=== PATIENT | female | born 1935 | race Caucasian/White ===

== ENCOUNTER 2019-06-06 12:11 | Outpatient (CLI) | payer MEDICARE, SELFPAY ==
--- NOTE | 2019-06-11 00:19 | WPDSIXMINUTE ---
Six Minute Walk Six Minute Walk: DOS: 06/06/2019 REQUESTING: Jovany Gotti DO REASON FOR TESTING: COPD SIX MINUTE WALK This test was conducted per ATS guidelines. The initial saturation was 92% and pulse was 79. The patient stopped for 1 min 15 seconds to rest due to left knee pain. The ending saturation was 93%. Pulse at the end of walking was 95. Distance walked was 400 feet/121.9 meters, less than expected for age. IMPRESSION: No desaturation with exertion. No need for supplemental oxygen with exertion. Belen Rosales MD
== END 2019-06-06 12:12 | disposition home or self-care (01) ==
PROVIDERS: PCP Internal Medicine; Visit Provider Internal Medicine
DX: J44.9 Chronic obstructive pulmonary disease, unspecified (principal)
CPT/HCPCS: 94618

== ENCOUNTER 2019-11-01 11:47 | Outpatient (CLI) | payer MEDICARE, SELFPAY ==
[2019-11-01 12:20] LABS: Basophils Absolute Auto 0.1 K/mm3 (0.0-0.1); Basophils Percent Auto 0.9 % (0.2-1.2); Eosinophils Absolute Auto 1.1 K/mm3 (0-0.3); Eosinophils Percent Auto 14.1 % (0-4.4); Hematocrit 43.8 % (37.0-47.0); Hemoglobin 13.8 g/dL (12.0-15.0); Immature Granulocyte Absolute 0.02 K/mm3 (0.00-0.031); Immature Granulocyte Percent A 0.3 % (0-0.5); Lymphocytes Percent Auto 20.5 % (18.3-44.2); Mean Corpuscular HGB Conc 31.5 g/dl (32-36); Mean Corpuscular Hemoglobin 28.4 pg (26-34); Mean Corpuscular Volume 90.1 fl (80-100); Monocytes Absolute Auto 0.7 K/mm3 (0.1-0.6); Monocytes Percent Auto 8.3 % (2.6-8.5); Neutrophils Absolute Auto 4.4 K/mm3 (1.3-6.7); Neutrophils Percent Auto 55.9 % (45.5-73.1); Platelet Count Result 362 k/mm3 (150-375); Red Blood Count 4.86 M/mm3 (4.2-5.4); Red Cell Distribution Width 14.8 % (11.5-14.5); White Blood Count 7.8 K/mm3 (4.5-10.0)
[2019-11-01 12:31] LABS: Alanine Aminotransferase 14 U/L (4-35); Albumin Level 3.8 g/dL (3.5-5.1); Alkaline Phosphatase 118 U/L (38-126); Aspartate Amino Transferase 24 U/L (14-36); Bilirubin,Total 0.3 mg/dL (0.2-1.3); Blood Urea Nitrogen 13 mg/dL (7-17); Calcium 9.1 mg/dL (8.4-10.2); Carbon Dioxide 33 mmol/L (22-30); Chloride 102 mmol/L (98-107); Estimated Glomerular Filt Rate > 60; Glucose 101 mg/dL (65-105); Potassium 4.2 mmol/L (3.4-5.0); Sodium 140 mmol/L (137-145)
== END 2019-11-01 11:48 | disposition home or self-care (01) ==
LOC: ANHLAB 11:49
PROVIDERS: PCP Internal Medicine; Visit Provider Internal Medicine
DX: R53.1 Weakness (principal); E86.0 Dehydration; R74.8 Abnormal levels of other serum enzymes
CPT/HCPCS: 36415; 80053; 85025

== ENCOUNTER 2020-06-25 01:36 | Inpatient (IN) | payer MEDICARE, SELFPAY ==
[2020-06-25] VITALS (22 sets, daily range): BP systolic 111–144; BP diastolic 55–85; PULSE 76–108; RESP 21–38; TEMP 35.8–36.6; O2SAT 85–100; BMI 25.9
--- NOTE | ~2020-06-25 | CT_ITS ---
EXAMINATION: CTA chest PE protocol DATE: 06/25/2020 05:14 INDICATION: Shortness of breath. TECHNIQUE: Computed tomography angiography (CTA) of the chest was performed with 100 mL Omnipaque-350 intravenous contrast timed to evaluate the pulmonary arteries. Coronal maximum intensity projection 3D-reconstructions were created by the technologist. Automated exposure control and iterative reconst ruction technique were employed. The dose-length product was 451.03 mGy-cm. COMPARISON: CT abdomen and pelvis 01/15/2017 FINDINGS: There is mild emphysema. There is mild atelectasis bilaterally, worst in right lower lobe. No pleural effusion. There is a large sliding hiatal hernia. The heart size is normal. There are garth nary artery calcifications. No pericardial effusion. There is no pulmonary embolus. Partially visuali zed is a 3.1 cm fusiform aneurysm of infrarenal aorta. There is severe thoracic and cervical spondylo sis. IMPRESSION: 1. No pulmonary embolus. Sensitivity is mildly decreased by motion artifact. 2. Mild emphysema. 3. Large sliding hiatal hernia. 4. Partially visualized 3.1 cm fusiform infrarenal aortic aneurysm. Reviewed, dictated and finalized at location A. NK PIT SUPERVISOR
--- NOTE | ~2020-06-25 | CT_ITS ---
EXAMINATION: CT brain wo con DATE: 06/25/2020 02:22 INDICATION: Altered mental status. TECHNIQUE: Computed tomography (CT) of the head was performed without intravenous contrast. The mA wa s adjusted according to patient size. Iterative reconstruction technique was employed. The dose-lengt h product was 681.00 mGy-cm. COMPARISON: Head CT 11/03/2014 FINDINGS: There is no intracranial hemorrhage, acute infarction, or abnormal intracranial mass lesion . There are scattered areas of low attenuation in the cerebral white matter, which is within normal l imits for the patient's age. The ventricles are normal in size. There are likely changes of ocular le ns replacement surgeries. There is mild mucosal thickening in the paranasal sinuses. The mastoid air cells are normal. Partially visualized is a 1.9 x 1.1 cm mass in superficial right right parotid glan d. IMPRESSION: 1. Normal aging brain. 2. 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 The differential diagnosis includes benign mixed tumor and Wa rthin tumor. Reviewed, dictated and finalized at location A. USSION TEACHER IMPRESSION: 1. Normal aging brain. 2. 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 The differential diagnosis includes dot ign mixed tumor and Warthin tumor.
--- NOTE | ~2020-06-25 | XR_ITS ---
EXAMINATION: XR chest 1V DATE: 06/25/2020 02:24 INDICATION: Cough. TECHNIQUE: A single frontal view of the chest was obtained. COMPARISON: Chest 2 views 10/11/2016, chest CT 06/25/2020 FINDINGS: There is mild atelectasis in the lower lung zones. No pleural effusion or pneumothorax. The heart size is normal. There is a large hiatal hernia. IMPRESSION: 1. Mild atelectasis in the lower lung zones. 2. Large hiatal hernia. Reviewed, dictated and finalized at location A. D MARKETING MANAGER
--- NOTE | ~2020-06-25 | XR_ITS ---
EXAMINATION: XR chest 1V portable DATE: 06/27/2020 05:31 INDICATION: Chronic obstructive pulmonary disease. TECHNIQUE: A single frontal view of the chest was obtained. COMPARISON: Chest single view 06/25/2020, chest CT 06/25/2020 FINDINGS: There is mild atelectasis in the lower lung zones. No pleural effusion or pneumothorax. The heart size is normal. There is a large hiatal hernia. IMPRESSION: 1. Mild atelectasis in the lower lung zones. 2. Large hiatal hernia. Reviewed, dictated and finalized at location A. N BARREL FILLER
--- NOTE | 2020-06-25 01:42 | ECG_ITS ---
Measurements Intervals [place] Rate: 104 P: 75 OK: 158 QRS: -18 QRSD: 90 T: 57 QT: 331 QTc: 437 Interpretive Statements SINUS TACHYCARDIA ANTEROSEPTAL INFARCT, AGE INDETERMINATE BASELINE ARTIFACT- I, III, AVR, AVL, V5 ABNORMAL ECG Electronically Signed On 06-25-2020 7:04:19 REGULATOR MECHANIC by Wayne Joiner D.O.
[2020-06-25 01:51] LABS: Glucose Point of Care 192 (65-105)
--- NOTE | 2020-06-25 02:05 | ED.AMS ---
HPI - Altered Mental Status General Chief Complaint: Altered Mental Status Stated Complaint: ams Time Seen by Provider: 06/25/20 01:42 Source: patient Mode of arrival: ambulatory Limitations: no limitations History of Present Illness HPI narrative: Patient is an 85-year-old female brought in by EMS due to altered mental status, confusion and slurred speech, unknown onset. EMS was unable to get any history from the patient, but her neighbor was able to provide some history. Neighbor told EMS that her slurred speech and confusion is something new but the last time she was seen well by her neighbors was a month ago. According to EMS her oxygen saturation when they picked her up was 74% on room air, and states that she does not appear to use home oxygen. Related Data Home Medications Medication Instructions Recorded Confirmed multivitamin 1 tablet PO DAILY 03/08/19 04/26/19 Allergies Allergy/AdvReac Type Severity Reaction Status Date / Time No Known Allergies Allergy Verified 03/13/20 12:33 Review of Systems Review of Systems: All systems reviewed & are unremarkable except as noted in HPI and below ROS unobtainable: Yes unobtainable due to mental status PMFSH Past Medical History Medical History Anxiety Arthritis Bronchitis Cataracts, bilateral Depression GERD (gastroesophageal reflux disease) H/O: HTN (hypertension) History of pneumonia HTN (hypertension) with goal to be determined Hx of hemorrhoids Hx: UTI (urinary tract infection) Stress incontinence Surgical History Surgical History History of appendectomy History of cataract surgery History of hemorrhoidectomy History of hysterectomy Family History Family History Mother Diabetes mellitus Family history of malignant neoplasm Family history of diabetes mellitus in first degree relative Patient's mother is Father Malignant neoplasm of prostate Social History Social History Social History: 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 she has one son who lives in another state. 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 Gender identity (if verbalized by the patient): Female Spiritual care concerns: No Agree to blood products: Yes Exam Const: General: healthy appearing, no acute distress and alert Nutritional Appearance: well nourished Orientation/consciousness: oriented to place Limitations: no limitations Other: Confused HENMT: Head: normal to inspection, normocephalic and atraumatic Ears: hearing grossly normal bilaterally, TM normal on the right and TM normal on the left General nose exam: Normal external nose present, Normal nares present and No nasal discharge present Face and sinus: normal facial exam Mouth: Yes Normal oral and palatal mucosa present, Yes lip normal, Yes tongue normal and Yes oropharynx normal Throat: posterior oropharynx normal, tonsils normal and uvula midline Eyes: General: appearance normal, both eyes and all related structures Pupils: Equal, round and reactive pupils present EOM: EOMs intact bilaterally Neck: Neck: normal visual inspection, full ROM, no lymphadenopathy and no meningeal signs Chest: Chest palpation & inspection: normal inspection of the chest Resp: Effort & Inspection: normal respiratory effort, able to speak in complete sentences, no respiratory distress and not tachypneic Auscultation: clear to auscultation bi
[2020-06-25 02:08] LABS: Alveolar/Arterial O2 Gradient 61.1 mmHg; Base Excess ABG 5.3 mEq/l (+/-2.0); Carboxyhemoglobin 0.4 % THb (0-2.0); Fractional Inspired Oxygen 36 %; HCO3 ABG 33.9 mEq/l (22.0-26.0); Methemoglobin ABG 0.4 %THb (0-1.5); Oxygen Content ABG 19.7 %vol (16.0-22.0); Oxygen Saturation ABG 97.8 % (95.0-100.0); Oxyhemoglobin 96.7 % THb (90.0-100.0); PO2 ABG 116.5 mmHg (80.0-100.0); PO2 FiO2 Ratio Arterial Blood 3.24 %; Reduced Hemoglobin 2.5 %THb (0-5.0); Total Hemoglobin 14.4 g/dL (12.0-18.0); pH ABG 7.314 (7.350-7.450)
[2020-06-25 02:10] LABS: Device NASAL CANNULA; Modified Allen's Test Pass; PCO2 ABG 68.2 mmHg (35.0-45.0); Site Drawn LEFT RADIAL
[2020-06-25 02:17] LABS: Basophils Absolute Auto 0.1 K/mm3 (0.0-0.1); Basophils Percent Auto 0.8 % (0.2-1.2); Eosinophils Absolute Auto 0.4 K/mm3 (0-0.3); Eosinophils Percent Auto 6.7 % (0-4.4); Hematocrit 43.9 % (37.0-47.0); Hemoglobin 13.5 g/dL (12.0-15.0); Immature Granulocyte Absolute 0.02 K/mm3 (0.00-0.031); Immature Granulocyte Percent A 0.3 % (0-0.5); Lymphocytes Absolute Auto 0.67 K/mm3 (0.9-3.2); Lymphocytes Percent Auto 10.4 % (18.3-44.2); Mean Corpuscular HGB Conc 30.8 g/dl (32-36); Mean Corpuscular Hemoglobin 28.8 pg (26-34); Mean Corpuscular Volume 93.6 fl (80-100); Mean Platelet Volume 9.5 fl (7.4-10.4); Monocytes Percent Auto 14.8 % (2.6-8.5); Neutrophils Absolute Auto 4.3 K/mm3 (1.3-6.7); Platelet Count Result 314 k/mm3 (150-375); Red Blood Count 4.69 M/mm3 (4.2-5.4); Red Cell Distribution Width 13.8 % (11.5-14.5); White Blood Count 6.4 K/mm3 (4.5-10.0)
--- NOTE | 2020-06-25 02:22 | PC.NURSE ---
Spoke with [facility]. They state that she has an research program coordinator on mondays and and usually requires minimal assistance. Pt ambulates well with her cane or walker. She was last seen by the aide on tuesday06/23/2020 from 11-1700. Rawhide Bone Roller states there is nothing in her file that indicates she was acting unusually.
[2020-06-25 02:28] LABS: Prothrombin Time 13.7 Seconds (11.1-14.7)
[2020-06-25 02:29] LABS: Partial Thromboplastin Time 25.6 SECONDS (22.3-36.8)
[2020-06-25 02:31] LABS: D Dimer 1.01 ug/mL (<0.48); Lactic Acid Reflex 1.2 mmol/L (0.7-2.1)
[2020-06-25 02:37] LABS: Alanine Aminotransferase 11 U/L (4-35); Albumin Level 3.4 g/dL (3.5-5.1); Alkaline Phosphatase 85 U/L (38-126); Aspartate Amino Transferase 20 U/L (14-36); Bilirubin,Total 0.3 mg/dL (0.2-1.3); Blood Urea Nitrogen 16 mg/dL (7-17); Calcium 8.8 mg/dL (8.4-10.2); Carbon Dioxide > 40 mmol/L (22-30); Chloride 98 mmol/L (98-107); Estimated CRCL calculation 41 ml/min; Estimated Glomerular Filt Rate > 60; Glucose 176 mg/dL (65-105); Potassium 4.4 mmol/L (3.4-5.0); Sodium 140 mmol/L (137-145)
[2020-06-25 02:42] LABS: Troponin I < 0.012 ng/mL (0.000-0.034)
[2020-06-25] MEDS: SODIUM CHLORIDE 0.9% IV 1,000 ML 999 ML IV CONT (03:26)
[2020-06-25 04:06] LABS: Add Urine Microscopic? YES; Appearance Urine Clear (Clear); Bilirubin Urine Negative (Negative); Blood Urine Negative (Negative); Color Urine Yellow (Yellow); Glucose Urine UA Negative (Negative); Ketones Urine Negative (Negative); Leukocyte Esterase Ur Negative LEU/UL (Negative); Mucus Urine Rare /lpf; Nitrate Urine Negative (Negative); Protein Urine 1+ mg/dL (Negative); RBC Urine 0-2 /hpf (0-2); Specific Grav Ur 1.024 (1.001-1.035); Squamous Epithelial Cell Urine Rare /hpf (Few); Urobilinogen Urine Negative mg/dL (<2.0); WBC Urine 0-3 /hpf
[2020-06-25] MEDS: ASPIRIN 325 MG ENTERIC TABLET PO (06:46)
--- NOTE | 2020-06-25 07:48 | PM.IMHP ---
H&P: HPI History of Present Illness Date/Time: 06/25/20 07:48 Chief Complaint: altered mental status and SOB Narrative: Monica Crawley is a 85 year old female with depression and HTN here for altered mental status and hypoxia. Patient states she has been feeling well over the past few days without symptoms. She states that last night, she pushed the Life Alert due to feeling dizzy and 'not right'. She denies CP, headache, SOB. She has no memory after this with the next she remembers is being in the hospital. She has vague memory of being in the ED. She denies anosmia or dysgeusia. No exposure to COVID that she is aware of. She has not had the vaccine. She denies chest pain or palpitations. No shortness of breath. She is unclear if she has had a cough recently. She uses a walker or cane when walking in her house. No recent falls. No history of sleep apnea. No history of seizures or strokes. She does have daytime somnolence but denies headaches in the morning. No odynophagia or dysphagia. No orthopnea or PND. No fever or chills. No recent vision changes or hearing loss. History of myocardial infarction. No recent stress test. She does have chronic diarrhea with 1-3 stools per day for the past 30 years. No melena hematochezia. No abdominal pain or back pain. No dysuria or hematuria. Weight is been stable. She has diet-controlled diabetic. Patient was brought in by EMS for altered mental status and slurred speech. Time of onset was unknown. Oxygen saturation was 74% on room air by EMS. Here patient was tachycardic and tachypneic; she was a 5% on room air. D-dimer was positive. PH was 7.31 with a pCO2 68 and PO2 116 on 4 L. Serum bicarb was greater than 40. CTA was negative for PE but did show mild emphysema. 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 BiPAP started and patient admitted for further care. Review of Systems Review of Systems: All systems reviewed & are unremarkable except as noted in HPI and below PMFSH Past Medical History Medical History (Updated 06/28/20 @ 07:49 by Jarrod Farmer MD) Anxiety Arthritis Cataracts, bilateral Chronic obstructive pulmonary disease, unspecified Depression GERD (gastroesophageal reflux disease) H/O: HTN (hypertension) History of pneumonia Hx of hemorrhoids Hx: UTI (urinary tract infection) Hyperlipidemia Multifocal atrial tachycardia Peripheral arterial disease Stress incontinence Type 2 diabetes mellitus without complication, without long-term current use of insulin not on any medication Vitamin D deficiency Surgical History Surgical History History of appendectomy History of cataract surgery History of hemorrhoidectomy History of hysterectomy Family History Family History Mother Diabetes mellitus Family history of malignant neoplasm Family history of diabetes mellitus in first degree relative Patient's mother is Father Malignant neoplasm of prostate Social History Social History (Updated 06/25/20 @ 13:34 by Jarrod Farmer MD) Social History: x3. 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 No marijuana or cocaine use for 20+ yrs. Lives alone. She has one son and she nominates him to be the individual to make medical decisions for her if she is unable. She is a full code. Smoking packs per day: 1 Smoking cigarettes per day: 20.0 Years smoked: 40 Smoking pack-years: 40.00 Smoking status: Current some day smoker Tobacco type: cigarettes Second hand tobacco smoke exposure: Yes Additional smoking assessment comments: Patient reports she currently only smokes a few cigarettes per month now Alcohol intake: never Substance use: ellie
[2020-06-25 08:30] LABS: Alveolar/Arterial O2 Gradient 100.7 mmHg; Base Excess ABG 2.7 mEq/l (+/-2.0); Carboxyhemoglobin 0.1 % THb (0-2.0); Fractional Inspired Oxygen 35 %; HCO3 ABG 30.8 mEq/l (22.0-26.0); Methemoglobin ABG 0.4 %THb (0-1.5); Oxygen Content ABG 18.4 %vol (16.0-22.0); Oxygen Saturation ABG 93.3 % (95.0-100.0); Oxyhemoglobin 93.5 % THb (90.0-100.0); PO2 ABG 74.9 mmHg (80.0-100.0); PO2 FiO2 Ratio Arterial Blood 2.14 %; pH ABG 7.303 (7.350-7.450)
[2020-06-25 08:31] LABS: Device NON-INVASIVE VENT; Modified Allen's Test Pass; Non-Invasive Expiratory Pressure 6 CMH2O; Non-Invasive Inspiratory Pressure 12 CMH2O; Non-Invasive Vent Rate 20 /MIN; PCO2 ABG 63.6 mmHg (35.0-45.0); Site Drawn RIGHT RADIAL
--- NOTE | 2020-06-25 11:53 | ADMGEN ---
This patient, Monica Crawley, was admitted to IMU Room 211-01 on 06-25-2020 at 0743. Patient/family oriented to hospital policies and general routines including ID bracelet, bed and alarms, visiting hours, pain management, procedures, bathroom and other care routines, personal items, smoking policy, room service/diet, and visiting hours. Information on how to activate the Rapid Response Team has been discussed. Patient/Family are encouraged to report perceived risks to care and to ask questions if they do not understand what they are told or what they should do.
[2020-06-25] MEDS: ALBUTEROL SULFATE (*SP) AEROSOL 1 PUFF 2 PUFF INHALATION ×2 (14:21→23:36)
[2020-06-25] MEDS: DEXAMETHASONE SOD PHOS INJ 4 MG/ML VIAL 6 MG IV PUSH (16:28)
[2020-06-25] MEDS: ENOXAPARIN 40 MG/0.4 ML SYRINGE SUB-Q (16:28)
[2020-06-25 16:30] LABS: Glucose Point of Care 153 (65-105)
[2020-06-25 17:59] LABS: SARS-CoV-2 RNA PCR Negative
[2020-06-25 20:18] LABS: Glucose Point of Care 189 (65-105)
[2020-06-25] MEDS: FAMOTIDINE 20 MG TABLET PO (21:26)
[2020-06-25] MEDS: LOSARTAN POTASSIUM 50 MG TABLET PO (21:26)
[2020-06-25] MEDS: MELATONIN 5 MG TABLET PO (23:36)
[2020-06-26] VITALS (19 sets, daily range): BP systolic 113–131; BP diastolic 48–63; PULSE 63–89; RESP 12–23; TEMP 36.3–36.4; O2SAT 93–100
--- NOTE | 2020-06-26 00:18 | PC.NURSE ---
Patient refuses bipap.
[2020-06-26] MEDS: ALBUTEROL SULFATE (*SP) AEROSOL 1 PUFF 2 PUFF INHALATION (02:30)
--- NOTE | 2020-06-26 04:18 | PCRCNOTE ---
AM ABG WAS NOT DRAWN DUE TO PT REFUSAL TO WEAR BIPAP. RN RAGINI AWARE.
[2020-06-26 05:58] LABS: Hemoglobin A1C 6.2 % (<5.7)
[2020-06-26 06:01] LABS: Blood Urea Nitrogen 14 mg/dL (7-17); Calcium 8.8 mg/dL (8.4-10.2); Carbon Dioxide > 40 mmol/L (22-30); Chloride 102 mmol/L (98-107); Estimated CRCL calculation 49 ml/min; Estimated Glomerular Filt Rate > 60; Glucose 130 mg/dL (65-105); Potassium 4.3 mmol/L (3.4-5.0); Sodium 139 mmol/L (137-145)
[2020-06-26 06:45] LABS: Thyroid Stimulating Hormone Reflex 0.683 uIU/mL (0.465-4.68)
[2020-06-26 07:01] LABS: Folic Acid 16.6 ng/mL (2.76->20)
[2020-06-26 08:25] LABS: Glucose Point of Care 106 (65-105)
[2020-06-26] MEDS: ENOXAPARIN 40 MG/0.4 ML SYRINGE SUB-Q (09:01)
[2020-06-26] MEDS: LOSARTAN POTASSIUM 50 MG TABLET PO ×2 (09:01→20:09)
[2020-06-26] MEDS: FAMOTIDINE 20 MG TABLET PO ×2 (09:01→20:09)
[2020-06-26] MEDS: DEXAMETHASONE SOD PHOS INJ 4 MG/ML VIAL 6 MG IV PUSH (09:01)
[2020-06-26 12:26] LABS: Glucose Point of Care 152 (65-105)
--- NOTE | 2020-06-26 13:01 | PM.IMPN ---
Progress Note: A&P Assessment and Plan (1) Acute respiratory failure: Code(s): J96.00 - Acute respiratory failure, unspecified whether with hypoxia or hypercapnia Status: Acute Assessment and Plan: Patient with hypoxic and hypercarbic respiratory failure. Chest x-ray showing only mild atelectasis. But does show mild emphysema. Etiology unclear but could be related to undiagnosed sleep apnea and/or COPD. Her elevated serum CO2 could be indicative of untreated ANTHONY. No significant cough and normal white count with negative imaging makes pneumonia less likely. COVID negative. Doubt CHF. Patient refused BiPAP last night. Will change to Prednisone burst. Check apnea link tonight. Watch for evidence of dysphagia. Continue inhalers. Wean O2 as tolerated. Repeat CXR in the morning. (2) Person under investigation for COVID-19: Code(s): Z20.822 - Contact with and (suspected) exposure to COVID-19 Status: Acute Assessment and Plan: COVID negative. Stop isolation (3) Altered mental status, unspecified: Qualifiers: Altered mental status type: disorientation Qualified Code(s): R41.0 - Disorientation, unspecified Code(s): R41.82 - Altered mental status, unspecified Status: Acute Assessment and Plan: CT brain showing normal aging brain but no acute findings. 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 Differential listed in report. UA negative. B12, TSH normal. Mental status much better and seems back to normal. She did have some confusion last night so consider ing. Could all be related to the respiratory failure. Start PT/OT. (4) Chronic obstructive pulmonary disease, unspecified: Code(s): J44.9 - Chronic obstructive pulmonary disease, unspecified Status: Acute Assessment and Plan: Patient has long hx of tobacco use. She had a home O2 evaluation last year showing she did not require O2. No PFTs in the chart. Treatment as above. (5) Type 2 diabetes mellitus without complication, without long-term current use of insulin: Code(s): E11.9 - Type 2 diabetes mellitus without complications Status: Acute Assessment and Plan: A1c 6.2. Patient with diet controlled DM. Glucose elevated on admission but felt to be stress response. Continue sliding scale insulin with hypoglycemia protocol. (6) Essential (primary) hypertension: Code(s): I10 - Essential (primary) hypertension Status: Acute Assessment and Plan: Blood pressure reviewed on 06/26. BP well controlled. Continue losartan. Continue to follow. (7) Tobacco abuse: Code(s): Z72.0 - Tobacco use Status: Acute Assessment and Plan: Patient was educated about the benefits of abstaining from tobacco use. (8) DVT prophylaxis: Code(s): Z29.9 - Encounter for prophylactic measures, unspecified Status: Acute Assessment and Plan: Lovenox Subjective Date/time seen: 06/26/20 13:01 Interval history: Date of service 06/26 85yo female with DM and HTN here for respiratory failure. Slept well. Did not wear BiPAP last night. No SOB. No CP. No cough. No fever/chills. Was confused last night per nursing staff Exam Narrative: Exam Narrative: AF 97.3 118/57 73 12 96% Gen - NARD Chest - right base crackles, nml RR CV - RRR. S1-S2. Tele showing no significant dysrhythmias Abd - soft, NT/ND, +BS Ext - no edema Neuro - patient is alert and oriented x4. Psych - normal mood and affect. Patient is pleasant and cooperative. Skin - warm and dry. Objective Data Vital Signs Vital Signs: Vital Signs - 24 hr 06/25/20 14:00 06/25/20 16:00 06/25/20 16:38 Temperature 97.1 F L Pulse Rate 93 82 91 Respiratory Rate 23 H Blood Pressure 127/81 Pulse Oximetry 99 06/25/20 18:00 06/25/20 19:32 06/25/20 20:00 Temperature 97.7 F
[2020-06-26 16:59] LABS: Glucose Point of Care 175 (65-105)
[2020-06-26 20:28] LABS: Glucose Point of Care 202 (65-105)
--- NOTE | 2020-06-26 23:50 | PC.NURSE ---
Patient had apnea link. Walked in patient's room and patient had device off. Patient states you are not allowed to do any studies on me. Explained apnea link to patient and patient still refuses for testing.
[2020-06-27] VITALS (9 sets, daily range): BP systolic 135–139; BP diastolic 58–65; PULSE 57–93; RESP 14–20; TEMP 35.7–37.1; O2SAT 89–99
--- NOTE | 2020-06-27 04:34 | PCRCNOTE ---
patient removed the apnea monitor after 1 hour and stated that no one has permission to do any studies on her per RN
[2020-06-27 04:59] LABS: Hematocrit 38.5 % (37.0-47.0); Hemoglobin 11.9 g/dL (12.0-15.0); Mean Corpuscular HGB Conc 30.9 g/dl (32-36); Mean Corpuscular Hemoglobin 28.7 pg (26-34); Mean Platelet Volume 9.7 fl (7.4-10.4); Platelet Count Result 315 k/mm3 (150-375); Red Blood Count 4.14 M/mm3 (4.2-5.4); Red Cell Distribution Width 13.6 % (11.5-14.5); White Blood Count 6.6 K/mm3 (4.5-10.0)
[2020-06-27 05:22] LABS: Albumin Level 2.9 g/dL (3.5-5.1); Anion Gap -3 mmol/L (8-16); Blood Urea Nitrogen 19 mg/dL (7-17); Calcium 8.5 mg/dL (8.4-10.2); Carbon Dioxide 39 mmol/L (22-30); Chloride 103 mmol/L (98-107); Estimated CRCL calculation 51 ml/min; Estimated Glomerular Filt Rate > 60; Glucose 122 mg/dL (65-105); Magnesium 2.1 mg/dL (1.6-2.3); Phosphorus 2.9 mg/dL (2.5-4.5); Potassium 4.3 mmol/L (3.4-5.0); Sodium 139 mmol/L (137-145)
[2020-06-27 08:10] LABS: Glucose Point of Care 78 (65-105)
[2020-06-27] MEDS: predniSONE 20 MG TABLET 40 MG PO (08:14)
[2020-06-27] MEDS: LOSARTAN POTASSIUM 50 MG TABLET PO ×2 (08:14→21:01)
[2020-06-27] MEDS: FAMOTIDINE 20 MG TABLET PO ×2 (08:14→21:01)
[2020-06-27] MEDS: MULTIVITAMINS THERAPEUTIC TAB (*BKC) 1 TABLET PO (08:14)
--- NOTE | 2020-06-27 11:59 | PM.IMPN ---
Progress Note: A&P Assessment and Plan (1) Acute respiratory failure: Code(s): J96.00 - Acute respiratory failure, unspecified whether with hypoxia or hypercapnia Status: Acute Assessment and Plan: Patient with hypoxic and hypercarbic respiratory failure. CTA showing mild emphysema. Etiology of her respiratory failure unclear but could be related to undiagnosed sleep apnea and/or COPD. Her elevated serum CO2 indicative of a more chronic, compensated condition indicative of untreated ANTHONY. No significant cough and normal white count with negative imaging makes pneumonia less likely. COVID negative. Doubt CHF. Patient refusing BiPAP and Apnea link. CXR today showing mild atelecatsis. Continue Prednisone 40mg daily x 5 days. Continue inhalers. Wean O2 as tolerated. Spoke with son and he states patient has always dot obstinate at times. Explained that difficult to send home without treatment given that she will get worse requiring rehospitalization. He will speak with her. (2) Altered mental status, unspecified: Qualifiers: Altered mental status type: disorientation Qualified Code(s): R41.0 - Disorientation, unspecified Code(s): R41.82 - Altered mental status, unspecified Status: Acute Assessment and Plan: CT brain showing normal aging brain but no acute findings. She does have a chronic mass in right parotid gland noted in 2015 without change. Differential listed in report. UA negative. B12, TSH normal. Mental status much better overall but seems off today. Could be related to CO2 retention. Repeat ABG. Contineu PT/OT (3) Chronic obstructive pulmonary disease, unspecified: Code(s): J44.9 - Chronic obstructive pulmonary disease, unspecified Status: Acute Assessment and Plan: Patient has long hx of tobacco use. She had a home O2 evaluation last year showing she did not require O2. No PFTs in the chart. Treatment as above. Home O2 evaluation. (4) Type 2 diabetes mellitus without complication, without long-term current use of insulin: Code(s): E11.9 - Type 2 diabetes mellitus without complications Status: Acute Assessment and Plan: A1c 6.2. Patient with diet controlled DM. Glucose reviewed on 06/27. Glucose elevated on admission but felt to be stress response. Glucose elevated at times but overall, glucose well controlled. Continue sliding scale insulin with hypoglycemia protocol. (5) Essential (primary) hypertension: Code(s): I10 - Essential (primary) hypertension Status: Acute Assessment and Plan: Blood pressure reviewed on 06/27 BP well controlled. Continue losartan. Continue to follow. (6) Tobacco abuse: Code(s): Z72.0 - Tobacco use Status: Acute Assessment and Plan: Patient was educated about the benefits of abstaining from tobacco use. (7) Person under investigation for COVID-19: Code(s): Z20.822 - Contact with and (suspected) exposure to COVID-19 Status: Acute Assessment and Plan: COVID negative. Stop isolation (8) DVT prophylaxis: Code(s): Z29.9 - Encounter for prophylactic measures, unspecified Status: Acute Assessment and Plan: Lovenox Subjective Date/time seen: 06/27/20 11:59 Interval history: Date of service 06/27 85yo female with DM and HTN here for respiratory failure. Patient slept poorly last night. She refused the Apnea Link. She did have 2 diarrheal stools today that is more severe then her usually loose stools. No abd or back pain. No CP or SOB. No melana or hematochezia. Last colonoscopy was 12-15 yrs ago. Exam Narrative: Exam Narrative: AF 96.2 135/58 74 18 94% Gen - NARD Chest - few expiratory wheezes, nml RR CV - RRR. S1-S2. Tele showing no significant dysrhythmias Abd - soft, NT/ND, +BS Ext - no edema Neuro - patient is alert but oriented x3 (except location) Psych - norm
[2020-06-27 12:43] LABS: Alveolar/Arterial O2 Gradient 50.1 mmHg; Base Excess ABG 8.8 mEq/l (+/-2.0); Fractional Inspired Oxygen 28 %; HCO3 ABG 35.2 mEq/l (22.0-26.0); Oxygen Content ABG 18.6 %vol (16.0-22.0); Oxygen Saturation ABG 96.2 % (95.0-100.0); Oxyhemoglobin 95.8 % THb (90.0-100.0); PCO2 ABG 55.7 mmHg (35.0-45.0); PO2 ABG 83.8 mmHg (80.0-100.0); PO2 FiO2 Ratio Arterial Blood 2.99 %; Total Hemoglobin 13.8 g/dL (12.0-18.0); pH ABG 7.419 (7.350-7.450)
[2020-06-27 12:44] LABS: Device NASAL CANNULA; Modified Allen's Test Pass; Site Drawn RIGHT RADIAL
[2020-06-27 13:11] LABS: Glucose Point of Care 119 (65-105)
--- NOTE | 2020-06-27 14:06 | HOMEO2EVAL ---
Home Oxygen Evaluation RC: Home Oxygen (O2) Evaluation Start: 06/27/20 11:45 Freq: ONCE Status: Active Protocol: RPE Activity Type Activity Date Activity User E-Sign Co-Sign Detail Recorded Client Recorded Date Recorded By Document 06/27/20 13:00 JAH [email or web address] 06/27/20 14:06 [facility] Document 06/27/20 13:05 JAH [email or web address] 06/27/20 14:06 [facility] Document 06/27/20 13:10 [facility] [email or web address] 06/27/20 14:06 [facility] 06/27/20 06/27/20 06/27/20 13:00 13:05 13:10 Home O2 Evaluation Test Phase Resting Exercise Resting Oxygen Delivery Room Air Room Air Room Air Pulse Oximetry (90-100 %) 93 89 L 92 Pulse Rate (60-100 beats/min) 57 L 93 57 L Ambulation Distance (feet) 300 Home Oxygen Evaluation Comments no home o2 needed Treatment Charges O2 Evaluation - Inpatient
--- NOTE | 2020-06-27 14:06 | PCRCNOTE ---
Home O2 eval completed, no home O2 needed at this time.
[2020-06-27 16:59] LABS: Glucose Point of Care 228 (65-105)
--- NOTE | 2020-06-27 17:29 | PC.NURSE ---
transferred patient to [facility] at 1720. Report given to THOMAS retana. transferred via bed with belongings in bed and medications given to THOMAS Retana
--- NOTE | 2020-06-27 17:32 | PC.NURSE ---
This patient, Monica Crawley, was received from IMU on 06/27/20 at 1730. Patient/family oriented to unit policies and routines
--- NOTE | 2020-06-28 07:45 | PM.DS ---
DS: Admitting Diagnosis Admitting Diagnosis Admitting Diagnosis: Altered mental status and SOB DS: Discharge Diagnosis Discharge Diagnosis (1) Acute respiratory failure: Code(s): J96.00 - Acute respiratory failure, unspecified whether with hypoxia or hypercapnia Status: Acute Assessment and Plan: Patient with hypoxic and hypercarbic respiratory failure. ABG on admission 7.68/116 on 4L. CTA showing mild emphysema. Etiology of her respiratory failure unclear but could be related to undiagnosed sleep apnea and/or COPD. Her elevated serum CO2 indicative of a more chronic, compensated condition indicative of untreated ANTHONY. No significant cough and normal white count with negative imaging makes pneumonia less likely. COVID negative. Doubt CHF. Patient had improvement and began to refuse the BiPAP. She ultimately agreed to an Apnea link for 6hr study on room air which showed AHI 2 and RI 2.2. Repeat CXR showing mild atelectasis. Suspect symptoms related to COPD exacerbation. Treated with Prednisone and inhalers. Repeat ABG 7./84 on RA. Plan to continue Prednisone and home with Albuterol. Home with home health as well. (2) Altered mental status, unspecified: Qualifiers: Altered mental status type: disorientation Qualified Code(s): R41.0 - Disorientation, unspecified Code(s): R41.82 - Altered mental status, unspecified Status: Acute Assessment and Plan: CT brain showing normal aging brain but no acute findings. 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 Differential listed in report. UA negative. B12, TSH normal. Could have been related to CO2 retention. Mental status much better overall but seems off at times. Suspect early dementia as well. Ambulating well with her walker. (3) Chronic obstructive pulmonary disease, unspecified: Qualifiers: COPD type: COPD with acute exacerbation Qualified Code(s): J44.1 - Chronic obstructive pulmonary disease with (acute) exacerbation Code(s): J44.9 - Chronic obstructive pulmonary disease, unspecified Status: Acute Assessment and Plan: Patient has long hx of tobacco use. She had a home O2 evaluation last year showing she did not require O2. No PFTs in the chart. Some wheezing on exam and felt that she had a COPD Exacerbation. She was on Dexamethasone initially due to potential COVID infection but then changed to Prednisone. She was on O2 but home O2 evaluation showed she did not need O2 at home. Home with Prednisone and Albuterol inhaler. (4) Type 2 diabetes mellitus without complication, without long-term current use of insulin: Code(s): E11.9 - Type 2 diabetes mellitus without complications Status: Acute Assessment and Plan: A1c 6.2. Patient with diet controlled DM. Glucose elevated on admission but felt to be stress response. Glucose elevated at times but overall, glucose remained well controlled. We monitored with sliding scale insulin. Hypoglycemia protocol available as well. (5) Essential (primary) hypertension: Code(s): I10 - Essential (primary) hypertension Status: Acute Assessment and Plan: Blood pressure was monitored closely and remained well controlled. We continued her losartan. (6) Tobacco abuse: Code(s): Z72.0 - Tobacco use Status: Acute Assessment and Plan: Patient was educated about the benefits of abstaining from tobacco use. (7) Person under investigation for COVID-19: Code(s): Z20.822 - Contact with and (suspected) exposure to COVID-19 Status: Acute Assessment and Plan: Patient tested negative for COVID. DS: Summary Hospital Course Reason for hospitalization: 85yo female with DM, HTN and COPD here for SOB and altered mental status. Hospital Course: Patient brought in by EMS for SOB and altered mental status. She was f
[2020-06-28] MEDS: predniSONE 20 MG TABLET 40 MG PO (08:50)
[2020-06-28] MEDS: LOSARTAN POTASSIUM 50 MG TABLET PO (08:51)
[2020-06-28] MEDS: FAMOTIDINE 20 MG TABLET PO (08:51)
[2020-06-28] MEDS: ENOXAPARIN 40 MG/0.4 ML SYRINGE SUB-Q (08:51)
[2020-06-28] MEDS: ALBUTEROL SULFATE (*SP) AEROSOL 1 PUFF 2 PUFF INHALATION (08:58)
== END 2020-06-28 10:10 | disposition home health service (06) | DRG 190 ==
LOC: ANHED 06:22 → ANHIMU 11:42 → ANH3MED 06-28 08:12 → ANHIMU 07-02 15:05
PROVIDERS: Admitting Provider Family Medicine; Emergency Provider Emergency Medicine; PCP Internal Medicine; Visit Provider Internal Medicine
DX: J44.1 Chronic obstructive pulmonary disease with (acute) exacerbation (principal); J96.01 Acute respiratory failure with hypoxia; J96.02 Acute respiratory failure with hypercapnia; Z20.822 Contact with and (suspected) exposure to COVID-19; R41.0 Disorientation, unspecified; E11.51 Type 2 diabetes mellitus with diabetic peripheral angiopathy without gangrene; I10 Essential (primary) hypertension; F17.210 Nicotine dependence, cigarettes, uncomplicated; F32.9 Major depressive disorder, single episode, unspecified; Z79.899 Other long term (current) drug therapy
CPT/HCPCS: 36415; 36600; 51701; 70450; 71045; 71275; 80048; 80053; 80069; 81001; 82375; 82607; 82746; 82805; 82948; 83036; 83050; 83605; 83735; 84443; 84484; 85025; 85027; 85380; 85610; 85730; 93005; 94002; 94003; 94618; 94640; 94762; 96360; 96361; 97110; 97116; 97161; 97165; 99285; A9270; C9803; J1100; J1650; J7030; J7512; Q9967; U0003; U0005

== ENCOUNTER 2020-07-04 16:02 | Inpatient (IN) | payer MEDICARE, SELFPAY ==
[2020-07-04] VITALS (20 sets, daily range): BP systolic 99–121; BP diastolic 43–68; PULSE 80–94; RESP 18–38; TEMP 36.9–37; O2SAT 89–98; BMI 28.3
--- NOTE | ~2020-07-04 | XR_ITS ---
XR chest 1V portable 07/04/2020 17:05 Indication: Hypoxia Procedure: AP portable chest Comparison: Comparison to multiple prior studies sequentially, with oldest reviewed study dated 12/15. Findings: Borderline heart size. Large hiatal hernia. Bibasilar infiltrates. No significant effusion, edema or pneumothorax. No acute osseous abnormality. Moderate thoracic spondylosis with scoliosis. Impression: 1: Bibasilar infiltrates may represent atelectasis, scarring and/or pneumonia. 2: Large hiatal hernia. Reviewed, dictated and finalized at location A. PASSER Impression: 1: Bibasilar infiltrates may represent atelectasis, scarring and/or pneumonia. 2: Large hiatal hernia.
--- NOTE | ~2020-07-04 | US_ITS ---
EXAMINATION: US carotid duplex BI EXAM DATE: 07/07/2020 09:06 INDICATION: Difficulty with speech 3 weeks ago. TECHNIQUE: Grayscale, color and pulsed Doppler images of the cervical carotid arteries were obtained . The degree of vessel stenosis is placed in one of the following categories: normal, <50% stenosis, 50-69% stenosis, >=70% stenosis but less than near-occlusion, near-occlusion, or occlusion. Note that percent stenosis relative to normal distal artery lumen diameter is indirectly measured from velocit y measurements as described by Zachariah, et al. Radiology 2003; 229:340-346. There is no prior study fo r comparison. FINDINGS: RIGHT SIDE: Right common carotid artery peak systolic velocity (PSV in cm/s): 107 Right bulb/internal carotid artery peak systolic velocity (PSV in cm/s): 59 Right internal carotid artery end diastolic velocity (EDV in cm/s): 12.7 Right ICA/CCA peak systolic ratio: 0.6 Right external carotid artery peak systolic velocity (PSV in cm/s): 183 Right vertebral artery antegrade flow: yes There is no focal plaque identified. LEFT SIDE: Left common carotid artery peak systolic velocity (PSV in cm/s): 74 Left bulb/internal carotid artery peak systolic velocity (PSV in cm/s): 74 Left internal carotid artery end diastolic velocity (EDV in cm/s): 22 Left ICA/CCA peak systolic ratio: 1.0 Left external carotid artery peak systolic velocity (PSV in cm/s): 111 Left vertebral artery antegrade flow: yes There is minimal carotid bulb plaque. Velocity and Doppler waveforms in the common and internal carotid arteries is normal. IMPRESSION: 1. Normal right internal carotid artery. 2. Less than 50 percent stenosis in the left internal carotid artery. Reviewed, dictated and finalized at location A.
--- NOTE | 2020-07-04 16:24 | ECG_ITS ---
Measurements Intervals Velpen Rate: 96 P: 65 ME: 144 QRS: -25 QRSD: 82 T: 61 QT: 347 QTc: 439 Interpretive Statements SINUS RHYTHM ANTEROSEPTAL INFARCT, AGE INDETERMINATE BASELINE ARTIFACT- AVL, AVF ABNORMAL ECG Electronically Signed On 07-04-2020 16:54:45 ORGANIC CHEMISTRY PROFESSOR by Wayne Joiner D.O.
--- NOTE | 2020-07-04 16:27 | ED.GENADULT ---
HPI - General Adult General Chief complaint: Unspecified Stated complaint: Sent by Doctor Office Time Seen by Provider: 07/04/20 16:09 Source: patient Mode of arrival: EMS Limitations: no limitations History of Present Illness HPI narrative: This is an 85 year old female with history of COPD who presents from home for evaluation of a respiratory issue. PAtient states she was told by her primary care physician to come to ER immediately but she is unsure of the reason. One of the ED physician's spoke with Dr. Gotti, her PCP, and he states he was told by home health nurse patient had a respiratory rate of 40. He states that home health has called him multiple times over the past week with concerns so he told them to send her to ER. Patient states she does not understand because she feels well. She denies chest pain, cough, shortness of breath, nausea, vomiting, fever, abdominal pain or weakness. She lives alone, but she states she thinks she is doing fine. She denies any falls since her discharge from hospitalist. EMS found patient to have an oxygen saturation of 89% on on room air and she denies chronic oxygen use. Related Data Home Medications Medication Instructions Recorded Confirmed multivitamin 1 tablet PO MOWEFR 03/08/19 06/25/20 cholecalciferol (vitamin D3) 50 50 mcg PO DAILY 07/02/20 mcg (2,000 unit) capsule loperamide 2 mg capsule See Rx Instructions PO Q6H PRN 07/02/20 propylene glycol 0.6 % eye drops 1 drp EACH EYE DAILY PRN 07/02/20 Allergies Allergy/AdvReac Type Severity Reaction Status Date / Time No Known Allergies Allergy Verified 07/04/20 16:10 Review of Systems Review of Systems: Narrative: CONSTITUTIONAL: Denies fever, chills, or sweats. EYES: Denies visual changes, redness, or discharge. ENT: Denies rhinorrhea, congestion, sore throat, or otalgia. CARDIOVASCULAR: Denies chest pain, palpitations, or edema. RESPIRATORY: Denies cough or dyspnea. GASTROINTESTINAL: Denies abdominal pain, nausea, vomiting, or diarrhea. GENITOURINARY: Denies dysuria or hematuria. SKIN: Denies rash or itching. MUSCULOSKELETAL: Denies back pain, joint pain, or myalgia. NEUROLOGIC: Denies headache, numbness, or weakness. PSYCHIATRIC: Denies anxiety or depression. All systems reviewed & are unremarkable except as noted in HPI and below PMFSH Past Medical History Medical History (Updated 07/04/20 @ 18:54 by Leslie Howard MD) Anxiety Arthritis Cataracts, bilateral Chronic obstructive pulmonary disease, unspecified Depression GERD (gastroesophageal reflux disease) H/O: HTN (hypertension) History of pneumonia Hx of hemorrhoids Hx: UTI (urinary tract infection) Hyperlipidemia Multifocal atrial tachycardia Peripheral arterial disease Stress incontinence Type 2 diabetes mellitus without complication, without long-term current use of insulin not on any medication Vitamin D deficiency Surgical History Surgical History History of appendectomy History of cataract surgery History of hemorrhoidectomy History of hysterectomy Family History Family History Mother Diabetes mellitus Family history of malignant neoplasm Family history of diabetes mellitus in first degree relative Patient's mother is Father Malignant neoplasm of prostate Social History Social History (Updated 06/25/20 @ 13:34 by Jarrod Farmer MD) Social History: x3. 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 No marijuana or cocaine use for 20+ yrs. Lives alone. She has one son and she nominates him to be the individual to make medical decisions for her if she is unable. She is a full code. Smoking packs per day: 1 Smoking cigarettes per day: 20.0 Years smoked: 40 Smoking pack-years: 40.00 Smoking status: Fernando
[2020-07-04 16:36] LABS: Basophils Percent Auto 0.4 % (0.2-1.2); Eosinophils Percent Auto 0.4 % (0-4.4); Hematocrit 45.7 % (37.0-47.0); Hemoglobin 14.8 g/dL (12.0-15.0); Immature Granulocyte Absolute 0.04 K/mm3 (0.00-0.031); Immature Granulocyte Percent A 0.4 % (0-0.5); Lymphocytes Absolute Auto 0.79 K/mm3 (0.9-3.2); Lymphocytes Percent Auto 7.5 % (18.3-44.2); Mean Corpuscular HGB Conc 32.4 g/dl (32-36); Mean Corpuscular Volume 89.6 fl (80-100); Mean Platelet Volume 9.9 fl (7.4-10.4); Monocytes Absolute Auto 1.6 K/mm3 (0.1-0.6); Neutrophils Percent Auto 76.3 % (45.5-73.1); Platelet Count Result 344 k/mm3 (150-375); Red Cell Distribution Width 14.4 % (11.5-14.5); White Blood Count 10.5 K/mm3 (4.5-10.0)
[2020-07-04 16:45] LABS: Prothrombin Time 13.8 Seconds (11.1-14.7)
[2020-07-04 16:46] LABS: Partial Thromboplastin Time 25.4 SECONDS (22.3-36.8)
[2020-07-04 16:58] LABS: Alveolar/Arterial O2 Gradient 61.2 mmHg; Base Excess ABG 5.4 mEq/l (+/-2.0); Carboxyhemoglobin 1.1 % THb (0-2.0); Device NASAL CANNULA; Fractional Inspired Oxygen 28 %; HCO3 ABG 30.9 mEq/l (22.0-26.0); Methemoglobin ABG 0.4 %THb (0-1.5); Modified Allen's Test Pass; Oxygen Content ABG 20.2 %vol (16.0-22.0); Oxygen Saturation ABG 96.1 % (95.0-100.0); Oxyhemoglobin 94.3 % THb (90.0-100.0); PCO2 ABG 48.3 mmHg (35.0-45.0); PO2 ABG 81.4 mmHg (80.0-100.0); PO2 FiO2 Ratio Arterial Blood 2.91 %; Reduced Hemoglobin 4.2 %THb (0-5.0); Site Drawn RIGHT RADIAL; Total Hemoglobin 15.2 g/dL (12.0-18.0); pH ABG 7.424 (7.350-7.450)
[2020-07-04 17:17] LABS: Alanine Aminotransferase 15 U/L (4-35); Albumin Level 3.4 g/dL (3.5-5.1); Alkaline Phosphatase 71 U/L (38-126); Anion Gap 2 mmol/L (8-16); Aspartate Amino Transferase 27 U/L (14-36); Bilirubin,Total 0.5 mg/dL (0.2-1.3); Blood Urea Nitrogen 24 mg/dL (7-17); Calcium 8.7 mg/dL (8.4-10.2); Carbon Dioxide 35 mmol/L (22-30); Chloride 102 mmol/L (98-107); Estimated Glomerular Filt Rate 47; Glucose 119 mg/dL (65-105); Sodium 139 mmol/L (137-145)
[2020-07-04 17:25] LABS: NT Pro B Type Natriuretic Pept 2520 PG/ML (5-100)
[2020-07-04] MEDS: FUROSEMIDE INJ 40 MG/4 ML VIAL IV PUSH (17:52)
[2020-07-04 17:53] LABS: Add Urine Microscopic? YES; Appearance Urine Cloudy (Clear); Bacteria Urine Trace /hpf; Bilirubin Urine Negative (Negative); Blood Urine Negative (Negative); Color Urine Yellow (Yellow); Glucose Urine UA Negative (Negative); Ketones Urine Negative (Negative); Leukocyte Esterase Ur Negative LEU/UL (Negative); Mucus Urine Rare /lpf; Nitrate Urine Negative (Negative); Protein Urine 1+ mg/dL (Negative); RBC Urine 0-2 /hpf (0-2); Specific Grav Ur 1.017 (1.001-1.035); Squamous Epithelial Cell Urine Rare /hpf (Few); Urobilinogen Urine Negative mg/dL (<2.0); WBC Clumps Urine Present /HPF
[2020-07-04] MEDS: ALBUTEROL SULFATE NEB 2.5 MG/0.5 ML INH 5 MG INHALATION ×2 (17:58→20:31)
[2020-07-04] MEDS: IPRATROPIUM BR 0.02% INH SOLN 0.5 MG/2.5 ML VIAL INHALATION ×2 (17:58→20:32)
--- NOTE | 2020-07-04 19:45 | ADMGEN ---
This patient, Monica Crawley, was admitted to Medical Room 347-01. Patient/family oriented to hospital policies and general routines including ID bracelet, bed and alarms, visiting hours, pain management, procedures, bathroom and other care routines, personal items, smoking policy, room service/diet, and visiting hours. Information on how to activate the Rapid Response Team has been discussed. Patient/Family are encouraged to report perceived risks to care and to ask questions if they do not understand what they are told or what they should do.
[2020-07-04] MEDS: predniSONE 20 MG TABLET 60 MG PO (20:08)
[2020-07-05] VITALS (18 sets, daily range): BP systolic 107–138; BP diastolic 56–62; PULSE 73–99; RESP 14–20; TEMP 36.4–36.8; O2SAT 93–100
--- NOTE | 2020-07-05 00:05 | PM.IMHP ---
H&P: HPI History of Present Illness Date/Time: 07/04/20 1379 this is an 85-year-old female patient has a past medical history of COPD. She is not oxygen dependent at home. The patient has home health nurses and they had called her primary care physician several days report that the patient was having some respiratory distress with respiratory rate being in the 40s. Is reported that the home health nurses were told to send the patient to ER. The patient is currently on 1 L per nasal cannula and is not having any respiratory difficulty at this time. She denies any fever or chills, no cough, nausea, vomiting fever or weakness. The patient lives home alone. She denies any falls. The patient was given IV Lasix, neb treatments and prednisone in the emergency room. The patient was just discharged from here on 06/28/2020 and she had a CTA showing some mild emphysema at that time. Patient was having hypercapnia at that time. This most likely has untreated obstructive sleep apnea. She did have a 6 hour study on room air at [facility] which shows an AHI 2 and RI 2.2. The plan was for the patient to continue with prednisone and home albuterol. She was sent home with home health. The patient had a CT of her brain performed at that time she has a chronic mass in her right parotid gland that was noted 20/50 without change. It was suspected that she has early dementia. She did have a home oxygen study that shows that she did not require any oxygen at that time. The patient had tested negative for COVID-19. The patient is being admitted to observation on the date of service of 07/04/2020. Chief Complaint: Respiratory distress Review of Systems Review of Systems: All systems reviewed & are unremarkable except as noted in HPI and below Constitutional: Constitutional: Reports as per HPI and Reports no additional constitutional complaints Eyes: Eyes: Reports as per HPI and Reports no additional eye complaints ENT: Reports system reviewed and no additional complaints, except as documented and Reports Normal hearing present Cardiovascular: Cardiovascular: Reports no additional cardiovascular complaints Respiratory: Respiratory: Reports no additional respiratory complaints and Reports no additional respiratory complaints Gastrointestinal: Gastrointestinal: Reports as per HPI and Reports no additional gastrointestinal complaints Musculoskeletal: Musculoskeletal: Reports no additional musculoskeletal complaints Integumentary/Breasts: Skin/Breast: Reports system reviewed and no additional complaints, except as docu and Reports as per HPI Neurologic: Reports system reviewed and no additional complaints, except as documented, Reports as per HPI and Reports Normal hearing present Psychiatric: Psychiatric: Reports no additional psychiatric complaints and Reports as per HPI Endocrine: Endocrine: Reports no additional endocrine complaints Hematologic/Lymphatic: Hematologic/Lymphatic: Reports no additional hematologic/lymphatic complaints Allergic/Immunologic: Allergic/Immunologic: Reports no additional allergic/immunologic complaints [facility] Past Medical History Medical History Anxiety Arthritis Cataracts, bilateral Chronic obstructive pulmonary disease, unspecified Depression GERD (gastroesophageal reflux disease) H/O: HTN (hypertension) History of pneumonia Hx of hemorrhoids Hx: UTI (urinary tract infection) Hyperlipidemia Multifocal atrial tachycardia Peripheral arterial disease Stress incontinence Type 2 diabetes mellitus without complication, without long-term current use of insulin not on any medication Vitamin D deficiency Surgical History Surgical History History of appendectomy History of cataract surgery History of hemorrhoidectomy History of hysterectomy Family History Family History (Reviewed 07/05/20 @ 00:14 by Katie Garcia
[2020-07-05] MEDS: ALBUTEROL SULFATE NEB 2.5 MG/0.5 ML INH 5 MG INHALATION ×4 (01:55→21:06)
[2020-07-05] MEDS: IPRATROPIUM BR 0.02% INH SOLN 0.5 MG/2.5 ML VIAL INHALATION ×4 (01:55→21:05)
[2020-07-05 06:07] LABS: Basophils Percent Auto 0.1 % (0.2-1.2); Hematocrit 44.1 % (37.0-47.0); Hemoglobin 13.6 g/dL (12.0-15.0); Immature Granulocyte Absolute 0.04 K/mm3 (0.00-0.031); Immature Granulocyte Percent A 0.4 % (0-0.5); Lymphocytes Absolute Auto 0.39 K/mm3 (0.9-3.2); Lymphocytes Percent Auto 4.2 % (18.3-44.2); Mean Corpuscular HGB Conc 30.8 g/dl (32-36); Mean Corpuscular Hemoglobin 27.8 pg (26-34); Mean Corpuscular Volume 90.2 fl (80-100); Mean Platelet Volume 9.3 fl (7.4-10.4); Monocytes Absolute Auto 0.1 K/mm3 (0.1-0.6); Monocytes Percent Auto 1.5 % (2.6-8.5); Neutrophils Absolute Auto 8.6 K/mm3 (1.3-6.7); Neutrophils Percent Auto 93.8 % (45.5-73.1); Platelet Count Result 297 k/mm3 (150-375); Red Blood Count 4.89 M/mm3 (4.2-5.4); Red Cell Distribution Width 14.3 % (11.5-14.5); White Blood Count 9.2 K/mm3 (4.5-10.0)
[2020-07-05 06:23] LABS: Magnesium 2.1 mg/dL (1.6-2.3)
[2020-07-05] MEDS: predniSONE 20 MG TABLET 60 MG PO (09:06)
[2020-07-05] MEDS: LOSARTAN POTASSIUM 50 MG TABLET PO ×2 (09:07→16:29)
--- NOTE | 2020-07-05 15:54 | PM.IMPN ---
Progress Note: A&P Assessment and Plan (1) COPD exacerbation: Code(s): J44.1 - Chronic obstructive pulmonary disease with (acute) exacerbation Status: Acute Assessment and Plan: she reports no symptoms when presented, states sent per home hleath nurse. no symptos of exaceration. however noted to have tachypnea on chart. treated as copd exacerbation. not on home oxygen. was apparently low oxygen 89% at home. will continu eoxygen supplementation. continue prednisone. request home oxyen elauatin. may need home health. currently not wheezing or in distress. (2) Hypoxia: Code(s): R09.02 - Hypoxemia Status: Acute Assessment and Plan: She currently is only on 1 L nasal cannula of oxygen, continue oxgyen as required to keep SpO2 > 90% (3) Acute respiratory failure: Code(s): J96.00 - Acute respiratory failure, unspecified whether with hypoxia or hypercapnia Status: Acute Assessment and Plan: home oxygen evaluation (4) Hyperlipidemia: Code(s): E78.5 - Hyperlipidemia, unspecified Status: Acute Assessment and Plan: Continue home medications. (5) HTN (hypertension) with goal to be determined: Code(s): I10 - Essential (primary) hypertension Status: Chronic Assessment and Plan: Continue with losartan Subjective Date/time seen: 07/05/20 15:54 Interval history: no overnight events, feels well. no sob,wheezing,chest pain. no increased cough. no abdominla pain ,nausea, vmoiting. home health nurse sent her to the hospital she states. Review of Systems Review of Systems: All systems reviewed & are unremarkable except as noted in HPI and below Constitutional: Constitutional: Reports as per HPI and Reports no additional constitutional complaints Eyes: Eyes: Reports as per HPI and Reports no additional eye complaints ENT: Reports system reviewed and no additional complaints, except as documented and Reports Normal hearing present Cardiovascular: Cardiovascular: Reports no additional cardiovascular complaints Respiratory: Respiratory: Reports no additional respiratory complaints and Reports no additional respiratory complaints Gastrointestinal: Gastrointestinal: Reports as per HPI and Reports no additional gastrointestinal complaints Musculoskeletal: Musculoskeletal: Reports no additional musculoskeletal complaints Integumentary/Breasts: Skin/Breast: Reports system reviewed and no additional complaints, except as docu and Reports as per HPI Neurologic: Reports system reviewed and no additional complaints, except as documented, Reports as per HPI and Reports Normal hearing present Psychiatric: Psychiatric: Reports no additional psychiatric complaints and Reports as per HPI Endocrine: Endocrine: Reports no additional endocrine complaints Hematologic/Lymphatic: Hematologic/Lymphatic: Reports no additional hematologic/lymphatic complaints Allergic/Immunologic: Allergic/Immunologic: Reports no additional allergic/immunologic complaints Exam Const: General: cooperative, comfortable, no acute distress, well developed, alert, awake and Physically active Nutritional Appearance: average body habitus Orientation/consciousness: oriented to person and oriented to place Limitations: no limitations HENMT: Head: normal to inspection, No palpable skull fracture present, normocephalic and atraumatic Ears: hearing grossly normal bilaterally and external ears normal General nose exam: Normal external nose present, Normal nares present and No nasal polyps present Eyes: General: appearance normal, both eyes and all related structures Alignment and Position: alignment normal Periorbital: periorbital findings normal Eyelids: eyelids normal Conjunctivae: conjunctivae normal Sclera: sclerae normal Cornea: corneas normal Pupils: Equal, round and reactive pupils present EOM: EOMs intact bilaterally Neck: Neck: normal visual inspection, full ROM, no lymph
[2020-07-05] MEDS: CALCIUM CARBONATE (TUMS) 500 MG (200 MG ELEMENTAL) PO (22:56)
[2020-07-05] MEDS: MELATONIN 3 MG TABLET PO (22:56)
[2020-07-06] VITALS (20 sets, daily range): BP systolic 104–125; BP diastolic 53–57; PULSE 68–101; RESP 14–18; TEMP 36.4–36.8; O2SAT 84–97
[2020-07-06] MEDS: IPRATROPIUM BR 0.02% INH SOLN 0.5 MG/2.5 ML VIAL INHALATION ×4 (03:16→20:11)
[2020-07-06] MEDS: ALBUTEROL SULFATE NEB 2.5 MG/0.5 ML INH 5 MG INHALATION ×4 (03:17→20:11)
--- NOTE | 2020-07-06 03:22 | PC.NURSE ---
Daylight Savings Time For Daylight Savings Time Ending in the Fall - Clocks are moved back. For Daylight Savings Time Beginning in the Spring - Clocks are moved ahead. For [facility], the time of change occurs at 0200 hrs. Time is taken from the server assistant. This entry on the patient's chart recognizes the change in time reflected during documentation. Example: 2 entries for vital signs may be charted for 0200 hrs.
[2020-07-06 06:09] LABS: Potassium 3.2 mmol/L (3.4-5.0)
[2020-07-06 06:40] LABS: Alanine Aminotransferase 12 U/L (4-35); Albumin Level 2.8 g/dL (3.5-5.1); Alkaline Phosphatase 78 U/L (38-126); Aspartate Amino Transferase 16 U/L (14-36); Bilirubin,Total 0.2 mg/dL (0.2-1.3); Blood Urea Nitrogen 28 mg/dL (7-17); Calcium 8.9 mg/dL (8.4-10.2); Carbon Dioxide > 40 mmol/L (22-30); Chloride 96 mmol/L (98-107); Estimated Glomerular Filt Rate > 60; Glucose 130 mg/dL (65-105); Sodium 135 mmol/L (137-145)
[2020-07-06] MEDS: predniSONE 20 MG TABLET 60 MG PO (09:21)
[2020-07-06] MEDS: LOSARTAN POTASSIUM 50 MG TABLET PO ×2 (09:21→16:21)
--- NOTE | 2020-07-06 16:34 | PM.IMPN ---
Progress Note: A&P Assessment and Plan (1) COPD exacerbation: Code(s): J44.1 - Chronic obstructive pulmonary disease with (acute) exacerbation Status: Acute Assessment and Plan: On oral steroids Added Levaquin Breathing treatments Supportive care Continue to monitor (2) Tobacco abuse: Code(s): Z72.0 - Tobacco use Status: Acute Assessment and Plan: Nicotine patch as needed (3) Acute respiratory failure: Code(s): J96.00 - Acute respiratory failure, unspecified whether with hypoxia or hypercapnia Status: Acute Assessment and Plan: On 1 L of Oxygen by MA Home O2 eval (4) Type 2 diabetes mellitus without complication, without long-term current use of insulin: Code(s): E11.9 - Type 2 diabetes mellitus without complications Status: Acute Assessment and Plan: Continue to monitor Accu checks ACHS (5) Acute and chronic respiratory failure with hypercapnia: Code(s): J96.22 - Acute and chronic respiratory failure with hypercapnia Status: Acute Assessment and Plan: Improved Continue to monitor (6) Generalized weakness: Code(s): R53.1 - Weakness Status: Acute Assessment and Plan: Participaing with PT/OT in therapy sessions. Subjective Date/time seen: 07/06/20 16:34 States that she feels well. Review of Systems Review of Systems: Narrative: No new issues overnight. Constitutional: Comments: no fevers, no rigors, no chills. Cardiovascular: Comments: no pnd, no orthopnea, no leg swelling Respiratory: Comments: sob, no cough or sputum production. Gastrointestinal: Comments: o n/v/abdominal pain. Genitourinary: Comments: no pain or burning with urination. Musculoskeletal: Comments: no joint pain. Integumentary/Breasts: Comments: no rashes. Neurologic: Comments: no sensory motor deficit Exam Narrative: Exam Narrative: Lying in bed. Const: General: comfortable, no acute distress, alert, awake and Physically active Nutritional Appearance: well nourished and thin Orientation/consciousness: patient oriented x3 HENMT: Head: normal to inspection and normocephalic Ears: hearing grossly normal bilaterally General nose exam: Normal external nose present Face and sinus: normal facial exam Eyes: General: appearance normal, both eyes and all related structures Pupils: Equal, round and reactive pupils present EOM: EOMs intact bilaterally Neck: Neck: no lymphadenopathy, supple and no JVD Resp: Effort & Inspection: normal respiratory effort and able to speak in complete sentences Auscultation: clear to auscultation bilaterally Cardio: Jugular venous distension: no JVD Rate: regular rate Rhythm: regular rhythm GI: Inspection: normal to inspection GI Palp: Yes Soft to palpation and Yes No hepatosplenomegaly present Skin: Rashes: no rashes Neuro: General: patient oriented x3 and CN's II-XI intact bilaterally Cranial nerves: Yes CN's II-XII intact bilaterally, Yes Equal, round and reactive pupils present and Yes Bilaterally intact EOM present Cognition (Neuro): normal cognition Speech: normal speech Motor exam (neuro): 5/5 motor strength present throughout Extrem: General: no pedal edema Objective Data Vital Signs Vital Signs: Vital Signs - 24 hr 07/05/20 16:00 07/05/20 17:06 07/05/20 18:12 Temperature Pulse Rate 99 Respiratory Rate Blood Pressure Pulse Oximetry 93 94 07/05/20 20:00 07/05/20 20:17 07/05/20 21:29 Temperature 98.2 F Pulse Rate 78 84 81 Respiratory Rate 14 20 Blood Pressure 107/56 L Pulse Oximetry 95 93 07/05/20 21:30 07/06/20 00:00 07/06/20 03:21 Temperature Pulse Rate 88 84 72 Respiratory Rate 20 16 Blood Pressure Pulse Oximetry 84 L 07/06/20 03:33 07/06/20 03:55 07/06/20 04:00 Temperature Pulse Rate 68 79 Respiratory Rate 18 Blood Pressure Pulse Oximetry 94 07/06/20 05:57 07/06/20 07:30 07/06/20 07:37
[2020-07-06] MEDS: POTASSIUM CHLORIDE 20 MEQ TABLET 40 MEQ PO (19:07)
--- NOTE | 2020-07-06 21:00 | PM.CNPUL ---
Assessment and Plan Assessment and plan (1) COPD exacerbation: Code(s): J44.1 - Chronic obstructive pulmonary disease with (acute) exacerbation Status: Acute Assessment and Plan: She is re-admitted Mar 12, was observation, now converted to full admission as she was not stable soon enough to be able to go home. She was here Mar 3-6 with hypercapnic hypoxemic respiratory failure, and may be smoking - she staunchly denies it. She was not using any controller therapy for COPD, and needs COPD baseline treatment to improve her function. She is short of breath with activity, does not provide much additional history to help gauge baseline symptoms. Some of the fuzziness may be memory loss and her trying to cover it. She is fiercely independent, and plans to stay in her home as quickly and for as long as possible. I agree with steroids, and will add Symbicort and Spiriva now, teach her how to use it, and use these at home. She has an albuterol inhaler, has no idea how to use it at home. She is on nebulized ipratropium, stopped with initiation of Spiriva. Will need PFTs in 6 -8 weeks closer to baseline, Home O2 evaluation before discharge, and Apnea[facility] to determine if she needs O2 at night after discharge. She is not interested in any PAP therapy.Her ABG last admission showed that she was a candidate for NPPV with a pCO2 56 after improving on treatment. This admission, pH 7.48/48/82 /38 on 2 L/min, now on room air. (2) Acute and chronic respiratory failure with hypercapnia: Code(s): J96.22 - Acute and chronic respiratory failure with hypercapnia Status: Acute Assessment and Plan: Required O2 at this admission, now weaned off. Re-test prior to discharge. (3) Nicotine dependence, unspecified, uncomplicated: Code(s): F17.200 - Nicotine dependence, unspecified, uncomplicated Status: Acute Assessment and Plan: She says she has not smoked for 2 years, and maybe in her mind she is not smoking. Likely has some dementia. Would help if she stays off tobacco. (4) Transient speech disturbance: Code(s): R47.9 - Unspecified speech disturbances Status: Acute Assessment and Plan: She reports 2-3 days of difficulty picking words which occured 3 weeks ago. Will check carotid dopplers. She had an echo in April. I will defer to Dr Gutierrez. 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 She was admitted Jun 25- with a COPD exacerbation, had hypercapnia and hypoxemia last admission, did not tolerate BiPAP well, was weaned off O2 and discharged. This was the first episode of COPD that she has had. She was in a big medrano to get home, much like she was when I met her this visit. She went home on prednisone 40 mg x 3 days and an albuterol inhaler which she could not figure out how to use. She is on no COPD medications at home, says that she was never really told that she had this. This admission, her chart indicates that she had an increase in her respiratory rate with distress, and that the area director of home health sales called the home health company, and they called for help. She says that she decided on her own to call an ambulance for herself which she did on July 04, and was re-admitted. CXR shows bilateral infiltrates, Today July 06, she feels well enough to leave, wants out of here as soon as possible and wants O2 set up. About 3 weeks a
[2020-07-07] VITALS (19 sets, daily range): BP systolic 124–148; BP diastolic 60–63; PULSE 72–115; RESP 16–20; TEMP 36.6–37.1; O2SAT 89–96
[2020-07-07] MEDS: IPRATROPIUM BR 0.02% INH SOLN 0.5 MG/2.5 ML VIAL INHALATION (02:39)
[2020-07-07] MEDS: ALBUTEROL SULFATE NEB 2.5 MG/0.5 ML INH 5 MG INHALATION ×4 (02:40→20:05)
[2020-07-07] MEDS: LOPERAMIDE HCL 2 MG CAPSULE PO (04:08)
[2020-07-07] MEDS: LOSARTAN POTASSIUM 50 MG TABLET PO ×2 (09:34→18:21)
[2020-07-07] MEDS: MULTIVITAMINS THERAPEUTIC TAB (*BKC) 1 TABLET PO (09:34)
[2020-07-07] MEDS: predniSONE 20 MG TABLET 60 MG PO (09:35)
--- NOTE | 2020-07-07 10:50 | HOMEO2EVAL ---
Home Oxygen Evaluation RC: Home Oxygen (O2) Evaluation Start: 07/05/20 00:12 Freq: ONCE Status: Active Protocol: RPE Activity Type Activity Date Activity User E-Sign Co-Sign Detail Recorded Client Recorded Date Recorded By Document 07/07/20 09:40 KRM [id number] 07/07/20 10:50 KRM Document 07/07/20 09:42 KRM [email or web address] 07/07/20 10:50 KRM Document 07/07/20 09:44 KRM [email or web address] 07/07/20 10:50 KRM 07/07/20 07/07/20 07/07/20 09:40 09:42 09:44 Home O2 Evaluation Test Phase Resting Exercise Exercise Oxygen Delivery Room Air Room Air Room Air Pulse Oximetry (90-100 %) 91 90 89 L Pulse Rate (60-100 beats/min) 114 H 115 H 113 H Activity Tolerance Poor Poor Ambulation Distance (feet) 25 Treatment Charges O2 Evaluation - Inpatient
--- NOTE | 2020-07-07 10:50 | PCRCNOTE ---
HOME O2 EVALUATION COMPLETE. PT. DID NOT QUALIFY OF HOME O2.
--- NOTE | 2020-07-07 11:01 | PM.PNPUL ---
Progress Note: A&P Assessment and Plan (1) COPD exacerbation: Code(s): J44.1 - Chronic obstructive pulmonary disease with (acute) exacerbation Status: Acute Assessment and Plan: She is re-admitted Jul 04, was observation, now converted to full admission as she was not stable soon enough to be able to go home. She was here Mar 3-6 with hypercapnic hypoxemic respiratory failure, and may be smoking - she staunchly denies it. She was not using any controller therapy for COPD, and needs COPD baseline treatment to improve her function. She is short of breath with activity, does not provide much additional history to help gauge baseline symptoms. Some of the fuzziness may be memory loss and her trying to cover it. She is fiercely independent, and plans to stay in her home as quickly and for as long as possible. I agree with steroids, and will add Symbicort and Spiriva now, teach her how to use it, and use these at home. She has an albuterol inhaler, has no idea how to use it at home. She is on nebulized ipratropium, stopped with initiation of Spiriva. Will need PFTs in 6 -8 weeks closer to baseline, Home O2 evaluation before discharge, and [facility]nea[facility] to determine if she needs O2 at night after discharge. She is not interested in any PAP therapy.Her ABG last admission showed that she was a candidate for NPPV with a pCO2 56 after improving on treatment. This admission, pH 7.48/48/82 /38 on 2 L/min, now on room air. 07/07 Continue prednisone 50 Q day, symbicort 160/4.5 2 puffs BID, spireva 1 puff Q day. Levaquin 750 IV for now. Hypoxia has resolved. Must stop smoking. DC home tomorrow if stable. (2) Hypoxia: Code(s): R09.02 - Hypoxemia Status: Acute Assessment and Plan: 07/07 resolved, RA sats now 95%. Will do overnight apnea link on RA rtonight and O2 assessment in morning. 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 She was admitted Jun 25- with a COPD exacerbation, had hypercapnia and hypoxemia last admission, did not tolerate BiPAP well, was weaned off O2 and discharged. This was the first episode of COPD that she has had. She was in a big medrano to get home, much like she was when I met her this visit. She went home on prednisone 40 mg x 3 days and an albuterol inhaler which she could not figure out how to use. She is on no COPD medications at home, says that she was never really told that she had this. This admission, her chart indicates that she had an increase in her respiratory rate with distress, and that the mobile home park manager called the home health company, and they called for help. She says that she decided on her own to call an ambulance for herself which she did on July 04, and was re-admitted. CXR shows bilateral infiltrates, Today July 06, she feels well enough to leave, wants out of here as soon as possible and wants O2 set up. About 3 weeks ago she had difficulty selecting words which lasted 2-3 days without other symptoms, no weakness, no change in walking, no visual changes, no difficulty swallowing. She did not say anything about it to anyone until now. She has never had stroke like symptoms before. She has shortness of breath with activities, denies having a chronic cough or sputum production, denies problems with sleep as far as snoring, dry mouth, waking nonfreshed. She is not interested in treatment with PAP therapy. She is adamant that she has not smoked for 2 years. Chart states that she uses a few cigarettes here and there. Her ABG shows low levels of carboxyhemoglobin, in the normal range. She wants to have O2 at home for use if she feels she needs it. Explained that is not how we prescribe it, and she can have a home O2 evaluation in the am. She had an [facility]nea[facility] last admission June 28, was <88% for 25
--- NOTE | 2020-07-07 16:17 | PM.IMPN ---
Progress Note: A&P Assessment and Plan (1) Acute and chronic respiratory failure with hypercapnia: Code(s): J96.22 - Acute and chronic respiratory failure with hypercapnia Status: Acute Assessment and Plan: Improved On breathing treatment On Levaquin Apparently still smokes Appreciate Pulmonology note Home O2 eval did not qualify (2) COPD exacerbation: Code(s): J44.1 - Chronic obstructive pulmonary disease with (acute) exacerbation Status: Acute Assessment and Plan: Improved greatly Will start maintenance as per Pulmonology (3) Chronic obstructive pulmonary disease, unspecified: Qualifiers: COPD type: COPD with acute exacerbation Qualified Code(s): J44.1 - Chronic obstructive pulmonary disease with (acute) exacerbation Code(s): J44.9 - Chronic obstructive pulmonary disease, unspecified Status: Acute Assessment and Plan: Needs to quit smoking. (4) Transient speech disturbance: Code(s): R47.9 - Unspecified speech disturbances Status: Acute Assessment and Plan: Resolved Non yielding work up for stroke (5) Tobacco abuse: Code(s): Z72.0 - Tobacco use Status: Acute Assessment and Plan: Needs to quit. (6) Generalized weakness: Code(s): R53.1 - Weakness Status: Acute Assessment and Plan: PT/OT Use walker (7) Essential (primary) hypertension: Code(s): I10 - Essential (primary) hypertension Status: Acute Assessment and Plan: Continue home meds. Subjective Date/time seen: 07/07/20 16:17 Patient states that she feels fine. Review of Systems Review of Systems: Narrative: no issues Constitutional: Comments: no fevers, no rigors, no chills. Cardiovascular: Comments: no chest pain, no sob, no leg swelling. Respiratory: Comments: no sob, n o cough, no sputum production. Gastrointestinal: Comments: no n/v/abdominal pain. Musculoskeletal: Comments: no muscle pain, no joint pain. Integumentary/Breasts: Comments: no rashes Neurologic: Comments: no sensory motor deficit Exam Narrative: Exam Narrative: Lying in bed Const: General: comfortable, no acute distress, alert, awake and Physically active Nutritional Appearance: well nourished Orientation/consciousness: patient oriented x3 HENMT: Head: normal to inspection and normocephalic Ears: hearing grossly normal bilaterally General nose exam: Normal external nose present Eyes: General: appearance normal, both eyes and all related structures Pupils: Equal, round and reactive pupils present Neck: Neck: no lymphadenopathy, supple and no JVD Resp: Effort & Inspection: normal respiratory effort and able to speak in complete sentences Auscultation: clear to auscultation bilaterally Cardio: Jugular venous distension: no JVD Rate: regular rate Rhythm: regular rhythm GI: GI Palp: Yes Soft to palpation and Yes No hepatosplenomegaly present Skin: Rashes: no rashes Neuro: General: patient oriented x3 and CN's II-XI intact bilaterally Cranial nerves: Yes CN's II-XII intact bilaterally and Yes Equal, round and reactive pupils present Cognition (Neuro): normal cognition Speech: normal speech Gait exam (Neuro): Normal gait present and Other gait observations present (uses walker.) Motor exam (neuro): 5/5 motor strength present throughout Extrem: General: no pedal edema Objective Data Vital Signs Vital Signs: Vital Signs - 24 hr 07/06/20 20:00 07/06/20 20:11 07/06/20 20:20 Temperature Pulse Rate 96 87 89 Respiratory Rate 18 18 Blood Pressure Pulse Oximetry 91 07/06/20 20:37 07/07/20 00:00 07/07/20 02:40 Temperature 97.8 F Pulse Rate 101 H 81 84 Respiratory Rate 18 18 Blood Pressure 125/57 L Pulse Oximetry 95 07/07/20 02:48 07/07/20 04:00 07/07/20 05:27 Temperature 98 F Pulse Rate 85 74 72 Respiratory Rate 18 18 Blood Pressure 124/61 Pulse Oximetry 96 07/07/20 0
[2020-07-08] VITALS (9 sets, daily range): BP systolic 137–155; BP diastolic 62–67; PULSE 67–105; RESP 20; TEMP 36.4–37; O2SAT 92
[2020-07-08] MEDS: ALBUTEROL SULFATE NEB 2.5 MG/0.5 ML INH 5 MG INHALATION (07:29)
[2020-07-08] MEDS: CHOLECALCIFEROL 1,000 UNITS TABLET 2000 UNITS PO (08:56)
[2020-07-08] MEDS: LOSARTAN POTASSIUM 50 MG TABLET PO (08:57)
[2020-07-08] MEDS: LOPERAMIDE HCL 2 MG CAPSULE PO (08:57)
[2020-07-08] MEDS: predniSONE 20 MG TABLET 60 MG PO (08:57)
--- NOTE | 2020-07-08 09:27 | PM.PNPUL ---
Progress Note: A&P Assessment and Plan (1) COPD exacerbation: Code(s): J44.1 - Chronic obstructive pulmonary disease with (acute) exacerbation Status: Acute Assessment and Plan: She is re-admitted Jun 12, was observation, now converted to full admission as she was not stable soon enough to be able to go home. She was here Mar 3-6 with hypercapnic hypoxemic respiratory failure, and may be smoking - she staunchly denies it. She was not using any controller therapy for COPD, and needs COPD baseline treatment to improve her function. She is short of breath with activity, does not provide much additional history to help gauge baseline symptoms. Some of the fuzziness may be memory loss and her trying to cover it. She is fiercely independent, and plans to stay in her home as quickly and for as long as possible. I agree with steroids, and will add Symbicort and Spiriva now, teach her how to use it, and use these at home. She has an albuterol inhaler, has no idea how to use it at home. She is on nebulized ipratropium, stopped with initiation of Spiriva. Will need PFTs in 6 -8 weeks closer to baseline, Home O2 evaluation before discharge, and [facility] to determine if she needs O2 at night after discharge. She is not interested in any PAP therapy. Her ABG last admission showed that she was a candidate for NPPV with a pCO2 56 after improving on treatment. This admission, pH 7.48/48/82 /38 on 2 L/min, now on room air. 07/07 Continue prednisone 50 Q day, symbicort 160/4.5 2 puffs BID, spireva 1 puff Q day. Levaquin 750 IV for now. Hypoxia has resolved. Must stop smoking. DC home tomorrow if stable. 07/08 Patient at baseline and ready for discharge from pulmonary perspective. Patient had home O2 a test assessment with rest room air saturations of 91. With ambulation is a on room air patient saturation 89%. She does not qualify for home oxygen during the day at rest or with ambulation. Patient had an overnight apnea link with oximetry and her average saturation was 90 her lowest saturation was 86%. Time with saturation less than or equal to 88% was 33 minutes or 8% of the monitored time. Patient had an AHI on this study of 2.5. Patient does qualify for home oxygen at night and should receive 1 L per NC at night. Discharge on: Levaquin 750 mg PO through 07/12 (for total 7 days) Prednisone 50 mg PO through 07/09 (for total 5 days) Symbicort 160/4.5 at 2 puffs BID spireva 18 mcg at 1 puff Q day Rescue albuterol at 2 puffs Q 4 PRN SOB Oxygen at 1 L at night per NC. Follow up in pulmonary clinic in 3-4 weeks, I gave her our business card and informed our breakfast cook. Discussed with Dr. Gutierrez. (2) Hypoxia: Code(s): R09.02 - Hypoxemia Status: Acute Assessment and Plan: 07/07 resolved, RA sats now 95%. Will do overnight apnea link on RA rtonight and O2 assessment in morning. See above. No oxygen needed during rest or with ambulation. 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 She was admitted Jun 25-6 with a COPD exacerbation, had hypercapnia and hypoxemia last admission, did not tolerate BiPAP well, was weaned off O2 and discharged. This was the first episode of COPD that she has had. She was in a big medrano to get home, much like she was when I met her this visit. She went home on prednisone 40 mg x 3 days and an albuterol inhaler which she could not figure out how to use. She is on no COPD medications at home, says that she was never really told that she had this. This admission, her chart indicates that she had an increase in her respiratory rate with distress, and that the clinical manager home care called the home health company, and they called for help. She says that she decided on her own to call an ambulance for her
--- NOTE | 2020-07-08 12:17 | PM.DS ---
DS: Admitting Diagnosis Admitting Diagnosis Admitting Diagnosis: (1) COPD exacerbation: (2) Hypoxia: (3) Acute respiratory failure: . (4) Hyperlipidemia: (5) HTN (hypertension) with goal to be determined: DS: Discharge Diagnosis Discharge Diagnosis (1) COPD exacerbation: Code(s): J44.1 - Chronic obstructive pulmonary disease with (acute) exacerbation Status: Acute Assessment and Plan: RESOLVED patient to complete course of levofloxacin patient to go on oral taper of prednisone (2) Hypoxia: Code(s): R09.02 - Hypoxemia Status: Acute Assessment and Plan: resolved did not qualify for home O2 (3) Tobacco abuse: Code(s): Z72.0 - Tobacco use Status: Acute Assessment and Plan: patient denies using any tobacco (4) Acute respiratory failure: Code(s): J96.00 - Acute respiratory failure, unspecified whether with hypoxia or hypercapnia Status: Acute Assessment and Plan: resolved (5) Type 2 diabetes mellitus without complication, without long-term current use of insulin: Code(s): E11.9 - Type 2 diabetes mellitus without complications Status: Acute Assessment and Plan: diet controlled DS: Summary Hospital Course Reason for hospitalization: shortness of breath Hospital Course: She is re-admitted Jun 12, for shortness of breath with activity. She was in the hospital on Jun 3-6 with hypercapnic hypoxemic respiratory failure, and may be smoking - she . She was not using any maintenance therapy for COPD at home . She is short of breath with activity. She is independent, and wants to stay in her home. Patient had Symbicort and Spiriva started, for use use at home. She is on nebulized ipratropium, stopped with initiation of Spiriva. Will have PFTs in 6 -8 weeks closer to baseline, Home O2 evaluation was done before discharge, and Apnea[facility] to determine if she needs O2 at night after discharge. She was not interested in any PAP therapy.Her ABG last admission showed that she was a candidate for NPPV with a pCO2 56 after improving on treatment. This admission, pH 7.48/48/82 on 2 L/min, now on room air. patient participated on PT OT and did well. patient did not qualify for supplemental home O2 apnea link was done overnight will follow-up in the outpatient setting 1 consult was obtained with pulmonology. there were some changes to her home medications. patient was discharged home on a prednisone tapering course will follow-up in the outpatient setting with pulmonology. no procedures were done. Status at Discharge Cognitive/behavioral status at discharge: AOX3 Functional status at discharge: independent ambulation Time Spent with Patient Time attestation: Total time spent providing and/or coordinating discharge services: Time spent: Greater than 30 minutes Exam Const: General: comfortable, no acute distress, well developed, alert and awake Nutritional Appearance: average body habitus Orientation/consciousness: patient oriented x3 HENMT: Head: normal to inspection, normocephalic and atraumatic Ears: hearing grossly normal bilaterally Face and sinus: normal facial exam Eyes: General: appearance normal, both eyes and all related structures Pupils: Equal, round and reactive pupils present EOM: EOMs intact bilaterally Neck: Neck: full ROM, no lymphadenopathy and no JVD Thyroid: thyroid normal Lymphatic: no lymphadenopathy noted Resp: Effort & Inspection: normal respiratory effort and able to speak in complete sentences Auscultation: clear to auscultation bilaterally Cardio: Jugular venous distension: no JVD Rate: regular rate Rhythm: regular rhythm Heart sounds: S1 normal heart sound present and S2 normal heart sound present GI: GI Palp: Yes Soft to palpation and Yes No hepatosplenomegaly present : General: Yes deferred Skin: Rashes: no rashes Wounds: no w
== END 2020-07-08 13:02 | disposition home health service (06) | DRG 190 ==
LOC: ANHED 18:13 → ANH3MED 18:52
PROVIDERS: Nurse Practitioner; Admitting Provider Internal Medicine; Emergency Provider General Practice; PCP Internal Medicine; Visit Provider Internal Medicine
DX: J44.1 Chronic obstructive pulmonary disease with (acute) exacerbation (principal); J96.22 Acute and chronic respiratory failure with hypercapnia; J96.21 Acute and chronic respiratory failure with hypoxia; I10 Essential (primary) hypertension; R47.9 Unspecified speech disturbances; F17.210 Nicotine dependence, cigarettes, uncomplicated; F41.8 Other specified anxiety disorders; M19.90 Unspecified osteoarthritis, unspecified site; E78.5 Hyperlipidemia, unspecified; E55.9 Vitamin D deficiency, unspecified; E11.51 Type 2 diabetes mellitus with diabetic peripheral angiopathy without gangrene; I73.9 Peripheral vascular disease, unspecified; K21.9 Gastro-esophageal reflux disease without esophagitis; Z90.49 Acquired absence of other specified parts of digestive tract
CPT/HCPCS: 36415; 36600; 51701; 71045; 80053; 81001; 82375; 82805; 83050; 83735; 83880; 84443; 85025; 85610; 85730; 86140; 93005; 93880; 94618; 94640; 96365; 96375; 97110; 97161; 97165; 99285; A9270; G0378; J1940; J1956; J7512

== ENCOUNTER 2020-07-18 11:53 | Inpatient (IN) | payer MEDICARE, SELFPAY ==
[2020-07-18] VITALS (19 sets, daily range): BP systolic 122–154; BP diastolic 65–78; PULSE 93–104; RESP 18–63; TEMP 36.5–36.9; O2SAT 80–100; BMI 28.2
--- NOTE | ~2020-07-18 | XR_ITS ---
XR chest 2V DATE: 07/18/2020 12:53 INDICATION: Shortness of breath TECHNIQUE: AP and lateral views COMPARISON: 07/04/2020 portable AP chest 06/25/2020 CT pulmonary scan FINDINGS: Heart size is normal. Is aortic calcification and unfolding. There is a large hiatal hernia . There is mild infiltrate and/atelectasis in the lower lung zones, right greater than left. No pleural effusion or pulmonary vascular congestion or pneumothorax is evident. Diffuse osteopenia. IMPRESSION: Mild infiltrate or atelectasis at the lung bases, primarily on the right Large hiatal hernia Reviewed, dictated and finalized at location A.
--- NOTE | ~2020-07-18 | CT_ITS ---
EXAMINATION: CT diagnostic chest wo con EXAM DATE: 07/18/2020 15:50 INDICATION: Airspace disease. Abnormal chest x-ray. TECHNIQUE: Spiral CT of the chest without contrast. Axial, coronal and sagittal images were reviewe d. Coronal maximum intensity pixel images of chest reviewed. The dose-length product (DLP) for this examination was 161.96 mGy-cm. The exposure was tailored according to patient size (auto mA exposur e control), and iterative reconstruction (ASIR) was used as additional dose reduction technique. Comp arison is made to prior examination from 06/25/2020. FINDINGS: Scattered linear bibasilar regions of subsegmental atelectasis, with improvement on the ri ght compared to previous examination. No evidence of pneumonia or lung cancer. There is moderate emph ysema and hyperinflation. There is large sliding gastroesophageal hiatal hernia. There are no pleura l or pericardial effusions. Tracheobronchial tree is patent. There is no mediastinal, hilar or ax illary lymphadenopathy. There is no pneumothorax. Heart normal in size. There is mild to modera te coronary arterial calcification, arterial sclerosis. Mild splenic flexure colonic diverticulosis. There is moderate to severe thoracic spondylosis without osteoblastic or osteolytic lesions identif ied. Thoracic vertebral body heights relatively well-maintained. IMPRESSION: 1. Scattered regions of basilar linear atelectasis. 2. Large gastroesophageal hiatal hernia. 3. Moderate emphysema and hyperinflation. Reviewed, dictated and finalized at location A.
--- NOTE | 2020-07-18 12:03 | ECG_ITS ---
Measurements Intervals [place] Rate: 103 P: 69 MN: 161 QRS: -4 QRSD: 82 T: 108 QT: 327 QTc: 429 Interpretive Statements SINUS TACHYCARDIA ATRIAL PREMATURE COMPLEX ANTEROSEPTAL INFARCT, AGE INDETERMINATE BASELINE WANDER- I, III, AVR, AVL, AVF, V1-V3, V6 ABNORMAL ECG Electronically Signed On 07-18-2020 12:20:34 CDT by Wayne Joiner D.O.
--- NOTE | 2020-07-18 12:36 | ED.GENADULT ---
HPI - General Adult General Chief complaint: Shortness of Breath/Dyspnea Stated complaint: sob Time Seen by Provider: 07/18/20 12:11 Source: patient and RN notes reviewed Mode of arrival: EMS Limitations: no limitations History of Present Illness HPI narrative: Patient is 85 years old white female lives alone, referred to the emergency room by home visiting nurse because of shortness of breath. Patient reported that she have no symptoms but the home visiting nurse noticed that the patient looks like having trouble breathing with hypoxia. Currently patient would like to eat. Patient denies any fever, chills, nausea, vomiting, coughing, chest pain, shortness of breath. Also denies any COVID-19 infection or exposure to anybody known having COVID-19. Related Data Home Medications Medication Instructions Recorded Confirmed multivitamin 1 tablet PO MOWEFR 03/08/19 07/04/20 cholecalciferol (vitamin D3) 50 50 mcg PO QTUTH 07/02/20 07/04/20 mcg (2,000 unit) capsule loperamide 2 mg capsule See Rx Instructions PO Q6H PRN 07/02/20 07/04/20 propylene glycol 0.6 % eye drops 1 drp EACH EYE DAILY PRN 07/02/20 07/04/20 Allergies Allergy/AdvReac Type Severity Reaction Status Date / Time No Known Allergies Allergy Verified 07/04/20 19:56 Review of Systems Review of Systems: Narrative: CONSTITUTIONAL: Denies fever, chills, or sweats. EYES: Denies visual changes, redness, or discharge. ENT: Denies rhinorrhea, congestion, sore throat, or otalgia. CARDIOVASCULAR: Denies chest pain, palpitations, or edema. RESPIRATORY: Denies cough or dyspnea. GASTROINTESTINAL: Denies abdominal pain, nausea, vomiting, or diarrhea. GENITOURINARY: Denies dysuria or hematuria. SKIN: Denies rash or itching. MUSCULOSKELETAL: Denies back pain, joint pain, or myalgia. NEUROLOGIC: Denies headache, numbness, or weakness. PSYCHIATRIC: Denies anxiety or depression. [facility] Past Medical History Medical History Anxiety Arthritis Cataracts, bilateral Chronic obstructive pulmonary disease, unspecified Depression GERD (gastroesophageal reflux disease) H/O: HTN (hypertension) History of pneumonia Hx of hemorrhoids Hx: UTI (urinary tract infection) Hyperlipidemia Multifocal atrial tachycardia Peripheral arterial disease Stress incontinence Type 2 diabetes mellitus without complication, without long-term current use of insulin not on any medication Vitamin D deficiency Surgical History Surgical History History of appendectomy History of cataract surgery History of hemorrhoidectomy History of hysterectomy Family History Family History Mother Diabetes mellitus Family history of malignant neoplasm Family history of diabetes mellitus in first degree relative Patient's mother is Father Malignant neoplasm of prostate Social History Social History Social History: x3. 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 No marijuana or cocaine use for 20+ yrs. Lives alone. She has one son and she nominates him to be the individual to make medical decisions for her if she is unable. She is a full code. 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
[2020-07-18 12:49] LABS: Basophils Percent Auto 0.4 % (0.2-1.2); Eosinophils Absolute Auto 0.2 K/mm3 (0-0.3); Eosinophils Percent Auto 2.4 % (0-4.4); Hematocrit 42.7 % (37.0-47.0); Hemoglobin 13.4 g/dL (12.0-15.0); Immature Granulocyte Absolute 0.03 K/mm3 (0.00-0.031); Immature Granulocyte Percent A 0.4 % (0-0.5); Lymphocytes Absolute Auto 0.37 K/mm3 (0.9-3.2); Mean Corpuscular HGB Conc 31.4 g/dl (32-36); Mean Corpuscular Hemoglobin 28.3 pg (26-34); Mean Corpuscular Volume 90.3 fl (80-100); Monocytes Absolute Auto 0.7 K/mm3 (0.1-0.6); Neutrophils Absolute Auto 6.1 K/mm3 (1.3-6.7); Neutrophils Percent Auto 82.8 % (45.5-73.1); Platelet Count Result 238 k/mm3 (150-375); Red Blood Count 4.73 M/mm3 (4.2-5.4); Red Cell Distribution Width 14.6 % (11.5-14.5); White Blood Count 7.4 K/mm3 (4.5-10.0)
[2020-07-18 13:07] LABS: Anion Gap 0 mmol/L (8-16); Blood Urea Nitrogen 10 mg/dL (7-17); Calcium 8.6 mg/dL (8.4-10.2); Carbon Dioxide 38 mmol/L (22-30); Chloride 102 mmol/L (98-107); Estimated Glomerular Filt Rate > 60; Glucose 108 mg/dL (65-105); Sodium 140 mmol/L (137-145)
[2020-07-18 14:09] LABS: Alveolar/Arterial O2 Gradient 52.7 mmHg; Base Excess ABG 3.1 mEq/l (+/-2.0); Fractional Inspired Oxygen 21 %; HCO3 ABG 28.2 mEq/l (22.0-26.0); Oxygen Content ABG 16.1 %vol (16.0-22.0); Oxyhemoglobin 80.7 % THb (90.0-100.0); PCO2 ABG 44.7 mmHg (35.0-45.0); PO2 FiO2 Ratio Arterial Blood 2.07 %; Total Hemoglobin 14.2 g/dL (12.0-18.0); pH ABG 7.418 (7.350-7.450)
[2020-07-18 14:10] LABS: Device ROOM AIR; Modified Allen's Test Pass; Oxygen Saturation ABG 79.9 % (95.0-100.0); PO2 ABG 43.5 mmHg (80.0-100.0); Site Drawn LEFT RADIAL
[2020-07-18] MEDS: ALBUTEROL SULFATE NEB 2.5 MG/0.5 ML INH 5 MG INHALATION (14:20)
[2020-07-18] MEDS: IPRATROPIUM BR 0.02% INH SOLN 0.5 MG/2.5 ML VIAL INHALATION (14:20)
[2020-07-18] MEDS: methylPREDNISolone SOD SUCC 125 MG VIAL 62.5 MG IV PUSH (14:26)
--- NOTE | 2020-07-18 19:45 | ADMGEN ---
This patient, Monica Crawley, was admitted to 3 Med Surg Room [id number]. Patient/family oriented to hospital policies and general routines including ID bracelet, bed and alarms, visiting hours, pain management, procedures, bathroom and other care routines, personal items, smoking policy, room service/diet, and visiting hours. Information on how to activate the Rapid Response Team has been discussed. Patient/Family are encouraged to report perceived risks to care and to ask questions if they do not understand what they are told or what they should do.
--- NOTE | 2020-07-18 21:11 | PM.IMHP ---
H&P: HPI History of Present Illness Date/Time: 07/18/20 21:11 this is the 85-year-old female who was discharged from here on 07/08/2020 with hypoxia and COPD exacerbation. The patient was evaluated for home oxygen and did not qualify. The patient stated that she does not have home health at home but she has in-home help. The patient was sent home on 07/08/2020 with a oral taper prednisone and she completed a course of Levaquin. She participated in PT and OT and did well at that time. She has sleep apnea that was done overnight in the will follow in the outpatient setting. Pulmonology consult was obtained at that time. To the emergency room by the and home health aide because of shortness of breath. The patient denies smoking any cigarettes. It was noted that the patient was having difficulty breathing and was hypoxic. She had no fever chills. She denies any covid 19 exposure or infection. ED provider read the chest x-ray is possible pneumonia. The patient stated that she may have coughed 3 times during the whole month. She has not had any fever chills. And given nebulizer treatments and Solu-Medrol per ED provider. CT of the chest shows scattered regions of basilar linear atelectasis. Large gastroesophageal hiatal hernia. Moderate emphysema and hyperinflation. Patient's oxygen levels were noted to be anywhere from 80 to 85 and she was placed on 2 L of oxygen per nasal cannula. After reviewing the director of reservations suggestions patient does qualify for home oxygen at night and should receive 1 L per nasal cannula at night. Patient is being admitted to inpatient on the date of service of 07/18/2020. Chief Complaint: Dyspnea Review of Systems Review of Systems: All systems reviewed & are unremarkable except as noted in HPI and below Constitutional: Constitutional: Reports as per HPI and Reports no additional constitutional complaints Eyes: Eyes: Reports as per HPI and Reports no additional eye complaints ENT: Reports system reviewed and no additional complaints, except as documented and Reports Normal hearing present Cardiovascular: Cardiovascular: Reports no additional cardiovascular complaints Respiratory: Respiratory: Reports no additional respiratory complaints and Reports no additional respiratory complaints Gastrointestinal: Gastrointestinal: Reports as per HPI and Reports no additional gastrointestinal complaints Musculoskeletal: Musculoskeletal: Reports no additional musculoskeletal complaints Integumentary/Breasts: Skin/Breast: Reports system reviewed and no additional complaints, except as docu and Reports as per HPI Neurologic: Reports system reviewed and no additional complaints, except as documented, Reports as per HPI and Reports Normal hearing present Psychiatric: Psychiatric: Reports no additional psychiatric complaints and Reports as per HPI Endocrine: Endocrine: Reports no additional endocrine complaints Hematologic/Lymphatic: Hematologic/Lymphatic: Reports no additional hematologic/lymphatic complaints Allergic/Immunologic: Allergic/Immunologic: Reports no additional allergic/immunologic complaints [facility] Past Medical History Medical History Anxiety Arthritis Cataracts, bilateral Chronic obstructive pulmonary disease, unspecified Depression GERD (gastroesophageal reflux disease) H/O: HTN (hypertension) History of pneumonia Hx of hemorrhoids Hx: UTI (urinary tract infection) Hyperlipidemia Multifocal atrial tachycardia Peripheral arterial disease Stress incontinence Type 2 diabetes mellitus without complication, without long-term current use of insulin not on any medication Vitamin D deficiency Surgical History Surgical History History of appendectomy History of cataract surgery History of hemorrhoidectomy History of hysterectomy Family History Family History (Reviewed 07/18/20 @ 16:44 by Leobardo
[2020-07-18] MEDS: methylPREDNISolone SOD SUCC 125 MG VIAL 60 MG IV PUSH (22:06)
[2020-07-18] MEDS: LOSARTAN POTASSIUM 50 MG TABLET PO (22:07)
[2020-07-18] MEDS: MELATONIN 3 MG TABLET PO (22:07)
[2020-07-18] MEDS: BUDESONIDE/FORMOTEROL (*SP) 160-4.5 MCG 6 GM INH 2 PUFF INHALATION (23:21)
[2020-07-19] VITALS (13 sets, daily range): BP systolic 122–127; BP diastolic 57–67; PULSE 78–112; RESP 18–20; TEMP 36.7–36.9; O2SAT 85–95
[2020-07-19 00:21] LABS: Glucose Point of Care 217 (65-105)
[2020-07-19 01:42] LABS: SARS-CoV-2 RNA PCR Negative
[2020-07-19] MEDS: methylPREDNISolone SOD SUCC 125 MG VIAL 60 MG IV PUSH (06:49)
[2020-07-19 07:42] LABS: Hematocrit 39.2 % (37.0-47.0); Hemoglobin 12.6 g/dL (12.0-15.0); Immature Granulocyte Absolute 0.04 K/mm3 (0.00-0.031); Immature Granulocyte Percent A 0.7 % (0-0.5); Lymphocytes Absolute Auto 0.38 K/mm3 (0.9-3.2); Lymphocytes Percent Auto 6.8 % (18.3-44.2); Mean Corpuscular HGB Conc 32.1 g/dl (32-36); Mean Corpuscular Hemoglobin 28.7 pg (26-34); Mean Corpuscular Volume 89.3 fl (80-100); Mean Platelet Volume 9.3 fl (7.4-10.4); Monocytes Absolute Auto 0.1 K/mm3 (0.1-0.6); Monocytes Percent Auto 2.2 % (2.6-8.5); Neutrophils Percent Auto 90.3 % (45.5-73.1); Platelet Count Result 219 k/mm3 (150-375); Red Blood Count 4.39 M/mm3 (4.2-5.4); Red Cell Distribution Width 14.2 % (11.5-14.5); White Blood Count 5.6 K/mm3 (4.5-10.0)
[2020-07-19 07:56] LABS: Anion Gap 0 mmol/L (8-16); Blood Urea Nitrogen 17 mg/dL (7-17); Calcium 8.3 mg/dL (8.4-10.2); Carbon Dioxide 35 mmol/L (22-30); Chloride 102 mmol/L (98-107); Estimated Glomerular Filt Rate > 60; Glucose 191 mg/dL (65-105); Potassium 4.3 mmol/L (3.4-5.0); Sodium 137 mmol/L (137-145)
[2020-07-19] MEDS: BUDESONIDE/FORMOTEROL (*SP) 160-4.5 MCG 6 GM INH 2 PUFF INHALATION ×3 (08:03→21:42)
[2020-07-19] MEDS: LOSARTAN POTASSIUM 50 MG TABLET PO ×2 (08:04→21:12)
[2020-07-19 08:39] LABS: Glucose Point of Care 183 (65-105)
--- NOTE | 2020-07-19 09:53 | PM.IMPN ---
Progress Note: A&P Assessment and Plan (1) Acute and chronic respiratory failure with hypoxia: Code(s): J96.21 - Acute and chronic respiratory failure with hypoxia Status: Acute Assessment and Plan: Appears to be main reason for hospitalization. ABG on arrival shows significant hypoxemia on RA, but normal pH and pCO2. She was recently discharged 07/08 and did not qualify for O2 at that time. She was requiring 2 L O2 earlier in stay, but now weaned to 1L currently, breathing comfortably on this. Unclear etiology behind hypoxia but possibly due to COPD exacerbation, although exam today was fairly unremarkable. CT Chest revealed atelectasis which could also be etiology behind hypoxia. Patient adamantly denies smoking and says she quit 3 years ago, although discussed with son (with permission) over the phone while patient in room who seems to think otherwise. He also is concerned that she is not using her medications as prescribed at home. He also requests entertaining the idea of using Advair instead of Symbicort; informed him I would discuss with the Computer Security Manager. Will continue to treat COPD with scheduled alb neb treatments in addition to home meds for now; likely due prn albuterol neb tomorrow Will do PEP CPT Mucinex q12 hr to mobilize any secretions Do not find any evidence of COPD exacerbation on lung exam today, thus will hold on Solumedrol Wean O2 as tolerated Home O2 evaluation Monitor O2 sats overnight Pulmonology consulted and appreciate recommendations (2) COPD exacerbation: Code(s): J44.1 - Chronic obstructive pulmonary disease with (acute) exacerbation Status: Acute Assessment and Plan: Lung exam today unremarkable; no wheezing appreciated, breathing comfortably on 1L at bedside today. Recently treated with prednisone taper which apparently was d/c some time prior to arrival. Finished course of Levaquin as well. Pulmonology consulted from ED and appreciate recommendations. As above, will hold IV steroids Will do scheduled albuterol nebs today and will likely wean to PRN tomorrow Continue home symbicort and spiriva Wean O2 as tolerated Appreciate Pulmonology recommendations Monitor (3) ANTHONY on CPAP: Code(s): G47.33 - Obstructive sleep apnea (adult) (pediatric); Z99.89 - Dependence on other enabling machines and devices Status: Acute Assessment and Plan: Patient qualified for 1 L per nasal cannula oxygen at night due to her apneic results. She needs follow up outpatient sleep study if this has not yet been completed F/u with Pulmonology (4) Person under investigation for COVID-19: Code(s): Z20.822 - Contact with and (suspected) exposure to COVID-19 Status: Ruled-out Assessment and Plan: Testing negative. Low likelihood of COVID infection d/c isolation (5) Type 2 diabetes mellitus without complication, without long-term current use of insulin: Code(s): E11.9 - Type 2 diabetes mellitus without complications Status: Acute Assessment and Plan: A1c earlier this month 6.2 Accuchecks ACHS, hypoglycemia protocol, correctional insulin, diabetic diet (6) Hyperlipidemia: Code(s): E78.5 - Hyperlipidemia, unspecified Status: Acute Assessment and Plan: Does not appear to be on any medications at home F/u with PCP (7) HTN (hypertension) with goal to be determined: Code(s): I10 - Essential (primary) hypertension Status: Chronic Assessment and Plan: BP 120s sys today Continue with losartan. Monitor; adjust as necessary Subjective Date/time seen: 07/19/20 09:53 Interval history: Patient is a 85 yo F with history of COPD, questi
[2020-07-19] MEDS: guaiFENesin 12 HR 600 MG TABCR PO ×2 (10:18→21:12)
[2020-07-19] MEDS: ENOXAPARIN 40 MG/0.4 ML SYRINGE SUB-Q (11:31)
[2020-07-19] MEDS: INSULIN ASPART (*BKC) 100 UNITS/ML SUB-Q ×2 (11:53→16:46)
[2020-07-19 12:03] LABS: Glucose Point of Care 228 (65-105)
[2020-07-19] MEDS: ALBUTEROL SULFATE NEB 2.5 MG/0.5 ML INH INHALATION ×2 (14:24→21:42)
--- NOTE | 2020-07-19 14:48 | PM.CNPUL ---
Assessment and Plan Assessment and plan (1) COPD exacerbation: Code(s): J44.1 - Chronic obstructive pulmonary disease with (acute) exacerbation Status: Acute Assessment and Plan: Mild COPD exacerbation We will start her on prednisone 30 mg p.o. daily for 4 days We will start her on azithromycin 500 mg p.o. daily for 4 days Levofloxacin can be discontinued Continue home inhaler therapy including Symbicort 160/4.5 mcg 2 puffs q.12 hours as well as Spiriva 18 mcg 1 puff daily Home O2 evaluation. The patient can be discharged home either later today or tomorrow from pulmonary standpoint. History of Present Illness History of Present Illness Consult date: 07/19/20 Reason for consult: COPD Chief complaint: Pneumonia, CPOD exacerbation, acute hypoxic Narrative: This is a very pleasant 85-year-old female who lives at home and has a history of COPD. She is not on home O2. Yesterday she began to have a cough that is nonproductive associated with increased shortness of breath chest tightness and wheezing. She came to the emergency department and was found to be slightly hypoxic. Chest x-ray was normal and a CT of the chest also was normal and showed no new infiltrates. She was given dose of Levaquin as well as systemic corticosteroids and nebulized bronchodilators. She was tested for COVID-19 and was negative. She has had no sick contacts recently and has no acute infectious symptoms. She is feeling much better today and would like to go home. Review of Systems Review of Systems: All systems reviewed & are unremarkable except as noted in HPI and below PMFSH Past Medical History Medical History Anxiety Arthritis Cataracts, bilateral Chronic obstructive pulmonary disease, unspecified Depression GERD (gastroesophageal reflux disease) H/O: HTN (hypertension) History of pneumonia Hx of hemorrhoids Hx: UTI (urinary tract infection) Hyperlipidemia Multifocal atrial tachycardia Peripheral arterial disease Stress incontinence Type 2 diabetes mellitus without complication, without long-term current use of insulin not on any medication Vitamin D deficiency Surgical History Surgical History History of appendectomy History of cataract surgery History of hemorrhoidectomy History of hysterectomy Family History Family History Mother Diabetes mellitus Family history of malignant neoplasm Family history of diabetes mellitus in first degree relative Patient's mother is Father Malignant neoplasm of prostate Social History Social History Social History: x3. 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 No marijuana or cocaine use for 20+ yrs. Lives alone. She has one son and she nominates him to be the individual to make medical decisions for her if she is unable. 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
[2020-07-19] MEDS: predniSONE 20 MG, predniSONE 10 MG 30 MG PO (15:21)
[2020-07-19] MEDS: AZITHROMYCIN 250 MG TABLET 500 MG PO (15:21)
--- NOTE | 2020-07-19 15:26 | HOMEO2EVAL ---
Home Oxygen Evaluation RC: Home Oxygen (O2) Evaluation Start: 07/19/20 14:51 Freq: ONCE Status: Active Protocol: RPE Activity Type Activity Date Activity User E-Sign Co-Sign Detail Recorded Client Recorded Date Recorded By Document 07/19/20 15:00 CLC [email or web address] 07/19/20 15:26 CLC Document 07/19/20 15:24 CLC [email or web address] 07/19/20 15:26 CLC Document 07/19/20 15:25 CLC [email or web address] 07/19/20 15:26 CLC 07/19/20 07/19/20 07/19/20 15:00 15:24 15:25 Home O2 Evaluation Test Phase Resting Exercise Exercise Oxygen Delivery Room Air Room Air Nasal Cannula Oxygen Flow Rate (L/min) 2 Pulse Oximetry (90-100 %) 93 85 L 92 Pulse Rate (60-100 beats/min) 93 110 H 112 H Activity Tolerance Good Rating of Perceived Dyspnea (PD) +3 Moderate Difficulty, But Can Continue Rate of Perceived Exertion (PE) 12 Ambulation Distance (feet) 75 Treatment Charges O2 Evaluation - Inpatient
--- NOTE | 2020-07-19 15:26 | PCRCNOTE ---
Patient requires 2 lpm oxygen with activity. RN notified.
[2020-07-19 16:50] LABS: Glucose Point of Care 202 (65-105)
[2020-07-19] MEDS: MELATONIN 3 MG TABLET PO ×2 (21:12→23:49)
[2020-07-20 01:21] LABS: Glucose Point of Care 214 (65-105)
[2020-07-20] MEDS: ALBUTEROL SULFATE NEB 2.5 MG/0.5 ML INH INHALATION ×2 (03:22→08:37)
[2020-07-20 03:26] VITALS: PULSE 83; RESP 20
[2020-07-20 03:31] VITALS: PULSE 86; RESP 20
[2020-07-20 05:48] VITALS: BP 131/56; PULSE 62; RESP 18; TEMP 36.6; O2SAT 96
[2020-07-20 07:00] LABS: Anion Gap 2 mmol/L (8-16); Blood Urea Nitrogen 22 mg/dL (7-17); Calcium 8.9 mg/dL (8.4-10.2); Carbon Dioxide 33 mmol/L (22-30); Chloride 105 mmol/L (98-107); Estimated Glomerular Filt Rate > 60; Glucose 152 mg/dL (65-105); Magnesium 2.1 mg/dL (1.6-2.3); Potassium 3.4 mmol/L (3.4-5.0); Sodium 140 mmol/L (137-145)
[2020-07-20 07:32] LABS: Glucose Point of Care 125 (65-105)
--- NOTE | 2020-07-20 08:20 | PM.DS ---
DS: Admitting Diagnosis Admitting Diagnosis Admitting Diagnosis: COPD, COVID PUI DS: Discharge Diagnosis Discharge Diagnosis (1) Acute and chronic respiratory failure with hypoxia: Code(s): J96.21 - Acute and chronic respiratory failure with hypoxia Status: Acute Assessment and Plan: Appears to be main reason for hospitalization. ABG on arrival shows significant hypoxemia on RA, but normal pH and pCO2. She was recently discharged 07/08 and did not qualify for O2 at that time. She was requiring 2 L O2 earlier in stay, but now weaned to RA currently, breathing comfortably. Home O2 eval reports RA at rest and 2 L with activity. Unclear etiology behind hypoxia but possibly due to mild COPD exacerbation, although exam today was fairly unremarkable, again. CT Chest revealed atelectasis which could also be etiology behind hypoxia. Patient adamantly denies smoking and says she quit 3 years ago, although discussed with son (with permission) over the phone while patient in room who seems to think otherwise. He also is concerned that she is not using her medications as prescribed at home. He also requests entertaining the idea of using Advair instead of Symbicort. Dr. Mcqueen (Pulmonology) consulted and appreciate recommendations Will do Prednisone 30 mg daily through 07/22 (4 days total per rec) Will do Azithromycin 500 mg daily through 07/22 (4 days total per rec) PEP CPT Mucinex q12 hr rec We discussed prompt f/u with Pulmology and PCP (2) COPD exacerbation: Code(s): J44.1 - Chronic obstructive pulmonary disease with (acute) exacerbation Status: Acute Assessment and Plan: Lung exam today unremarkable again; no wheezing appreciated, breathing comfortably on RA at bedside today. Recently treated with prednisone taper which apparently was d/c some time prior to arrival. Finished course of Levaquin as well. Pulmonology consulted from ED and appreciate recommendations; rec 4 days of 30 mg Prednisone daily and 4 days of 500 mg azithromycin daily. Okay for discharge from Pulmonology standpoint As above, will do Prednisone and Azithromycin daily through 07/22 to complete 4 days treatment per Pulm rec Scheduled alb nebs during stay; resume home rescue inhaler at d/c Continue home symbicort and spiriva F/u with Pulm and PCP (3) ANTHONY on CPAP: Code(s): G47.33 - Obstructive sleep apnea (adult) (pediatric); Z99.89 - Dependence on other enabling machines and devices Status: Acute Assessment and Plan: Patient qualified for 1 L per nasal cannula oxygen at night due to her apneic results. She needs follow up outpatient sleep study if this has not yet been completed. She understands she needs to call to schedule F/u with Pulmonology (4) Person under investigation for COVID-19: Code(s): Z20.822 - Contact with and (suspected) exposure to COVID-19 Status: Ruled-out Assessment and Plan: Testing negative. Low likelihood of COVID infection d/c isolation (5) Type 2 diabetes mellitus without complication, without long-term current use of insulin: Code(s): E11.9 - Type 2 diabetes mellitus without complications Status: Acute Assessment and Plan: A1c earlier this month 6.2 Accuchecks ACHS, hypoglycemia protocol, correctional insulin, diabetic diet during stay (6) Hyperlipidemia: Code(s): E78.5 - Hyperlipidemia, unspecified Status: Acute Assessment and Plan: Does not appear to be on any medications at home F/u with PCP (7) HTN (hypertension) with goal to be determined: Code(s): I10 - Essential (primary) hypertension Status: Chronic Assessment and Plan: BP 130s sys today Continue with losartan. f/u with PC
[2020-07-20] MEDS: ENOXAPARIN 40 MG/0.4 ML SYRINGE SUB-Q (08:36)
[2020-07-20] MEDS: AZITHROMYCIN 250 MG TABLET 500 MG PO (08:36)
[2020-07-20] MEDS: predniSONE 20 MG, predniSONE 10 MG 30 MG PO (08:36)
[2020-07-20] MEDS: LOSARTAN POTASSIUM 50 MG TABLET PO (08:37)
[2020-07-20] MEDS: guaiFENesin 12 HR 600 MG TABCR PO (08:37)
[2020-07-20 08:39] VITALS: PULSE 74; RESP 20
[2020-07-20 08:50] VITALS: PULSE 75; RESP 20
--- NOTE | 2020-07-20 09:20 | PM.PNPUL ---
Progress Note: A&P Assessment and Plan (1) COPD exacerbation: Code(s): J44.1 - Chronic obstructive pulmonary disease with (acute) exacerbation Status: Acute Assessment and Plan: Continue prednisone 30 mg daily for a total of 4 days continue azithromycin 500 mg daily for a total of 4 days continue Symbicort 160/4.5 mcg q.12 hours with a spacer device continues Spiriva 18 mcg 1 puff daily does not appear to require home O2 can discharge home from pulmonary point of view Subjective Date/time seen: 07/20/20 09:20 Interval history: has been weaned to room air and is doing well. Review of Systems Review of Systems: All systems reviewed & are unremarkable except as noted in HPI and below Exam Const: General: cooperative, healthy appearing, comfortable, no acute distress, well developed, alert, awake and Physically active Nutritional Appearance: average body habitus and well nourished Orientation/consciousness: oriented to person, oriented to place, oriented to time and patient oriented x3 Limitations: no limitations HENMT: Head: normal to inspection, No palpable skull fracture present and normocephalic Ears: hearing grossly normal bilaterally and external ears normal General nose exam: Normal external nose present, Normal nares present and No nasal polyps present Eyes: General: appearance normal, both eyes and all related structures Alignment and Position: alignment normal Periorbital: periorbital findings normal Eyelids: eyelids normal Conjunctivae: conjunctivae normal Sclera: sclerae normal Cornea: corneas normal Pupils: Equal, round and reactive pupils present EOM: EOMs intact bilaterally Neck: Neck: normal visual inspection, full ROM, no lymphadenopathy, trachea midline and supple Thyroid: thyroid normal Carotids: normal carotid upstroke Lymphatic: no lymphadenopathy noted Chest: Chest palpation & inspection: normal inspection of the chest Resp: Effort & Inspection: normal respiratory effort Auscultation: wheezes and diminished lung sounds Percussion: percussion normal Cardio: Palpation: normal PMI Rate: regular rate Rhythm: regular rhythm Heart sounds: S1 normal heart sound present and S2 normal heart sound present Peripheral pulses: Peripheral pulses 2+ throughout GI: Inspection: normal to inspection Percussion: Yes normal to percussion Auscultation: normal bowel sounds Rectal Exam: deferred Skin: General skin exam: normal color Lesions: no lesions Rashes: no rashes Trauma: no lacerations or abrasions Wounds: no wounds Hair: normal Nails: normal Neuro: General: oriented to person, oriented to place, oriented to time and patient oriented x3 Cranial nerves: Yes Equal, round and reactive pupils present and Yes Normal hearing present Cognition (Neuro): normal cognition Speech: normal speech Extrem: General: normal to inspection Right upper extremity: normal to inspection Left upper extremity: normal to inspection Right lower extremity: normal to inspection Left lower extremity: normal to inspection Psych: Appearance: grossly normal Mental Status: mental status grossly normal Speech and movement: Normal speech and movement present Affect: normal affect Attitude: cooperative Thought process: Normal thought process present Thought content: Yes Normal thought content present Insight: Fair insight present (Psych) Judgement: Fair judgement present (Psych) Objective Data Vital Signs Vital Signs: Vital Signs - 24 hr 07/19/20 09:51 07/19/20 14:00 07/19/20 14:33 Temperature 36.7 C Pulse Rate 90 Respiratory Rate 18 Blood Pressure 127/67 Pulse Oximetry 91 93 94 07/19/20 15:00 07/19/20 15:24 07/19/20 15:25 Temperature Pulse Rate 93 110 H 112 H Respiratory Rate Blood Pressure Pulse Oximetry 93 85 L 92 07/19/20 20:00 07/19/20 21:42 07/19/20 21:57 Temperature Pulse Rate 84 92 93 Respiratory Rate 18 20 20 Blood Pressure Pulse Oximetry 93 9
--- NOTE | 2020-07-24 13:26 | PC.NURSE ---
Blood cx are negative.
== END 2020-07-20 10:54 | disposition home health service (06) | DRG 190 ==
LOC: ANHED 12:11 → ANH3MEDSUR 17:05
PROVIDERS: Admitting Provider Internal Medicine; Emergency Provider Emergency Medicine; PCP Internal Medicine; Visit Provider Physician Assistant
DX: J43.9 Emphysema, unspecified (principal); J96.21 Acute and chronic respiratory failure with hypoxia; J98.11 Atelectasis; G47.33 Obstructive sleep apnea (adult) (pediatric); Z20.822 Contact with and (suspected) exposure to COVID-19; M19.90 Unspecified osteoarthritis, unspecified site; K21.9 Gastro-esophageal reflux disease without esophagitis; E78.5 Hyperlipidemia, unspecified; E55.9 Vitamin D deficiency, unspecified; E11.51 Type 2 diabetes mellitus with diabetic peripheral angiopathy without gangrene; F17.210 Nicotine dependence, cigarettes, uncomplicated; Z90.49 Acquired absence of other specified parts of digestive tract; Z90.710 Acquired absence of both cervix and uterus
CPT/HCPCS: 36415; 36600; 71046; 71250; 80048; 82805; 82948; 83735; 85025; 87040; 93005; 94618; 94640; 94667; 97161; 97165; 99285; A9270; C9803; J1650; J1815; J1956; J2930; J7512; U0003; U0005

== ENCOUNTER 2020-09-04 12:11 | Outpatient (CLI) | payer MEDICARE, SELFPAY ==
[2020-09-04 13:03] LABS: Alanine Aminotransferase 11 U/L (4-35); Albumin Level 3.7 g/dL (3.5-5.1); Alkaline Phosphatase 79 U/L (38-126); Anion Gap 3 mmol/L (8-16); Aspartate Amino Transferase 26 U/L (14-36); Bilirubin,Total 0.4 mg/dL (0.2-1.3); Blood Urea Nitrogen 13 mg/dL (7-17); Calcium 9.7 mg/dL (8.4-10.2); Carbon Dioxide 32 mmol/L (22-30); Chloride 106 mmol/L (98-107); Estimated Glomerular Filt Rate > 60; Glucose 96 mg/dL (65-105); Sodium 141 mmol/L (137-145)
[2020-09-04 14:11] LABS: Vitamin D 25 Hydroxy 32.9 ng/mL
== END 2020-09-04 12:12 | disposition home or self-care (01) ==
LOC: ANHLAB 12:13
PROVIDERS: PCP Internal Medicine; Visit Provider Nurse Practitioner
DX: E55.9 Vitamin D deficiency, unspecified (principal); I10 Essential (primary) hypertension; Z79.899 Other long term (current) drug therapy; Z87.898 Personal history of other specified conditions
CPT/HCPCS: 36415; 80053; 82306; 83036; 84443

== ENCOUNTER 2020-09-08 12:35 | Outpatient (CLI) | payer MEDICARE, SELFPAY ==
--- NOTE | 2020-09-13 12:49 | WPDPFTINT ---
PFT Procedure Performed PFT Procedure Performed Spirometry with Pre/Post Bronchodilator Plethysmography (Lung Vol) Diffusing Cap (DLCO) Flow Vol Loop PFT Interpretation This PFT met all criteria for ATS standards and reproducibility FEV/FVC post bronchodilator 60% FEV1 69% FVC 88% there was some improvement in post bronchodilator FEV1 by approximately 140 mL and 15% TLC 92% RV 107% RV/TLC 61% DLCO 51% when adjusted for alveolar volume but not adjusted for hemoglobin Flow volume loops showed significant expiratory coving Impression: moderate airflow obstruction with somewhat improvement with bronchodilator therapy as well as a moderately reduced diffusion capacity. This pattern may be suggestive of COPD with possible asthma component. Please note that older age can lead to patterns that may mimic obstructive airway disease but the constellation of findings in this PFT suggest true pathology may be present. Clinical correlation is advised.
== END 2020-09-08 12:36 | disposition home or self-care (01) ==
LOC: ANHPFT 12:39
PROVIDERS: PCP Internal Medicine; Visit Provider Internal Medicine Pulmonary Disease
DX: R06.00 Dyspnea, unspecified (principal); R94.2 Abnormal results of pulmonary function studies
CPT/HCPCS: 94060; 94726; 94729

== ENCOUNTER 2021-06-09 09:03 | Emergency (ER) | payer MEDICARE, SELFPAY ==
--- NOTE | ~2021-06-09 | XR_ITS ---
EXAMINATION: XR knee RT min 4V DATE: 06/09/2021 09:46 INDICATION: Right knee pain and erythema. Inability to bear weight. TECHNIQUE: 4 views of right knee were obtained. COMPARISON: Right knee radiographs 09/22/2004 FINDINGS: There is varus angulation at the knee. No fracture. There is severe osteoarthritis of media l compartment and moderate osteoarthritis of lateral and patellofemoral compartments. No knee joint e ffusion. IMPRESSION: 1. Severe right knee osteoarthritis. Reviewed, dictated and finalized at location A. MS SUPPORT SPECIALIST
--- NOTE | ~2021-06-09 | XR_ITS ---
EXAMINATION: XR knee LT min 4V DATE: 06/09/2021 09:45 INDICATION: Redness and left knee pain TECHNIQUE: Four views of the left knee were obtained. COMPARISON: 09/22/2004 FINDINGS: Alignment is normal. No fracture or osteochondral lesion. There is advanced tricompartmenta l osteoarthritis. No joint effusion/synovitis. Calcified atherosclerosis is noted. IMPRESSION: 1. Advanced tricompartmental osteoarthritis without acute osseous abnormality. Reviewed, dictated and finalized at location A. MAKER STAMPING
[2021-06-09 09:06] VITALS: BP 147/59; PULSE 95; RESP 16; TEMP 36.8; O2SAT 99
--- NOTE | 2021-06-09 10:04 | ED.EXTPRO ---
HPI - Extremity Problem General Chief complaint: Extremity Problem,Nontraumatic Stated complaint: knee pain Time Seen by Provider: 06/09/21 09:21 Source: patient Mode of arrival: EMS Limitations: no limitations History of Present Illness HPI Narrative: This is a 86 year old female that presents to the ER for bilateral knee pain. Ongoing over the last couple of weeks. No known injury or trauma. She has not taken anything for pain. Denies fever, erythema, edema or numbness. Related Data Home Medications Medication Instructions Recorded Confirmed cholecalciferol (vitamin D3) 50 50 mcg PO QTUTH 07/02/20 03/30/21 mcg (2,000 unit) capsule loperamide 2 mg capsule See Rx Instructions PO Q6H PRN 07/02/20 03/30/21 propylene glycol 0.6 % eye drops 1 drp EACH EYE DAILY PRN 07/02/20 03/30/21 acetaminophen 325 mg capsule 325 mg PO ONCE PRN cap 07/23/20 03/30/21 nakodpfj-xyf-fymqm acid 0.4 1 tablet PO DAILY 09/11/20 03/30/21 mg-lycopene 300 mcg-lutein 250 mcg tablet tiotropium 2.5 mcg-olodaterol 2.5 2 puff INHALATION DAILY 09/11/20 03/30/21 mcg/actuation mist for inhalation Allergies Allergy/AdvReac Type Severity Reaction Status Date / Time No Known Allergies Allergy Verified 03/30/21 13:03 Review of Systems Review of Systems: CONSTITUTIONAL: Denies fever SKIN: Denies rash MUSCULOSKELETAL: Reports joint pain, and myalgia. NEUROLOGIC: Denies numbness, or weakness. All systems reviewed & are unremarkable except as noted in HPI and below PMFSH Past Medical History Medical History (Updated 06/09/21 @ 11:06 by Mariam Chen PA-C) Anxiety Arthritis Cataracts, bilateral Chronic obstructive pulmonary disease, unspecified Depression GERD (gastroesophageal reflux disease) H/O: HTN (hypertension) History of pneumonia HTN (hypertension) with goal to be determined Hx of hemorrhoids Hx: UTI (urinary tract infection) Hyperlipidemia Multifocal atrial tachycardia Peripheral arterial disease Stress incontinence Type 2 diabetes mellitus without complication, without long-term current use of insulin not on any medication Vitamin D deficiency Surgical History Surgical History History of appendectomy History of cataract surgery History of hemorrhoidectomy History of hysterectomy Family History Family History Mother Diabetes mellitus Family history of malignant neoplasm Family history of diabetes mellitus in first degree relative Patient's mother is Father Malignant neoplasm of prostate Social History Social History Social History: x3. 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 No marijuana or cocaine use for 20+ yrs. Lives alone. She has one son and she nominates him to be the individual to make medical decisions for her if she is unable. 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 HEAD: Normocephalic, atraumatic. EYES: EOMI. CHEST: Clear to auscultation. No respiratory distress. No wheezes rale
[2021-06-09 10:15] VITALS: BP 124/66; PULSE 85; RESP 14; O2SAT 98
[2021-06-09] MEDS: ACETAMINOPHEN 500 MG TABLET 1000 MG PO (10:19)
[2021-06-09 10:49] VITALS: TEMP 36.8
[2021-06-09 11:08] VITALS: BP 130/72; PULSE 92; RESP 16; O2SAT 95
--- NOTE | 2021-06-09 13:49 | PC.NURSE ---
PT. in room
--- NOTE | 2021-06-09 14:07 | PCCCNOTE ---
CC met iwth patient and gave her a private duty list, home health list and a list of assisted living facilities. patient states that she lives alone and is weak. provider ordered PT/OT. once those recs are documented, CC will fax to insurance ([facility]) and see if patient qualifies for a SNF. Patient has been to [facility] however patient is not vaccinated against covid at this time and [facility] is not accepting patients that are unvaccinated. CC reached out to [facility], [facility] and [facility]. [facility] also unable to accomadate. CC will fax the referrals once PT/OT recs are documented. please call [phone] with any questions.
--- NOTE | 2021-06-09 15:37 | PC.NURSE ---
Patient son called and stated he wants a real doctor to come talk to his mother. He stated, Is there not a real doctor around to come take care of my mom? does not understand why a man has not come to see his mother and talk to her Patient son also doesn't understand why we are trying to find extra help for her because he thinks she does not need any more help and will be fine at home. Patient son stated, My mother told me she is able to walk by herself and do everything even stairs by herself Son was informed that she is at least a 1 person assist while transferring. Patient and son informed that she is not being held here against their will.
--- NOTE | 2021-06-09 16:00 | PCCCNOTE ---
[facility] has accepted patient, CC called [facility] insurance auth line to request expedited auth, reference # [id number], CC also faxed clinical again with reference # attached. CC will continue to follow. [facility] is requesting a covid swab prior to tranfser. once auth is obtained CC will update lee at facility as well at [phone]
--- NOTE | 2021-06-09 17:06 | PCCCNOTE ---
[facility] Francisca has approved this patient to dc to [facility]. Reference # is [id number]..
--- NOTE | 2021-06-09 17:11 | PCCCNOTE ---
patient signed out AMA and called a friend for a ride. CC notified [employer].
== END 2021-06-09 16:35 | disposition left against medical advice (07) ==
PROVIDERS: Emergency Provider Emergency Medicine; PCP Internal Medicine
DX: M17.0 Bilateral primary osteoarthritis of knee (principal); J44.9 Chronic obstructive pulmonary disease, unspecified; I10 Essential (primary) hypertension; E11.51 Type 2 diabetes mellitus with diabetic peripheral angiopathy without gangrene; E78.5 Hyperlipidemia, unspecified; E55.9 Vitamin D deficiency, unspecified; N39.3 Stress incontinence (female) (male); Z87.01 Personal history of pneumonia (recurrent); Z87.440 Personal history of urinary (tract) infections; Z98.42 Cataract extraction status, left eye; Z98.41 Cataract extraction status, right eye; F17.210 Nicotine dependence, cigarettes, uncomplicated
CPT/HCPCS: 73564; 97161; 97165; 99284; A9270

== ENCOUNTER 2021-06-22 08:12 | Observation (INO) | payer MEDICARE, SELFPAY ==
[2021-06-22] VITALS (18 sets, daily range): BP systolic 110–142; BP diastolic 50–69; PULSE 68–88; RESP 14–32; TEMP 36.1–36.8; O2SAT 95–100; BMI 27.6
--- NOTE | ~2021-06-22 | XR_ITS ---
XR chest 1V 06/22/2021 09:27 Indication: Weakness. Procedure: AP chest Comparison: Comparison to multiple prior studies sequentially, with oldest reviewed study dated 06/2020. Findings: Bibasilar atelectasis. Large hiatal hernia. Heart size normal. No focal pneumonia, edema, p leural effusion or pneumothorax. Impression: 1: No basilar atelectasis. 2: Large hiatal hernia. Reviewed, dictated and finalized at location A. MATIC HEMMER Impression: 1: No basilar atelectasis. 2: Large hiatal hernia.
--- NOTE | ~2021-06-22 | CT_ITS ---
EXAMINATION: CT brain wo con EXAM DATE: 06/22/2021 09:21 INDICATION: Weakness. TECHNIQUE: Spiral CT of the head was performed without contrast. Axial, coronal and sagittal images were reviewed. The dose-length product (DLP) for this examination was 605.33 mGy-cm. The exposure w as tailored according to patient size, and iterative reconstruction (ASIR) was used as additional dos e reduction technique. There is no prior study for comparison. FINDINGS: There is no acute intraparenchymal hemorrhage. No evidence of intraparenchymal brain mass lesion. No evidence of acute infarction. Please note that initial head CT has limited sensitivity f or small or acute infarctions. There is mild periventricular and subcortical hypodensity, nonspecific but probably related to small vessel ischemic disease. There is mild to moderate prominence of the sulci and ventricles related to cerebral atrophy. There is intracranial carotid arteriosclerosis. There are no extra-axial collections. There is no mass effect or midline shift. Patient has had bi lateral ocular lens surgery. Soft tissue is unremarkable. The visualized sinuses and mastoid air ce lls are well aerated. IMPRESSION: 1. No acute intracranial findings. 2. Chronic age related findings. Reviewed, dictated and finalized at location B. ETING CONTENT COORDINATOR
--- NOTE | 2021-06-22 08:21 | ECG_ITS ---
Measurements Intervals [place] Rate: 78 P: 70 TX: 223 QRS: 29 QRSD: 105 T: 63 QT: 371 QTc: 425 Interpretive Statements SINUS RHYTHM WITH FIRST DEGREE AV BLOCK ANTEROSEPTAL INFARCT, AGE INDETERMINATE BASELINE ARTIFACT- I, II, III, AVR, AVL, AVF, V1, V3-V6 ABNORMAL ECG Electronically Signed On 06-22-2021 8:30:28 OLEOMARGARINE MAKER by Wayne Joiner D.O.
[2021-06-22 08:48] LABS: Alanine Aminotransferase 15 U/L (4-35); Albumin Level 3.5 g/dL (3.5-5.1); Alkaline Phosphatase 114 U/L (38-126); Anion Gap 3 mmol/L (8-16); Aspartate Amino Transferase 22 U/L (14-36); Bilirubin,Total 0.6 mg/dL (0.2-1.3); Blood Urea Nitrogen 14 mg/dL (7-17); Calcium 8.9 mg/dL (8.4-10.2); Carbon Dioxide 31 mmol/L (22-30); Chloride 106 mmol/L (98-107); Estimated Glomerular Filt Rate > 60; Glucose 98 mg/dL (65-110); Potassium 3.9 mmol/L (3.4-5.0); Sodium 140 mmol/L (137-145)
[2021-06-22 08:59] LABS: Add Urine Microscopic? YES; Appearance Urine Clear (Clear); Bilirubin Urine Negative (Negative); Blood Urine Negative (Negative); Color Urine Yellow (Yellow); Glucose Urine UA Negative (Negative); Ketones Urine Negative (Negative); Leukocyte Esterase Ur 2+ LEU/UL (Negative); Mucus Urine Rare /lpf; Nitrate Urine Negative (Negative); Protein Urine Negative (Negative); Specific Grav Ur 1.019 (1.001-1.035); Squamous Epithelial Cell Urine Few /hpf (Few); Urobilinogen Urine Negative mg/dL (<2.0)
--- NOTE | 2021-06-22 09:00 | ED.WEAKNESS ---
HPI - Weakness General Chief complaint: Weakness Stated complaint: weakness Time Seen by Provider: 06/22/21 08:40 History of Present Illness HPI Narrative: 86-year-old female history of COPD presents to the emergency room with complaints of lower leg weakness, right leg weaker than left. States symptoms began this morning when she woke up. Denies lower back pain. Denies abdominal pain. Denies history of CVA. Patient states that she woke up and was unable to ambulate to the restroom, and had to crawl. Associated with increased somnolence patient states. Related Data Home Medications Medication Instructions Recorded Confirmed hgruchac-kfc-yuhke acid 0.4 1 tablet PO DAILY 09/11/20 03/30/21 mg-lycopene 300 mcg-lutein 250 mcg tablet Allergies Allergy/AdvReac Type Severity Reaction Status Date / Time No Known Allergies Allergy Verified 06/22/21 08:22 Review of Systems Review of Systems: CONSTITUTIONAL: Denies fever, chills, or sweats. EYES: Denies visual changes, redness, or discharge. ENT: Denies rhinorrhea, congestion, sore throat, or otalgia. CARDIOVASCULAR: Denies chest pain, palpitations, or edema. RESPIRATORY: Denies cough or dyspnea. GASTROINTESTINAL: Denies abdominal pain, nausea, vomiting, or diarrhea. GENITOURINARY: Denies dysuria or hematuria. SKIN: Denies rash or itching. MUSCULOSKELETAL: Denies back pain, joint pain, or myalgia. NEUROLOGIC: Denies headache, numbness, dizziness. Generalized weakness to lower extremities. PSYCHIATRIC: Denies anxiety or depression. [facility] Past Medical History Medical History Anxiety Arthritis Cataracts, bilateral Chronic obstructive pulmonary disease, unspecified Depression GERD (gastroesophageal reflux disease) H/O: HTN (hypertension) History of pneumonia HTN (hypertension) with goal to be determined Hx of hemorrhoids Hx: UTI (urinary tract infection) Hyperlipidemia Multifocal atrial tachycardia Peripheral arterial disease Stress incontinence Type 2 diabetes mellitus without complication, without long-term current use of insulin not on any medication Vitamin D deficiency Surgical History Surgical History History of appendectomy History of cataract surgery History of hemorrhoidectomy History of hysterectomy Family History Family History Mother Diabetes mellitus Family history of malignant neoplasm Family history of diabetes mellitus in first degree relative Patient's mother is Father Malignant neoplasm of prostate Social History Social History Social History: x3. 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 No marijuana or cocaine use for 20+ yrs. Lives alone. She has one son and she nominates him to be the individual to make medical decisions for her if she is unable. 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 HEAD: Normocephalic, atraumatic. EYES: PERRLA and EOMI. ENT: Viv joseph
[2021-06-22 09:15] LABS: Basophils Absolute Auto 0.1 K/mm3 (0.0-0.1); Basophils Percent Auto 1.1 % (0.2-1.2); Eosinophils Absolute Auto 0.6 K/mm3 (0-0.3); Eosinophils Percent Auto 9.4 % (0-4.4); Hematocrit 41.3 % (37.0-47.0); Immature Granulocyte Absolute 0.02 K/mm3 (0.00-0.031); Immature Granulocyte Percent A 0.3 % (0-0.5); Lymphocytes Percent Auto 14.6 % (18.3-44.2); Mean Corpuscular HGB Conc 31.5 g/dl (32-36); Mean Corpuscular Volume 92.2 fl (80-100); Monocytes Absolute Auto 0.7 K/mm3 (0.1-0.6); Monocytes Percent Auto 11.9 % (2.6-8.5); Neutrophils Absolute Auto 3.9 K/mm3 (1.3-6.7); Neutrophils Percent Auto 62.7 % (45.5-73.1); Platelet Count Result 329 k/mm3 (150-375); Red Blood Count 4.48 M/mm3 (4.2-5.4); Red Cell Distribution Width 14.9 % (11.5-14.5); White Blood Count 6.2 K/mm3 (4.5-10.0)
[2021-06-22 09:47] LABS: Troponin I < 0.012 ng/mL (0.000-0.034)
--- NOTE | 2021-06-22 11:42 | PC.NURSE ---
attempted to ambulate patient with walker and staff assist x2. patient only able to take steps. reports pain in right knee and muscle . patient back in bed and resting. Provider aware
--- NOTE | 2021-06-22 13:45 | ADMGEN ---
This patient, Monica Crawley, was admitted to Medical Room 344-01. Patient/family oriented to hospital policies and general routines including ID bracelet, bed and alarms, visiting hours, pain management, procedures, bathroom and other care routines, personal items, smoking policy, room service/diet, and visiting hours. Information on how to activate the Rapid Response Team has been discussed. Patient/Family are encouraged to report perceived risks to care and to ask questions if they do not understand what they are told or what they should do.
--- NOTE | 2021-06-22 17:33 | PM.IMHP ---
H&P: HPI History of Present Illness Date/Time: Observation 06/22/21 17:33 Chief Complaint: Right lower extremity weakness Narrative: Ms. Crawley is an 86-year-old female who presented emergency room with complaints of right lower extremity weakness. Patient states this morning she was getting up with her walker and she felt like her right leg either gave out her quit working for her and she slid to the floor. Patient states that she has had right leg weakness in the past and her right leg has given her multiple times ago, with last time being a few weeks ago. Patient denies any chest pain, shortness breast, lightheadedness, dizziness, palpitations, syncopal, or near syncopal episodes. Patient denies any pain to her lower extremities. Patient denies any low back pain. Patient denies any incontinence of bowel or bladder. Patient states she this by herself and she did not feel safe going home in case her leg did give back on her. Patient states she had to call EMS to come pick her up to bring her to the hospital. Patient states she has a known history of hypertension depression. Patient states she takes all medications without any difficulty. Patient states she has been smoking 1 pack of cigarettes a day for last 60 years. Review of Systems Review of Systems: A 12 point review of systems was completed patient all pertinent positive and negative per HPI the remainder are unremarkable. [facility] Past Medical History Medical History (Updated 06/22/21 @ 17:40 by Chloé Reza APRN) Acute and chronic respiratory failure with hypercapnia Acute respiratory failure Altered mental status, unspecified Anxiety Arthritis Cataracts, bilateral Chronic obstructive pulmonary disease, unspecified COPD exacerbation Depression Diarrhea Elevated liver enzymes GERD (gastroesophageal reflux disease) History of pneumonia HTN (hypertension) with goal to be determined Hx of hemorrhoids Hx: UTI (urinary tract infection) Hyperlipidemia Multifocal atrial tachycardia Peripheral arterial disease Rhabdomyolysis Stress incontinence Type 2 diabetes mellitus without complication, without long-term current use of insulin not on any medication Vitamin D deficiency Surgical History Surgical History History of appendectomy History of cataract surgery History of hemorrhoidectomy History of hysterectomy Family History Family History Mother Diabetes mellitus Family history of malignant neoplasm Family history of diabetes mellitus in first degree relative Patient's mother is Father Malignant neoplasm of prostate Social History Social History (Updated 06/22/21 @ 14:02 by Enrique Douglas RN) Social History: x3. 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 No marijuana or cocaine use for 20+ yrs. Lives alone. She has one son and she nominates him to be the individual to make medical decisions for her if she is unable. 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
[2021-06-22] MEDS: LOSARTAN POTASSIUM 50 MG TABLET PO (18:22)
[2021-06-22] MEDS: MELATONIN 5 MG TABLET PO (21:25)
[2021-06-23 05:19] VITALS: BP 151/59; PULSE 69; RESP 16; TEMP 36.2; O2SAT 97
[2021-06-23 05:50] LABS: Basophils Absolute Auto 0.1 K/mm3 (0.0-0.1); Basophils Percent Auto 0.8 % (0.2-1.2); Eosinophils Absolute Auto 0.7 K/mm3 (0-0.3); Eosinophils Percent Auto 9.2 % (0-4.4); Hematocrit 40.5 % (37.0-47.0); Hemoglobin 13.2 g/dL (12.0-15.0); Immature Granulocyte Absolute 0.02 K/mm3 (0.00-0.031); Immature Granulocyte Percent A 0.3 % (0-0.5); Lymphocytes Absolute Auto 1.26 K/mm3 (0.9-3.2); Lymphocytes Percent Auto 17.6 % (18.3-44.2); Mean Corpuscular HGB Conc 32.6 g/dl (32-36); Mean Corpuscular Hemoglobin 28.9 pg (26-34); Mean Corpuscular Volume 88.6 fl (80-100); Mean Platelet Volume 9.4 fl (7.4-10.4); Monocytes Absolute Auto 0.8 K/mm3 (0.1-0.6); Monocytes Percent Auto 11.1 % (2.6-8.5); Neutrophils Absolute Auto 4.4 K/mm3 (1.3-6.7); Platelet Count Result 397 k/mm3 (150-375); Red Blood Count 4.57 M/mm3 (4.2-5.4); Red Cell Distribution Width 14.6 % (11.5-14.5); White Blood Count 7.1 K/mm3 (4.5-10.0)
[2021-06-23 06:02] LABS: Anion Gap 6 mmol/L (8-16); Blood Urea Nitrogen 13 mg/dL (7-17); Carbon Dioxide 30 mmol/L (22-30); Chloride 104 mmol/L (98-107); Estimated Glomerular Filt Rate > 60; Glucose 100 mg/dL (65-110); Potassium 4.2 mmol/L (3.4-5.0); Sodium 140 mmol/L (137-145)
[2021-06-23 08:00] VITALS: BP 140/59; PULSE 83; RESP 20; TEMP 37.2; O2SAT 97
[2021-06-23] MEDS: ENOXAPARIN 40 MG/0.4 ML SYRINGE SUB-Q (08:11)
[2021-06-23] MEDS: LOSARTAN POTASSIUM 50 MG TABLET PO ×2 (08:11→16:44)
[2021-06-23 11:34] VITALS: BP 128/58; PULSE 80; RESP 22; TEMP 36.5; O2SAT 95
--- NOTE | 2021-06-23 12:24 | PC.NURSE ---
On 06/23/21, the student, Briana Phipps, provided care and completed [facility] documentation on this patient. I have reviewed the student's documentation and agree with the findings.
--- NOTE | 2021-06-23 17:09 | PM.IMPN ---
Progress Note: A&P Assessment and Plan (1) Right leg weakness: Code(s): R29.898 - Other symptoms and signs involving the musculoskeletal system Status: Acute Assessment and Plan: Lying down patient has 5/5 strength to bilateral lower extremities. Will have PT/OT to evaluate and treat patient. Will have neuro checks q.4 hours to ensure there are no changes. 06/23/2021 Interval hisotry: patient with c/o weakness in b/l legs and c/o b/l knee pain, she had x-ray of knees and it showed severe OA, will continue PT/OT and have orthopedic consult patient for their recommendations. spoke with patient son and gave updates, (2) Essential (primary) hypertension: Code(s): I10 - Essential (primary) hypertension Status: Acute Assessment and Plan: Will resume patient's home medications and adjust medications accordingly for optimal blood pressure control. (3) Nicotine dependence, unspecified, uncomplicated: Code(s): F17.200 - Nicotine dependence, unspecified, uncomplicated Status: Acute Assessment and Plan: Will have nicotine patch placed. To discuss smoking cessation with patient she does not feel that she is ready to quit at this point time. Subjective Date/time seen: 06/23/21 17:09 Chief Complaint: Right lower extremity weakness Narrative: Ms. Crawley is an 86-year-old female who presented emergency room with complaints of right lower extremity weakness. Patient states this morning she was getting up with her walker and she felt like her right leg either gave out her quit working for her and she slid to the floor. Patient states that she has had right leg weakness in the past and her right leg has given her multiple times ago, with last time being a few weeks ago. Patient denies any chest pain, shortness breast, lightheadedness, dizziness, palpitations, syncopal, or near syncopal episodes. Patient denies any pain to her lower extremities. Patient denies any low back pain. Patient denies any incontinence of bowel or bladder. Patient states she this by herself and she did not feel safe going home in case her leg did give back on her. Patient states she had to call EMS to come pick her up to bring her to the hospital. Patient states she has a known history of hypertension depression. Patient states she takes all medications without any difficulty. Patient states she has been smoking 1 pack of cigarettes a day for last 60 years. 06/23/2021 Interval hisotry: patient with c/o weakness in b/l legs and c/o b/l knee pain, she had x-ray of knees and it showed severe OA, will continue PT/OT and have orthopedic consult patient for their recommendations. spoke with patient son and gave updates, Review of Systems Review of Systems: All systems reviewed & are unremarkable except as noted in HPI and below Exam Narrative: elderly frail Patient is comfortable, NAD HEENT: eyes are clear and none icteric LUNGS:CTA HEART: RR S1S2 ABD: BS+, Soft and nontender Lower extremities: no edema SKIN: nonjaundiced Neuro: grossly intact. Objective Data Vital Signs Vital Signs: Vital Signs - 24 hr 06/22/21 20:00 06/23/21 05:19 06/23/21 08:00 Temperature 97 F L 97.1 F L 98.9 F Pulse Rate 82 69 83 Respiratory Rate 16 16 20 Blood Pressure 142/62 H 151/59 H 140/59 L Pulse Oximetry 97 97 97 06/23/21 11:34 Temperature 97.7 F Pulse Rate 80 Respiratory Rate 22 H Blood Pressure 128/58 L Pulse Oximetry 95 Intake/Output Intake/Output: Intake & Output 06/20/21 06/21/21 06/22/21 06/23/21 23:59 23:59 23:59 23:59 Intake Total 290 1078 Output Total 250 400 Balance 40 678 Meds/Results Medications: Active Medications Generic Name Dose Route Start Last Admin Trade Name Freq PRN Reason Stop Dose Admin Enoxaparin Sodium 40 mg 06/23/21 09:00 06/23/21 08:11 Enoxaparin 40 Mg/0.4 Ml Syringe SUB-Q 40 mg DAILY DANIEL Administration Ceftriaxone Sodium/Dextrose 1 gm in 50
--- NOTE | 2021-06-23 18:31 | PM.CNOR ---
Assessment and Plan Additional Plan Bilat OA of knees R>>L chronic with possible slight acute exacerbation this admission PT to see WBAT with ambulatory aid if needed NSAIDs per medicine if appropriate would be happy to see as an outpt to Rx bilat. knee OA. History of Present Illness HPI Consult date: 06/23/21 Chief complaint: Generalized weakness Narrative: 86 yo noted during the admission to have knee pain bilat. This is many years per pt but somewhat worse recently. She has been ambulating to and from bathroom with min assist of one. COUNTS INCLUDE 234 BEDS AT THE [facility] Past Medical History Medical History (Updated 06/22/21 @ 17:40 by Chloé Reza, DIE SET UP WORKER) Acute and chronic respiratory failure with hypercapnia Acute respiratory failure Altered mental status, unspecified Anxiety Arthritis Cataracts, bilateral Chronic obstructive pulmonary disease, unspecified COPD exacerbation Depression Diarrhea Elevated liver enzymes GERD (gastroesophageal reflux disease) History of pneumonia HTN (hypertension) with goal to be determined Hx of hemorrhoids Hx: UTI (urinary tract infection) Hyperlipidemia Multifocal atrial tachycardia Peripheral arterial disease Rhabdomyolysis Stress incontinence Type 2 diabetes mellitus without complication, without long-term current use of insulin not on any medication Vitamin D deficiency Surgical History Surgical History History of appendectomy History of cataract surgery History of hemorrhoidectomy History of hysterectomy Family History Family History Mother Diabetes mellitus Family history of malignant neoplasm Family history of diabetes mellitus in first degree relative Patient's mother is Father Malignant neoplasm of prostate Social History Social History (Updated 06/22/21 @ 14:02 by Enrique Douglas RN) Social History: x3. 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 No marijuana or cocaine use for 20+ yrs. Lives alone. She has one son and she nominates him to be the individual to make medical decisions for her if she is unable. 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 Gender identity (if verbalized by the patient): Female Sexual Orientation (if Verbalized by the Patient): Straight or Heterosexual Spiritual care concerns: Yes (Not emergent, but wouldn't mind seeing document reviewer) Agree to blood products: Yes Meds Home Medications and Allergies Home Medications Medication Instructions Recorded Confirmed Type aoatchfp-mbf-xlzdf acid 0.4 1 tablet PO 3XW 09/11/20 06/22/21 History mg-lycopene 300 mcg-lutein 250 mcg tablet losartan [Cozaar] 50 mg PO BID 06/22/21 06/22/21 History Allergies Allergy/AdvReac Type Severity Reaction Status Date / Time No Known Allergies Allergy Verified 06/22/21 08:22 Vital Signs Vital Signs - 24 hr 06/22/21 20:00 06/23/21 05:19 06/23/21 08:00 Temperature 36.1 C L 36.2 C L 37.2 C Pulse Rate 82 69 83 Respiratory Rate 16 16 20 Blood Pressure 142/62 H 151/59 H 140/59 L Pulse Oximetry 97 97 97 06/23/21 11:34 Temperature 36.5 C Pulse Rate 80 Respiratory Rate 22 H Blood Pressure 128/58 L Pulse Oximetry 95 Exam Extrem: Other: Right knee min effusion tender to
[2021-06-23 20:00] VITALS: PULSE 80; RESP 22; O2SAT 95
[2021-06-23] MEDS: MELATONIN 5 MG TABLET PO (22:42)
[2021-06-23] MEDS: ACETAMINOPHEN 325 MG TABLET 650 MG PO (22:42)
[2021-06-23 23:37] VITALS: O2SAT 95
[2021-06-24 00:09] VITALS: BP 145/65; PULSE 78; RESP 18; TEMP 36.6; O2SAT 95
[2021-06-24 06:22] VITALS: BP 165/69; PULSE 79; RESP 18; TEMP 36.3; O2SAT 95
[2021-06-24] MEDS: MULTIVITAMINS /C LUTEIN (CENTRUM SILVER) TABLET *BKC 1 TAB PO (09:32)
[2021-06-24] MEDS: LOSARTAN POTASSIUM 50 MG TABLET PO (09:32)
--- NOTE | 2021-06-24 11:07 | PM.DS ---
DS: Admitting Diagnosis Discharge Date 06/24/2021 Admitting Diagnosis weakness in right leg DS: Discharge Diagnosis Discharge Diagnosis (1) Right leg weakness: Code(s): R29.898 - Other symptoms and signs involving the musculoskeletal system Status: Acute Assessment and Plan: Lying down patient has 5/5 strength to bilateral lower extremities. Will have PT/OT to evaluate and treat patient. Will have neuro checks q.4 hours to ensure there are no changes. 06/23/2021 Interval hisotry: patient with c/o weakness in b/l legs and c/o b/l knee pain, she had x-ray of knees and it showed severe OA, will continue PT/OT and have orthopedic consult patient for their recommendations. spoke with patient son and gave updates, (2) Essential (primary) hypertension: Code(s): I10 - Essential (primary) hypertension Status: Acute Assessment and Plan: Will resume patient's home medications and adjust medications accordingly for optimal blood pressure control. (3) Nicotine dependence, unspecified, uncomplicated: Code(s): F17.200 - Nicotine dependence, unspecified, uncomplicated Status: Acute Assessment and Plan: Will have nicotine patch placed. To discuss smoking cessation with patient she does not feel that she is ready to quit at this point time. DS: Summary Hospital Course Reason for hospitalization: Chief Complaint: Right lower extremity weakness Narrative: Ms. Crawley is an 86-year-old female who presented emergency room with complaints of right lower extremity weakness. Patient states this morning she was getting up with her walker and she felt like her right leg either gave out her quit working for her and she slid to the floor. Patient states that she has had right leg weakness in the past and her right leg has given her multiple times ago, with last time being a few weeks ago. Patient denies any chest pain, shortness breast, lightheadedness, dizziness, palpitations, syncopal, or near syncopal episodes. Patient denies any pain to her lower extremities. Patient denies any low back pain. Patient denies any incontinence of bowel or bladder. Patient states she this by herself and she did not feel safe going home in case her leg did give back on her. Patient states she had to call EMS to come pick her up to bring her to the hospital. Patient states she has a known history of hypertension depression. Patient states she takes all medications without any difficulty. Patient states she has been smoking 1 pack of cigarettes a day for last 60 years. Hospital Course: 06/23/2021 Interval hisotry: patient with c/o weakness in b/l legs and c/o b/l knee pain, she had x-ray of knees and it showed severe OA, will continue PT/OT and have orthopedic consult patient for their recommendations. spoke with patient son and gave updates, patient was seen by orthopedic surgeon, patient with severe osteoarthritis of knees, recommended conservative management with NSAIDs, weight-bearing as tolerated the session of physical therapy, will follow-up as outpatient, patient remains clinically stable will discharge the patient today Status at Discharge Functional status at discharge: uses cane/walker Overall status at discharge: patient is back to baseline Time Spent with Patient Time attestation: Total time spent providing and/or coordinating discharge services: Patient was seen and examined at the time of the discharge Condition at discharge is stable Code status: Full code. Time spent preparing discharge summary, discharge medications, discussing discharge planning with protective services case worker and patient is 35 minutes. Time spent: Greater than 30 minutes Exam Narrative: elderly frail Patient is comfortable, NAD HEENT: eyes are clear and none icteric LUNGS:CTA HEART: RR S1S2 ABD: BS+, Soft and nontender Lower extremities: no edema SKIN: nonjaundiced Neuro: grossly intact. Discharge Plan Discharge Atte
[2021-06-24 11:22] VITALS: O2SAT 92
--- NOTE | 2021-06-24 14:05 | PCPTNOTE ---
Spoke with nursing who states patient will be discharging shortly and will not need therapy at this time.
== END 2021-06-24 14:45 | disposition home health service (06) ==
LOC: ANHED 08:40 → ANH3MED 06-23 13:27
PROVIDERS: Emergency Medicine; Nurse Practitioner Adult Health; Admitting Provider Internal Medicine; Emergency Provider Nurse Practitioner Family; PCP Internal Medicine; Visit Provider Family Medicine
DX: R29.898 Other symptoms and signs involving the musculoskeletal system (principal); M17.0 Bilateral primary osteoarthritis of knee; J44.9 Chronic obstructive pulmonary disease, unspecified; I10 Essential (primary) hypertension; I47.1 Supraventricular tachycardia; I73.9 Peripheral vascular disease, unspecified; E11.9 Type 2 diabetes mellitus without complications; E78.5 Hyperlipidemia, unspecified; E55.9 Vitamin D deficiency, unspecified; K21.9 Gastro-esophageal reflux disease without esophagitis; M19.90 Unspecified osteoarthritis, unspecified site; F41.9 Anxiety disorder, unspecified; F32.A Depression, unspecified; Z87.891 Personal history of nicotine dependence
CPT/HCPCS: 36415; 70450; 71045; 80048; 80053; 81001; 84484; 85025; 87086; 93005; 96365; 96366; 96372; 97161; 97165; 99285; A9270; G0378; J0696; J1650

== ENCOUNTER 2022-05-10 12:05 | Outpatient (CLI) | payer MEDICARE, SELFPAY ==
[2022-05-10 12:39] LABS: Alanine Aminotransferase 21 U/L (6-35); Albumin Level 3.8 g/dL (3.5-5.1); Alkaline Phosphatase 126 U/L (38-126); Anion Gap 2 mmol/L (8-16); Aspartate Amino Transferase 27 U/L (14-36); Bilirubin,Total 0.4 mg/dL (0.2-1.3); Blood Urea Nitrogen 13 mg/dL (7-17); Calcium 9.2 mg/dL (8.4-10.2); Carbon Dioxide 33 mmol/L (22-30); Chloride 102 mmol/L (98-107); Cholesterol 170 mg/dL (0-200); Estimated Glomerular Filt Rate > 60; Glucose 100 mg/dL (65-110); HDL Direct 47 mg/dL; Potassium 4.1 mmol/L (3.4-5.0); Sodium 137 mmol/L (137-145); Triglycerides 102 mg/dL (<150)
[2022-05-10 12:50] LABS: LDL Cholesterol Direct 83 mg/dL
[2022-05-10 13:36] LABS: Vitamin D 25 Hydroxy 21.5 ng/mL
== END 2022-05-10 12:06 | disposition home or self-care (01) ==
PROVIDERS: PCP Internal Medicine; Visit Provider Nurse Practitioner
DX: R73.03 Prediabetes (principal); E55.9 Vitamin D deficiency, unspecified; E78.5 Hyperlipidemia, unspecified
CPT/HCPCS: 36415; 80053; 80061; 82306; 83036

== ENCOUNTER 2022-09-16 12:02 | Outpatient (CLI) | payer MEDICARE, SELFPAY ==
--- NOTE | ~2022-09-16 | XR_ITS ---
EXAMINATION: XR toe 5th LT min 2V DATE: 09/16/2022 12:34 INDICATION: Left fifth toe injury. TECHNIQUE: 5 views of left fifth toe were obtained. COMPARISON: None. FINDINGS: There is mild hallux valgus. There is a fracture deformity of neck of fifth proximal phalan x. There is diffuse osteopenia. There is severe osteoarthritis of first metatarsophalangeal joint and mild osteoarthritis of some of the interphalangeal joints. IMPRESSION: 1. Age-indeterminate fracture deformity of neck of fifth proximal phalanx. Reviewed, dictated and finalized at location E.
[2022-09-16 12:35] LABS: Basophils Absolute Auto 0.1 K/mm3 (0.0-0.1); Eosinophils Absolute Auto 0.6 K/mm3 (0-0.3); Eosinophils Percent Auto 7.2 % (0-4.4); Hematocrit 41.5 % (37.0-47.0); Hemoglobin 13.2 g/dL (12.0-15.0); Immature Granulocyte Absolute 0.03 K/mm3 (0.00-0.031); Immature Granulocyte Percent A 0.4 % (0-0.5); Lymphocytes Absolute Auto 0.93 K/mm3 (0.9-3.2); Lymphocytes Percent Auto 11.8 % (18.3-44.2); Mean Corpuscular HGB Conc 31.8 g/dl (32-36); Mean Corpuscular Hemoglobin 28.4 pg (26-34); Mean Corpuscular Volume 89.4 fl (80-100); Mean Platelet Volume 9.2 fl (7.4-10.4); Monocytes Absolute Auto 0.8 K/mm3 (0.1-0.6); Monocytes Percent Auto 10.3 % (2.6-8.5); Neutrophils Absolute Auto 5.5 K/mm3 (1.3-6.7); Neutrophils Percent Auto 69.3 % (45.5-73.1); Platelet Count Result 443 k/mm3 (150-375); Red Blood Count 4.64 M/mm3 (4.2-5.4); Red Cell Distribution Width 14.7 % (11.5-14.5); White Blood Count 7.9 K/mm3 (4.5-10.0)
[2022-09-16 12:37] LABS: Alanine Aminotransferase 19 U/L (6-35); Albumin Level 3.7 g/dL (3.5-5.1); Alkaline Phosphatase 115 U/L (38-126); Anion Gap 4 mmol/L (8-16); Aspartate Amino Transferase 27 U/L (14-36); Bilirubin,Total 0.4 mg/dL (0.2-1.3); Blood Urea Nitrogen 16 mg/dL (7-17); Calcium 9.1 mg/dL (8.4-10.2); Carbon Dioxide 31 mmol/L (22-30); Chloride 103 mmol/L (98-107); Cholesterol 157 mg/dL (0-200); Estimated Glomerular Filt Rate > 60; Glucose 106 mg/dL (65-110); HDL Direct 39 mg/dL; Potassium 4.1 mmol/L (3.4-5.0); Sodium 138 mmol/L (137-145); Triglycerides 127 mg/dL (<150)
[2022-09-16 12:53] LABS: LDL Cholesterol Direct 88 mg/dL
== END 2022-09-16 12:03 | disposition home or self-care (01) ==
PROVIDERS: PCP Family Medicine; Visit Provider Family Medicine
DX: S92.512A Displaced fracture of proximal phalanx of left lesser toe(s), initial encounter for closed fracture (principal); G47.33 Obstructive sleep apnea (adult) (pediatric); E55.9 Vitamin D deficiency, unspecified; R73.03 Prediabetes; E78.5 Hyperlipidemia, unspecified; J44.9 Chronic obstructive pulmonary disease, unspecified; I10 Essential (primary) hypertension; F32.9 Major depressive disorder, single episode, unspecified; I73.9 Peripheral vascular disease, unspecified; M15.9 Polyosteoarthritis, unspecified; N39.3 Stress incontinence (female) (male); Z99.89 Dependence on other enabling machines and devices; W22.8XXA Striking against or struck by other objects, initial encounter
CPT/HCPCS: 36415; 73660; 80053; 80061; 82306; 83036; 84443; 85025

== ENCOUNTER 2022-09-29 10:36 | Emergency (ER) | payer MEDICARE, SELFPAY ==
[2022-09-29] VITALS (70 sets, daily range): BP systolic 113–157; BP diastolic 59–94; PULSE 60–92; RESP 15–35; TEMP 36.6–37.2; O2SAT 92–100
--- NOTE | ~2022-09-29 | XR_ITS ---
XR foot LT min 3V DATE: 09/29/2022 11:11 INDICATION: Left foot injury, pain, swelling. Fifth digit wound. TECHNIQUE: 4 views COMPARISON: 09/16/2022 left fifth toe FINDINGS: There is diffuse osteopenia. Mild plantar calcaneal enthesopathy. There is severe osteoarthritis and hallux valgus and bunion deformity at the first metatarsophalangea l joint. Is also osteoarthritis at the tarsometatarsal area. Again noted is suggestion of an age indeterminate fracture at the neck of the proximal phalanx of the fifth toe. No other fracture or dislocation is detected. IMPRESSION: Stable appearance of age indeterminate fracture at the proximal phalangeal neck, fifth to e Severe osteoarthritis and valgus and bunion deformity first metatarsophalangeal joint; osteoarthritis is noted at the tarsometatarsal area. Osteopenia Mild plantar calcaneal enthesopathy Reviewed, dictated and finalized at location [] IMPRESSION: Stable appearance of age indeterminate fracture at the proximal pha langeal neck, fifth toe Severe osteoarthritis and valgus and bunion deformity first metatarsophalangeal joint; osteoarthritis is noted at the tarsometatarsal area. Osteopenia Mild plantar calcaneal enthesopathy
--- NOTE | ~2022-09-29 | CT_ITS ---
EXAMINATION: CTA [facility] DATE: 09/29/2022 13:34 INDICATION: Left fifth toe gangrene. TECHNIQUE: Computed tomographic angiography (CTA) of the left lower extremities was performed with 15 0 mL Omnipaque-350 intravenous contrast. Automated exposure control and iterative reconstruction tech Clever Cloudque were employed. The dose-length product was 522.97 mGy-cm. Maximum intensity projection 3D-recon structions of the arteries were created by the technologist on a separate workstation. COMPARISON: Left foot radiographs 09/29/22 FINDINGS: Bone alignment is normal. No fracture. There is severe osteoarthritis of first metatarsophalangeal william int and mild osteoarthritis of many of the interphalangeal joints and midfoot joints. There is severe left knee osteoarthritis. There is a large Dickson's cyst. There is a small knee joint effusion. There is mild stenosis of left common femoral artery and superficial femoral artery. There is no significa nt stenosis of the profunda femoris. There is total occlusion of above-knee popliteal artery. There i s reconstitution of flow in proximal anterior tibial artery, proximal posterior tibial artery, and pr oximal peroneal artery. IMPRESSION: 1. 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 Reviewed, dictated and finalized at location A. IMPRESSION: 1. 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
--- NOTE | 2022-09-29 10:42 | ECG_ITS ---
Measurements Intervals [place] Rate: 72 P: 81 AK: 207 QRS: -1 QRSD: 91 T: 61 QT: 374 QTc: 412 Interpretive Statements SINUS RHYTHM WITH FIRST-DEGREE AV BLOCK ANTEROSEPTAL MYOCARDIAL INFARCTION , OF INDETERMINATE AGE [40+ ms Q WAVE IN V1-V4] COMPARED TO ECG 06/22/2021 08:26:56 NO SIGNIFICANT CHANGES Electronically Signed On 09-30-2022 16:25:58 CDT by Jack De Santiago M.D.
--- NOTE | 2022-09-29 11:19 | PC.NURSE ---
patient's caregiver reports that patient had an appointment with television writer today but was not able to make appointment
[2022-09-29] MEDS: SODIUM CHLORIDE 0.9% IV 1,000 ML 125 ML IV CONT (11:51)
--- NOTE | 2022-09-29 12:09 | PC.NURSE ---
attempted to straight cath patient, due to patient's anatomy, unable to obtain at this time
[2022-09-29 12:19] LABS: Basophils Absolute Auto 0.1 K/mm3 (0.0-0.1); Basophils Percent Auto 0.6 % (0.2-1.2); Eosinophils Absolute Auto 0.4 K/mm3 (0-0.3); Eosinophils Percent Auto 5.7 % (0-4.4); Hemoglobin 12.3 g/dL (12.0-15.0); Immature Granulocyte Absolute 0.02 K/mm3 (0.00-0.031); Immature Granulocyte Percent A 0.3 % (0-0.5); Lymphocytes Absolute Auto 1.01 K/mm3 (0.9-3.2); Lymphocytes Percent Auto 13.1 % (18.3-44.2); Mean Corpuscular HGB Conc 31.5 g/dl (32-36); Mean Corpuscular Hemoglobin 28.3 pg (26-34); Mean Corpuscular Volume 89.9 fl (80-100); Mean Platelet Volume 9.6 fl (7.4-10.4); Monocytes Absolute Auto 0.7 K/mm3 (0.1-0.6); Monocytes Percent Auto 9.1 % (2.6-8.5); Neutrophils Absolute Auto 5.5 K/mm3 (1.3-6.7); Neutrophils Percent Auto 71.2 % (45.5-73.1); Platelet Count Result 355 k/mm3 (150-375); Red Blood Count 4.34 M/mm3 (4.2-5.4); Red Cell Distribution Width 14.6 % (11.5-14.5); White Blood Count 7.7 K/mm3 (4.5-10.0)
[2022-09-29 12:29] LABS: Prothrombin Time 13.3 Seconds (11.1-14.7)
[2022-09-29 12:41] LABS: Lactic Acid Reflex 0.9 mmol/L (0.7-2.0)
[2022-09-29 13:19] LABS: Estimated Glomerular Filt Rate > 60
[2022-09-29 13:44] LABS: Potassium 4.1 mmol/L (3.4-5.0); Sodium 137 mmol/L (137-145)
[2022-09-29 13:45] LABS: Alanine Aminotransferase 16 U/L (6-35); Albumin Level 3.5 g/dL (3.5-5.1); Alkaline Phosphatase 95 U/L (38-126); Anion Gap 4 mmol/L (8-16); Aspartate Amino Transferase 24 U/L (14-36); Bilirubin,Total 0.6 mg/dL (0.2-1.3); Blood Urea Nitrogen 13 mg/dL (7-17); CRP 1.1 mg/dL (<1.0); Calcium 8.8 mg/dL (8.4-10.2); Carbon Dioxide 32 mmol/L (22-30); Chloride 101 mmol/L (98-107); Estimated Glomerular Filt Rate > 60; Glucose 93 mg/dL (65-110); Total Protein 6.8 g/dL (6.3-8.2)
[2022-09-29 14:33] LABS: Appearance Urine Clear (Clear); Bacteria Urine 1+ /hpf; Bilirubin Urine Negative (Negative); Blood Urine Trace (Negative); Color Urine Yellow (Yellow); Glucose Urine UA Negative (Negative); Ketones Urine Negative (Negative); Leukocyte Esterase Ur 1+ LEU/UL (Negative); Need Manual Microscopic Reviewed; Nitrate Urine Negative (Negative); Protein Urine Trace mg/dL (Negative); RBC Urine 0-2 /hpf (0-2); Squamous Epithelial Cell Urine Moderate /hpf (Few); Urobilinogen Urine 0.2 mg/dL (<2.0); WBC Urine 51-100 /hpf
[2022-09-29 14:41] LABS: Specific Grav Ur 1.087 (1.001-1.035)
[2022-09-29 14:42] LABS: Add Urine Microscopic? YES
[2022-09-29 14:43] LABS: Prothrombin Time 13.7 Seconds (11.1-14.7)
--- NOTE | 2022-09-29 15:37 | PC.NURSE ---
patient accepted at [facility] by vascular surgery, waiting for bed. patient/caregiver aware. food tray ordered at this time
--- NOTE | 2022-09-29 15:49 | PC.NURSE ---
update given to patient's son, aleah quick, . he would like an update when patient gets transferred to [facility].
--- NOTE | 2022-09-29 16:00 | PC.NURSE ---
provider states that when he explained patient's condition and need for transfer he states that patient understood and was accepting to transfer.
--- NOTE | 2022-09-29 16:21 | ED.GENADULT ---
HPI - General Adult General Chief complaint: Weakness Stated complaint: weakness Time Seen by Provider: 09/29/22 11:03 Source: patient Mode of arrival: EMS Limitations: no limitations History of Present Illness HPI narrative: 87-year-old with a history of COPD, hypertension here with complaints of not feeling well for past 1 week. Patient states 'I am not up to the Par '. She denies any fever or chills. No history of nausea, vomiting or abdominal pain. She denies any chest pain or shortness of breath. Complains of left fifth toe becoming black. She states that she dropped a can of boost almost a week or 10 days ago. No history of fever or chills. Onset (ago): week(s) (1) Location: lower extremity (Left foot) Severity: mild Pain Consistency: constant Relieving factors: none Exacerbating factors: none Associated symptoms: denies other symptoms Related Data Home Medications Medication Instructions Recorded Confirmed sakqgplc-dgh-oiqrm acid 0.4 1 tablet PO 3XW 09/11/20 05/10/22 mg-lycopene 300 mcg-lutein 250 mcg tablet (Centrum Silver) Allergies Allergy/AdvReac Type Severity Reaction Status Date / Time No Known Allergies Allergy Verified 09/23/22 11:25 Review of Systems Review of Systems: All systems reviewed & are unremarkable except as noted in HPI and below Constitutional: Constitutional: Reports fatigue Eyes: Eyes: Reports no additional eye complaints ENT: Reports system reviewed and no additional complaints, except as documented Cardiovascular: Cardiovascular: Reports no additional cardiovascular complaints Respiratory: Respiratory: Reports no additional respiratory complaints Gastrointestinal: Gastrointestinal: Reports no additional gastrointestinal complaints Genitourinary: Genitourinary: Reports no additional female genitourinary complaints Musculoskeletal: Musculoskeletal: Reports as per HPI Integumentary/Breasts: Skin/Breast: Reports system reviewed and no additional complaints, except as docu Psychiatric: Psychiatric: Reports no additional psychiatric complaints [facility] Past Medical History Medical History Acute and chronic respiratory failure with hypercapnia Acute and chronic respiratory failure with hypoxia Acute respiratory failure Altered mental status, unspecified Anxiety Arthritis Cataracts, bilateral Chronic obstructive pulmonary disease, unspecified COPD (chronic obstructive pulmonary disease) COPD exacerbation Depression Diarrhea DVT prophylaxis Elevated liver enzymes Fall Generalized weakness GERD (gastroesophageal reflux disease) History of pneumonia HTN (hypertension) with goal to be determined Hx of hemorrhoids Hx: UTI (urinary tract infection) Hyperlipidemia Hypoxia Multifocal atrial tachycardia Nicotine dependence, unspecified, uncomplicated in resmission Peripheral arterial disease Rhabdomyolysis Right leg weakness Seasonal affective disorder Stress incontinence Tobacco abuse Type 2 diabetes mellitus without complication, without long-term current use of insulin not on any medication Vitamin D deficiency Weakness Surgical History Surgical History History of appendectomy History of cataract surgery History of hemorrhoidectomy History of hysterectomy Family History Family History Mother Diabetes mellitus Family history of malignant neoplasm Family history of diabetes mellitus in first degree relative Patient's mother is Father Malignant neoplasm of prostate Social History Social History Social History: x3. 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 No marijuana or cocaine use for 20+ yrs. Lives alone. She has one son and she nom
[2022-09-29] MEDS: ACETAMINOPHEN 325 MG TABLET 650 MG PO (20:39)
--- NOTE | 2022-09-29 20:49 | PC.NURSE ---
patient requested wallet be placed in safe at nurses station. $71.00 rojas counted with patient in room prior to removing wallet. wallet placed in brown envelope with patient's sticker and placed in safe with charge nurseromero, RN
--- NOTE | 2022-09-29 22:41 | PC.NURSE ---
ochoa from [facility] called for updated vital signs and triage questions. no beds available tonight.
[2022-09-30] VITALS (28 sets, daily range): BP systolic 104–148; BP diastolic 44–80; PULSE 57–88; RESP 14–34; TEMP 36.8; O2SAT 92–100
[2022-09-30] MEDS: HYDROmorphone HCL INJ (*CRX) 1 MG/ML SYR 0.5 MG IV PUSH ×2 (01:19→09:48)
--- NOTE | 2022-09-30 08:04 | PC.NURSE ---
Update given to [facility] intake. They will call when bed available.
== END 2022-09-30 16:40 | disposition short-term general hospital (02) ==
PROVIDERS: Emergency Provider Family Medicine; PCP Family Medicine
DX: E11.52 Type 2 diabetes mellitus with diabetic peripheral angiopathy with gangrene (principal); I70.262 Atherosclerosis of native arteries of extremities with gangrene, left leg; J96.12 Chronic respiratory failure with hypercapnia; J96.11 Chronic respiratory failure with hypoxia; J44.9 Chronic obstructive pulmonary disease, unspecified; I10 Essential (primary) hypertension; E78.5 Hyperlipidemia, unspecified; E55.9 Vitamin D deficiency, unspecified; M19.90 Unspecified osteoarthritis, unspecified site; K21.9 Gastro-esophageal reflux disease without esophagitis; F17.210 Nicotine dependence, cigarettes, uncomplicated; R82.998 Other abnormal findings in urine; Z98.49 Cataract extraction status, unspecified eye; Z87.440 Personal history of urinary (tract) infections; Z90.710 Acquired absence of both cervix and uterus; Z66 Do not resuscitate; Z79.82 Long term (current) use of aspirin; Z79.01 Long term (current) use of anticoagulants; Z79.02 Long term (current) use of antithrombotics/antiplatelets; M85.872 Other specified disorders of bone density and structure, left ankle and foot; M77.9 Enthesopathy, unspecified; M19.072 Primary osteoarthritis, left ankle and foot; M21.072 Valgus deformity, not elsewhere classified, left ankle; I44.0 Atrioventricular block, first degree; R94.31 Abnormal electrocardiogram [ECG] [EKG]
CPT/HCPCS: 36415; 73630; 73706; 80053; 81001; 83605; 85025; 85610; 85730; 86140; 87086; 87088; 93005; 96361; 96365; 96375; 96376; 99285; A9270; J0131; J1170; J7030; Q9967

== ENCOUNTER 2022-10-14 12:14 | Emergency (ER) | payer MEDICARE, SELFPAY ==
[2022-10-14 12:49] VITALS: BP 129/56; PULSE 62; RESP 16; TEMP 36.3; O2SAT 98
[2022-10-14 13:31] LABS: Basophils Absolute Auto 0.1 K/mm3 (0.0-0.1); Eosinophils Absolute Auto 0.8 K/mm3 (0-0.3); Eosinophils Percent Auto 8.4 % (0-4.4); Hematocrit 40.5 % (37.0-47.0); Hemoglobin 12.4 g/dL (12.0-15.0); Immature Granulocyte Absolute 0.05 K/mm3 (0.00-0.031); Immature Granulocyte Percent A 0.5 % (0-0.5); Lymphocytes Absolute Auto 1.13 K/mm3 (0.9-3.2); Lymphocytes Percent Auto 11.7 % (18.3-44.2); Mean Corpuscular HGB Conc 30.6 g/dl (32-36); Mean Corpuscular Hemoglobin 28.7 pg (26-34); Mean Corpuscular Volume 93.8 fl (80-100); Mean Platelet Volume 9.5 fl (7.4-10.4); Monocytes Absolute Auto 0.7 K/mm3 (0.1-0.6); Monocytes Percent Auto 7.5 % (2.6-8.5); Neutrophils Absolute Auto 6.9 K/mm3 (1.3-6.7); Neutrophils Percent Auto 70.9 % (45.5-73.1); Platelet Count Result 487 k/mm3 (150-375); Red Blood Count 4.32 M/mm3 (4.2-5.4); Red Cell Distribution Width 15.1 % (11.5-14.5); White Blood Count 9.7 K/mm3 (4.5-10.0)
[2022-10-14 13:41] LABS: Alanine Aminotransferase 15 U/L (6-35); Albumin Level 3.6 g/dL (3.5-5.1); Alkaline Phosphatase 126 U/L (38-126); Anion Gap 5 mmol/L (8-16); Aspartate Amino Transferase 23 U/L (14-36); Bilirubin,Total 0.5 mg/dL (0.2-1.3); Blood Urea Nitrogen 17 mg/dL (7-17); Calcium 9.2 mg/dL (8.4-10.2); Carbon Dioxide 34 mmol/L (22-30); Chloride 102 mmol/L (98-107); Estimated Glomerular Filt Rate > 60; Glucose 103 mg/dL (65-110); Lipase 170 U/L (23-300); Potassium 3.9 mmol/L (3.4-5.0); Sodium 141 mmol/L (137-145)
--- NOTE | 2022-10-14 15:30 | ED.WEAKNESS ---
HPI - Weakness General Chief complaint: Weakness Stated complaint: weakness x 3 days Time Seen by Provider: 10/14/22 15:10 History of Present Illness HPI Narrative: Patient is an 87-year-old female who presents ER for further evaluation. Patient was recently discharged from [facility] 4 days ago. She had had a vascular access procedure to open a artery in her left leg so that she can get blood flow to the gangrenous toe on her left foot. She is scheduled to follow-up with a child day care teacher to evaluate the toe next month. She reports there is been no change on that front. She does report she has been having intermittent diarrhea since discharge. She had 1 episode today and due to some increased fatigue over the last couple days her and her home health aide opted to come in to be evaluated. At this time she feels her normal self and has no concerns. She feels she may have just been anxious and pulled the trigger too quickly to come in. She has had no fevers or chills or sweats. She has been able to ambulate. She has no pain at her access site. She has not yet changed the bandage. Related Data Home Medications Medication Instructions Recorded Confirmed ybdyxuut-amv-vemjz acid 0.4 1 tablet PO 3XW 09/11/20 05/10/22 mg-lycopene 300 mcg-lutein 250 mcg tablet (Centrum Silver) Allergies Allergy/AdvReac Type Severity Reaction Status Date / Time No Known Allergies Allergy Verified 10/14/22 15:12 Review of Systems Review of Systems: All systems reviewed & are unremarkable except as noted in HPI and below Constitutional: Constitutional: Denies chills, Reports fatigue and Denies fever(s) ENT: Denies nasal congestion and Denies sore throat Gastrointestinal: Gastrointestinal: Denies abdominal pain, Reports diarrhea, Denies nausea and Denies vomiting Musculoskeletal: Musculoskeletal: Denies arthralgias and Denies joint swelling Comments: Gangrene left fifth digit Psychiatric: Psychiatric: Reports anxiety PMFSH Past Medical History Medical History Acute and chronic respiratory failure with hypercapnia Acute and chronic respiratory failure with hypoxia Acute respiratory failure Altered mental status, unspecified Anxiety Arthritis Cataracts, bilateral Chronic obstructive pulmonary disease, unspecified COPD (chronic obstructive pulmonary disease) COPD exacerbation Depression Diarrhea DVT prophylaxis Elevated liver enzymes Fall Generalized weakness GERD (gastroesophageal reflux disease) History of pneumonia HTN (hypertension) with goal to be determined Hx of hemorrhoids Hx: UTI (urinary tract infection) Hyperlipidemia Hypoxia Multifocal atrial tachycardia Nicotine dependence, unspecified, uncomplicated in resmission Peripheral arterial disease Rhabdomyolysis Right leg weakness Seasonal affective disorder Stress incontinence Tobacco abuse Type 2 diabetes mellitus without complication, without long-term current use of insulin not on any medication Vitamin D deficiency Weakness Surgical History Surgical History History of appendectomy History of cataract surgery History of hemorrhoidectomy History of hysterectomy Family History Family History Mother Diabetes mellitus Family history of malignant neoplasm Family history of diabetes mellitus in first degree relative Patient's mother is Father Malignant neoplasm of prostate Social History Social History Social History: x3. 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 No marijuana or cocaine use for 20+ yrs. Lives alone. She has one son and she nominates him to be the individual to make medical decisions for her if she is unable. She is now Ambien
[2022-10-14 16:29] VITALS: BP 146/78; PULSE 78; RESP 16
== END 2022-10-14 16:31 | disposition home or self-care (01) ==
LOC: ANHED 15:41
PROVIDERS: Emergency Provider Emergency Medicine; PCP Family Medicine
DX: R19.7 Diarrhea, unspecified (principal); F41.9 Anxiety disorder, unspecified; E11.52 Type 2 diabetes mellitus with diabetic peripheral angiopathy with gangrene; A48.0 Gas gangrene; Z98.890 Other specified postprocedural states; J96.12 Chronic respiratory failure with hypercapnia; J96.11 Chronic respiratory failure with hypoxia; J44.9 Chronic obstructive pulmonary disease, unspecified; I73.9 Peripheral vascular disease, unspecified; E78.5 Hyperlipidemia, unspecified; E55.9 Vitamin D deficiency, unspecified; K21.9 Gastro-esophageal reflux disease without esophagitis; M19.90 Unspecified osteoarthritis, unspecified site; F17.210 Nicotine dependence, cigarettes, uncomplicated; Z87.01 Personal history of pneumonia (recurrent); Z87.440 Personal history of urinary (tract) infections; Z98.49 Cataract extraction status, unspecified eye; Z90.710 Acquired absence of both cervix and uterus; Z66 Do not resuscitate; Z79.82 Long term (current) use of aspirin; Z79.01 Long term (current) use of anticoagulants; Z79.02 Long term (current) use of antithrombotics/antiplatelets
CPT/HCPCS: 36415; 80053; 83690; 85025; 99283

== ENCOUNTER 2022-10-16 12:29 | Inpatient (IN) | payer MEDICARE, SELFPAY ==
[2022-10-16] VITALS (24 sets, daily range): BP systolic 107–144; BP diastolic 42–95; PULSE 54–77; RESP 16–37; TEMP 36.5–36.7; O2SAT 96–100; BMI 25.3
--- NOTE | ~2022-10-16 | XR_ITS ---
XR chest 2V DATE: 10/16/2022 13:41 INDICATION: Shortness of breath TECHNIQUE: 2 views COMPARISON: June 22, 2021 AP chest FINDINGS: Heart size is within normal limits. Large hiatal hernia. There is aortic arch and descendin g thoracic aortic and abdominal aortic calcification, thoracic aortic unfolding. No pulmonary infiltrate or consolidation, pleural effusion or pulmonary vascular congestion or pneumo thorax. Osteopenia. Mild scoliosis and degenerative change of the thoracic spine. IMPRESSION: No active cardiac pulmonary disease Aortic atherosclerosis Large hiatal hernia Reviewed, dictated and finalized at location A.
--- NOTE | ~2022-10-16 | CT_ITS ---
CT of the Abdomen and Pelvis: Indication: Abdominal aortic aneurysm Technique: 2.5 mm axial scans were obtained through the abdomen and pelvis following intravenous adm inistration of 100 cc of Omnipaque 350. Dose reduction technique was used on this scan by utilizing a utomated exposure control and iterative reconstruction technique. The dose-length product (DLP) was 4 68.16 mGy-cm. COMPARISON: 01/15/2017 Findings: Scans through the lung bases demonstrates large hiatal hernia, probably containing essenti ally entire stomach, with probable organoaxial volvulus. The liver, spleen, pancreas, adrenals and kidneys are within normal limits. Small amount of gallbladd er sludge or small stones present. There is extensive atherosclerotic change of the abdominal aorta. Infrarenal abdominal aortic aneurysm is present measuring up to 3.2 cm in diameter. There is also ext ensive atherosclerotic change of the bilateral iliac vasculature, with probable focal occlusion versu s very high-grade stenosis at the proximal left common iliac artery. No lymphadenopathy. No bowel obstruction or bowel wall thickening. There is no evidence to suggest acute appendicitis. Th ere is extensive sigmoid diverticulosis. Images through the pelvis were performed. Urinary bladder unremarkable. No pelvic mass seen. Patient is post hysterectomy. No ascites. Impression: 3.2 cm infrarenal abdominal aortic aneurysm with extensive atherosclerotic changes of the aorta and i liac vessels. Focal occlusion versus high-grade stenosis of the proximal left common iliac artery. Correlate with a ny relevant patient's symptomatology. Large hiatal hernia containing essentially the entire stomach, with organoaxial volvulus, similar to prior exam from 2016. Reviewed, dictated and finalized at [facility]. Impression: 3.2 cm infrarenal abdominal aortic aneurysm with extensive atherosclerotic shin ges of the aorta and iliac vessels. Focal occlusion versus high-grade stenosis of the proximal left common iliac ar doug. Correlate with any relevant patient's symptomatology. Large hiatal hernia containing essentially the entire stomach, with organoaxial volvulus, similar to prior exam from 2017.
--- NOTE | ~2022-10-16 | XR_ITS ---
XR toe 5th LT min 2V DATE: 10/16/2022 13:42 INDICATION: Left fifth toe necrosis TECHNIQUE: 4 views COMPARISON: 09/29/2022 left foot FINDINGS: Again noted is fracture deformity of indeterminate age at the neck of the proximal phalanx of the fifth toe. There is diffuse osteopenia. There is diminished soft tissue of the fifth toe compared to the other t oes, as well as some irregularity of the skin surface, likely related to clinically reported necrosis or gangrene. No periosteal reaction or bone destruction is evident. Joint spaces at the fifth metatarsophalangeal and fifth interphalangeal joints appear intact. IMPRESSION: Age indeterminate fracture of the neck of the proximal phalanx Osteopenia Diminished soft tissue thickness of the right fifth toe, with mild irregularity of the skin surface, which may be due to clinically reported soft tissue necrosis, gangrene Reviewed, dictated and finalized at location A. IMPRESSION: Age indeterminate fracture of the neck of the proximal phalanx Osteopenia Diminished soft tissue thickness of the right fifth toe, with mild irregularity of the skin surface, which may be due to clinically reported soft tissue necro sis, gangrene
--- NOTE | ~2022-10-16 | CT_ITS ---
Clinical Indication: Shortness of breath CT Scan of the Chest with Contrast: Technique: Contiguous sections were acquired throughout the chest after intravenous administration of 100 cc of Omnipaque 350. Dose reduction technique was used on this scan by utilizing automated expos ure control and iterative reconstruction technique. The dose-length product (DLP) was 424.16 mGy-cm. COMPARISON: 07/18/2020 Findings: There is no evidence of any significant mediastinal, hilar or axillary lymphadenopathy. There is no f illing defect in the pulmonary arterial tree to suggest pulmonary embolus. There is no evidence of ao rtic dissection or aneurysm. Extensive atherosclerotic calcifications of the thoracic aorta noted. La rge hiatal hernia is present, containing nearly entire stomach. There is no evidence of pleural or pericardial effusion. There is linear bibasilar scarring or atelectasis.. Moderate emphysema present. Images through the upper abdomen reveal probable partially imaged abdominal aortic aneurysm, measurin g up to at least 3.5 cm in diameter. There are extensive atherosclerotic calcifications of the abdomi nal aorta. Impression: No evidence of pulmonary embolus or aortic dissection. Moderate emphysema. Partially imaged abdominal aortic aneurysm, which measures up to at least 3.5 cm in diameter. Advise dedicated imaging to more completely evaluate the abdominal aortic aneurysm. Large hiatal hernia, containing essentially the entire stomach. Reviewed, dictated and finalized at [facility]. Impression: No evidence of pulmonary embolus or aortic dissection. Moderate emphysema. Partially imaged abdominal aortic aneurysm, which measures up to at least 3.5 c m in diameter. Advise dedicated imaging to more completely evaluate the abdomin al aortic aneurysm. Large hiatal hernia, containing essentially the entire stomach.
--- NOTE | 2022-10-16 12:37 | ECG_ITS ---
Measurements Intervals [place] Rate: 62 P: 73 MI: 198 QRS: -11 QRSD: 92 T: 69 QT: 418 QTc: 425 Interpretive Statements SINUS RHYTHM SEPTAL MYOCARDIAL INFARCTION , PROBABLY OLD [40+ ms Q WAVE IN V1/V2] COMPARED TO ECG 09/29/2022 10:42:10 NO SIGNIFICANT CHANGES Electronically Signed On 10-17-2022 8:21:56 CDT by Jack De Santiago M.D.
--- NOTE | 2022-10-16 12:49 | ED.GENADULT ---
HPI - General Adult General Chief complaint: Shortness of Breath/Dyspnea <Bethanie Mari APRN - Last Filed: 10/16/22 17:37> Stated complaint: SOB <Bethanie Mari APRN - Last Filed: 10/16/22 17:37> Time Seen by Provider: 10/16/22 12:43 <Bethanie Mari [employer] - Last Filed: 10/16/22 17:37> History of Present Illness HPI narrative: 87-year-old female presents to the emergency room today for complaints of shortness of breath that started this morning. She lives at home and is able to take care of herself. She denies having any chest pain this morning. She has a history of smoking for many years but is not a current smoker. History of COPD and respiratory failure. Denies any cough. No fever. She was just discharged from [facility] about a week ago after having a arterial blood clot removed from her lower extremity. She has a necrotic left fifth toe that has not been evaluated by podiatry at this point. She does have an upcoming appointment but not until next month. The toe had started looking black about 1 month ago. It is malodorous. She is currently anticoagulated with xarelto. <Bethanie Mari APRN - Last Filed: 10/16/22 17:37> Related Data Home medications: Home Medications Medication Instructions Recorded Confirmed thswmdzm-qml-wpbeq acid 0.4 1 tablet PO 3XW 09/11/20 10/16/22 mg-lycopene 300 mcg-lutein 250 mcg tablet (Centrum Silver) Senna with Docusate Sodium See Rx Instructions .Route .COMPLEX 10/16/22 10/16/22 aspirin 81 mg PO DAILY 10/16/22 10/16/22 atorvastatin 40 mg tablet 40 mg PO DAILY 10/16/22 10/16/22 clopidogrel 75 mg tablet (Plavix) 75 mg PO DAILY 10/16/22 10/16/22 oxycodone 5 mg PO Q4-6H 10/16/22 10/16/22 rivaroxaban 2.5 mg tablet (Xarelto) 2.5 mg PO BID 10/16/22 10/16/22 <Bethanie Mari APRN - Last Filed: 10/16/22 17:37> Allergies/adverse reactions: Allergies Allergy/AdvReac Type Severity Reaction Status Date / Time No Known Allergies Allergy Verified 10/14/22 15:12 <Bethanie Mari [employer] - Last Filed: 10/16/22 17:37> Review of Systems Review of Systems: CONSTITUTIONAL: Denies fever, chills, or sweats. EYES: Denies visual changes, redness, or discharge. ENT: Denies rhinorrhea, congestion, sore throat, or otalgia. CARDIOVASCULAR: Denies chest pain, palpitations, or edema. RESPIRATORY: Reports shortness of breath GASTROINTESTINAL: Denies abdominal pain, nausea, vomiting, or diarrhea. GENITOURINARY: Denies dysuria or hematuria. SKIN: Denies rash or itching. MUSCULOSKELETAL: necrotic left fifth toe NEUROLOGIC: Denies headache, numbness, dizziness, or weakness. PSYCHIATRIC: Denies anxiety or depression. <Bethanie Mari, [employer]ATE - Last Filed: 10/16/22 17:37> [facility] Past Medical History Medical History: Medical History Acute and chronic respiratory failure with hypercapnia Acute and chronic respiratory failure with hypoxia Acute respiratory failure Altered mental status, unspecified Anxiety Arthritis Cataracts, bilateral Chronic obstructive pulmonary disease, unspecified COPD (chronic obstructive pulmonary disease) COPD exacerbation Depression Diarrhea DVT prophylaxis Elevated liver enzymes Fall Generalized weakness GERD (gastroesophageal reflux disease) History of pneumonia HTN (hypertension) with goal to be determined Hx of hemorrhoids Hx: UTI (urinary tract infection) Hyperlipidemia Hypoxia Multifocal atrial tachycardia Nicotine dependence, unspecified, uncomplicated in resmission Peripheral arterial disease Preventative health care Rhabdomyolysis Right leg weakness Seasonal affective disorder Skin lesion Stress incontinence Tobacco abuse Toe pain, left Type 2 diabetes mellitus without complication, without long-term current use of insulin not on any medication Vitamin D deficiency Weakness <Bethanie Mari, [employer] - Last Filed: 10/16/22 17:37> S
[2022-10-16] MEDS: ALBUTEROL SULFATE NEB 2.5 MG/3 ML INH INHALATION (13:09)
[2022-10-16 13:11] LABS: Basophils Absolute Auto 0.1 K/mm3 (0.0-0.1); Basophils Percent Auto 1.3 % (0.2-1.2); Eosinophils Absolute Auto 1.2 K/mm3 (0-0.3); Eosinophils Percent Auto 12.8 % (0-4.4); Hematocrit 37.7 % (37.0-47.0); Hemoglobin 11.6 g/dL (12.0-15.0); Immature Granulocyte Absolute 0.04 K/mm3 (0.00-0.031); Immature Granulocyte Percent A 0.4 % (0-0.5); Mean Corpuscular HGB Conc 30.8 g/dl (32-36); Mean Corpuscular Hemoglobin 28.5 pg (26-34); Mean Corpuscular Volume 92.6 fl (80-100); Mean Platelet Volume 9.7 fl (7.4-10.4); Monocytes Absolute Auto 0.8 K/mm3 (0.1-0.6); Monocytes Percent Auto 9.1 % (2.6-8.5); Neutrophils Percent Auto 66.4 % (45.5-73.1); Platelet Count Result 471 k/mm3 (150-375); Red Blood Count 4.07 M/mm3 (4.2-5.4)
--- NOTE | 2022-10-16 14:00 | PC.NURSE ---
Multiple failed attempts to collect blood on pt. Makenzie from lab notified and agreed to drawl labs.
--- NOTE | 2022-10-16 14:21 | PC.NURSE ---
STACY CASTILLOHOP [phone]
[2022-10-16 16:33] LABS: INR 1.1; Prothrombin Time 14.5 Seconds (11.1-14.7)
[2022-10-16 16:34] LABS: Partial Thromboplastin Time 31.1 SECONDS (22.3-36.8)
[2022-10-16 16:35] LABS: Lactic Acid Reflex 0.9 mmol/L (0.7-2.0); Magnesium 2.3 mg/dL (1.6-2.3)
[2022-10-16 16:45] LABS: NT Pro B Type Natriuretic Pept 164 pg/mL (19.9-100)
[2022-10-16 17:45] LABS: Alanine Aminotransferase 15 U/L (6-35); Albumin Level 3.3 g/dL (3.5-5.1); Alkaline Phosphatase 129 U/L (38-126); Anion Gap 4 mmol/L (8-16); Aspartate Amino Transferase 23 U/L (14-36); Bilirubin,Total 0.3 mg/dL (0.2-1.3); Blood Urea Nitrogen 16 mg/dL (7-17); Calcium 8.6 mg/dL (8.4-10.2); Carbon Dioxide 33 mmol/L (22-30); Chloride 104 mmol/L (98-107); Estimated Glomerular Filt Rate > 60; Glucose 96 mg/dL (65-110); Sodium 141 mmol/L (137-145); Troponin I < 0.012 ng/mL (0.000-0.034)
[2022-10-16] MEDS: methylPREDNISolone SOD SUCC 125 MG VIAL IV PUSH (17:48)
--- NOTE | 2022-10-16 19:27 | ADMGEN ---
This patient, Monica Crawley, was admitted to Medical Room 246-01. Patient/family oriented to hospital policies and general routines including ID bracelet, bed and alarms, visiting hours, pain management, procedures, bathroom and other care routines, personal items, smoking policy, room service/diet, and visiting hours. Information on how to activate the Rapid Response Team has been discussed. Patient/Family are encouraged to report perceived risks to care and to ask questions if they do not understand what they are told or what they should do.
--- NOTE | 2022-10-16 19:43 | PC.NURSE ---
oxycodone locked up 5mg tablets 4 in bottle informed charge nurse Esmer Fuller, counted with Yvonne GUZMAN.
--- NOTE | 2022-10-16 19:50 | PC.NURSE ---
called pharmacy for azithromycin 500mg IV reported not given in ED by day shift THOMAS Russell.
--- NOTE | 2022-10-16 20:14 | PM.IMHP ---
H&P: HPI History of Present Illness Date/Time: 10/16/22 20:14 Chief Complaint: Shortness of breath Narrative: This is an 87-year-old female patient who came with complaints of shortness of breath that started this morning. The patient lives home alone and is able to take care of herself typically. The patient denied any chest pain this morning. She does have a history of COPD and has smoked for many years. She is not currently smoking. The patient has a chronic necrotic toe to her left foot. The patient and developed an infection after she dropped a can of Ensure on that toe. The patient had a arterial stent placed at left leg. The patient stated that she is supposed to be evaluated by Podiatry at some point and has an upcoming appointment next month. However that left 5th toe is necrotic and malodorous. The patient was found to have UTI. The patient was started on Rocephin. She was given Solu-Medrol and azithromycin in the emergency room. Surgery has been consulted for that necrotic toe. Dr. Julien has agreed to see the patient for her gangrenous left 5th toe. Chest x-ray was read as the followingNo active cardiac pulmonary disease Aortic atherosclerosis Large hiatal hernia Toe x-ray was read as the followinge indeterminate fracture of the neck of the proximal phalanx Osteopenia Diminished soft tissue thickness of the right fifth toe, with mild irregularity of the skin surface, which may be due to clinically reported soft tissue necrosis, gangrene? Chest CTA was read as the followingo evidence of pulmonary embolus or aortic dissection. Moderate emphysema. Partially imaged abdominal aortic aneurysm, which measures up to at least 3.5 cm in diameter. Advise dedicated imaging to more completely evaluate the abdominal aortic aneurysm. Large hiatal hernia, containing essentially the entire stomach. The patient is being admitted to observation status on the date of service 10/17/2019 3p Review of Systems Review of Systems: All systems reviewed & are unremarkable except as noted in HPI and below Constitutional: Constitutional: Reports as per HPI and Reports no additional constitutional complaints Eyes: Eyes: Reports as per HPI and Reports no additional eye complaints ENT: Reports system reviewed and no additional complaints, except as documented and Reports Normal hearing present Cardiovascular: Cardiovascular: Reports no additional cardiovascular complaints Respiratory: Respiratory: Reports no additional respiratory complaints and Reports no additional respiratory complaints Gastrointestinal: Gastrointestinal: Reports as per HPI and Reports no additional gastrointestinal complaints Musculoskeletal: Musculoskeletal: Reports no additional musculoskeletal complaints Integumentary/Breasts: Skin/Breast: Reports system reviewed and no additional complaints, except as docu and Reports as per HPI Neurologic: Reports system reviewed and no additional complaints, except as documented, Reports as per HPI and Reports Normal hearing present Psychiatric: Psychiatric: Reports no additional psychiatric complaints and Reports as per HPI Endocrine: Endocrine: Reports no additional endocrine complaints Hematologic/Lymphatic: Hematologic/Lymphatic: Reports no additional hematologic/lymphatic complaints Allergic/Immunologic: Allergic/Immunologic: Reports no additional allergic/immunologic complaints COUNT INCLUDES THE [facility] Past Medical History Medical History (Updated 10/16/22 @ 23:27 by Katie Dozier NP) Acute and chronic respiratory failure with hypercapnia Acute and chronic respiratory failure with hypoxia Acute respiratory failure Altered mental status, unspecified Anxiety Arthritis Cataracts, bilateral Chronic obstructive pulmonary disease, unspecified COPD (chronic obstructive pulmonary disease) COPD exacerbation Depression Diarrhea DVT prophylaxis Elevated liver enzymes Fall Generalized weakness GERD (gastroesophageal reflux disease) History
[2022-10-16 20:25] LABS: Appearance Urine Clear (Clear); Bacteria Urine None Seen /hpf; Bilirubin Urine Negative (Negative); Blood Urine 3+ (Negative); Color Urine Yellow (Yellow); Glucose Urine UA Trace mg/dL (Negative); Hyaline Casts Urine Present /lpf; Ketones Urine Negative (Negative); Leukocyte Esterase Ur 1+ LEU/UL (Negative); Nitrate Urine Negative (Negative); Non Pathogenic Casts 0-2; Protein Urine 1+ mg/dL (Negative); Specific Grav Ur 1.091 (1.001-1.035); Squamous Epithelial Cell Urine Moderate /hpf (Few); Urobilinogen Urine 0.2 mg/dL (<2.0); WBC Urine 21-50 /hpf
[2022-10-16 20:26] LABS: Add Urine Microscopic? YES
[2022-10-16] MEDS: AZITHROMYCIN 500 MG/NS 250 ML 500 MG/250 ML BAG 250 MG IVPB (21:15)
--- NOTE | 2022-10-16 21:38 | PC.NURSE ---
ua sent to lab
[2022-10-16 22:34] LABS: Estimated Glomerular Filt Rate > 60
[2022-10-17] VITALS (11 sets, daily range): BP systolic 120–140; BP diastolic 48–58; PULSE 52–70; RESP 16–18; TEMP 36.6–36.8; O2SAT 94–97
--- NOTE | 2022-10-17 00:35 | PC.NURSE ---
wound culture send to lab L 5th toe
[2022-10-17] MEDS: ALBUTEROL SULFATE NEB 2.5 MG/3 ML INH INHALATION ×4 (02:21→20:43)
[2022-10-17] MEDS: IPRATROPIUM BR 0.02% INH SOLN 0.5 MG/2.5 ML VIAL INHALATION ×4 (02:22→20:43)
[2022-10-17] MEDS: methylPREDNISolone SOD SUCC 125 MG VIAL 60 MG IV PUSH ×3 (05:03→21:02)
[2022-10-17 06:35] LABS: Basophils Percent Auto 0.4 % (0.2-1.2); Eosinophils Percent Auto 0.3 % (0-4.4); Hematocrit 36.8 % (37.0-47.0); Hemoglobin 11.2 g/dL (12.0-15.0); Immature Granulocyte Absolute 0.05 K/mm3 (0.00-0.031); Immature Granulocyte Percent A 0.5 % (0-0.5); Lymphocytes Absolute Auto 0.57 K/mm3 (0.9-3.2); Lymphocytes Percent Auto 6.3 % (18.3-44.2); Mean Corpuscular HGB Conc 30.4 g/dl (32-36); Mean Corpuscular Hemoglobin 27.9 pg (26-34); Mean Corpuscular Volume 91.8 fl (80-100); Mean Platelet Volume 9.9 fl (7.4-10.4); Monocytes Absolute Auto 0.2 K/mm3 (0.1-0.6); Monocytes Percent Auto 2.3 % (2.6-8.5); Neutrophils Absolute Auto 8.2 K/mm3 (1.3-6.7); Neutrophils Percent Auto 90.2 % (45.5-73.1); Platelet Count Result 468 k/mm3 (150-375); Red Blood Count 4.01 M/mm3 (4.2-5.4); Red Cell Distribution Width 14.8 % (11.5-14.5); White Blood Count 9.1 K/mm3 (4.5-10.0)
[2022-10-17 06:45] LABS: Lactic Acid Reflex 0.9 mmol/L (0.7-2.0)
[2022-10-17 06:48] LABS: Alanine Aminotransferase 13 U/L (6-35); Albumin Level 3.2 g/dL (3.5-5.1); Alkaline Phosphatase 116 U/L (38-126); Anion Gap 1 mmol/L (8-16); Aspartate Amino Transferase 20 U/L (14-36); Bilirubin,Total 0.2 mg/dL (0.2-1.3); Blood Urea Nitrogen 11 mg/dL (7-17); Calcium 8.5 mg/dL (8.4-10.2); Carbon Dioxide 32 mmol/L (22-30); Chloride 107 mmol/L (98-107); Estimated Glomerular Filt Rate > 60; Glucose 136 mg/dL (65-110); Magnesium 2.2 mg/dL (1.6-2.3); Potassium 4.3 mmol/L (3.4-5.0); Sodium 140 mmol/L (137-145)
[2022-10-17] MEDS: ASPIRIN 81 MG ENTERIC TABLET PO (08:55)
[2022-10-17] MEDS: CLOPIDOGREL BISULFATE 75 MG TABLET PO (08:55)
[2022-10-17] MEDS: DICLOFENAC SODIUM 1% 100 GM GEL (*BKC) 1 APPLIC TOPICAL (08:55)
[2022-10-17] MEDS: LOSARTAN POTASSIUM 50 MG TABLET PO ×2 (08:55→17:36)
[2022-10-17] MEDS: RIVAROXABAN 2.5 MG TABLET PO ×2 (08:55→17:36)
[2022-10-17] MEDS: ATORVASTATIN 40 MG TABLET PO (08:55)
[2022-10-17] MEDS: oxyCODONE HCL (*CRX) 5 MG TAB IR PO (09:09)
[2022-10-17] MEDS: polyethylene glycoL 3350 17 GM POWD.PACK PO (10:15)
--- NOTE | 2022-10-17 10:35 | WPDCN ---
Assessment and Plan Assessment and plan (1) Gangrene of toe of left foot: Code(s): I96 - Gangrene, not elsewhere classified Status: Acute Assessment and Plan: The patient has dry gangrene of the left 5th toe. There is no associated cellulitis. She has warm extremity down to the left foot. As I have no records to review as to what was done at [facility] recently for revascularization of her lower extremity I would not want to proceed with amputation of the toe at this point without knowing whether she would be able to heal the wound. There is no need for emergent amputation there is no ascending cellulitis or controlled soft tissue infection. She will need to follow-up with her vascular surgeons at [facility] [address] where they can evaluate the toe and decide if it needs amputation. More than likely she has trash toe from her procedure. There is no concern for acute limb ischemia and threatened limb. Disposition as per hospitalist service. Local wound care now for the toe would include just in the area and keeping it dry and painting with Betadine each day. HPI Data of Consult Date/Time: 10/17/22 10:35 Requesting Physician: Enrique Farmer MD Primary Care Provider: aLmbert Rodriguez MD Consult Narrative Reason for consult: Gangrenous left 5th toe Narrative: Monica Crawley is a 87 year old female who was admitted to [facility] through the emergency room with a COPD exacerbation after complaining of some shortness of breath. ER provider happen look at her left foot and there appeared to be a black gangrenous left 5th toe. I was consult to evaluate the toe. Although I have no written records to review at this time but I can get from the patient is that she was taken to [facility] [address] and underwent some vascular intervention possibly with a stent to revascularize her left lower extremity. She was then discharged from the hospital to her home where she had in-home care. She was only home for a day or so when she was brought to [facility]. She has no idea as to who or when she is supposed to follow-up with the vascular surgeons. She is complaining of having small amount of pain in the left 5th toe. She denies any other pain in her left lower extremity. She has no complaints about her right lower extremity. White blood cell count is normal. She is sitting comfortably in her room on room air. Review of Systems Review of Systems: The remainder of the review of systems to include constitutional, HEENT, cardiovascular, respiratory, GI, , integumentary, musculoskeletal, endocrine, immunologic, hematologic, psychiatric, and neurologic are all negative except for which is mentioned above in the HPI. [facility] Past Medical History Medical History Acute and chronic respiratory failure with hypercapnia Acute and chronic respiratory failure with hypoxia Acute respiratory failure Altered mental status, unspecified Anxiety Arthritis Cataracts, bilateral Chronic obstructive pulmonary disease, unspecified COPD (chronic obstructive pulmonary disease) COPD exacerbation Depression Diarrhea DVT prophylaxis Elevated liver enzymes Fall Generalized weakness GERD (gastroesophageal reflux disease) History of pneumonia HTN (hypertension) with goal to be determined Hx of hemorrhoids Hx: UTI (urinary tract infection) Hyperlipidemia Hypoxia Multifocal atrial tachycardia Nicotine dependence, unspecified, uncomplicated in resmission Peripheral arterial disease Preventative health care Rhabdomyolysis Right leg weakness Seasonal affective disorder Skin lesion Stress incontinence Tobacco abuse Toe pain, left Type 2 diabetes mellitus without complication, without long-term current use of insulin not on any medication Vitamin D deficiency Weakness Surgical History Surgical History History of
--- NOTE | 2022-10-17 12:00 | WPDPN ---
Progress Note: A&P Assessment and Plan (1) Acute exacerbation of chronic obstructive pulmonary disease: Code(s): J44.1 - Chronic obstructive pulmonary disease with (acute) exacerbation Status: Acute Assessment and Plan: The patient is currently on room air. Continue with Solu-Medrol and nebulizer treatments. The patient had been given azithromycin and Rocephin in the emergency room. I will hold off on the a azithromycin at this time. 10/17/2022 interval history: patient presented with shortness of breath with history of COPD being with steroids and bronchodilator, stats feeling better, patient had CTA of chest negative for PE, however radialoigst is concerned for AAA, will do abdominla CT to further evaluate, patient is also found to have necrotic Lt 5th toe seen by general surgeon suspect patient has dry gangrene Lt 5th toe and patient was seen by a vascular surgeon at [facility] and a stent was placed and patient needs be seen by vascular surgeon for follow up, patient is a poor historia morfin not know who was her surgeon, will request records and further recommendation to follow. (2) UTI (urinary tract infection): Code(s): N39.0 - Urinary tract infection, site not specified Status: Acute Assessment and Plan: Blood and urine cultures are pending. Tailor antibiotics according to cultures. The patient was started on Rocephin. (3) Gangrene of toe of left foot: Code(s): I96 - Gangrene, not elsewhere classified Status: Acute Assessment and Plan: Surgery has been consulted. The patient does have some peripheral artery disease and stated that she recently received a stent to the left leg. The patient feels that the left great toe is healing. However the patient has a necrotic left 5th toe. The patient is anticoagulated with Xarelto. Further recommendation per surgery. X-ray of the left foot shows the following age indeterminate fracture of the neck of the proximal phalanx Osteopenia Diminished soft tissue thickness of the right fifth toe, with mild irregularity of the skin surface, which may be due to clinically reported soft tissue necrosis, gangrene (4) Peripheral arterial disease: Code(s): I73.9 - Peripheral vascular disease, unspecified Status: Acute Assessment and Plan: The patient stated she recently received a stent to the left leg. (5) ANTHONY on CPAP: Code(s): G47.33 - Obstructive sleep apnea (adult) (pediatric); Z99.89 - Dependence on other enabling machines and devices Status: Acute Assessment and Plan: Continue with home settings on CPAP or oxygen and HS. (6) Hyperlipidemia: Code(s): E78.5 - Hyperlipidemia, unspecified Status: Acute Assessment and Plan: Continue with atorvastatin (7) Essential (primary) hypertension: Code(s): I10 - Essential (primary) hypertension Status: Acute Assessment and Plan: Her blood pressure is currently 144/82. Continue with losartan Plan The patient is currently on Xarelto for unknown reasons. Subjective Date/time seen: 10/17/22 12:00 Interval history: Shortness of breath HPI-Narrative: This is an 87-year-old female patient who came with complaints of shortness of breath that started this morning.? The patient lives home alone and is able to take care of herself typically.? The patient denied any chest pain this morning.? She does have a history of COPD and has smoked for many years.? She is not currently smoking.? 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 The patient and developed an infection after she dropped a can of Ensure on that toe.? The patient had a arterial stent placed at left leg.? The patient stated that she is supposed to be evaluated by Podiatry at some point and has an upcoming appointment next month.? However that left 5th toe is necrotic and malodorous.? The patient was found to have UTI.? The patient was started on Rocephin.?
--- NOTE | 2022-10-17 20:26 | PC.NURSE ---
pt requiring melatonin to help with sleep called ARIS Dozier, awaiting call back
[2022-10-17] MEDS: MELATONIN 3 MG TABLET PO (21:56)
[2022-10-18] VITALS (14 sets, daily range): BP systolic 131–146; BP diastolic 52–71; PULSE 54–74; RESP 14–18; TEMP 36.4–37; O2SAT 94–100
[2022-10-18] MEDS: ALBUTEROL SULFATE NEB 2.5 MG/3 ML INH INHALATION ×4 (02:56→20:40)
[2022-10-18] MEDS: IPRATROPIUM BR 0.02% INH SOLN 0.5 MG/2.5 ML VIAL INHALATION ×4 (02:56→20:40)
[2022-10-18] MEDS: methylPREDNISolone SOD SUCC 125 MG VIAL 60 MG IV PUSH ×3 (05:00→21:59)
[2022-10-18 05:28] LABS: Hematocrit 34.6 % (37.0-47.0); Hemoglobin 10.6 g/dL (12.0-15.0); Mean Corpuscular HGB Conc 30.6 g/dl (32-36); Mean Corpuscular Hemoglobin 27.5 pg (26-34); Mean Corpuscular Volume 89.9 fl (80-100); Mean Platelet Volume 9.8 fl (7.4-10.4); Platelet Count Result 495 k/mm3 (150-375); Red Blood Count 3.85 M/mm3 (4.2-5.4); White Blood Count 16.4 K/mm3 (4.5-10.0)
[2022-10-18 05:39] LABS: Anion Gap -1 mmol/L (8-16); Blood Urea Nitrogen 14 mg/dL (7-17); Carbon Dioxide 34 mmol/L (22-30); Chloride 105 mmol/L (98-107); Estimated Glomerular Filt Rate > 60; Glucose 140 mg/dL (65-110); Magnesium 2.2 mg/dL (1.6-2.3); Potassium 4.3 mmol/L (3.4-5.0); Sodium 138 mmol/L (137-145)
[2022-10-18] MEDS: ATORVASTATIN 40 MG TABLET PO (08:27)
[2022-10-18] MEDS: MULTIVITAMINS /C LUTEIN (CENTRUM SILVER) TABLET *BKC 1 TAB PO (08:27)
[2022-10-18] MEDS: ASPIRIN 81 MG ENTERIC TABLET PO (08:27)
[2022-10-18] MEDS: CLOPIDOGREL BISULFATE 75 MG TABLET PO (08:30)
[2022-10-18] MEDS: LOSARTAN POTASSIUM 50 MG TABLET PO ×2 (08:30→16:34)
[2022-10-18] MEDS: RIVAROXABAN 2.5 MG TABLET PO ×2 (08:30→16:34)
--- NOTE | 2022-10-18 11:57 | WPDPN ---
Progress Note: A&P Assessment and Plan (1) Acute exacerbation of chronic obstructive pulmonary disease: Code(s): J44.1 - Chronic obstructive pulmonary disease with (acute) exacerbation Status: Acute Assessment and Plan: The patient is currently on room air. Continue with Solu-Medrol and nebulizer treatments. The patient had been given azithromycin and Rocephin in the emergency room. I will hold off on the a azithromycin at this time. 10/18/2022 interval history: patient presented with shortness of breath with history of COPD being with steroids and bronchodilator, stats feeling better, patient had CTA of chest negative for PE, however radialoigst is concerned for AAA, will do abdominla CT to further evaluate, repeat abdomen scan did not show any significant incrase in AAA, patient is also found to have necrotic Lt 5th toe seen by general surgeon suspect patient has dry gangrene Lt 5th toe and patient was seen by a vascular surgeon at [facility] and a stent was placed, patient was referred to a internet sales director by the surgeon, we have scheduled patient with a internet sales director for TuesdayOctober 20, and patient needs be seen by vascular surgeon for follow up, today patient still complains of shortness of breath, will continue present med and reassess tomorrow and further recommendation to follow. (2) UTI (urinary tract infection): Code(s): N39.0 - Urinary tract infection, site not specified Status: Acute Assessment and Plan: Blood and urine cultures are pending. Tailor antibiotics according to cultures. The patient was started on Rocephin. (3) Gangrene of toe of left foot: Code(s): I96 - Gangrene, not elsewhere classified Status: Acute Assessment and Plan: Surgery has been consulted. The patient does have some peripheral artery disease and stated that she recently received a stent to the left leg. The patient feels that the left great toe is healing. However the patient has a necrotic left 5th toe. The patient is anticoagulated with Xarelto. Further recommendation per surgery. X-ray of the left foot shows the following age indeterminate fracture of the neck of the proximal phalanx Osteopenia Diminished soft tissue thickness of the right fifth toe, with mild irregularity of the skin surface, which may be due to clinically reported soft tissue necrosis, gangrene (4) Peripheral arterial disease: Code(s): I73.9 - Peripheral vascular disease, unspecified Status: Acute Assessment and Plan: The patient stated she recently received a stent to the left leg. (5) ANTHONY on CPAP: Code(s): G47.33 - Obstructive sleep apnea (adult) (pediatric); Z99.89 - Dependence on other enabling machines and devices Status: Acute Assessment and Plan: Continue with home settings on CPAP or oxygen and HS. (6) Hyperlipidemia: Code(s): E78.5 - Hyperlipidemia, unspecified Status: Acute Assessment and Plan: Continue with atorvastatin (7) Essential (primary) hypertension: Code(s): I10 - Essential (primary) hypertension Status: Acute Assessment and Plan: Her blood pressure is currently 144/82. Continue with losartan Plan The patient is currently on Xarelto for unknown reasons. Subjective Date/time seen: 10/18/22 11:57 Interval history: The patient is currently on room air. Continue with Solu-Medrol and nebulizer treatments. The patient had been given azithromycin and Rocephin in the emergency room. I will hold off on the a azithromycin at this time. 10/18/2022 interval history: patient presented with shortness of breath with history of COPD being with steroids and bronchodilator, stats feeling better, patient had CTA of chest negative for PE, however radialoigst is concerned for AAA, will do abdominla CT to further evaluate, repeat abdomen scan did not show any significant incrase in AAA, patient is also found to have necrotic Lt 5th to
[2022-10-18] MEDS: MELATONIN 3 MG TABLET PO (21:59)
[2022-10-19] VITALS (12 sets, daily range): BP systolic 136–149; BP diastolic 58–63; PULSE 56–69; RESP 14–20; TEMP 36.4–36.9; O2SAT 93–98
[2022-10-19] MEDS: IPRATROPIUM BR 0.02% INH SOLN 0.5 MG/2.5 ML VIAL INHALATION ×4 (01:43→20:09)
[2022-10-19] MEDS: ALBUTEROL SULFATE NEB 2.5 MG/3 ML INH INHALATION ×4 (01:44→20:09)
[2022-10-19 05:47] LABS: Hematocrit 34.5 % (37.0-47.0); Hemoglobin 10.7 g/dL (12.0-15.0); Mean Corpuscular Hemoglobin 28.4 pg (26-34); Mean Corpuscular Volume 91.5 fl (80-100); Mean Platelet Volume 10.2 fl (7.4-10.4); Platelet Count Result 519 k/mm3 (150-375); Red Blood Count 3.77 M/mm3 (4.2-5.4); Red Cell Distribution Width 15.3 % (11.5-14.5); White Blood Count 13.6 K/mm3 (4.5-10.0)
[2022-10-19] MEDS: methylPREDNISolone SOD SUCC 125 MG VIAL 60 MG IV PUSH ×3 (05:52→22:20)
[2022-10-19 05:54] LABS: Anion Gap 0 mmol/L (8-16); Blood Urea Nitrogen 18 mg/dL (7-17); Calcium 8.9 mg/dL (8.4-10.2); Carbon Dioxide 35 mmol/L (22-30); Chloride 105 mmol/L (98-107); Estimated Glomerular Filt Rate > 60; Glucose 166 mg/dL (65-110); Magnesium 2.3 mg/dL (1.6-2.3); Potassium 4.4 mmol/L (3.4-5.0); Sodium 140 mmol/L (137-145)
[2022-10-19] MEDS: ATORVASTATIN 40 MG TABLET PO (09:27)
[2022-10-19] MEDS: CLOPIDOGREL BISULFATE 75 MG TABLET PO (09:27)
[2022-10-19] MEDS: ASPIRIN 81 MG ENTERIC TABLET PO (09:27)
[2022-10-19] MEDS: LOSARTAN POTASSIUM 50 MG TABLET PO ×2 (09:27→17:46)
[2022-10-19] MEDS: RIVAROXABAN 2.5 MG TABLET PO ×2 (09:27→17:46)
--- NOTE | 2022-10-19 09:31 | PM.DS ---
DS: Summary Time Spent with Patient Time attestation: Total time spent providing and/or coordinating discharge services: DS: Data Data Completed and Pending Labs on day of discharge: Labs from last 24 hours 10/19/22 05:16 WBC 13.6 H RBC 3.77 L Hgb 10.7 L Hct 34.5 L MCV 91.5 MCH 28.4 MCHC 31.0 L RDW 15.3 H Plt Count 519 H MPV 10.2 Sodium 140 Potassium 4.4 Chloride 105 Carbon Dioxide 35 H Anion Gap 0 L BUN 18 H Creatinine 0.50 L Estim Creat Clear Calc Not Reportable Estimated GFR > 60 Glucose 166 H Calcium 8.9 Magnesium 2.3 Preliminary micro results at discharge 10/16/22 16:11 Blood Culture - Preliminary Blood 10/16/22 16:32 Blood Culture - Preliminary Blood Discharge Plan Discharge Attending physician on discharge: Lin Diaz Consulting providers: Julio C Julien Discharging Clinician: Lin Diaz Patient Disposition: Home, Self-Care Activity: as tolerated Diet: heart healthy Discharge Instructions: Patient is to follow-up with her vascular surgeon at [facility] as an outpatient for evaluation of the dry gangrene of her left 5th toe. Follow up with Dr Perry on 10/20/22 at 3 pm [facility] [address] Care Coordination: Patient to have [facility] for PT/OT eval and treat, and care home. They can be reached at [phone], if you have any questions. They will contact you to schedule their first visit. Patient to follow up with her vascular surgeon and primary care provider as soon as possible, instructed if any symptoms worsen to go to nearest emergency department Patient Instructions: Antibiotic Form, Rivaroxaban (By mouth) Stand Alone Forms: General Discharge Information Follow-up/Referrals: Papi Perry JR, MD [Physician] - 10/20/22 3:00 pm Lambert Rodriguez MD [Primary Care Provider] - Discharge Medications: New melatonin 3 mg Tablet 3 mg PO HS Qty: 30 0RF doxycycline hyclate 100 mg capsule 100 mg PO BID Qty: 10 0RF prednisone 10 mg tablet 10 mg PO DAILY Qty: 63 0RF Rx Instructions: 6Tx3d, 5Tx3d, 4Tx3d, 3Tx3d, 2Tx3d, 1Tx3d polyethylene glycol 3350 [Miralax] 17 gram Powder In Packet 17 g PO QAM PRN (Reason: Constipation) Qty: 14 0RF Continued diclofenac sodium [Voltaren Arthritis Pain] 1 % gel 4 g topical QID Qty: 100 0RF Rx Instructions: apply to left 5th toe Centrum Silver 0.4-300-250 mg-mcg-mcg tablet 1 tablet PO 3XW atorvastatin 40 mg Tablet 40 mg PO DAILY clopidogrel [Plavix] 75 mg Tablet 75 mg PO DAILY Xarelto 2.5 mg tablet 2.5 mg PO BID Senna with Docusate Sodium See Rx Instructions .ROUTE .COMPLEX Rx Instructions: Takes 1 tablet PO BID aspirin 81 mg PO DAILY oxycodone 5 mg PO Q4-6H losartan [Cozaar] 50 mg tablet 50 mg PO BID Qty: 180 1RF cholecalciferol (vitamin D3) 1,250 mcg (50,000 unit) capsule 1,250 mcg PO WEEKLY Qty: 14 1RF Rx Instructions: Takes on Sundays Date of admission: 10/18/22 13:17 Primary Care Provider: Lambert Rodriguez Admitting Provider: Jarrod Farmer Attending physician on admission: Jarrod Farmer Condition: Stable
--- NOTE | 2022-10-19 09:52 | PCPTNOTE ---
Attempted to see patient for PT, however patient declined due to anticipated discharge.
--- NOTE | 2022-10-19 12:42 | WPDPN ---
Progress Note: A&P Assessment and Plan (1) Acute exacerbation of chronic obstructive pulmonary disease: Code(s): J44.1 - Chronic obstructive pulmonary disease with (acute) exacerbation Status: Acute Assessment and Plan: The patient is currently on room air. Continue with Solu-Medrol and nebulizer treatments. The patient had been given azithromycin and Rocephin in the emergency room. I will hold off on the a azithromycin at this time. 10/19/2022 interval history: patient presented with shortness of breath with history of COPD being with steroids and bronchodilator, stats feeling better, patient had CTA of chest negative for PE, however radialoigst is concerned for AAA, will do abdominla CT to further evaluate, repeat abdomen scan did not show any significant incrase in AAA, patient is also found to have necrotic Lt 5th toe seen by general surgeon suspect patient has dry gangrene Lt 5th toe and patient was seen by a vascular surgeon at [facility] and a stent was placed, patient was referred to a camera assembler by the surgeon, we have scheduled patient with a camera assembler for TuesdayOctober 20, however patient wound is growing Pseudomonas will start the patient on Cefepime and and further recommendation to follow (2) UTI (urinary tract infection): Code(s): N39.0 - Urinary tract infection, site not specified Status: Acute Assessment and Plan: Blood and urine cultures are pending. Tailor antibiotics according to cultures. The patient was started on Rocephin. (3) Gangrene of toe of left foot: Code(s): I96 - Gangrene, not elsewhere classified Status: Acute Assessment and Plan: Surgery has been consulted. The patient does have some peripheral artery disease and stated that she recently received a stent to the left leg. The patient feels that the left great toe is healing. However the patient has a necrotic left 5th toe. The patient is anticoagulated with Xarelto. Further recommendation per surgery. X-ray of the left foot shows the following age indeterminate fracture of the neck of the proximal phalanx Osteopenia Diminished soft tissue thickness of the right fifth toe, with mild irregularity of the skin surface, which may be due to clinically reported soft tissue necrosis, gangrene (4) Peripheral arterial disease: Code(s): I73.9 - Peripheral vascular disease, unspecified Status: Acute Assessment and Plan: The patient stated she recently received a stent to the left leg. (5) ANTHONY on CPAP: Code(s): G47.33 - Obstructive sleep apnea (adult) (pediatric); Z99.89 - Dependence on other enabling machines and devices Status: Acute Assessment and Plan: Continue with home settings on CPAP or oxygen and HS. (6) Hyperlipidemia: Code(s): E78.5 - Hyperlipidemia, unspecified Status: Acute Assessment and Plan: Continue with atorvastatin (7) Essential (primary) hypertension: Code(s): I10 - Essential (primary) hypertension Status: Acute Assessment and Plan: Her blood pressure is currently 144/82. Continue with losartan Plan The patient is currently on Xarelto for unknown reasons. Subjective Date/time seen: 10/19/22 12:42 Interval history: The patient is currently on room air. Continue with Solu-Medrol and nebulizer treatments. The patient had been given azithromycin and Rocephin in the emergency room. I will hold off on the a azithromycin at this time. 10/19/2022 interval history: patient presented with shortness of breath with history of COPD being with steroids and bronchodilator, stats feeling better, patient had CTA of chest negative for PE, however radialoigst is concerned for AAA, will do abdominla CT to further evaluate, repeat abdomen scan did not show any significant incrase in AAA, patient is also found to have necrotic Lt 5th toe seen by general surgeon suspect patient has dry gangrene Lt 5th toe and patient wa
[2022-10-19] MEDS: CEFEPIME 1 GM/NS 50 ML 1 GM/50 ML BAG IVPB ×2 (14:06→20:32)
[2022-10-19] MEDS: oxyCODONE HCL (*CRX) 5 MG TAB IR PO (14:30)
[2022-10-19] MEDS: MELATONIN 3 MG TABLET PO (22:21)
[2022-10-20] VITALS (11 sets, daily range): BP systolic 132–137; BP diastolic 52–55; PULSE 57–68; RESP 16–20; TEMP 36.5–36.7; O2SAT 95–100
[2022-10-20] MEDS: ALBUTEROL SULFATE NEB 2.5 MG/3 ML INH INHALATION ×3 (02:24→21:18)
[2022-10-20] MEDS: IPRATROPIUM BR 0.02% INH SOLN 0.5 MG/2.5 ML VIAL INHALATION ×3 (02:25→21:18)
[2022-10-20 05:42] LABS: Hemoglobin 10.1 g/dL (12.0-15.0); Mean Corpuscular HGB Conc 30.6 g/dl (32-36); Mean Corpuscular Hemoglobin 28.4 pg (26-34); Mean Corpuscular Volume 92.7 fl (80-100); Mean Platelet Volume 10.1 fl (7.4-10.4); Platelet Count Result 492 k/mm3 (150-375); Red Blood Count 3.56 M/mm3 (4.2-5.4); Red Cell Distribution Width 15.6 % (11.5-14.5); White Blood Count 15.2 K/mm3 (4.5-10.0)
[2022-10-20] MEDS: methylPREDNISolone SOD SUCC 125 MG VIAL 60 MG IV PUSH (05:43)
[2022-10-20 05:57] LABS: Anion Gap 3 mmol/L (8-16); Blood Urea Nitrogen 17 mg/dL (7-17); Carbon Dioxide 31 mmol/L (22-30); Chloride 104 mmol/L (98-107); Estimated Glomerular Filt Rate > 60; Glucose 172 mg/dL (65-110); Magnesium 2.2 mg/dL (1.6-2.3); Potassium 4.5 mmol/L (3.4-5.0); Sodium 138 mmol/L (137-145)
[2022-10-20] MEDS: CLOPIDOGREL BISULFATE 75 MG TABLET PO (08:21)
[2022-10-20] MEDS: CEFEPIME 1 GM/NS 50 ML 1 GM/50 ML BAG IVPB ×2 (08:21→20:03)
[2022-10-20] MEDS: ATORVASTATIN 40 MG TABLET PO (08:21)
[2022-10-20] MEDS: RIVAROXABAN 2.5 MG TABLET PO ×2 (08:21→16:43)
[2022-10-20] MEDS: MULTIVITAMINS /C LUTEIN (CENTRUM SILVER) TABLET *BKC 1 TAB PO (08:21)
[2022-10-20] MEDS: LOSARTAN POTASSIUM 50 MG TABLET PO ×2 (08:21→16:43)
[2022-10-20] MEDS: ASPIRIN 81 MG ENTERIC TABLET PO (08:21)
[2022-10-20] MEDS: LIDOCAINE HCL 1% LOCAL INJ 2 ML AMPUL 5 ML INFILTRATE (09:05)
[2022-10-20] MEDS: ALPRAZolam (*CRX) 0.25 MG TABLET PO ×2 (10:11→21:53)
--- NOTE | 2022-10-20 12:10 | WPDPN ---
Progress Note: A&P Assessment and Plan (1) Acute exacerbation of chronic obstructive pulmonary disease: Code(s): J44.1 - Chronic obstructive pulmonary disease with (acute) exacerbation Status: Acute Assessment and Plan: The patient is currently on room air. Continue with Solu-Medrol and nebulizer treatments. The patient had been given azithromycin and Rocephin in the emergency room. I will hold off on the a azithromycin at this time. 10/20/2022 interval history: patient presented with shortness of breath with history of COPD being with steroids and bronchodilator, stats feeling better, patient had CTA of chest negative for PE, however radialoigst is concerned for AAA, will do abdominla CT to further evaluate, repeat abdomen scan did not show any significant incrase in AAA, patient is also found to have necrotic Lt 5th toe seen by general surgeon suspect patient has dry gangrene Lt 5th toe and patient was seen by a vascular surgeon at [facility] and a stent was placed, patient was referred to a compressor mechanic by the surgeon, we have scheduled patient with a compressor mechanic for TuesdayOctober 20 , however on 10/19 patient wound was growing Pseudomonas started the patient on Cefepime and will need the abx for 7-10 days, will discusss with ID pharmacist, and further recommendation to follow. (2) UTI (urinary tract infection): Code(s): N39.0 - Urinary tract infection, site not specified Status: Acute Assessment and Plan: Blood and urine cultures are pending. Tailor antibiotics according to cultures. The patient was started on Rocephin. (3) Gangrene of toe of left foot: Code(s): I96 - Gangrene, not elsewhere classified Status: Acute Assessment and Plan: Surgery has been consulted. The patient does have some peripheral artery disease and stated that she recently received a stent to the left leg. The patient feels that the left great toe is healing. However the patient has a necrotic left 5th toe. The patient is anticoagulated with Xarelto. Further recommendation per surgery. X-ray of the left foot shows the following age indeterminate fracture of the neck of the proximal phalanx Osteopenia Diminished soft tissue thickness of the right fifth toe, with mild irregularity of the skin surface, which may be due to clinically reported soft tissue necrosis, gangrene (4) Peripheral arterial disease: Code(s): I73.9 - Peripheral vascular disease, unspecified Status: Acute Assessment and Plan: The patient stated she recently received a stent to the left leg. (5) ANTHONY on CPAP: Code(s): G47.33 - Obstructive sleep apnea (adult) (pediatric); Z99.89 - Dependence on other enabling machines and devices Status: Acute Assessment and Plan: Continue with home settings on CPAP or oxygen and HS. (6) Hyperlipidemia: Code(s): E78.5 - Hyperlipidemia, unspecified Status: Acute Assessment and Plan: Continue with atorvastatin (7) Essential (primary) hypertension: Code(s): I10 - Essential (primary) hypertension Status: Acute Assessment and Plan: Her blood pressure is currently 144/82. Continue with losartan Plan The patient is currently on Xarelto for unknown reasons. Subjective Date/time seen: 10/20/22 12:10 Interval history: The patient is currently on room air. Continue with Solu-Medrol and nebulizer treatments. The patient had been given azithromycin and Rocephin in the emergency room. I will hold off on the a azithromycin at this time. 10/20/2022 interval history: patient presented with shortness of breath with history of COPD being with steroids and bronchodilator, stats feeling better, patient had CTA of chest negative for PE, however radialoigst is concerned for AAA, will do abdominla CT to further evaluate, repeat abdomen scan did not show any significant incrase in AAA, patient is also found to have necrotic Lt 5th toe seen
[2022-10-20] MEDS: SALINE LOCK FLUSH 10 ML IV PUSH ×2 (14:22→21:54)
[2022-10-20] MEDS: oxyCODONE HCL (*CRX) 5 MG TAB IR PO (20:54)
[2022-10-20] MEDS: MELATONIN 3 MG TABLET PO (21:53)
[2022-10-21] VITALS (7 sets, daily range): BP systolic 132; BP diastolic 60; PULSE 61–85; RESP 14–18; TEMP 36.5; O2SAT 92–94
[2022-10-21] MEDS: ALBUTEROL SULFATE NEB 2.5 MG/3 ML INH INHALATION ×3 (01:50→13:01)
[2022-10-21] MEDS: IPRATROPIUM BR 0.02% INH SOLN 0.5 MG/2.5 ML VIAL INHALATION ×3 (01:50→13:01)
[2022-10-21] MEDS: SALINE LOCK FLUSH 10 ML IV PUSH (05:23)
[2022-10-21 05:42] LABS: Hematocrit 35.9 % (37.0-47.0); Mean Corpuscular HGB Conc 30.6 g/dl (32-36); Mean Corpuscular Hemoglobin 28.6 pg (26-34); Mean Corpuscular Volume 93.5 fl (80-100); Platelet Count Result 486 k/mm3 (150-375); Red Blood Count 3.84 M/mm3 (4.2-5.4); Red Cell Distribution Width 15.9 % (11.5-14.5); White Blood Count 13.7 K/mm3 (4.5-10.0)
[2022-10-21 05:56] LABS: Anion Gap 3 mmol/L (8-16); Blood Urea Nitrogen 20 mg/dL (7-17); Calcium 8.8 mg/dL (8.4-10.2); Carbon Dioxide 31 mmol/L (22-30); Chloride 107 mmol/L (98-107); Estimated Glomerular Filt Rate > 60; Glucose 83 mg/dL (65-110); Magnesium 2.2 mg/dL (1.6-2.3); Potassium 3.8 mmol/L (3.4-5.0); Sodium 141 mmol/L (137-145)
[2022-10-21] MEDS: CEFEPIME 1 GM/NS 50 ML 1 GM/50 ML BAG IVPB (08:53)
[2022-10-21] MEDS: CLOPIDOGREL BISULFATE 75 MG TABLET PO (08:53)
[2022-10-21] MEDS: RIVAROXABAN 2.5 MG TABLET PO (08:53)
[2022-10-21] MEDS: ASPIRIN 81 MG ENTERIC TABLET PO (08:53)
[2022-10-21] MEDS: predniSONE 20 MG TABLET 40 MG PO (08:53)
[2022-10-21] MEDS: ATORVASTATIN 40 MG TABLET PO (08:53)
[2022-10-21] MEDS: LOSARTAN POTASSIUM 50 MG TABLET PO (08:53)
--- NOTE | 2022-10-21 12:11 | PM.DS ---
DS: Admitting Diagnosis Discharge Date 10/21/2022 Admitting Diagnosis Shortness of breath DS: Discharge Diagnosis Discharge Diagnosis (1) Acute exacerbation of chronic obstructive pulmonary disease: Code(s): J44.1 - Chronic obstructive pulmonary disease with (acute) exacerbation Status: Acute Assessment and Plan: The patient is currently on room air. Continue with Solu-Medrol and nebulizer treatments. The patient had been given azithromycin and Rocephin in the emergency room. I will hold off on the a azithromycin at this time. 10/20/2022 interval history: patient presented with shortness of breath with history of COPD being with steroids and bronchodilator, stats feeling better, patient had CTA of chest negative for PE, however radialoigst is concerned for AAA, will do abdominla CT to further evaluate, repeat abdomen scan did not show any significant incrase in AAA, patient is also found to have necrotic Lt 5th toe seen by general surgeon suspect patient has dry gangrene Lt 5th toe and patient was seen by a vascular surgeon at [facility] and a stent was placed, patient was referred to a field horticultural specialty grower by the surgeon, we have scheduled patient with a field horticultural specialty grower for TuesdayOctober 20 , however on 10/19 patient wound was growing Pseudomonas started the patient on Cefepime and will need the abx for 7-10 days, will discusss with ID pharmacist, and further recommendation to follow. (2) UTI (urinary tract infection): Code(s): N39.0 - Urinary tract infection, site not specified Status: Acute Assessment and Plan: Blood and urine cultures are pending. Tailor antibiotics according to cultures. The patient was started on Rocephin. (3) Gangrene of toe of left foot: Code(s): I96 - Gangrene, not elsewhere classified Status: Acute Assessment and Plan: Surgery has been consulted. The patient does have some peripheral artery disease and stated that she recently received a stent to the left leg. The patient feels that the left great toe is healing. However the patient has a necrotic left 5th toe. The patient is anticoagulated with Xarelto. Further recommendation per surgery. X-ray of the left foot shows the following age indeterminate fracture of the neck of the proximal phalanx Osteopenia Diminished soft tissue thickness of the right fifth toe, with mild irregularity of the skin surface, which may be due to clinically reported soft tissue necrosis, gangrene (4) Peripheral arterial disease: Code(s): I73.9 - Peripheral vascular disease, unspecified Status: Acute Assessment and Plan: The patient stated she recently received a stent to the left leg. (5) ANTHONY on CPAP: Code(s): G47.33 - Obstructive sleep apnea (adult) (pediatric); Z99.89 - Dependence on other enabling machines and devices Status: Acute Assessment and Plan: Continue with home settings on CPAP or oxygen and HS. (6) Hyperlipidemia: Code(s): E78.5 - Hyperlipidemia, unspecified Status: Acute Assessment and Plan: Continue with atorvastatin (7) Essential (primary) hypertension: Code(s): I10 - Essential (primary) hypertension Status: Acute Assessment and Plan: Her blood pressure is currently 144/82. Continue with losartan Plan The patient is currently on Xarelto for unknown reasons. DS: Summary Hospital Course Reason for hospitalization: Shortness of breath Narrative: This is an 87-year-old female patient who came with complaints of shortness of breath that started this morning.? The patient lives home alone and is able to take care of herself typically.? The patient denied any chest pain this morning.? She does have a history of COPD and has smoked for many years.? She is not currently smoking.? 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 The patient and developed an infection after she dropped a can of Ensure on that toe.? The patient had a
== END 2022-10-21 15:11 | DRG 300 ==
LOC: ANHED 17:37 → ANH2MED 18:28
PROVIDERS: Emergency Medicine; Nurse Practitioner; Admitting Provider Internal Medicine; Emergency Provider Nurse Practitioner Family; PCP Family Medicine; Visit Provider Family Medicine
DX: E11.52 Type 2 diabetes mellitus with diabetic peripheral angiopathy with gangrene (principal); I96 Gangrene, not elsewhere classified; J44.1 Chronic obstructive pulmonary disease with (acute) exacerbation; N39.0 Urinary tract infection, site not specified; I10 Essential (primary) hypertension; I70.0 Atherosclerosis of aorta; I71.40 Abdominal aortic aneurysm, without rupture, unspecified; B96.5 Pseudomonas (aeruginosa) (mallei) (pseudomallei) as the cause of diseases classified elsewhere; E78.5 Hyperlipidemia, unspecified; E55.9 Vitamin D deficiency, unspecified; K21.9 Gastro-esophageal reflux disease without esophagitis; K44.9 Diaphragmatic hernia without obstruction or gangrene; S92.512A Displaced fracture of proximal phalanx of left lesser toe(s), initial encounter for closed fracture; G47.33 Obstructive sleep apnea (adult) (pediatric); M19.90 Unspecified osteoarthritis, unspecified site; F32.A Depression, unspecified; F41.9 Anxiety disorder, unspecified; Z79.01 Long term (current) use of anticoagulants; Z87.891 Personal history of nicotine dependence; Z95.820 Peripheral vascular angioplasty status with implants and grafts
CPT/HCPCS: 36415; 36569; 71046; 71275; 73660; 74174; 80048; 80053; 81001; 83605; 83735; 83880; 84443; 84484; 85025; 85027; 85610; 85730; 87040; 87070; 87077; 87086; 87088; 87186; 87205; 93005; 94640; 96365; 96366; 96367; 96375; 96376; 97110; 97161; 97165; 97530; 97535; 99285; A9270; C1751; G0378; J0456; J0692; J0696; J2930; J7512; Q9967

== ENCOUNTER 2022-11-21 10:36 | Observation (INO) | payer MEDICARE, SELFPAY ==
--- NOTE | ~2022-11-21 | CT_ITS ---
EXAMINATION: CT brain wo con DATE: 11/21/2022 12:21 INDICATION: Fall. TECHNIQUE: Computed tomography (CT) of the head was performed without intravenous contrast. The mA wa s adjusted according to patient size. Iterative reconstruction technique was employed. Exam dose: 60 5.33 mGy-cm total exam DLP. COMPARISON: June 22, 2021 CT brain FINDINGS: Bilateral vertebral artery and bilateral carotid siphon internal carotid artery calcificati ons. There is nonspecific diminished attenuation of the cerebral white matter, likely due to chronic small vessel ischemic changes. No intracranial mass lesion or hemorrhage or cerebrovascular accident is detected. No midline shift o r mass effect. There are central and cortical cerebral and cerebellar atrophy. No subdural or epidural hematoma. There is a stable focal lucent area of the right parietal skull, unchanged since June 22, 2021 or November 03, 2014, likely benign. No fracture or bone destruction of the cranial vault is noted dwain eOmar IMPRESSION: Cerebral atherosclerosis and chronic small vessel ischemic changes of the cerebral white matter No acute intracranial finding or skull fracture Reviewed, dictated and finalized at [facility]. Reviewed, dictated and finalized at [facility].
--- NOTE | ~2022-11-21 | CT_ITS ---
EXAMINATION: CT cervical spine wo con DATE: 11/21/2022 12:21 INDICATION: Fall. Injury. TECHNIQUE: Computed tomography (CT) of the cervical spine was performed without intravenous contrast. Automated exposure control and iterative reconstruction technique were employed. Exam dose: 135.92 mGy-cm total exam DLP. COMPARISON: None FINDINGS: Prominent degenerative changes at the temporomandibular joints. There is straightening of the cervical spine which may be due to muscle spasm. C1 and C2 are normally aligned and the odontoid process is intact. There is prominent degenerative change of the apophyseal joints throughout the cervical spine with as sociated mild anterolisthesis at C2-3, C3-4, C4-5. Moderately severe degenerative disc disease at C3-4. Mild degenerative disc disease at C4-5. Severe degenerative disc disease at C5-6 and C6-7. Moderately severe degenerative disc disease and slight anterolisthesis at C7-T1. There is degenerativ e disc disease is disease in the upper thoracic spine. There is prominent uncovertebral joint spurring at C5-6 and C6-7. No fracture or dislocation or locked facet or prevertebral soft tissue swelling is detected. . IMPRESSION: Straightening of the cervical spine which may be due to muscle spasm Severe cervical spondylosis; no fracture or dislocation or locked facet is detected Reviewed, dictated and finalized at [facility]. Reviewed, dictated and finalized at [facility]. IMPRESSION: Straightening of the cervical spine which may be due to muscle spa sm Severe cervical spondylosis; no fracture or dislocation or locked facet is dete cted
--- NOTE | ~2022-11-21 | XR_ITS ---
XR elbow RT min 3V DATE: 11/21/2022 11:56 INDICATION: Fall. Right elbow injury, pain TECHNIQUE: 4 views COMPARISON: None FINDINGS: There is mild osteoarthritis including spurring of the femoral head and coronoid process. No fracture or dislocation or joint effusion. No periosteal reaction or bone destruction. IMPRESSION: Osteoarthritis No fracture or dislocation or joint effusion Reviewed, dictated and finalized at location [facility].
--- NOTE | ~2022-11-21 | US_ITS ---
Limited Abdominal Sonogram: Real-time sonographic imaging of the right upper quadrant was performed. Clinical History: Abnormal LFTs Findings: The liver appears normal with no evidence of mass lesion or bile duct dilatation. Main por scooby vein demonstrates normal direction of flow. The gallbladder is only partially imaged. No definite gallstone seen. The common bile duct measures 5 mm. The visualized pancreas, aorta, and IVC are unr emarkable. Impression: Partial visualization of gallbladder. No definite gallstone seen. Reviewed, dictated and finalized at location [facility]. Impression: Partial visualization of gallbladder. No definite gallstone seen.
--- NOTE | ~2022-11-21 | XR_ITS ---
XR wrist RT min 3V DATE: 11/21/2022 11:57 INDICATION: Fall. Right wrist swelling TECHNIQUE: 4 views COMPARISON: None FINDINGS: Transverse distal radial metaphyseal fracture with up to approximately 2.5 mm dorsal displa cement, with mild apex anterior angulation and moderate moderate dorsal inclination of distal radial articular surface. There is a linear oblique fracture through the distal ulnar metaphysis with up to 1.8 mm dorsal and 1 .9 mm medial displacement. Radiocarpal alignment is preserved. There is severe degenerative change at the triscaphe and first carpometacarpal joints. There is promi nent osteoarthritic change at some of the interphalangeal joints. Diffuse osteopenia. IMPRESSION: Distal radial and ulnar metaphyseal fractures Osteopenia Polyarticular osteoarthritis Reviewed, dictated and finalized at location [facility].
[2022-11-21 10:40] VITALS: BP 124/52; PULSE 80; RESP 16; TEMP 36.8; O2SAT 95
--- NOTE | 2022-11-21 11:41 | PC.NURSE ---
pt noted to have bruising and swelling to right forearm. also noted to have bruising in various stages of healing to bilat upper arms. pt states this is the first time she has fallen. denies hi. pt cleansed of dried bm.
--- NOTE | 2022-11-21 12:41 | ED.GENADULT ---
HPI - General Adult General Chief complaint: Extremity Injury, Upper Stated complaint: r elbow Time Seen by Provider: 11/21/22 11:35 History of Present Illness HPI narrative: This is an 87-year-old female, past history of COPD, hypertension, type 2 diabetes, who presents to the emergency department after a fall at home. The patient states she believes she tripped on her left foot yesterday, landing and striking the right arm and elbow. She complains of right sided pain, rated 2/10 and described as dull. She is not sure if she hit her head or lost consciousness. She states she has memory problems and lives alone. Related Data Home Medications Medication Instructions Recorded Confirmed rosxlhxm-[id number] acid 0.4 1 tablet PO 3XW 09/11/20 10/16/22 mg-lycopene 300 mcg-lutein 250 mcg tablet (Centrum Silver) Senna with Docusate Sodium See Rx Instructions .Route .COMPLEX 10/16/22 10/16/22 aspirin 81 mg PO DAILY 10/16/22 10/16/22 atorvastatin 40 mg tablet 40 mg PO DAILY 10/16/22 10/16/22 clopidogrel 75 mg tablet (Plavix) 75 mg PO DAILY 10/16/22 10/16/22 oxycodone 5 mg PO Q4-6H 10/16/22 10/16/22 rivaroxaban 2.5 mg tablet (Xarelto) 2.5 mg PO BID 10/16/22 10/16/22 Allergies Allergy/AdvReac Type Severity Reaction Status Date / Time No Known Allergies Allergy Verified 11/21/22 11:34 Review of Systems Review of Systems: CONSTITUTIONAL: Denies fever, chills, or sweats. CARDIOVASCULAR: Denies chest pain, palpitations, or edema. RESPIRATORY: Denies cough or dyspnea. GASTROINTESTINAL: Denies abdominal pain, nausea, vomiting, or diarrhea. GENITOURINARY: Denies dysuria or hematuria. SKIN: Denies rash or itching. MUSCULOSKELETAL: Right wrist and elbow pain denies back pain, joint pain, or myalgia. NEUROLOGIC: Denies headache, numbness, dizziness, or weakness. PSYCHIATRIC: Denies anxiety or depression. [facility] Past Medical History Medical History (Updated 11/21/22 @ 16:32 by Sandra Toth PA-C) Anxiety Arthritis Chronic anticoagulation Chronic obstructive pulmonary disease, unspecified Depression Diet-controlled type 2 diabetes mellitus Fall Gastroesophageal reflux disease Hyperlipidemia Hypertension Multifocal atrial tachycardia Peripheral arterial disease Rhabdomyolysis Seasonal affective disorder Stress incontinence Tobacco abuse Vitamin D deficiency Weakness Surgical History Surgical History (Updated 11/21/22 @ 16:30 by Sandra Toth PA-C) History of appendectomy History of cataract surgery History of colonoscopy with polypectomy History of hemorrhoidectomy History of hysterectomy Family History Family History Mother Diabetes mellitus Family history of malignant neoplasm Family history of diabetes mellitus in first degree relative Patient's mother is Father Malignant neoplasm of prostate Social History Social History (Updated 11/21/22 @ 16:32 by Sandra Toth PA-C) Social History: Surrogate medical decision maker: Code status: Do not resuscitate. Smoking packs per day: 2 Smoking cigarettes per day: 40.0 Years smoked: 60 Smoking pack-years: 120.00 Smoking status: Former smoker Second hand tobacco smoke exposure: Yes Additional smoking assessment comments: pt currently smokes 2-3 cigarettes per day Alcohol intake: former Substance use: former Substance use type: marijuana Other substance usage details: 50 years ago Last use: >40 years Lack of Transportation: No Lack of Food: Never True Current Housing: I Have Housing Concerned About Future Housing: No Difficulty Paying Gas/Electric Bills: No Difficulty Paying for Meds: No Currently Unemployed: No Education: Master's Degree or Higher Difficulty w/ Childcare or Family Care: No Living arrangements: alone Additional living arrangements comments: Lives in own home in [place]. x[address]. Has 1 son. Occ
[2022-11-21 12:55] LABS: Basophils Absolute Auto 0.1 K/mm3 (0.0-0.1); Basophils Percent Auto 0.5 % (0.2-1.2); Eosinophils Absolute Auto 0.1 K/mm3 (0-0.3); Eosinophils Percent Auto 0.6 % (0-4.4); Hematocrit 39.7 % (37.0-47.0); Immature Granulocyte Absolute 0.06 K/mm3 (0.00-0.031); Immature Granulocyte Percent A 0.6 % (0-0.5); Lymphocytes Absolute Auto 0.75 K/mm3 (0.9-3.2); Lymphocytes Percent Auto 7.2 % (18.3-44.2); Mean Corpuscular HGB Conc 30.2 g/dl (32-36); Mean Corpuscular Hemoglobin 28.3 pg (26-34); Mean Corpuscular Volume 93.6 fl (80-100); Mean Platelet Volume 9.3 fl (7.4-10.4); Monocytes Absolute Auto 0.9 K/mm3 (0.1-0.6); Monocytes Percent Auto 8.3 % (2.6-8.5); Neutrophils Absolute Auto 8.6 K/mm3 (1.3-6.7); Neutrophils Percent Auto 82.8 % (45.5-73.1); Platelet Count Result 449 k/mm3 (150-375); Red Blood Count 4.24 M/mm3 (4.2-5.4); Red Cell Distribution Width 16.8 % (11.5-14.5); White Blood Count 10.4 K/mm3 (4.5-10.0)
[2022-11-21 14:09] LABS: Alanine Aminotransferase 37 U/L (6-35); Albumin Level 3.7 g/dL (3.5-5.1); Alkaline Phosphatase 308 U/L (38-126); Anion Gap 4 mmol/L (8-16); Aspartate Amino Transferase 43 U/L (14-36); Bilirubin,Total 0.7 mg/dL (0.2-1.3); Blood Urea Nitrogen 21 mg/dL (7-17); Calcium 9.1 mg/dL (8.4-10.2); Carbon Dioxide 36 mmol/L (22-30); Chloride 101 mmol/L (98-107); Creatine Kinase 42 U/L (30-135); Estimated Glomerular Filt Rate 59; Glucose 103 mg/dL (65-110); Magnesium 2.2 mg/dL (1.6-2.3); Potassium 3.6 mmol/L (3.4-5.0); Sodium 141 mmol/L (137-145)
--- NOTE | 2022-11-21 15:50 | PC.NURSE ---
spoke with pts son Ciaran Friedman pts son [phone]. states he is not poa that her secondary special education teacher is and he will contact him about where pt should be discharged to. home instead staff arranged for 24 hour home care starting tomorrow morning at 0800. states will be here then to pick her up. ace from care coordination aware.
[2022-11-21 16:05] VITALS: BP 130/63; PULSE 85; RESP 16; O2SAT 93
--- NOTE | 2022-11-21 16:25 | PM.IMHP ---
H&P: HPI History of Present Illness Date/Time: 11/21/22 19:30 Chief Complaint: Right wrist and elbow pain after fall yesterday. Narrative: This is an 87-year-old female with multiple medical problems including chronic obstructive pulmonary disease, hypertension, hyperlipidemia, peripheral arterial disease, anxiety, atrial tachycardia on chronic anticoagulation, and diet-controlled type 2 diabetes mellitus who presented to the emergency department via private vehicle from home for evaluation of right wrist and elbow pain after sustaining a fall yesterday. The patient provides the following history. She reports tripping over her left foot yesterday causing her to land onto an outstretched right arm and elbow. She was eventually able to get herself up with difficulty. She denies head trauma and loss of consciousness in the fall. She denies syncope, near syncope, lightheadedness, and dizziness. She also denies chest pain, pleuritic pain, shortness a breath. Aside from pain in the right arm, she sustained no other significant injuries. In the ED: CT of the brain and cervical spine did not show any acute findings. Right wrist x-ray showed distal radial and ulnar metaphyseal fractures for which she was placed in a sugar-tong splint. Right elbow x-ray was without acute findings. the patient lives in her own home and it was felt that she would not be safe to be discharged home today. She is arranging to have someone come into the house each day and is hoping to go home tomorrow. Review of Systems Review of Systems: Twelve systems were reviewed and are negative except for as per HPI. [facility], [facility] Past Medical History Medical History (Updated 11/21/22 @ 23:02 by Sandra Toth PA-C) Anxiety Arthritis Chronic anticoagulation Chronic obstructive pulmonary disease, unspecified Depression Diet-controlled type 2 diabetes mellitus Fall Gastroesophageal reflux disease Hyperlipidemia Hypertension Multifocal atrial tachycardia Peripheral arterial disease Rhabdomyolysis Seasonal affective disorder Stress incontinence Tobacco abuse Vitamin D deficiency Weakness Surgical History Surgical History History of appendectomy History of cataract surgery History of colonoscopy with polypectomy History of hemorrhoidectomy History of hysterectomy Family History Family History Mother Diabetes mellitus Family history of malignant neoplasm Family history of diabetes mellitus in first degree relative Patient's mother is Father Malignant neoplasm of prostate Social History Social History (Updated 11/21/22 @ 16:32 by Sandra Toth PA-C) Social History: Surrogate medical decision maker: Code status: Do not resuscitate. Smoking packs per day: 2 Smoking cigarettes per day: 40.0 Years smoked: 60 Smoking pack-years: 120.00 Smoking status: Former smoker Second hand tobacco smoke exposure: Yes Smoking end date: 04/25/17 Additional smoking assessment comments: pt currently smokes 2-3 cigarettes per day Alcohol intake: never Substance use: never Substance use type: marijuana Other substance usage details: 50 years ago Last use: >40 years Lack of Transportation: No Lack of Food: Never True Current Housing: I Have Housing Concerned About Future Housing: No Difficulty Paying Gas/Electric Bills: No Difficulty Paying for Meds: No Currently Unemployed: No Education: Master's Degree or Higher Difficulty w/ Childcare or Family Care: No Living arrangements: alone Additional living arrangements comments: Lives in own home in [place]. x3. Has 1 son. 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 Spiritual care concerns: No Agree to blood products: Yes Meds Home Medications and Al
--- NOTE | 2022-11-21 17:00 | PC.NURSE ---
multiple iv attempts by multiple rns unsuccessful
--- NOTE | 2022-11-21 17:03 | PC.NURSE ---
Attempted IV x 2 per admitting floor request. Pt does not have an IV ordered nor any IV medications or fluids ordered. Pt has one arm to use due to a fracture in her other arm. Pt is able to drink without any issues. Pt has denied nausea. Pt has poor access and has multiple bruises to her arm due to attempted IV starts prior to admission. Plan for pt to be discharged tomorrow AM around 0800.
--- NOTE | 2022-11-21 17:06 | PC.NURSE ---
Autumn, Charge Nurse in ER states Doctor down here says she can come up without an IV. She doesn't have any IV meds ordered. I asked, Did the accepting provider say it was okay for her to come to the floor without an IV. Autumn says, Yes.
[2022-11-21 18:52] VITALS: BP 148/62; PULSE 50; RESP 18; TEMP 36.4; O2SAT 96
[2022-11-21 18:53] VITALS: BMI 29.3
[2022-11-21 19:49] VITALS: BP 125/64; PULSE 75; RESP 18; TEMP 36.4; O2SAT 90
[2022-11-21 20:00] VITALS: PULSE 75; RESP 18; O2SAT 90
[2022-11-22] VITALS: BP 130/49; PULSE 70; RESP 18; TEMP 36.4; O2SAT 90
[2022-11-22] MEDS: LOSARTAN POTASSIUM 50 MG TABLET PO ×3 (00:15→18:21)
[2022-11-22] MEDS: oxyCODONE HCL (*CRX) 5 MG TAB IR PO ×2 (00:16→20:48)
[2022-11-22] MEDS: MELATONIN 3 MG TABLET PO ×2 (00:16→20:49)
[2022-11-22] MEDS: ERGOCALCIFEROL 50,000 UNITS CAPSULE 50000 UNITS PO (00:27)
[2022-11-22 06:00] VITALS: BP 139/55; PULSE 63; RESP 18; TEMP 36.4; O2SAT 92
[2022-11-22 06:00] LABS: Basophils Percent Auto 0.5 % (0.2-1.2); Eosinophils Absolute Auto 0.4 K/mm3 (0-0.3); Eosinophils Percent Auto 4.7 % (0-4.4); Hematocrit 38.5 % (37.0-47.0); Hemoglobin 11.5 g/dL (12.0-15.0); Immature Granulocyte Absolute 0.03 K/mm3 (0.00-0.031); Immature Granulocyte Percent A 0.4 % (0-0.5); Lymphocytes Absolute Auto 0.84 K/mm3 (0.9-3.2); Lymphocytes Percent Auto 10.3 % (18.3-44.2); Mean Corpuscular HGB Conc 29.9 g/dl (32-36); Mean Corpuscular Hemoglobin 28.1 pg (26-34); Mean Corpuscular Volume 94.1 fl (80-100); Mean Platelet Volume 9.2 fl (7.4-10.4); Monocytes Absolute Auto 0.8 K/mm3 (0.1-0.6); Neutrophils Percent Auto 74.1 % (45.5-73.1); Platelet Count Result 446 k/mm3 (150-375); Red Blood Count 4.09 M/mm3 (4.2-5.4); Red Cell Distribution Width 16.8 % (11.5-14.5); White Blood Count 8.1 K/mm3 (4.5-10.0)
[2022-11-22 06:22] LABS: Alanine Aminotransferase 30 U/L (6-35); Albumin Level 3.2 g/dL (3.5-5.1); Alkaline Phosphatase 272 U/L (38-126); Aspartate Amino Transferase 40 U/L (14-36); Bilirubin,Total 0.5 mg/dL (0.2-1.3); Blood Urea Nitrogen 19 mg/dL (7-17); Calcium 8.7 mg/dL (8.4-10.2); Carbon Dioxide > 40 mmol/L (22-30); Chloride 100 mmol/L (98-107); Creatine Kinase < 20 U/L (30-135); Estimated Glomerular Filt Rate > 60; Glucose 94 mg/dL (65-110); Magnesium 2.1 mg/dL (1.6-2.3); Potassium 3.1 mmol/L (3.4-5.0); Sodium 140 mmol/L (137-145)
[2022-11-22 07:13] LABS: Hepatitis B Surface Antigen Negative (Negative)
[2022-11-22 07:19] LABS: HAV RESULT Negative (Negative); Hepatitis B Core IgM Result Negative (Negative)
--- NOTE | 2022-11-22 07:27 | PM.DS ---
DS: Admitting Diagnosis Discharge Date 11/22/22 Admitting Diagnosis Ground level fall DS: Discharge Diagnosis Discharge Diagnosis (1) Fall from ground level: Code(s): W18.30XA - Fall on same level, unspecified, initial encounter Status: Acute (2) Right wrist fracture: Code(s): S62.101A - Fracture of unspecified carpal bone, right wrist, initial encounter for closed fracture Status: Acute (3) Elevated liver enzymes: Code(s): R74.8 - Abnormal levels of other serum enzymes Status: Acute (4) Essential (primary) hypertension: Code(s): I10 - Essential (primary) hypertension Status: Acute (5) Hyperlipidemia: Code(s): E78.5 - Hyperlipidemia, unspecified Status: Acute (6) Chronic anticoagulation: Code(s): Z79.01 - supervisor intermediates (current) use of anticoagulants Status: Acute (7) Peripheral arterial disease: Code(s): I73.9 - Peripheral vascular disease, unspecified Status: Acute (8) ANTHONY on CPAP: Code(s): G47.33 - Obstructive sleep apnea (adult) (pediatric); Z99.89 - Dependence on other enabling machines and devices Status: Acute Plan The patient presented to the emergency department for evaluation after a fall yesterday as per HPI. Labs, imaging, EKG, and all reports were personally reviewed. She was found to have a distal radius fracture and she has been placed in a sugar-tong splint. As she lives home alone was felt that she would not be safe being discharged this evening however she is currently making plans to have someone to come to the house all day starting tomorrow. Initiate fall precautions. Analgesics available as needed. Vital signs were reviewed and they have been stable. LFTs are a bit elevated though her abdominal exam is benign. Hold statin for now. Check right upper quadrant ultrasound and hepatitis panel for completeness sake. Hold Xarelto given recent fall and fracture. The rest of her home medications will be reviewed and resumed as appropriate. DS: Summary Hospital Course Hospital Course: patient is you have male with past medical history COPD, hypertension, hyperlipidemia, PUD, anxiety, diabetes who presented the ED with complaints wrist and elbow pain after fall. Patient tripped and lost her footing and fell. CT of the brain in cervical spine did not show any acute findings. Right wrist showed distal radial and ulnar fractures. Right elbow x-ray showed no acute findings. Patient was placed in sugar splint. AST and ALT were slightly elevated hepatitis panel was negative. Patient was to be discharged however it was determined that this could possibly not a safe discharge. Patient has been able to find help at home and is stable for discharge at this time. currently patient denies any chest pain, shortness a breath, nausea, vomiting, diarrhea constipation. Pain medications have been added. Pain medication educated has been reviewed. Currently patient is stable for discharge for labs and vital signs. Status at Discharge Functional status at discharge: uses cane/walker Overall status at discharge: patient is progressing back to baseline Time Spent with Patient Time attestation: Total time spent providing and/or coordinating discharge services:39 minutes Time spent: Greater than 30 minutes Specific discharge activities: Diagnostic testing, chart review, developing a treatment plan, education, care coordination documentation, physical exam, result review Exam Narrative: General: well-nourished, well-appearing 87-year-old female, laying in bed, comfortable, NARD Neuro: awake, alert and oriented x4, speech clear, no focal neuro deficits noted HEENMT: normocephalic, atraumatic, EOMI, sclerae anicteric, moist oral mucosa Respiratory: Clear to auscultation bilaterally without crackles, rhonchi or wheezes, nonlabored breathing Cardio: regular rate, regular rhythm with S1-S2 Abdomen: nondistended, normoactive bowel sounds, so
[2022-11-22 07:31] LABS: Hepatitis C Virus Antibody Negative (Negative)
[2022-11-22] MEDS: ASPIRIN 81 MG CHEWABLE TABLET PO (08:39)
[2022-11-22] MEDS: MULTIVITAMINS /C LUTEIN (CENTRUM SILVER) TABLET *BKC 1 TAB PO (08:39)
[2022-11-22] MEDS: ATORVASTATIN 40 MG TABLET PO (08:39)
[2022-11-22] MEDS: CLOPIDOGREL BISULFATE 75 MG TABLET PO (08:39)
[2022-11-22] MEDS: SENNA/DOCUSATE SODIUM TABLET 1 TAB PO ×2 (08:39→18:21)
--- NOTE | 2022-11-22 11:03 | PCPTNOTE ---
Attempted to contact Hospitalist regarding fracture/if ortho would be following pt, but hospitalist has not answered phone call. Will continue to follow.
[2022-11-22] MEDS: SILVERGEL (ELTA) 45 ML 1 APPLIC TOPICAL (12:28)
[2022-11-22 12:50] LABS: Appearance Urine Turbid (Clear); Bacteria Urine None Seen /hpf; Bilirubin Urine 1+ (Negative); Blood Urine Negative (Negative); Color Urine Dark Yellow (Yellow); Glucose Urine UA Negative (Negative); Hyaline Casts Urine Present /lpf; Ketones Urine Trace mg/dL (Negative); Leukocyte Esterase Ur Trace LEU/UL (Negative); Need Manual Microscopic Reviewed; Nitrate Urine Negative (Negative); Non Pathogenic Casts >20; Protein Urine 1+ mg/dL (Negative); Specific Grav Ur 1.022 (1.001-1.035); Squamous Epithelial Cell Urine Moderate /hpf (Few)
--- NOTE | 2022-11-22 12:50 | PM.IMPN ---
Progress Note: A&P Assessment and Plan (1) Fall from ground level: Code(s): W18.30XA - Fall on same level, unspecified, initial encounter Status: Acute (2) Right wrist fracture: Code(s): S62.101A - Fracture of unspecified carpal bone, right wrist, initial encounter for closed fracture Status: Acute (3) Elevated liver enzymes: Code(s): R74.8 - Abnormal levels of other serum enzymes Status: Acute (4) Essential (primary) hypertension: Code(s): I10 - Essential (primary) hypertension Status: Acute (5) Hyperlipidemia: Code(s): E78.5 - Hyperlipidemia, unspecified Status: Acute (6) Chronic anticoagulation: Code(s): Z79.01 - senior care (current) use of anticoagulants Status: Acute (7) Peripheral arterial disease: Code(s): I73.9 - Peripheral vascular disease, unspecified Status: Acute (8) ANTHONY on CPAP: Code(s): G47.33 - Obstructive sleep apnea (adult) (pediatric); Z99.89 - Dependence on other enabling machines and devices Status: Acute Plan The patient presented to the emergency department for evaluation after a fall yesterday as per HPI. Labs, imaging, EKG, and all reports were personally reviewed. She was found to have a distal radius fracture and she has been placed in a sugar-tong splint. As she lives home alone was felt that she would not be safe being discharged this evening however she is currently making plans to have someone to come to the house all day starting tomorrow. Initiate fall precautions. Analgesics available as needed. Vital signs were reviewed and they have been stable. LFTs are a bit elevated though her abdominal exam is benign. Hold statin for now. Check right upper quadrant ultrasound and hepatitis panel for completeness sake. Hold Xarelto given recent fall and fracture. The rest of her home medications will be reviewed and resumed as appropriate. 11/22/22 Was able to find help at home with a company who was willing to assist her in her current needs. Developed some urinary retention and was unable to void. Urology consulted at this time. Urinary catheter was difficult to place Continue PT/OT and trend urinary output. Time Spent With Patient Time with patient: Greater than 35 minutes Subjective Date/time seen: 11/22/22 Interval history: Patient was doing well. She denies any chest pain, shortness of breath, nausea, vomiting, diarrhea, or constipation. She was having a hard time standing and walk, she stated she was just too weak. It was also noted that she was having some issues wiht rinary retention, and urology was consulted. Urinary catheter was attempted by multiple people, and was unsuccessful. Review of Systems Review of Systems: All systems reviewed & are unremarkable except as noted in HPI and below Objective Data Meds/Results Radiology Results: ITS Impressions Elbow X-Ray 11/21/22 11:57 IMPRESSION: Osteoarthritis No fracture or dislocation or joint effusion Wrist X-Ray 11/21/22 12:00 IMPRESSION: Distal radial and ulnar metaphyseal fractures Osteopenia Polyarticular osteoarthritis Head CT 11/21/22 12:33 IMPRESSION: Cerebral atherosclerosis and chronic small vessel ischemic changes of the cerebral white matter No acute intracranial finding or skull fracture Cervical Spine CT 11/21/22 12:38 IMPRESSION: Straightening of the cervical spine which may be due to muscle spasm Severe cervical spondylosis; no fracture or dislocation or locked facet is detected Abdomen Ultrasound 11/22/22 08:50 Impression: Partial visualization of gallbladder. No definite gallstone seen. Quality VTE Prophylaxis VTE prophylaxis: mechanical ordered
[2022-11-22 12:52] LABS: Add Urine Microscopic? YES
[2022-11-22 14:00] VITALS: BP 118/49; PULSE 76; RESP 18; TEMP 35.9; O2SAT 98
--- NOTE | 2022-11-22 16:13 | WPDURCON ---
Assessment and Plan Assessment and plan (1) Acute urinary retention: Code(s): R33.8 - Other retention of urine Status: Acute Assessment and Plan: I was able to place a Soto catheter without difficulty. I placed a finger in the vagina to obstruct the vaginal canal. The Soto catheter was then slid anterior to my finger in easily into the bladder. I suspect her urinary retention is self-limiting. It could be secondary to hospitalize status and decreased mobility. Her caregiver states there is no issues voiding at home. She said to go home tomorrow. I think it is likely best we sent her home with the Soto catheter to give her time to recover from her orthopedic injury and then do a voiding trial in the office in 1 week. I will have the office call to arrange (2) Lichen sclerosus: Code(s): L90.0 - Lichen sclerosus et atrophicus Status: Acute Assessment and Plan: Observation Urology Consult Note HPI Date Seen: 11/22/22 Requesting Physician: Uriel Segundo MD Primary Care Provider: Lambert Rodriguez MD Consult Narrative Narrative: Monica Crawley is a 87 year old female who I am asked to see for urinary retention. She is currently in the hospital with a fall. She had orthopaedic fracture. She has decreased mobility due to her age. She is resting comfortably in her hospital room. Her caregivers here as well. The nurses have taken her to the bathroom several times. She has been unable void. Residual urine shows 345 in her bladder. According to her caregiver she has had no issues with voiding previous to this. The nurses been unable to place a catheter for with a stays abnormal anatomy. I am specifically asked to comment on the retention as well as to place a Soto catheter. Again she has no voiding issues at home. I saw her in 2017 for recurrent urinary tract infections. Review of Systems Review of Systems: All systems reviewed & are unremarkable except as noted in HPI and below PMFSH Past Medical History Medical History Anxiety Arthritis Chronic anticoagulation Chronic obstructive pulmonary disease, unspecified Depression Diet-controlled type 2 diabetes mellitus Fall Gastroesophageal reflux disease Hyperlipidemia Hypertension Multifocal atrial tachycardia Peripheral arterial disease Rhabdomyolysis Seasonal affective disorder Stress incontinence Tobacco abuse Vitamin D deficiency Weakness Surgical History Surgical History History of appendectomy History of cataract surgery History of colonoscopy with polypectomy History of hemorrhoidectomy History of hysterectomy Family History Family History Mother Diabetes mellitus Family history of malignant neoplasm Family history of diabetes mellitus in first degree relative Patient's mother is Father Malignant neoplasm of prostate Social History Social History Social History: Surrogate medical decision maker: Code status: Do not resuscitate. Smoking packs per day: 2 Smoking cigarettes per day: 40.0 Years smoked: 60 Smoking pack-years: 120.00 Smoking status: Former smoker Second hand tobacco smoke exposure: Yes Smoking end date: 04/25/17 Additional smoking assessment comments: pt currently smokes 2-3 cigarettes per day Alcohol intake: never Substance use: never Substance use type: marijuana Other substance usage details: 50 years ago Last use: >40 years Lack of Transportation: No Lack of Food: Never True Current Housing: I Have Housing Concerned About Future Housing: No Difficulty Paying Gas/Electric Bills: No Difficulty Paying for Meds: No Currently Unemployed: No Education: Master's Degree or Higher Difficulty w/ Childc
--- NOTE | 2022-11-22 16:32 | PCPTNOTE ---
On 11/22/22, the student, MARIA INES Mabry, provided care and completed [facility] documentation on this patient. I have reviewed the student's documentation and agree with the findings.
[2022-11-22 20:35] VITALS: BP 125/53; PULSE 66; RESP 17; TEMP 36.8; O2SAT 97
[2022-11-23 05:37] VITALS: BP 136/50; PULSE 71; RESP 17; TEMP 36.8; O2SAT 92
[2022-11-23 08:00] VITALS: BP 130/58; PULSE 68; RESP 16; TEMP 36.7; O2SAT 92
[2022-11-23 08:47] VITALS: PULSE 68; RESP 16; O2SAT 92
[2022-11-23] MEDS: ASPIRIN 81 MG CHEWABLE TABLET PO (08:47)
[2022-11-23] MEDS: SENNA/DOCUSATE SODIUM TABLET 1 TAB PO ×2 (08:47→18:47)
[2022-11-23] MEDS: CLOPIDOGREL BISULFATE 75 MG TABLET PO (08:47)
[2022-11-23] MEDS: LOSARTAN POTASSIUM 50 MG TABLET PO ×2 (08:47→18:47)
[2022-11-23] MEDS: SILVERGEL (ELTA) 45 ML 1 APPLIC TOPICAL (08:48)
[2022-11-23] MEDS: ATORVASTATIN 40 MG TABLET PO (08:50)
[2022-11-23] MEDS: oxyCODONE HCL (*CRX) 5 MG TAB IR PO ×2 (08:54→20:37)
--- NOTE | 2022-11-23 10:31 | PM.IMPN ---
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 Status: Acute (3) Elevated liver enzymes: Code(s): R74.8 - Abnormal levels of other serum enzymes Status: Acute (4) Right wrist fracture: Code(s): S62.101A - Fracture of unspecified carpal bone, right wrist, initial encounter for closed fracture Status: Acute (5) Fall from ground level: Code(s): W18.30XA - Fall on same level, unspecified, initial encounter Status: Acute Plan 87-year-old female with multiple medical problems including chronic obstructive pulmonary disease, hypertension, hyperlipidemia, peripheral arterial disease, anxiety, atrial tachycardia on chronic anticoagulation, and diet-controlled type 2 diabetes mellitus who presented to the emergency department from home for evaluation of right wrist and elbow pain after sustaining a fall.? 1)Right Wrist Fracture: Currently has a splint Pain control Will need outpatient follow up with ortho 2)Acute Urinary Retention: Soto was placed by Urology as outpatient Will need outpatient urology follow up for voiding trial in 1 week Await Urine culture 3)HTN:c/w losartan 4)Elevated LFT's: No labs done today Liver USG unremarkable Recheck labs in AM 4)DVT ppx: SCD 5)Code:DNR 6)Dispo:anticipate discharge in AM(awaiting urine culture) ? Time Spent With Patient Time with patient: 25 - 35 minutes Subjective Date/time seen: 11/23/22 10:31 Interval history: no acute events overnight await urine culture Review of Systems Review of Systems: All systems reviewed & are unremarkable except as noted in HPI and below Exam Narrative: General: Well-developed elderly in no acute distress. HEENT: Wearing corrective lenses. PERRL, EOMI.? Sclerae anicteric. Tacky mucous membranes. Neck:? Supple.? Respiratory:? Respirations are even and nonlabored.? Lungs are clear to auscultation bilaterally. Cardiovascular:? Regular rate and rhythm with S1-S2.? Gastrointestinal:? Abdomen is soft, nontender, and nondistended with positive bowel sounds. Skin:? Warm and dry. Scattered bruises on the lower extremities. Musculoskeletal: Right lower arm is splinted.? She is neurovascularly intact distal to the fracture. Extremities:? No cyanosis, clubbing, or edema.? Radial and pedal pulses intact. Neurologic:? Alert and oriented.? Cranial nerves 2-12 grossly intact.? No gross focal deficits. Psychiatric: Pleasant and cooperative with appropriate mood and affect. Objective Data Vital Signs Vital Signs: Vital Signs - 24 hr 11/22/22 13:34 11/22/22 14:00 11/22/22 20:35 Temperature 96.6 F L 98.3 F Pulse Rate 76 66 Respiratory Rate 18 17 Blood Pressure 118/49 L 125/53 L Pulse Oximetry 98 97 Oxygen Delivery Room Air 11/23/22 05:37 11/23/22 08:00 Temperature 98.3 F 98.0 F Pulse Rate 71 68 Respiratory Rate 17 16 Blood Pressure 136/50 L 130/58 L Pulse Oximetry 92 92 Oxygen Delivery Intake/Output Intake/Output: Intake & Output 11/20/22 11/21/22 11/22/22 11/23/22 23:59 23:59 23:59 23:59 Intake Total 120 780 120 Output Total 30 400 Balance 120 750 -280 Meds/Results Medications: Active Medications Generic Name Dose Route Start Last Admin Trade Name Freq PRN Reason Stop Dose Admin Alprazolam 0.25 mg 11/21/22 23:04 Alprazolam (*Crx) 0.25 Mg Tablet PO TID PRN Anxiety Aspirin 81 mg 11/22/22 09:00 11/23/22 08:47 Aspirin 81 Mg Chewable Tablet PO 81 mg DAILY DANIEL Administration Atorvastatin Calcium 40 mg 11/22/22 09:00 11/23/22 08:50 Atorvastatin 40 Mg Tablet PO 40 mg DAILY DANIEL Administration Clopidogrel Bisulfate 75 mg 11/22/22 09:00 11/23/22 08:47 Clopidogrel Bisulfate 75 Mg Tablet PO 75 mg DAILY DANIEL Administration Er
[2022-11-23 14:00] VITALS: BP 120/52; PULSE 90; RESP 16; TEMP 36.9; O2SAT 92
[2022-11-23 20:42] VITALS: BP 123/59; PULSE 89; RESP 17; TEMP 36.9; O2SAT 90
[2022-11-23 21:20] VITALS: O2SAT 91
--- NOTE | 2022-11-23 21:28 | PC.NURSE ---
DISCUSSED WITH PATIENT ABOUT PREDNISONE, PT STATES SHE IS NOT TAKING PREDNISONE.
[2022-11-24 05:37] LABS: Basophils Absolute Auto 0.1 K/mm3 (0.0-0.1); Basophils Percent Auto 0.7 % (0.2-1.2); Eosinophils Absolute Auto 0.5 K/mm3 (0-0.3); Eosinophils Percent Auto 6.4 % (0-4.4); Hematocrit 37.1 % (37.0-47.0); Immature Granulocyte Absolute 0.05 K/mm3 (0.00-0.031); Immature Granulocyte Percent A 0.7 % (0-0.5); Lymphocytes Absolute Auto 0.76 K/mm3 (0.9-3.2); Lymphocytes Percent Auto 10.6 % (18.3-44.2); Mean Corpuscular HGB Conc 29.6 g/dl (32-36); Mean Corpuscular Hemoglobin 28.4 pg (26-34); Mean Corpuscular Volume 95.6 fl (80-100); Mean Platelet Volume 9.5 fl (7.4-10.4); Monocytes Absolute Auto 0.9 K/mm3 (0.1-0.6); Neutrophils Percent Auto 69.6 % (45.5-73.1); Platelet Count Result 433 k/mm3 (150-375); Red Blood Count 3.88 M/mm3 (4.2-5.4); Red Cell Distribution Width 16.5 % (11.5-14.5); White Blood Count 7.1 K/mm3 (4.5-10.0)
[2022-11-24 05:38] VITALS: BP 124/60; PULSE 87; RESP 17; TEMP 36.8; O2SAT 90
[2022-11-24 05:56] LABS: Alanine Aminotransferase 24 U/L (6-35); Albumin Level 2.9 g/dL (3.5-5.1); Alkaline Phosphatase 232 U/L (38-126); Aspartate Amino Transferase 29 U/L (14-36); Bilirubin,Total 0.4 mg/dL (0.2-1.3); Blood Urea Nitrogen 20 mg/dL (7-17); Calcium 8.6 mg/dL (8.4-10.2); Carbon Dioxide > 40 mmol/L (22-30); Chloride 99 mmol/L (98-107); Estimated Glomerular Filt Rate > 60; Glucose 120 mg/dL (65-110); Sodium 137 mmol/L (137-145)
[2022-11-24 06:27] LABS: Anisocytosis 1+ (NORMAL); Hypochromasia 1+ (NORMAL); Platelet Estimate Increased (Adequate); Schistocytes None Seen (NORMAL)
[2022-11-24] MEDS: oxyCODONE HCL (*CRX) 5 MG TAB IR PO (06:38)
[2022-11-24 08:00] VITALS: BP 128/62; PULSE 84; RESP 16; TEMP 36.6; O2SAT 91
[2022-11-24] MEDS: SENNA/DOCUSATE SODIUM TABLET 1 TAB PO (08:48)
[2022-11-24] MEDS: POTASSIUM CHLORIDE 20 MEQ PACKET (FOR LIQUID) 40 MEQ PO ×2 (08:48→10:58)
[2022-11-24] MEDS: LOSARTAN POTASSIUM 50 MG TABLET PO (08:48)
[2022-11-24] MEDS: CLOPIDOGREL BISULFATE 75 MG TABLET PO (08:49)
[2022-11-24] MEDS: ATORVASTATIN 40 MG TABLET PO (08:49)
[2022-11-24] MEDS: ASPIRIN 81 MG CHEWABLE TABLET PO (08:49)
[2022-11-24] MEDS: MULTIVITAMINS /C LUTEIN (CENTRUM SILVER) TABLET *BKC 1 TAB PO (08:51)
[2022-11-24] MEDS: SILVERGEL (ELTA) 45 ML 1 APPLIC TOPICAL (08:52)
--- NOTE | 2022-11-24 11:37 | PM.DS ---
DS: Admitting Diagnosis Discharge Date 11/24/22 Admitting Diagnosis Fall Wrist Fracture Acute Urinary Retention DS: Discharge Diagnosis Discharge Diagnosis (1) Fall from ground level: Code(s): W18.30XA - Fall on same level, unspecified, initial encounter Status: Acute (2) Right wrist fracture: Code(s): S62.101A - Fracture of unspecified carpal bone, right wrist, initial encounter for closed fracture Status: Acute (3) Elevated liver enzymes: Code(s): R74.8 - Abnormal levels of other serum enzymes Status: Acute (4) Essential (primary) hypertension: Code(s): I10 - Essential (primary) hypertension Status: Acute (5) Hyperlipidemia: Code(s): E78.5 - Hyperlipidemia, unspecified Status: Acute (6) Chronic anticoagulation: Code(s): 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 Patient tripped and lost her footing and fell. CT of the brain in cervical spine did not show any acute findings. Right wrist showed distal radial and ulnar fractures. Right elbow x-ray showed no acute findings. Patient was placed in sugar splint. AST and ALT were slightly elevated hepatitis panel was negative. Patient has been able to find help at home and is stable for discharge at this time. Developed urinary retention, loja placed by Urology, outpatient follow up with Urology in 1 week for voiding trial. Currently patient is stable for discharge. Status at Discharge Functional status at discharge: uses cane/walker Overall status at discharge: patient is progressing back to baseline Time Spent with Patient Time attestation: Total time spent providing and/or coordinating discharge services: Time spent: Greater than 30 minutes Exam Narrative: General: Well-developed elderly in no acute distress. HEENT: Wearing corrective lenses. PERRL, EOMI.? Sclerae anicteric. Tacky mucous membranes. Neck:? Supple.? Respiratory:? Respirations are even and nonlabored.? Lungs are clear to auscultation bilaterally. Cardiovascular:? Regular rate and rhythm with S1-S2.? Gastrointestinal:? Abdomen is soft, nontender, and nondistended with positive bowel sounds. Skin:? Warm and dry. Scattered bruises on the lower extremities. Musculoskeletal: Right lower arm is splinted.? She is neurovascularly intact distal to the fracture. Extremities:? No cyanosis, clubbing, or edema.? Radial and pedal pulses intact. Neurologic:? Alert and oriented.? Cranial nerves 2-12 grossly intact.? No gross focal deficits. Psychiatric: Pleasant and cooperative with appropriate mood and affect. DS: Data Data Completed and Pending Labs on day of discharge: Labs from last 24 hours 11/24/22 05:13 WBC 7.1 RBC 3.88 L Hgb 11.0 L Hct 37.1 MCV 95.6 MCH 28.4 MCHC 29.6 L RDW 16.5 H Plt Count 433 H MPV 9.5 Immature Gran % (Auto) 0.7 H Neut % (Auto) 69.6 Lymph % (Auto) 10.6 L [place] % (Auto) 12.0 H Eos % (Auto) 6.4 H Baso % (Auto) 0.7 Lymph # (Auto) 0.76 L [place] # (Auto) 0.9 H Eos # (Auto) 0.5 H Baso # (Auto) 0.1 Abs Immat Gran (auto) 0.05 H Absolute Neuts (auto) 5.0 Absolute Nucleated RBC 0.0 Nucleated RBC % 0.0 Platelet Estimate Increased Hypochromasia 1+ Anisocytosis 1+ Schistocytes None seen Sodium 137 Potassium 3.0 L Chloride 99 Carbon Dioxide > 40 H Anion Gap BUN 20 H Creatinine 0.80 Estim Creat Clear Calc Not Reportable Estimated GFR > 60 Glucose 12
== END 2022-11-24 12:00 | disposition home health service (06) ==
LOC: ANHED 12:01 → ANH2MED 17:13
PROVIDERS: Nurse Practitioner; Physician Assistant; Admitting Provider Internal Medicine; Emergency Provider Preventive Medicine Aerospace Medicine; PCP Family Medicine; Visit Provider Internal Medicine
DX: S52.501A Unspecified fracture of the lower end of right radius, initial encounter for closed fracture (principal); S52.601A Unspecified fracture of lower end of right ulna, initial encounter for closed fracture; S62.101A Fracture of unspecified carpal bone, right wrist, initial encounter for closed fracture; W01.0XXA Fall on same level from slipping, tripping and stumbling without subsequent striking against object, initial encounter; Y92.009 Unspecified place in unspecified non-institutional (private) residence as the place of occurrence of the external cause; M47.812 Spondylosis without myelopathy or radiculopathy, cervical region; M19.021 Primary osteoarthritis, right elbow; J44.9 Chronic obstructive pulmonary disease, unspecified; I10 Essential (primary) hypertension; R33.8 Other retention of urine; I47.1 Supraventricular tachycardia; E11.9 Type 2 diabetes mellitus without complications; F41.9 Anxiety disorder, unspecified; F33.9 Major depressive disorder, recurrent, unspecified; E78.5 Hyperlipidemia, unspecified; M50.33 Other cervical disc degeneration, cervicothoracic region; M50.31 Other cervical disc degeneration, high cervical region; M50.323 Other cervical disc degeneration at C6-C7 level; I73.9 Peripheral vascular disease, unspecified; K27.9 Peptic ulcer, site unspecified, unspecified as acute or chronic, without hemorrhage or perforation; L90.0 Lichen sclerosus et atrophicus; R74.8 Abnormal levels of other serum enzymes; R79.89 Other specified abnormal findings of blood chemistry; M85.80 Other specified disorders of bone density and structure, unspecified site; Z96.0 Presence of urogenital implants; G47.33 Obstructive sleep apnea (adult) (pediatric); R94.5 Abnormal results of liver function studies; D72.829 Elevated white blood cell count, unspecified; E55.9 Vitamin D deficiency, unspecified; R90.82 White matter disease, unspecified; I67.2 Cerebral atherosclerosis; R53.1 Weakness; M62.82 Rhabdomyolysis; F17.210 Nicotine dependence, cigarettes, uncomplicated; Z66 Do not resuscitate; Z79.82 Long term (current) use of aspirin; Z79.891 Long term (current) use of opiate analgesic; Z79.02 Long term (current) use of antithrombotics/antiplatelets; Z79.01 Long term (current) use of anticoagulants; Z79.52 Long term (current) use of systemic steroids; Z79.899 Other long term (current) drug therapy; Z90.49 Acquired absence of other specified parts of digestive tract; Z83.3 Family history of diabetes mellitus
CPT/HCPCS: 36415; 70450; 72125; 73080; 73110; 76705; 80048; 80053; 80074; 80076; 81001; 82550; 83735; 85025; 87086; 87088; 97110; 97161; 97165; 97530; 97535; 99285; A9270; G0378

== ENCOUNTER 2022-11-26 13:02 | Inpatient (IN) | payer MEDICARE, SELFPAY ==
[2022-11-26] VITALS (42 sets, daily range): BP systolic 96–129; BP diastolic 47–85; PULSE 68–104; RESP 16–43; TEMP 36.4–36.6; O2SAT 96–100; BMI 23.2
--- NOTE | ~2022-11-26 | XR_ITS ---
EXAMINATION: XR chest 1V portable DATE: 11/26/2022 13:40 INDICATION: Shortness of breath. TECHNIQUE: A single frontal view of the chest was obtained. COMPARISON: Chest 2 views 10/16/2022, CT abdomen and pelvis 10/17/2022 FINDINGS: There is no pneumonia, pleural effusion, or pneumothorax. The heart size is normal. There i s a large hiatal hernia. IMPRESSION: 1. Large hiatal hernia. Reviewed, dictated and finalized at location B. IMPRESSION: 1. Large hiatal hernia.
--- NOTE | ~2022-11-26 | US_ITS ---
Duplex Sonography of the bilateral lower extremities: Indication: Pulmonary embolus Sagittal and transverse B-mode images as well as color-flow imaging were performed on the right and l eft femoral and popliteal veins. B-mode examination was done without and with compression in the tra nsverse plane. There is good visualization of the bilateral common femoral, proximal profunda femora l, superficial femoral, greater saphenous, and popliteal veins. Normal flow was seen on color-flow im aging. Normal compressibility was demonstrated. Visualized calf veins are patent bilaterally. Impression: No evidence of deep vein thrombosis involving the bilateral lower extremities. Reviewed, dictated and finalized at location . Impression: No evidence of deep vein thrombosis involving the bilateral lower e xtremities.
--- NOTE | ~2022-11-26 | XR_ITS ---
EXAMINATION: XR chest 1V portable INDICATION: Shortness of breath TECHNIQUE: Portable AP chest at 1251 hours COMPARISON: 11/26/2022 FINDINGS: The lungs are free of acute opacities. No pleural effusion or pneumothorax. A large hiatal hernia is noted. The heart size is normal. IMPRESSION: 1. No acute cardiopulmonary abnormality. 2. Large hiatal hernia. Reviewed, dictated and finalized at location A.
--- NOTE | ~2022-11-26 | US_ITS ---
EXAMINATION: US venous doppler UE DATE: 12/08/2022 14:18 INDICATION: Possible left basilic clot. Anemia. Abdominal aortic aneurysm. Shortness of breath. Histo ry of recent PE. TECHNIQUE: Grayscale ultrasound images without and with compression and Doppler ultrasound images of the left upper extremity veins were obtained. COMPARISON: None. FINDINGS: The visualized portions of the left internal jugular vein, subclavian vein, axillary vein, brachial v eins, basilic vein, cephalic vein, radial vein, and ulnar vein are patent. IMPRESSION: No deep venous thrombosis. Reviewed, dictated and finalized at location K. IMPRESSION: No deep venous thrombosis.
--- NOTE | ~2022-11-26 | CT_ITS ---
EXAMINATION: CT abdomen pelvis wo con DATE: 12/06/2022 14:57 INDICATION: Anemia TECHNIQUE: Computed tomography (CT) of the abdomen and pelvis was performed without intravenous contr ast. The dose-length product (DLP) was 420.81 mGy-cm. Automated exposure control and iterative recons truction technique were employed. COMPARISON: 10/17/2022 FINDINGS: There is a large hiatal hernia containing nearly the entire stomach. There are small pleura l effusions, right greater than left. Punctate calcifications in an otherwise normal spleen likely re present healed granulomatous disease. The liver, pancreas, gallbladder, and adrenal glands are normal . No pathologically enlarged abdominal or pelvic lymph nodes are identified. No free intraperitoneal gas or evidence of bowel obstruction. Colonic diverticulosis is present without evidence of diverticu litis. There is a Soto catheter in the urinary bladder. There is a stable 3.2 cm fusiform aneurysm o f the infrarenal abdominal aorta. There is severe lumbar spondylosis. IMPRESSION: 1. No CT correlate for the patient's symptoms. Reviewed, dictated and finalized at location B.
--- NOTE | ~2022-11-26 | CT_ITS ---
EXAMINATION: CTA chest PE protocol DATE: 11/26/2022 15:10 INDICATION: Shortness of breath. TECHNIQUE: Computed tomography angiography (CTA) of the chest was performed with 100 mL Omnipaque-350 intravenous contrast timed to evaluate the pulmonary arteries. Coronal maximum intensity projection 3D-reconstructions were created by the technologist. Automated exposure control and iterative reconst ruction technique were employed. The dose-length product was 229.00 mGy-cm. COMPARISON: Chest CT 10/16/2022 FINDINGS: There is mild emphysema. There is mild atelectasis bilaterally. No pleural effusion. There is a large sliding hiatal hernia. There is calcified atherosclerosis of the aorta and many of the oth er arteries. The heart size is normal. There are coronary artery calcifications. No pericardial effus ion. There are acute pulmonary emboli in left upper lobe and right middle lobe. There is severe cervi lisa and thoracic spondylosis. IMPRESSION: 1. Acute pulmonary emboli in left upper lobe and right middle lobe. I called this result to Dr. Juanpablo barton. 2. Mild emphysema. 3. Large sliding hiatal hernia. Reviewed, dictated and finalized at location B. IMPRESSION: 1. Acute pulmonary emboli in left upper lobe and right middle lobe. I called th is result to Dr. Schwartz. 2. Mild emphysema. 3. Large sliding hiatal hernia.
--- NOTE | 2022-11-26 13:07 | ECG_ITS ---
Measurements Intervals [place] Rate: 91 P: 78 CT: 156 QRS: -23 QRSD: 86 T: 69 QT: 350 QTc: 432 Interpretive Statements SINUS RHYTHM PREVIOUS ANTERIOR WALL SC NONSPECIFIC T-WAVE ABNORMALITY ABNORMAL ECG COMPARED TO ECG 10/16/2022 12:39:37 NO SIGNIFICANT CHANGES Electronically Signed On 11-26-2022 13:12:34 CDT by Jack De Santiago M.D.
[2022-11-26 13:29] LABS: Basophils Absolute Auto 0.1 K/mm3 (0.0-0.1); Basophils Percent Auto 0.6 % (0.2-1.2); Eosinophils Absolute Auto 0.3 K/mm3 (0-0.3); Eosinophils Percent Auto 3.6 % (0-4.4); Hematocrit 35.6 % (37.0-47.0); Hemoglobin 10.7 g/dL (12.0-15.0); Immature Granulocyte Absolute 0.06 K/mm3 (0.00-0.031); Immature Granulocyte Percent A 0.7 % (0-0.5); Lymphocytes Absolute Auto 0.91 K/mm3 (0.9-3.2); Lymphocytes Percent Auto 10.8 % (18.3-44.2); Mean Corpuscular HGB Conc 30.1 g/dl (32-36); Mean Corpuscular Hemoglobin 28.1 pg (26-34); Mean Corpuscular Volume 93.4 fl (80-100); Mean Platelet Volume 9.7 fl (7.4-10.4); Monocytes Absolute Auto 0.9 K/mm3 (0.1-0.6); Monocytes Percent Auto 10.8 % (2.6-8.5); Neutrophils Absolute Auto 6.2 K/mm3 (1.3-6.7); Neutrophils Percent Auto 73.5 % (45.5-73.1); Platelet Count Result 435 k/mm3 (150-375); Red Blood Count 3.81 M/mm3 (4.2-5.4); Red Cell Distribution Width 16.4 % (11.5-14.5); White Blood Count 8.4 K/mm3 (4.5-10.0)
[2022-11-26 13:38] LABS: Alanine Aminotransferase 25 U/L (6-35); Albumin Level 3.2 g/dL (3.5-5.1); Alkaline Phosphatase 240 U/L (38-126); Anion Gap 1 mmol/L (8-16); Aspartate Amino Transferase 32 U/L (14-36); Bilirubin,Total 0.5 mg/dL (0.2-1.3); Blood Urea Nitrogen 19 mg/dL (7-17); Calcium 9.2 mg/dL (8.4-10.2); Carbon Dioxide 37 mmol/L (22-30); Chloride 100 mmol/L (98-107); Estimated Glomerular Filt Rate > 60; Glucose 124 mg/dL (65-110); Potassium 4.6 mmol/L (3.4-5.0); Sodium 138 mmol/L (137-145)
--- NOTE | 2022-11-26 14:47 | ED.GENADULT ---
HPI - General Adult General Chief complaint: Shortness of Breath/Dyspnea Stated complaint: SOB Time Seen by Provider: 11/26/22 13:28 History of Present Illness HPI narrative: 87-year-old female present emergency department for evaluation of shortness of breath. Patient reports that she began developing shortness of breath last night. Patient states he does feel improved on oxygen. Patient does have a right arm fracture. Patient does have Xarelto as a discharge medication but patient and caregiver are unsure if the patient is actually taking the medication. Patient denies any active bleeding Related Data Home Medications Medication Instructions Recorded Confirmed ndmvoulo-ike-roazm acid 0.4 1 tablet PO 3XW 09/11/20 11/21/22 mg-lycopene 300 mcg-lutein 250 mcg tablet (Centrum Silver) Senna with Docusate Sodium See Rx Instructions .Route .COMPLEX 10/16/22 11/21/22 aspirin 81 mg PO DAILY 10/16/22 11/21/22 atorvastatin 40 mg tablet 40 mg PO DAILY 10/16/22 11/21/22 clopidogrel 75 mg tablet (Plavix) 75 mg PO DAILY 10/16/22 11/21/22 rivaroxaban 2.5 mg tablet (Xarelto) 2.5 mg PO BID 10/16/22 11/21/22 Allergies Allergy/AdvReac Type Severity Reaction Status Date / Time No Known Allergies Allergy Verified 11/21/22 11:34 Review of Systems Review of Systems: All systems reviewed & are unremarkable except as noted in HPI and below PMFSH Past Medical History Medical History (Updated 11/26/22 @ 18:35 by Shoaib Schwartz MD) Anxiety Arthritis Chronic anticoagulation Chronic obstructive pulmonary disease, unspecified Closed fracture of right distal radius and ulna Depression Diet-controlled type 2 diabetes mellitus Fall Gastroesophageal reflux disease Hyperlipidemia Hypertension Multifocal atrial tachycardia Peripheral arterial disease Rhabdomyolysis Seasonal affective disorder Stress incontinence Tobacco abuse Vitamin D deficiency Weakness Surgical History Surgical History History of appendectomy History of cataract surgery History of colonoscopy with polypectomy History of hemorrhoidectomy History of hysterectomy Family History Family History Mother Diabetes mellitus Family history of malignant neoplasm Family history of diabetes mellitus in first degree relative Patient's mother is Father Malignant neoplasm of prostate Social History Social History Social History: Surrogate medical decision maker: Code status: Do not resuscitate. Smoking packs per day: 2 Smoking cigarettes per day: 40.0 Years smoked: 60 Smoking pack-years: 120.00 Smoking status: Former smoker Second hand tobacco smoke exposure: Yes Smoking end date: 04/25/17 Additional smoking assessment comments: pt currently smokes 2-3 cigarettes per day Alcohol intake: never Substance use: never Substance use type: marijuana Other substance usage details: 50 years ago Last use: >40 years Lack of Transportation: No Lack of Food: Never True Current Housing: I Have Housing Concerned About Future Housing: No Difficulty Paying Gas/Electric Bills: No Difficulty Paying for Meds: No Currently Unemployed: No Education: Master's Degree or Higher Difficulty w/ Childcare or Family Care: No Living arrangements: alone Additional living arrangements comments: Lives in own home in [place]. x3. Has 1 son. 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 Spiritual care concerns: No Agree to blood products: Yes Exam Narrative: APPEARANCE: Well appearing, no pain, no distress, well-nourished. HEAD: normocephalic, atraumatic. EYES: PERRLA/EOMI, conjunctivae clear. NOSE: Normal no drainage EARS:TMS clear with good light reflex. TH
[2022-11-26 15:50] LABS: NT Pro B Type Natriuretic Pept 133 pg/mL (19.9-100)
[2022-11-26 16:36] LABS: INR 1.1; Prothrombin Time 15.1 Seconds (11.1-14.7)
[2022-11-26 16:37] LABS: Partial Thromboplastin Time 29.8 SECONDS (22.3-36.8)
[2022-11-26] MEDS: HEPARIN SOD/D5W 100 UNITS/ML 25,000 UNITS/250 ML BAG 9 UNITS IV CONT (16:45)
[2022-11-26] MEDS: HEPARIN SODIUM 5,000 UNITS/ML VIAL 4000 UNITS IV PUSH (16:47)
--- NOTE | 2022-11-26 17:31 | PM.IMHP ---
H&P: HPI History of Present Illness Date/Time: 11/26/22 17:31 Chief Complaint: Shortness of breath Narrative: This is an 87-year-old female patient who has 24/7 care with at home care. The patient came to the emergency room with complaints of shortness of breath. The patient began to feel short of breath last night. The patient stated she feels better with oxygen. The patient recently was diagnosed with an inoperable fracture to her right forearm. The patient currently has a splint to her right forearm. It is unsure if the patient had been on Xarelto. Her H&H is 10.7 and 34.6. Platelets are 435. Chest x-ray was read as a large hiatal hernia. CTA was read as the following1. Acute pulmonary emboli in left upper lobe and right middle lobe. I called this result to Dr. Schwartz. 2. Mild emphysema. 3. Large sliding hiatal hernia. The patient was started on heparin drip. (The patient had just been discharged from here on 11/24/2022. Please see discharge summary. The patient has a right wrist fracture unspecified carpal bone, right wrist. Closed fracture. Right wrist showed distal radial and ulnar fractures. The patient was placed in his sugars splint. The patient found help at home and was able to be discharged safely. The patient went home with a Soto catheter. Upon discharge it looks like her Xarelto had been discontinued most likely due to her risk of falling.) The patient is currently on a heparin drip and being admitted to observation status on the date of service 11/26/2022. Review of Systems Review of Systems: All systems reviewed & are unremarkable except as noted in HPI and below Constitutional: Constitutional: Reports as per HPI and Reports no additional constitutional complaints Eyes: Eyes: Reports as per HPI and Reports no additional eye complaints ENT: Reports system reviewed and no additional complaints, except as documented and Reports Normal hearing present Cardiovascular: Cardiovascular: Reports no additional cardiovascular complaints Respiratory: Respiratory: Reports no additional respiratory complaints and Reports no additional respiratory complaints Gastrointestinal: Gastrointestinal: Reports as per HPI and Reports no additional gastrointestinal complaints Musculoskeletal: Musculoskeletal: Reports no additional musculoskeletal complaints Integumentary/Breasts: Skin/Breast: Reports system reviewed and no additional complaints, except as docu and Reports as per HPI Neurologic: Reports system reviewed and no additional complaints, except as documented, Reports as per HPI and Reports Normal hearing present Psychiatric: Psychiatric: Reports no additional psychiatric complaints and Reports as per HPI Endocrine: Endocrine: Reports no additional endocrine complaints Hematologic/Lymphatic: Hematologic/Lymphatic: Reports no additional hematologic/lymphatic complaints Allergic/Immunologic: Allergic/Immunologic: Reports no additional allergic/immunologic complaints [facility] Past Medical History Medical History Anxiety Arthritis Chronic anticoagulation Chronic obstructive pulmonary disease, unspecified Closed fracture of right distal radius and ulna Depression Diet-controlled type 2 diabetes mellitus Fall Gastroesophageal reflux disease Hyperlipidemia Hypertension Multifocal atrial tachycardia Peripheral arterial disease Rhabdomyolysis Seasonal affective disorder Stress incontinence Tobacco abuse Vitamin D deficiency Weakness Surgical History Surgical History History of appendectomy History of cataract surgery History of colonoscopy with polypectomy History of hemorrhoidectomy History of hysterectomy Family History Family History Mother Diabetes mellitus Family history of malignant neoplasm Family history of diabetes mellitus in fir
--- NOTE | 2022-11-26 22:59 | ADMGEN ---
This patient, Monica Crawley, was admitted to IMU Room 204-01. Patient/family oriented to hospital policies and general routines including ID bracelet, bed and alarms, visiting hours, pain management, procedures, bathroom and other care routines, personal items, smoking policy, room service/diet, and visiting hours. Information on how to activate the Rapid Response Team has been discussed. Patient/Family are encouraged to report perceived risks to care and to ask questions if they do not understand what they are told or what they should do.
[2022-11-27] VITALS (18 sets, daily range): BP systolic 90–140; BP diastolic 41–67; PULSE 70–98; RESP 16–18; TEMP 35.8–36.9; O2SAT 97–100
[2022-11-27 00:11] LABS: Partial Thromboplastin Time 176.7 SECONDS (22.3-36.8)
--- NOTE | 2022-11-27 01:12 | PC.NURSE ---
New order put in for heparin drip to start at 1000 units/ hr. Pt's previous heparin drip currently on hold for 1hr for supratherapeutic PTT. Will restart per nomogram of new order at 700 units/hr.
[2022-11-27] MEDS: HEPARIN SOD/D5W 100 UNITS/ML 25,000 UNITS/250 ML BAG 7 UNITS IV CONT (01:18)
[2022-11-27 07:26] LABS: Basophils Absolute Auto 0.1 K/mm3 (0.0-0.1); Eosinophils Absolute Auto 0.5 K/mm3 (0-0.3); Eosinophils Percent Auto 6.9 % (0-4.4); Hematocrit 33.8 % (37.0-47.0); Immature Granulocyte Absolute 0.05 K/mm3 (0.00-0.031); Immature Granulocyte Percent A 0.7 % (0-0.5); Lymphocytes Percent Auto 9.2 % (18.3-44.2); Mean Corpuscular HGB Conc 29.6 g/dl (32-36); Mean Corpuscular Hemoglobin 27.9 pg (26-34); Mean Corpuscular Volume 94.4 fl (80-100); Mean Platelet Volume 9.6 fl (7.4-10.4); Monocytes Absolute Auto 0.9 K/mm3 (0.1-0.6); Monocytes Percent Auto 11.4 % (2.6-8.5); Neutrophils Absolute Auto 5.4 K/mm3 (1.3-6.7); Neutrophils Percent Auto 70.8 % (45.5-73.1); Platelet Count Result 410 k/mm3 (150-375); Red Blood Count 3.58 M/mm3 (4.2-5.4); Red Cell Distribution Width 16.3 % (11.5-14.5); White Blood Count 7.7 K/mm3 (4.5-10.0)
[2022-11-27 07:37] LABS: Alanine Aminotransferase 23 U/L (6-35); Albumin Level 2.9 g/dL (3.5-5.1); Alkaline Phosphatase 196 U/L (38-126); Anion Gap -1 mmol/L (8-16); Aspartate Amino Transferase 30 U/L (14-36); Bilirubin,Total 0.4 mg/dL (0.2-1.3); Blood Urea Nitrogen 16 mg/dL (7-17); Calcium 8.9 mg/dL (8.4-10.2); Carbon Dioxide 39 mmol/L (22-30); Chloride 101 mmol/L (98-107); Estimated CRCL calculation 34 ml/min; Estimated Glomerular Filt Rate > 60; Glucose 94 mg/dL (65-110); Potassium 4.2 mmol/L (3.4-5.0); Sodium 139 mmol/L (137-145)
[2022-11-27 07:47] LABS: Partial Thromboplastin Time 78.2 SECONDS (22.3-36.8)
[2022-11-27 08:08] LABS: Glucose Point of Care 87 mg/dl (65-105)
[2022-11-27 08:33] LABS: Hypochromasia 1+ (NORMAL); Platelet Clumps Present; Platelet Estimate Increased (Adequate); Poikilocytosis 1+ (NORMAL); Schistocytes None Seen (NORMAL)
[2022-11-27] MEDS: SENNA/DOCUSATE SODIUM TABLET 1 TAB PO ×2 (09:25→20:55)
[2022-11-27] MEDS: ATORVASTATIN 40 MG TABLET PO (09:25)
[2022-11-27] MEDS: DICLOFENAC SODIUM 1% 100 GM GEL (*BKC) 1 APPLIC TOPICAL ×2 (09:26→20:56)
[2022-11-27] MEDS: LOSARTAN POTASSIUM 50 MG TABLET PO ×2 (09:26→20:55)
[2022-11-27] MEDS: predniSONE 10 MG TABLET 50 MG PO (09:30)
[2022-11-27 12:08] LABS: Glucose Point of Care 126 mg/dl (65-105)
--- NOTE | 2022-11-27 12:33 | WPDPN ---
Progress Note: A&P Assessment and Plan (1) Pulmonary embolism: Code(s): I26.99 - Other pulmonary embolism without acute cor pulmonale Status: Acute Assessment and Plan: . Acute pulmonary emboli in left upper lobe and right middle lobe. I called this result to Dr. Schwartz. 2. Mild emphysema. 3. Large sliding hiatal hernia. The patient was taken off of Xarelto due to her frequent falls. The patient now has pulmonary emboli. She is also DNR. The patient is requiring oxygen at 2 L per nasal cannula at this point. The patient is on heparin drip. The patient now has care at home 15/[address] the patient back on her Xarelto? 11/27/2022 interval history: patient presented with shortness of breath and found to have PE, patient supposed to be taking Xarelto for A.Fib however not sure if she was taking medication as patient is poor historian, patient is being treated with heparin drip, will do cardiac ECHO and b/l venous dopplor, and switch to Xarelto on Tuesday, will monitor. (2) Closed fracture of right distal radius and ulna: Qualifiers: Encounter type: initial encounter Qualified Code(s): S52.501A - Unspecified fracture of the lower end of right radius, initial encounter for closed fracture; S52.601A - Unspecified fracture of lower end of right ulna, initial encounter for closed fracture Code(s): S52.501A - Unspecified fracture of the lower end of right radius, initial encounter for closed fracture; S52.601A - Unspecified fracture of lower end of right ulna, initial encounter for closed fracture Status: Acute Assessment and Plan: The patient still has a sugar cast to her right forearm. Is is inoperable. Continue with pain management. (3) Hypertension: Code(s): I10 - Essential (primary) hypertension Status: Acute Assessment and Plan: Continue with losartan (4) Diet-controlled type 2 diabetes mellitus: Code(s): E11.9 - Type 2 diabetes mellitus without complications Status: Acute Assessment and Plan: Accu-Cheks AC and HS with sliding scale insulin. The patient's appetite is poor. (5) Depression: Code(s): F32.9 - Major depressive disorder, single episode, unspecified Status: Acute Assessment and Plan: Patient is on Xanax for anxiety. (6) COPD (chronic obstructive pulmonary disease): Code(s): J44.9 - Chronic obstructive pulmonary disease, unspecified Status: Acute Assessment and Plan: The patient is currently on prednisone. (7) ANTHONY on CPAP: Code(s): G47.33 - Obstructive sleep apnea (adult) (pediatric); Z99.89 - Dependence on other enabling machines and devices Status: Acute Assessment and Plan: The patient has a PE and is currently on oxygen at 2 L per nasal cannula at this time. (8) Hyperlipidemia: Code(s): E78.5 - Hyperlipidemia, unspecified Status: Acute Assessment and Plan: Continue with atorvastatin Subjective Date/time seen: 11/27/22 12:33 Interval history: Shortness of breath HPI-Narrative: This is an 87-year-old female patient who has 15/11 care with at home care.? The patient came to the emergency room with complaints of shortness of breath.? The patient began to feel short of breath last night.? The patient stated she feels better with oxygen.? The patient recently was diagnosed with? an inoperable fracture to her right forearm.? The patient currently has a splint to her right forearm.? It is unsure if the patient had been on Xarelto.? Her H&H is 10.7 and 34.6.? Platelets are 435.? Chest x-ray was read as a large hiatal hernia.? CTA was read as the following1. Acute pulmonary emboli in left upper lobe and right middle lobe. I called this result to Dr. Schwartz. 2. Mild emphysema. 3. Large sliding hiatal hernia. The patient was started on heparin drip. (The patient had just been discharged from here on 11/24/2022.? Please see discharge summary.? T
[2022-11-27] MEDS: oxyCODONE HCL (*CRX) 5 MG TAB IR PO (13:05)
[2022-11-27 15:07] LABS: Partial Thromboplastin Time 61.1 SECONDS (22.3-36.8)
[2022-11-27 16:40] LABS: Glucose Point of Care 195 mg/dl (65-105)
[2022-11-27 20:30] LABS: Glucose Point of Care 256 mg/dl (65-105)
[2022-11-27] MEDS: MELATONIN 3 MG TABLET PO (20:55)
[2022-11-27] MEDS: RIVAROXABAN 15 MG TABLET PO (20:55)
--- NOTE | 2022-11-27 21:55 | PC.NURSE ---
This patient, Monica Crawley, was received from [facility] on 11/27/22 at 2150. Report received from THOMAS Segovia. Patient/family oriented to unit policies and routines.
--- NOTE | 2022-11-27 21:58 | PC.NURSE ---
This patient, Monica Crawley, was transferred to [[id number] ] on 11/27/22 at 2145. Personal belongings sent with patient. Report given to [ Julia GUZMAN]. Appropriate documentation sent with patient.
[2022-11-28] VITALS (11 sets, daily range): BP systolic 99–114; BP diastolic 47–59; PULSE 59–79; RESP 14–19; TEMP 36.4–36.8; O2SAT 97–100
[2022-11-28 05:49] LABS: Basophils Percent Auto 0.2 % (0.2-1.2); Eosinophils Percent Auto 0.5 % (0-4.4); Hematocrit 31.4 % (37.0-47.0); Hemoglobin 9.3 g/dL (12.0-15.0); Immature Granulocyte Absolute 0.06 K/mm3 (0.00-0.031); Immature Granulocyte Percent A 0.7 % (0-0.5); Lymphocytes Absolute Auto 0.87 K/mm3 (0.9-3.2); Lymphocytes Percent Auto 10.7 % (18.3-44.2); Mean Corpuscular HGB Conc 29.6 g/dl (32-36); Mean Corpuscular Hemoglobin 28.2 pg (26-34); Mean Corpuscular Volume 95.2 fl (80-100); Mean Platelet Volume 9.8 fl (7.4-10.4); Monocytes Percent Auto 12.6 % (2.6-8.5); Neutrophils Absolute Auto 6.1 K/mm3 (1.3-6.7); Neutrophils Percent Auto 75.3 % (45.5-73.1); Platelet Count Result 394 k/mm3 (150-375); Red Cell Distribution Width 15.6 % (11.5-14.5); White Blood Count 8.1 K/mm3 (4.5-10.0)
[2022-11-28 06:04] LABS: Anion Gap -1 mmol/L (8-16); Blood Urea Nitrogen 20 mg/dL (7-17); Calcium 8.7 mg/dL (8.4-10.2); Carbon Dioxide 36 mmol/L (22-30); Chloride 98 mmol/L (98-107); Estimated CRCL calculation 34 ml/min; Estimated Glomerular Filt Rate > 60; Glucose 89 mg/dL (65-110); Magnesium 2.1 mg/dL (1.6-2.3); Sodium 133 mmol/L (137-145)
[2022-11-28 06:36] LABS: Hypochromasia 1+ (NORMAL); Platelet Estimate Increased (Adequate); Schistocytes None Seen (NORMAL)
[2022-11-28 06:37] LABS: Ovalocytes 1+ (NORMAL)
[2022-11-28 08:49] LABS: Glucose Point of Care 92 mg/dl (65-105)
[2022-11-28] MEDS: SENNA/DOCUSATE SODIUM TABLET 1 TAB PO ×2 (08:50→20:29)
[2022-11-28] MEDS: LOSARTAN POTASSIUM 50 MG TABLET PO ×2 (08:50→20:29)
[2022-11-28] MEDS: ATORVASTATIN 40 MG TABLET PO (08:50)
[2022-11-28] MEDS: RIVAROXABAN 15 MG TABLET PO ×2 (08:51→16:10)
[2022-11-28] MEDS: predniSONE 10 MG TABLET 50 MG PO (08:51)
[2022-11-28] MEDS: DICLOFENAC SODIUM 1% 100 GM GEL (*BKC) 1 APPLIC TOPICAL ×3 (08:51→20:29)
--- NOTE | 2022-11-28 10:33 | WPDPN ---
Progress Note: A&P Assessment and Plan (1) Pulmonary embolism: Code(s): I26.99 - Other pulmonary embolism without acute cor pulmonale Status: Acute Assessment and Plan: . Acute pulmonary emboli in left upper lobe and right middle lobe. I called this result to Dr. Schwartz. 2. Mild emphysema. 3. Large sliding hiatal hernia. The patient was taken off of Xarelto due to her frequent falls. The patient now has pulmonary emboli. She is also DNR. The patient is requiring oxygen at 2 L per nasal cannula at this point. The patient is on heparin drip. The patient now has care at home 15/[address] the patient back on her Xarelto? 11/28/2022 interval history: patient presented with shortness of breath and found to have PE, patient supposed to be taking Xarelto for A.Fib however not sure if she was taking medication as patient is poor historian, patient was treated with heparin drip, switch over to oral Xarelto 20mg qdaily, lower extremities dopplor is negative for any DVT, will do cardiac ECHO is pending, and will monitor. (2) Closed fracture of right distal radius and ulna: Qualifiers: Encounter type: initial encounter Qualified Code(s): S52.501A - Unspecified fracture of the lower end of right radius, initial encounter for closed fracture; S52.601A - Unspecified fracture of lower end of right ulna, initial encounter for closed fracture Code(s): S52.501A - Unspecified fracture of the lower end of right radius, initial encounter for closed fracture; S52.601A - Unspecified fracture of lower end of right ulna, initial encounter for closed fracture Status: Acute Assessment and Plan: The patient still has a sugar cast to her right forearm. Is is inoperable. Continue with pain management. (3) Hypertension: Code(s): I10 - Essential (primary) hypertension Status: Acute Assessment and Plan: Continue with losartan (4) Diet-controlled type 2 diabetes mellitus: Code(s): E11.9 - Type 2 diabetes mellitus without complications Status: Acute Assessment and Plan: Accu-Cheks AC and HS with sliding scale insulin. The patient's appetite is poor. (5) Depression: Code(s): F32.9 - Major depressive disorder, single episode, unspecified Status: Acute Assessment and Plan: Patient is on Xanax for anxiety. (6) COPD (chronic obstructive pulmonary disease): Code(s): J44.9 - Chronic obstructive pulmonary disease, unspecified Status: Acute Assessment and Plan: The patient is currently on prednisone. (7) ANTHONY on CPAP: Code(s): G47.33 - Obstructive sleep apnea (adult) (pediatric); Z99.89 - Dependence on other enabling machines and devices Status: Acute Assessment and Plan: The patient has a PE and is currently on oxygen at 2 L per nasal cannula at this time. (8) Hyperlipidemia: Code(s): E78.5 - Hyperlipidemia, unspecified Status: Acute Assessment and Plan: Continue with atorvastatin Subjective Date/time seen: 11/28/22 10:34 Interval history: Shortness of breath HPI-Narrative: This is an 87-year-old female patient who has 15/11 care with at home care.? The patient came to the emergency room with complaints of shortness of breath.? The patient began to feel short of breath last night.? The patient stated she feels better with oxygen.? The patient recently was diagnosed with? an inoperable fracture to her right forearm.? The patient currently has a splint to her right forearm.? It is unsure if the patient had been on Xarelto.? Her H&H is 10.7 and 34.6.? Platelets are 435.? Chest x-ray was read as a large hiatal hernia.? CTA was read as the following1. Acute pulmonary emboli in left upper lobe and right middle lobe. I called this result to Dr. Schwartz. 2. Mild emphysema. 3. Large sliding hiatal hernia. The patient was started on heparin drip. (The patient had just been discharged from here on 0
[2022-11-28] MEDS: ERGOCALCIFEROL 50,000 UNITS CAPSULE 50000 UNITS PO (11:05)
[2022-11-28 12:06] LABS: Glucose Point of Care 146 mg/dl (65-105)
[2022-11-28] MEDS: oxyCODONE HCL (*CRX) 5 MG TAB IR PO (16:12)
[2022-11-28 17:05] LABS: Glucose Point of Care 177 mg/dl (65-105)
[2022-11-28] MEDS: MELATONIN 3 MG TABLET PO (20:29)
[2022-11-28 20:31] LABS: Glucose Point of Care 226 mg/dl (65-105)
[2022-11-29] VITALS (14 sets, daily range): BP systolic 92–113; BP diastolic 40–52; PULSE 61–77; RESP 14–20; TEMP 36.2–37.1; O2SAT 92–100; BMI 23.4
--- NOTE | 2022-11-29 | ECHO_ITS ---
Patient Info Name: Monica Crawley Age: 87 years : 1935 Gender: Female Ht: 60 in Wt: 119 lbs BSA: 1.52 m2 HR: 63 bpm BP: 101 / 46 mmHg Heart Rhythm: Sinus Rhythm Technical Quality: Fair Exam Date: 11/29/2022 12:36 PM Exam Location: [facility] Pul[facility] Patient Status: Inpatient Admit Date: 11/27/2022 Staff Ordering Physician: Lin Diaz MD Ammonia Technician: Chantal Fitzpatrick RDCS Attending Provider: Jarrod Farmer MD Exam Type: CA echo doppler color flow Study Info Indications - PE Complete two-dimensional, color flow and Doppler transthoracic echocardiogram is performed. Summary 1. Complete two-dimensional, color flow and Doppler transthoracic echocardiogram is performed. 2. Normal left ventricular size and systolic function. 3. Normal right ventricular size. 4. Mildly sclerotic but not stenotic aortic valve. 5. Very small amount of TR estimated RV systolic pressure of 38 mmHg. 6. No stigmata of significant RV pressure overload. Left Ventricle Left ventricular chamber dimension is normal. Left ventricular systolic function is normal, estimated at 65-70%. The left ventricular diastolic function is grade I diastolic dysfunction. Right Ventricle Right ventricular chamber dimension is normal. Left Atria Left atrial chamber dimension is normal. Right Atria Right atrial chamber dimension is normal. Aortic Valve The aortic valve is trileaflet. There is mild aortic valve sclerosis. Pulmonic Valve The pulmonic valve is normal. Mitral Valve The mitral valve has normal leaflets. There is no mitral valve regurgitation. Tricuspid Valve The tricuspid valve leaflets are normal. There is trace tricuspid valve regurgitation. Pericardium/Pleural The pericardium appears normal. Aorta The aortic root size at the sinus of Valsalva is normal. Left Ventricular Outflow Tract Name Value Normal LVOT 2D LVOT Diameter 2.0 cm LVOT Doppler LVOT Peak Gradient 8 mmHg LVOT Mean Gradient 4 mmHg LVOT VTI 25 cm LVOT VTI/AV VTI Ratio 0.9 LVOT Stroke Volume 78 ml LVOT CO 5.5 l/min LVOT CI 3.6 l/min/m2 Pulmonic Valve Name Value Normal RVOT Doppler RVOT Peak Gradient 5 mmHg PV Doppler PV Peak Gradient 7 mmHg Mitral Valve Name Value Normal MV Doppler MV Decel [place] 310 cm/s2 MV PHT 70 ms MV Area (
[2022-11-29 05:51] LABS: Hematocrit 29.6 % (37.0-47.0); Hemoglobin 8.8 g/dL (12.0-15.0); Mean Corpuscular HGB Conc 29.7 g/dl (32-36); Mean Corpuscular Hemoglobin 28.4 pg (26-34); Mean Corpuscular Volume 95.5 fl (80-100); Mean Platelet Volume 9.7 fl (7.4-10.4); Platelet Count Result 362 k/mm3 (150-375); Red Cell Distribution Width 15.5 % (11.5-14.5); White Blood Count 8.6 K/mm3 (4.5-10.0)
[2022-11-29 05:59] LABS: Potassium 3.6 mmol/L (3.4-5.0)
[2022-11-29 06:02] LABS: Anion Gap -3 mmol/L (8-16); Blood Urea Nitrogen 27 mg/dL (7-17); Calcium 8.6 mg/dL (8.4-10.2); Carbon Dioxide 37 mmol/L (22-30); Chloride 98 mmol/L (98-107); Estimated CRCL calculation 34 ml/min; Estimated Glomerular Filt Rate > 60; Glucose 86 mg/dL (65-110); Sodium 132 mmol/L (137-145)
[2022-11-29 07:55] LABS: Glucose Point of Care 93 mg/dl (65-105)
[2022-11-29] MEDS: ATORVASTATIN 40 MG TABLET PO (08:32)
[2022-11-29] MEDS: RIVAROXABAN 15 MG TABLET PO ×2 (08:32→16:21)
[2022-11-29] MEDS: SENNA/DOCUSATE SODIUM TABLET 1 TAB PO (08:32)
[2022-11-29] MEDS: predniSONE 10 MG TABLET 50 MG PO (08:32)
[2022-11-29] MEDS: LOSARTAN POTASSIUM 50 MG TABLET PO ×2 (08:32→21:25)
[2022-11-29] MEDS: POTASSIUM CHLORIDE 20 MEQ PACKET (FOR LIQUID) 40 MEQ PO (09:28)
[2022-11-29 12:14] LABS: Glucose Point of Care 110 mg/dl (65-105)
[2022-11-29] MEDS: SILVERGEL (ELTA) 45 ML 1 APPLIC TOPICAL (14:03)
[2022-11-29 16:04] LABS: IFOB Positive Control Positive; Immunochemical Fecal Occult Bl Positive (N)
--- NOTE | 2022-11-29 16:53 | WPDPN ---
Progress Note: A&P Assessment and Plan (1) Pulmonary embolism: Code(s): I26.99 - Other pulmonary embolism without acute cor pulmonale Status: Acute Assessment and Plan: . Acute pulmonary emboli in left upper lobe and right middle lobe. I called this result to Dr. Schwartz. 2. Mild emphysema. 3. Large sliding hiatal hernia. The patient was taken off of Xarelto due to her frequent falls. The patient now has pulmonary emboli. She is also DNR. The patient is requiring oxygen at 2 L per nasal cannula at this point. The patient is on heparin drip. The patient now has care at home 15/[address] the patient back on her Xarelto? 11/29/2022 interval history: patient presented with shortness of breath and found to have PE, patient supposed to be taking Xarelto for A.Fib however not sure if she was taking medication as patient is poor historian,i spoke with [facility] and they are not sure as patient administers her won medications, patient was treated with heparin drip, switch over to oral Xarelto 20mg qdaily, lower extremities dopplor is negative for any DVT, will do cardiac ECHO is pending, today patient has black tarry stools, will consult GI for further recommendaton, patient hgb is trending down, will hold Xarelto, and will monitor. (2) Closed fracture of right distal radius and ulna: Qualifiers: Encounter type: initial encounter Qualified Code(s): S52.501A - Unspecified fracture of the lower end of right radius, initial encounter for closed fracture; S52.601A - Unspecified fracture of lower end of right ulna, initial encounter for closed fracture Code(s): S52.501A - Unspecified fracture of the lower end of right radius, initial encounter for closed fracture; S52.601A - Unspecified fracture of lower end of right ulna, initial encounter for closed fracture Status: Acute Assessment and Plan: The patient still has a sugar cast to her right forearm. Is is inoperable. Continue with pain management. (3) Hypertension: Code(s): I10 - Essential (primary) hypertension Status: Acute Assessment and Plan: Continue with losartan (4) Diet-controlled type 2 diabetes mellitus: Code(s): E11.9 - Type 2 diabetes mellitus without complications Status: Acute Assessment and Plan: Accu-Cheks AC and HS with sliding scale insulin. The patient's appetite is poor. (5) Depression: Code(s): F32.9 - Major depressive disorder, single episode, unspecified Status: Acute Assessment and Plan: Patient is on Xanax for anxiety. (6) COPD (chronic obstructive pulmonary disease): Code(s): J44.9 - Chronic obstructive pulmonary disease, unspecified Status: Acute Assessment and Plan: The patient is currently on prednisone. (7) ANTHONY on CPAP: Code(s): G47.33 - Obstructive sleep apnea (adult) (pediatric); Z99.89 - Dependence on other enabling machines and devices Status: Acute Assessment and Plan: The patient has a PE and is currently on oxygen at 2 L per nasal cannula at this time. (8) Hyperlipidemia: Code(s): E78.5 - Hyperlipidemia, unspecified Status: Acute Assessment and Plan: Continue with atorvastatin Subjective Date/time seen: 11/29/22 16:53 Interval history: Shortness of breath HPI-Narrative: This is an 87-year-old female patient who has 15/11 care with at home care.? The patient came to the emergency room with complaints of shortness of breath.? The patient began to feel short of breath last night.? The patient stated she feels better with oxygen.? The patient recently was diagnosed with? an inoperable fracture to her right forearm.? The patient currently has a splint to her right forearm.? It is unsure if the patient had been on Xarelto.? Her H&H is 10.7 and 34.6.? Platelets are 435.? Chest x-ray was read as a large hiatal hernia.? CTA was read as the following1. Acute pulmonary emboli in left u
[2022-11-29 17:00] LABS: Glucose Point of Care 190 mg/dl (65-105)
[2022-11-29] MEDS: MELATONIN 3 MG TABLET PO (21:25)
[2022-11-29 22:53] LABS: Glucose Point of Care 171 mg/dl (65-105)
[2022-11-30] VITALS (18 sets, daily range): BP systolic 100–124; BP diastolic 41–67; PULSE 63–100; RESP 14–24; TEMP 35.9–36.6; O2SAT 98–100
[2022-11-30 05:45] LABS: Hematocrit 30.3 % (37.0-47.0); Mean Corpuscular HGB Conc 29.7 g/dl (32-36); Mean Corpuscular Volume 94.4 fl (80-100); Platelet Count Result 373 k/mm3 (150-375); Red Blood Count 3.21 M/mm3 (4.2-5.4); Red Cell Distribution Width 15.5 % (11.5-14.5); White Blood Count 8.6 K/mm3 (4.5-10.0)
[2022-11-30 05:58] LABS: Anion Gap -1 mmol/L (8-16); Blood Urea Nitrogen 34 mg/dL (7-17); Calcium 8.9 mg/dL (8.4-10.2); Carbon Dioxide 38 mmol/L (22-30); Chloride 98 mmol/L (98-107); Estimated CRCL calculation 40 ml/min; Estimated Glomerular Filt Rate > 60; Glucose 98 mg/dL (65-110); Magnesium 2.1 mg/dL (1.6-2.3); Potassium 4.4 mmol/L (3.4-5.0); Sodium 135 mmol/L (137-145)
[2022-11-30 08:08] LABS: Glucose Point of Care 89 mg/dl (65-105)
[2022-11-30] MEDS: RIVAROXABAN 15 MG TABLET PO ×2 (08:54→16:26)
[2022-11-30] MEDS: SILVERGEL (ELTA) 45 ML 1 APPLIC TOPICAL (08:54)
[2022-11-30] MEDS: ATORVASTATIN 40 MG TABLET PO (08:54)
[2022-11-30] MEDS: SENNA/DOCUSATE SODIUM TABLET 1 TAB PO ×2 (08:54→21:31)
[2022-11-30] MEDS: LOSARTAN POTASSIUM 50 MG TABLET PO ×2 (08:54→21:31)
[2022-11-30] MEDS: predniSONE 10 MG TABLET 50 MG PO (09:06)
--- NOTE | 2022-11-30 10:10 | PCPTNOTE ---
Attempted to see patient for PT, however patient declined due to wanting to nap. Patient asked PT to come back.
[2022-11-30 11:50] LABS: Glucose Point of Care 115 mg/dl (65-105)
--- NOTE | 2022-11-30 12:42 | WPDPN ---
Progress Note: A&P Assessment and Plan (1) Pulmonary embolism: Code(s): I26.99 - Other pulmonary embolism without acute cor pulmonale Status: Acute Assessment and Plan: . Acute pulmonary emboli in left upper lobe and right middle lobe. I called this result to Dr. Schwartz. 2. Mild emphysema. 3. Large sliding hiatal hernia. The patient was taken off of Xarelto due to her frequent falls. The patient now has pulmonary emboli. She is also DNR. The patient is requiring oxygen at 2 L per nasal cannula at this point. The patient is on heparin drip. The patient now has care at home 15/[address] the patient back on her Xarelto? 11/30/2022 interval history: patient presented with shortness of breath and found to have PE, patient supposed to be taking Xarelto for A.Fib however not sure if she was taking medication as patient is poor historian,i spoke with [facility] and they are not sure as patient administers her won medications, patient was treated with heparin drip, switch over to oral Xarelto 20mg qdaily, lower extremities dopplor is negative for any DVT, will do cardiac ECHO is pending, on patient had black tarry stools, will consult GI for further recommendaton, patient hgb is trending down, continued Xarelto, today discuss with GI and recommneded to continue xarelto and will monitor hbg and further recommend (2) Closed fracture of right distal radius and ulna: Qualifiers: Encounter type: initial encounter Qualified Code(s): S52.501A - Unspecified fracture of the lower end of right radius, initial encounter for closed fracture; S52.601A - Unspecified fracture of lower end of right ulna, initial encounter for closed fracture Code(s): S52.501A - Unspecified fracture of the lower end of right radius, initial encounter for closed fracture; S52.601A - Unspecified fracture of lower end of right ulna, initial encounter for closed fracture Status: Acute Assessment and Plan: The patient still has a sugar cast to her right forearm. Is is inoperable. Continue with pain management. (3) Hypertension: Code(s): I10 - Essential (primary) hypertension Status: Acute Assessment and Plan: Continue with losartan (4) Diet-controlled type 2 diabetes mellitus: Code(s): E11.9 - Type 2 diabetes mellitus without complications Status: Acute Assessment and Plan: Accu-Cheks AC and HS with sliding scale insulin. The patient's appetite is poor. (5) Depression: Code(s): F32.9 - Major depressive disorder, single episode, unspecified Status: Acute Assessment and Plan: Patient is on Xanax for anxiety. (6) COPD (chronic obstructive pulmonary disease): Code(s): J44.9 - Chronic obstructive pulmonary disease, unspecified Status: Acute Assessment and Plan: The patient is currently on prednisone. (7) ANTHONY on CPAP: Code(s): G47.33 - Obstructive sleep apnea (adult) (pediatric); Z99.89 - Dependence on other enabling machines and devices Status: Acute Assessment and Plan: The patient has a PE and is currently on oxygen at 2 L per nasal cannula at this time. (8) Hyperlipidemia: Code(s): E78.5 - Hyperlipidemia, unspecified Status: Acute Assessment and Plan: Continue with atorvastatin Subjective Date/time seen: 11/30/22 12:42 Interval history: Shortness of breath HPI-Narrative: This is an 87-year-old female patient who has 15/11 care with at home care.? The patient came to the emergency room with complaints of shortness of breath.? The patient began to feel short of breath last night.? The patient stated she feels better with oxygen.? The patient recently was diagnosed with? an inoperable fracture to her right forearm.? The patient currently has a splint to her right forearm.? It is unsure if the patient had been on Xarelto.? Her H&H is 10.7 and 34.6.? Platelets are 435.? Chest x-ray was read as a larg
[2022-11-30] MEDS: LEVALBUTEROL NEB 1.25 MG/3 ML 0.63 MG INHALATION ×2 (13:00→20:31)
--- NOTE | 2022-11-30 14:06 | WPDGICN ---
Assessment and Plan Assessment and plan (1) Pulmonary embolism: Code(s): I26.99 - Other pulmonary embolism without acute cor pulmonale Status: Acute Assessment and Plan: she is back on anticoagulation again no overt gib we can monitor for signs of bleeding and trend h/h, of course if significant bleeding then we may need to reassess but I prefer not to put patient through anesthesia and colonoscopy in setting of newly diagnosed PE (2) Occult blood in stools: Code(s): R19.5 - Other fecal abnormalities Status: Acute Assessment and Plan: no overt gib colonoscopy only if significant bleeding otherwise recommend just conservative approach (3) Closed fracture of right distal radius and ulna: Qualifiers: Encounter type: initial encounter Qualified Code(s): S52.501A - Unspecified fracture of the lower end of right radius, initial encounter for closed fracture; S52.601A - Unspecified fracture of lower end of right ulna, initial encounter for closed fracture Code(s): S52.501A - Unspecified fracture of the lower end of right radius, initial encounter for closed fracture; S52.601A - Unspecified fracture of lower end of right ulna, initial encounter for closed fracture Status: Acute (4) Chronic anticoagulation: Code(s): Z79.01 - terminologist (current) use of anticoagulants Status: Acute Assessment and Plan: she is back on it she will have 15/11 care at home (5) Acute on chronic anemia: Code(s): D64.9 - Anemia, unspecified Status: Acute Assessment and Plan: monitor GI Consult Note Consult date/time: 11/30/22 14:06 Reason for consult: fobt + HPI: Monica Crawley is a 87 year old female with history of COPD, hypertension, hyperlipidemia, peripheral arterial disease, atrial tachycardia on chronic anticoagulation with recent hospitalization last week after had close fracture right wrist treated medically after sustaining a fall and currently has a splint in place.?She came back to the emergency room with complaints of worsening shortness of breath.?She was on xarelto but discontinued last time after concern of having more falls. ?On arrival H&H is 10.7 and 34.6.? Platelets are 435.? Chest x-ray was read as a large hiatal hernia.? CTA reviewd and showed acute pulmonary emboli in left upper lobe and right middle lobe. Initially was started on heparin drip and now back on xarelto. Primary ordered occult blood in stool that was positive but no over gib, patient denies blood with stool. She can not tell me if she had colonoscopy. Repeat hgb 9 Review of Systems Constitutional: Constitutional: Denies chills Eyes: Eyes: Denies blurry vision ENT: Reports Normal hearing present Cardiovascular: Cardiovascular: Denies chest pain Respiratory: Respiratory: Reports dyspnea on exertion Gastrointestinal: Gastrointestinal: Denies abdominal pain Genitourinary: Genitourinary: Denies dysuria Musculoskeletal: Comments: recent rt wrist fracture Integumentary/Breasts: Skin/Breast: Denies rash Neurologic: Reports Normal hearing present Psychiatric: Psychiatric: Denies behavioral changes Endocrine: Endocrine: Reports no additional endocrine complaints [facility] Past Medical History Medical History (Updated 11/30/22 @ 14:13 by David Vicente MD) Acute on chronic anemia Anxiety Arthritis Chronic anticoagulation Chronic obstructive pulmonary disease, unspecified Closed fracture of right distal radius and ulna Depression Diet-controlled type 2 diabetes mellitus Fall Gastroesophageal reflux disease Hyperlipidemia Hypertension Multifocal atrial tachycardia Occult blood in stools Peripheral arterial disease Rhabdomyolysis Seasonal affective disorder Stress incontinence Tobacco abuse Vitamin D deficiency Weakness Surgical History Surgical History History of appendectomy
[2022-11-30 17:52] LABS: Glucose Point of Care 189 mg/dl (65-105)
[2022-11-30] MEDS: oxyCODONE HCL (*CRX) 5 MG TAB IR PO (18:53)
[2022-11-30 21:17] LABS: Glucose Point of Care 240 mg/dl (65-105)
[2022-11-30] MEDS: MELATONIN 3 MG TABLET PO (21:31)
[2022-11-30] MEDS: OXYMETAZOLINE HCL 0.05% NAS 15 ML BTL (*BKC) 1 SPRAY NASAL (22:00)
[2022-12-01] VITALS (20 sets, daily range): BP systolic 100–109; BP diastolic 45–52; PULSE 56–96; RESP 14–20; TEMP 35.8–36.5; O2SAT 94–100
[2022-12-01] MEDS: LEVALBUTEROL NEB 1.25 MG/3 ML 0.63 MG INHALATION ×4 (01:46→20:20)
[2022-12-01 05:33] LABS: Hematocrit 28.9 % (37.0-47.0); Hemoglobin 8.6 g/dL (12.0-15.0); Mean Corpuscular HGB Conc 29.8 g/dl (32-36); Mean Corpuscular Hemoglobin 28.3 pg (26-34); Mean Corpuscular Volume 95.1 fl (80-100); Platelet Count Result 331 k/mm3 (150-375); Red Blood Count 3.04 M/mm3 (4.2-5.4); Red Cell Distribution Width 15.5 % (11.5-14.5)
[2022-12-01 05:49] LABS: Blood Urea Nitrogen 26 mg/dL (7-17); Calcium 8.8 mg/dL (8.4-10.2); Carbon Dioxide > 40 mmol/L (22-30); Chloride 96 mmol/L (98-107); Estimated CRCL calculation 40 ml/min; Estimated Glomerular Filt Rate > 60; Glucose 122 mg/dL (65-110); Magnesium 1.9 mg/dL (1.6-2.3); Potassium 4.3 mmol/L (3.4-5.0); Sodium 134 mmol/L (137-145)
[2022-12-01 08:32] LABS: Glucose Point of Care 78 mg/dl (65-105)
[2022-12-01] MEDS: ATORVASTATIN 40 MG TABLET PO (09:02)
[2022-12-01] MEDS: predniSONE 10 MG TABLET 50 MG PO (09:02)
[2022-12-01] MEDS: LOSARTAN POTASSIUM 50 MG TABLET PO ×2 (09:02→21:55)
[2022-12-01] MEDS: RIVAROXABAN 15 MG TABLET PO ×2 (09:02→16:37)
[2022-12-01] MEDS: SILVERGEL (ELTA) 45 ML 1 APPLIC TOPICAL (09:03)
[2022-12-01 11:55] LABS: Glucose Point of Care 179 mg/dl (65-105)
--- NOTE | 2022-12-01 12:19 | PM.IMPN ---
Progress Note: A&P Assessment and Plan (1) Pulmonary embolism: Code(s): I26.99 - Other pulmonary embolism without acute cor pulmonale Status: Acute Assessment and Plan: Acute pulmonary emboli in left upper lobe and right middle lobe, recommended to continue Xarelto and will monitor hbg and further recommend, watch HB zara and dc in AM (2) Closed fracture of right distal radius and ulna: Qualifiers: Encounter type: initial encounter Qualified Code(s): S52.501A - Unspecified fracture of the lower end of right radius, initial encounter for closed fracture; S52.601A - Unspecified fracture of lower end of right ulna, initial encounter for closed fracture Code(s): S52.501A - Unspecified fracture of the lower end of right radius, initial encounter for closed fracture; S52.601A - Unspecified fracture of lower end of right ulna, initial encounter for closed fracture Status: Acute Assessment and Plan: The patient still has a sugar cast to her right forearm. Is is inoperable. Continue with pain management. (3) Hypertension: Code(s): I10 - Essential (primary) hypertension Status: Acute Assessment and Plan: Continue with losartan (4) Diet-controlled type 2 diabetes mellitus: Code(s): E11.9 - Type 2 diabetes mellitus without complications Status: Acute Assessment and Plan: Accu-Cheks AC and HS with sliding scale insulin. The patient's appetite is poor. (5) Depression: Code(s): F32.9 - Major depressive disorder, single episode, unspecified Status: Acute Assessment and Plan: Patient is on Xanax for anxiety. (6) COPD (chronic obstructive pulmonary disease): Code(s): J44.9 - Chronic obstructive pulmonary disease, unspecified Status: Acute Assessment and Plan: The patient is currently on prednisone. (7) ANTHONY on CPAP: Code(s): G47.33 - Obstructive sleep apnea (adult) (pediatric); Z99.89 - Dependence on other enabling machines and devices Status: Acute Assessment and Plan: The patient has a PE and is currently on oxygen at 2 L per nasal cannula at this time. (8) Hyperlipidemia: Code(s): E78.5 - Hyperlipidemia, unspecified Status: Acute Assessment and Plan: Continue with atorvastatin Subjective Date/time seen: 12/01/22 12:19 Interval history: Interval history: This is an 87-year-old female patient who has 24/7 care with at home care.? The patient came to the emergency room with complaints of shortness of breath.? The patient began to feel short of breath last night.? The patient stated she feels better with oxygen.? The patient recently was diagnosed with? an inoperable fracture to her right forearm.? The patient currently has a splint to her right forearm.? It is unsure if the patient had been on Xarelto.? Her H&H is 10.7 and 34.6.? Platelets are 435.? Chest x-ray was read as a large hiatal hernia.? CTA was read as the following1. Acute pulmonary emboli in left upper lobe and right middle lobe. Patient presented with shortness of breath and found to have PE, patient supposed to be taking Xarelto for A.Fib however not sure if she was taking medication as patient is poor historian,i spoke with caregive and they are not sure as patient administers her won medications, patient was treated with heparin drip, switch over to oral Xarelto 20mg qdaily, lower extremities dopplor is negative for any DVT, will do cardiac ECHO is pending, on patient had black tarry stools, will consult GI for further recommendaton, continue anticoagulation watch Hb levels pt seen by GI hopeful DC tomorrow Review of Systems Review of Systems: No specific complaints All systems reviewed & are unremarkable except as noted in HPI and below Exam Narrative: Elderly frail Patient is comfortable HEENT: eyes are clear and none icteric LUNGS: Normal respiratory effort ABDO: Not distended Lower extrem
--- NOTE | 2022-12-01 13:27 | WPDGIPROGNO ---
Progress Note: A&P Assessment and Plan (1) Occult blood in stools: Code(s): R19.5 - Other fecal abnormalities Status: Acute Assessment and Plan: no overt gib hgb 8.5-9.5 since she needs to be back again on anticoagulation because new dx PE, I think will be prudent to use protonix daily no need of endoscopy unless obvious bleeding (2) Acute on chronic anemia: Code(s): D64.9 - Anemia, unspecified Status: Acute Assessment and Plan: this can be monitored as outpatient on AC (3) Pulmonary embolism: Code(s): I26.99 - Other pulmonary embolism without acute cor pulmonale Status: Acute Assessment and Plan: new diagnosis (4) Closed fracture of right distal radius and ulna: Qualifiers: Encounter type: initial encounter Qualified Code(s): S52.501A - Unspecified fracture of the lower end of right radius, initial encounter for closed fracture; S52.601A - Unspecified fracture of lower end of right ulna, initial encounter for closed fracture Code(s): S52.501A - Unspecified fracture of the lower end of right radius, initial encounter for closed fracture; S52.601A - Unspecified fracture of lower end of right ulna, initial encounter for closed fracture Status: Acute (5) Chronic anticoagulation: Code(s): 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 Status: Acute Subjective Date/time seen: 12/01/22 13:27 Interval history: no changes, tolerating diet no BM caregiver at bedside Review of Systems Review of Systems: All systems reviewed & are unremarkable except as noted in HPI and below Exam Const: General: comfortable Other: frail elderly HENMT: Face/Nose/Sinus: Normal nares present Other: wearing oxygen by NC Eyes: General: appearance normal, both eyes and all related structures Neck: Neck: supple Resp: Effort & Inspection: normal respiratory effort Cardio: Rate: regular rate GI: GI Palp: Yes Soft to palpation, No Tenderness to palpation present (GI) and No Guarding due to palpation present (GI) Auscultation: normal bowel sounds Skin: General skin exam: normal color Neuro: Speech: normal speech Motor exam (neuro): 5/5 motor strength present throughout Extrem: Other: splin in rt arm Psych: Mental Status: mental status grossly normal Objective Data Vital Signs Vital Signs: Vital Signs - 24 hr 11/30/22 13:56 11/30/22 16:03 11/30/22 17:34 Temperature 97.8 F 97.6 F Pulse Rate 87 73 77 Respiratory Rate 20 14 Blood Pressure 109/67 100/47 L Pulse Oximetry 100 100 Oxygen Delivery Oxygen Flow Rate Fraction of Inspired Oxygen 11/30/22 19:29 11/30/22 20:30 11/30/22 20:34 Temperature 97.7 F Pulse Rate 77 79 Respiratory Rate 18 20 Blood Pressure 112/41 L Pulse Oximetry 100 99 Oxygen Delivery Nasal Cannula Oxygen Flow Rate 3 Fraction of Inspired Oxygen 32 11/30/22 20:37 12/01/22 01:45 12/01/22 01:54 Temperature Pulse Rate 76 76 77 Respiratory Rate 20 20 20 Blood Pressure Pulse Oximetry Oxygen Delivery Oxygen Flow Rate Fraction of Inspired Oxygen 12/01/22 01:47 11/30/22 20:00 12/01/22 04:39 Temperature 96.8 F L 96.4 F L Pulse Rate 61 57 L Respiratory Rate 20 18 Blood Pressure 103/48 L 100/48 L Pulse Oximetry 100 98 Oxygen Delivery Nasal Cannula Oxygen Flow Rate 3 Fraction of Inspired Oxygen 11/30/22 20:00 12/01/22 00:00 12/01/22 04:00 Temperature Pulse Rate 100 60 56 L Respiratory Rate Blood Pressure Pulse Oximetry Oxygen Delivery Oxygen Flow Rate Fraction of Inspired Oxygen 12/01/22 07:34 12/01/22 07:34 12/01/22 07:58 Temperature Pulse Rate 58 L 61 Respiratory Rate 20 20 Blood Pressure Pulse Oximetry 94 Oxygen Delivery Nasal Cannula Oxygen Flow Rate 3 Fraction of Inspired Oxygen 12/01/22 10:15 12/01/22 09:03 12/01/22 08:03 Temperature 97.6 F Pul
[2022-12-01 17:03] LABS: Glucose Point of Care 210 mg/dl (65-105)
[2022-12-01 20:53] LABS: Glucose Point of Care 221 mg/dl (65-105)
[2022-12-01] MEDS: MELATONIN 3 MG TABLET PO (21:55)
[2022-12-02] VITALS (20 sets, daily range): BP systolic 90–106; BP diastolic 44–52; PULSE 58–96; RESP 16–20; TEMP 36.1–36.9; O2SAT 97–100
[2022-12-02] MEDS: LEVALBUTEROL NEB 1.25 MG/3 ML 0.63 MG INHALATION ×4 (02:00→20:20)
[2022-12-02 05:30] LABS: Hematocrit 25.4 % (37.0-47.0); Hemoglobin 7.6 g/dL (12.0-15.0); Mean Corpuscular HGB Conc 29.9 g/dl (32-36); Mean Corpuscular Hemoglobin 27.9 pg (26-34); Mean Corpuscular Volume 93.4 fl (80-100); Mean Platelet Volume 10.2 fl (7.4-10.4); Platelet Count Result 338 k/mm3 (150-375); Red Blood Count 2.72 M/mm3 (4.2-5.4); Red Cell Distribution Width 15.6 % (11.5-14.5); White Blood Count 8.2 K/mm3 (4.5-10.0)
[2022-12-02 05:41] LABS: Anion Gap -3 mmol/L (8-16); Blood Urea Nitrogen 30 mg/dL (7-17); Calcium 8.6 mg/dL (8.4-10.2); Carbon Dioxide 38 mmol/L (22-30); Chloride 95 mmol/L (98-107); Estimated CRCL calculation 40 ml/min; Estimated Glomerular Filt Rate > 60; Glucose 108 mg/dL (65-110); Magnesium 1.8 mg/dL (1.6-2.3); Potassium 4.2 mmol/L (3.4-5.0); Sodium 130 mmol/L (137-145)
[2022-12-02] MEDS: predniSONE 10 MG TABLET 50 MG PO (08:02)
[2022-12-02] MEDS: ATORVASTATIN 40 MG TABLET PO (08:02)
[2022-12-02] MEDS: PANTOPRAZOLE 40 MG TABLET PO ×2 (08:02→21:53)
[2022-12-02] MEDS: SENNA/DOCUSATE SODIUM TABLET 1 TAB PO (08:02)
[2022-12-02] MEDS: SILVERGEL (ELTA) 45 ML 1 APPLIC TOPICAL (08:03)
[2022-12-02] MEDS: LOSARTAN POTASSIUM 50 MG TABLET PO ×2 (08:03→21:53)
[2022-12-02] MEDS: RIVAROXABAN 15 MG TABLET PO ×2 (08:03→17:05)
--- NOTE | 2022-12-02 08:35 | PM.IMPN ---
Progress Note: A&P Assessment and Plan (1) Pulmonary embolism: Code(s): I26.99 - Other pulmonary embolism without acute cor pulmonale Status: Acute Assessment and Plan: Acute pulmonary emboli in left upper lobe and right middle lobe, recommended to continue Xarelto and will monitor hbg and further recommend, watch HB zara and dc in AM (2) Closed fracture of right distal radius and ulna: Qualifiers: Encounter type: initial encounter Qualified Code(s): S52.501A - Unspecified fracture of the lower end of right radius, initial encounter for closed fracture; S52.601A - Unspecified fracture of lower end of right ulna, initial encounter for closed fracture Code(s): S52.501A - Unspecified fracture of the lower end of right radius, initial encounter for closed fracture; S52.601A - Unspecified fracture of lower end of right ulna, initial encounter for closed fracture Status: Acute Assessment and Plan: The patient still has a sugar cast to her right forearm. Is is inoperable. Continue with pain management. (3) Hypertension: Code(s): I10 - Essential (primary) hypertension Status: Acute Assessment and Plan: Continue with losartan (4) Diet-controlled type 2 diabetes mellitus: Code(s): E11.9 - Type 2 diabetes mellitus without complications Status: Acute Assessment and Plan: Accu-Cheks AC and HS with sliding scale insulin. The patient's appetite is poor. (5) Depression: Code(s): F32.9 - Major depressive disorder, single episode, unspecified Status: Acute Assessment and Plan: Patient is on Xanax for anxiety. (6) COPD (chronic obstructive pulmonary disease): Code(s): J44.9 - Chronic obstructive pulmonary disease, unspecified Status: Acute Assessment and Plan: Anne a steroid taper. Not wheezy. Will stop steroid (7) ANTHONY on CPAP: Code(s): G47.33 - Obstructive sleep apnea (adult) (pediatric); Z99.89 - Dependence on other enabling machines and devices Status: Acute Assessment and Plan: The patient has a PE and is currently on oxygen at 2 L per nasal cannula at this time. (8) Hyperlipidemia: Code(s): E78.5 - Hyperlipidemia, unspecified Status: Acute Assessment and Plan: Continue with atorvastatin Plan 12/02/2022: Patient presented with shortness of breath. Requiring supplemental oxygen. Found to have PE acute in left upper lobe and right middle lobe. Patient is post be taking Xarelto for atrial fibrillation however unsure if she was say in the medication. Patient has 247 home care. Patient was started on heparin drip. Switched over to oral Xarelto. Lower extremity Doppler is negative for DVT. Echo with normal EF normal RV size no stigmata of significant RV pressure overload. Vitals are stable. Patient started having black tarry stool. GI consulted. FOBT positive. Hemoglobin on admission 12. Trended down to 7.6. No plans for endoscopy. Will continue to trend H&H. Increase Protonix to b.i.d.. Mildly hyponatremic 130. UA with mild RBC. Mild WBC. Urine culture mixed genital [place] isolated. Fall injury recently on 11/21/2022 sustaining distal radial ulnar metaphyseal fracture. Wrist x-ray with distal radial ulnar metaphyseal fracture. Managed conservatively with wrist splint. Mild emphysema and large sliding hiatal hernia noted on CTA. 3.2 cm infrarenal abdominal aortic aneurysm. History of hypertension/COPD/hyperlipidemia/peripheral artery disease/sNF placement planned/urinary retention placed on a Soto catheter with outpatient follow-up with urology. 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 continue dressing changes. Will stop her steroid taper. She is not actively wheezing Subjective Date/time seen: 12/02/22 08:35 Interval history: Interval history: This is an 87-year-old female patient who has /7 care with at home care.? The patient came to the emergency
[2022-12-02 08:38] LABS: Glucose Point of Care 82 mg/dl (65-105)
[2022-12-02] MEDS: diphenhydrAMINE HCl CAP 25 MG CAPSULE PO (08:55)
--- NOTE | 2022-12-02 10:03 | PCPTNOTE ---
Patient refused treatment this session. Patient reported she did not feel like doing therapy right now.
[2022-12-02] MEDS: ALPRAZolam (*CRX) 0.25 MG TABLET PO (11:09)
--- NOTE | 2022-12-02 11:17 | PCNFU ---
Nutrition Follow-Up Complete: Increased Protein needs as related to wounds as evidenced by deep tissue pressue ulcer Goal: Meet estimated nutritional needs Pt current nutrition is Heart healthy with Ensure Compact BID and Gildardo BID. Last recorded weight is 56.5 kg. Bowel Motility: +BM reported 11/30 Labs Reviewed: Cr 0.6,BUN 30, Na 130, Hct 25.4,Hgb 7.6 Meds Noted:Senokot,Lipitor Skin: Deep Tissue-Coccyx Additional Notes: Patient tolerating heart healthy diet. Oral intake fair, 25%-75% of meals. Patient receiving Gildardo BID (80 kcals and 2.5 gms protein) and Ensure Compact BID (220 kcals and 9 gms protein). Po intake encouraged today. Agree with diet orders. Will monitor weight, labs, oral intake, skin every 5 days.
[2022-12-02 12:19] LABS: Glucose Point of Care 188 mg/dl (65-105)
[2022-12-02 16:54] LABS: Glucose Point of Care 282 mg/dl (65-105)
[2022-12-02] MEDS: IPRATROPIUM BR 0.02% INH SOLN 0.5 MG/2.5 ML VIAL INHALATION (20:20)
[2022-12-02 21:43] LABS: Glucose Point of Care 311 mg/dl (65-105)
[2022-12-02] MEDS: MELATONIN 3 MG TABLET PO (21:53)
[2022-12-03] VITALS (24 sets, daily range): BP systolic 100–116; BP diastolic 43–56; PULSE 62–100; RESP 16–20; TEMP 35.9–37; O2SAT 90–100
[2022-12-03] MEDS: LEVALBUTEROL NEB 1.25 MG/3 ML 0.63 MG INHALATION ×4 (01:29→20:19)
[2022-12-03 05:25] LABS: Anion Gap -3 mmol/L (8-16); Blood Urea Nitrogen 29 mg/dL (7-17); Calcium 8.7 mg/dL (8.4-10.2); Carbon Dioxide 39 mmol/L (22-30); Chloride 96 mmol/L (98-107); Estimated CRCL calculation 40 ml/min; Estimated Glomerular Filt Rate > 60; Glucose 95 mg/dL (65-110); Magnesium 1.8 mg/dL (1.6-2.3); Sodium 132 mmol/L (137-145)
[2022-12-03 06:07] LABS: Hematocrit 25.7 % (37.0-47.0); Hemoglobin 7.8 g/dL (12.0-15.0); Mean Corpuscular HGB Conc 30.4 g/dl (32-36); Mean Corpuscular Hemoglobin 28.4 pg (26-34); Mean Corpuscular Volume 93.5 fl (80-100); Mean Platelet Volume 10.5 fl (7.4-10.4); Platelet Count Result 311 k/mm3 (150-375); Red Blood Count 2.75 M/mm3 (4.2-5.4); Red Cell Distribution Width 15.9 % (11.5-14.5)
[2022-12-03 08:24] LABS: Glucose Point of Care 93 mg/dl (65-105)
[2022-12-03] MEDS: ATORVASTATIN 40 MG TABLET PO (08:45)
[2022-12-03] MEDS: SILVERGEL (ELTA) 45 ML 1 APPLIC TOPICAL (08:46)
[2022-12-03] MEDS: RIVAROXABAN 15 MG TABLET PO ×2 (08:46→16:49)
[2022-12-03] MEDS: PANTOPRAZOLE 40 MG TABLET PO ×2 (08:46→21:19)
[2022-12-03] MEDS: SENNA/DOCUSATE SODIUM TABLET 1 TAB PO ×2 (08:46→21:19)
[2022-12-03 11:51] LABS: Glucose Point of Care 108 mg/dl (65-105)
--- NOTE | 2022-12-03 13:51 | PM.IMPN ---
Progress Note: A&P Assessment and Plan (1) Pulmonary embolism: Code(s): I26.99 - Other pulmonary embolism without acute cor pulmonale Status: Acute (2) Closed fracture of right distal radius and ulna: Qualifiers: Encounter type: initial encounter Qualified Code(s): S52.501A - Unspecified fracture of the lower end of right radius, initial encounter for closed fracture; S52.601A - Unspecified fracture of lower end of right ulna, initial encounter for closed fracture Code(s): S52.501A - Unspecified fracture of the lower end of right radius, initial encounter for closed fracture; S52.601A - Unspecified fracture of lower end of right ulna, initial encounter for closed fracture Status: Acute (3) Hypertension: Code(s): I10 - Essential (primary) hypertension Status: Acute (4) Diet-controlled type 2 diabetes mellitus: Code(s): E11.9 - Type 2 diabetes mellitus without complications Status: Acute (5) Depression: Code(s): F32.9 - Major depressive disorder, single episode, unspecified Status: Acute (6) COPD (chronic obstructive pulmonary disease): Code(s): J44.9 - Chronic obstructive pulmonary disease, unspecified Status: Acute (7) ANTHONY on CPAP: Code(s): G47.33 - Obstructive sleep apnea (adult) (pediatric); Z99.89 - Dependence on other enabling machines and devices Status: Acute (8) Hyperlipidemia: Code(s): E78.5 - Hyperlipidemia, unspecified Status: Acute Plan 12/02/2022: Patient presented with shortness of breath. Requiring supplemental oxygen. Found to have PE acute in left upper lobe and right middle lobe. Patient is post be taking Xarelto for atrial fibrillation however unsure if she was say in the medication. Patient has 247 home care. Patient was started on heparin drip. Switched over to oral Xarelto. Lower extremity Doppler is negative for DVT. Echo with normal EF normal RV size no stigmata of significant RV pressure overload. Vitals are stable. Patient started having black tarry stool. GI consulted. FOBT positive. Hemoglobin on admission 12. Trended down to 7.6. No plans for endoscopy. Will continue to trend H&H. Increase Protonix to b.i.d.. Mildly hyponatremic 130. UA with mild RBC. Mild WBC. Urine culture mixed genital [place] isolated. Fall injury recently on 11/21/2022 sustaining distal radial ulnar metaphyseal fracture. Wrist x-ray with distal radial ulnar metaphyseal fracture. Managed conservatively with wrist splint. Mild emphysema and large sliding hiatal hernia noted on CTA. 3.2 cm infrarenal abdominal aortic aneurysm. History of hypertension/COPD/hyperlipidemia/peripheral artery disease/sNF placement planned/urinary retention placed on a Soto catheter with outpatient follow-up with urology. 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 continue dressing changes. Will stop her steroid taper. She is not actively wheezing 12/03/2022: Patient presented with shortness of breath. Requiring supplemental oxygen. Found to have PE acute in left upper lobe and right middle lobe. Patient is post be taking Xarelto for atrial fibrillation however unsure if she was say in the medication. Patient has 247 home care. Patient was started on heparin drip. Switched over to oral Xarelto. Lower extremity Doppler is negative for DVT. Echo with normal EF normal RV size no stigmata of significant RV pressure overload. Vitals are stable. Patient started having black tarry stool. GI consulted. FOBT positive. Hemoglobin on admission 12. Trended down to 7.6. No plans for endoscopy. Will continue to trend H&H. Increase Protonix to b.i.d.. Mildly hyponatremic 130. UA with mild RBC. Mild WBC. Urine culture mixed genital [place] isolated. Fall injury recently on 11/21/2022 sustaining distal radial ulnar metaphyseal fracture. Wrist x-ray with distal radial ulnar metaphyseal fracture. Managed conservatively with wrist splint.
[2022-12-03 16:58] LABS: Glucose Point of Care 94 mg/dl (65-105)
[2022-12-03] MEDS: MELATONIN 3 MG TABLET PO (21:19)
[2022-12-03] MEDS: LOSARTAN POTASSIUM 50 MG TABLET PO (21:19)
[2022-12-03 23:17] LABS: Glucose Point of Care 132 mg/dl (65-105)
[2022-12-04] VITALS (22 sets, daily range): BP systolic 101–120; BP diastolic 46–62; PULSE 62–105; RESP 14–20; TEMP 36.8–37.2; O2SAT 96–100
[2022-12-04] MEDS: diphenhydrAMINE HCl CAP 25 MG CAPSULE PO (00:53)
[2022-12-04] MEDS: LEVALBUTEROL NEB 1.25 MG/3 ML 0.63 MG INHALATION ×4 (02:15→20:22)
[2022-12-04 05:41] LABS: Hematocrit 26.3 % (37.0-47.0); Hemoglobin 7.9 g/dL (12.0-15.0); Mean Corpuscular Hemoglobin 28.3 pg (26-34); Mean Corpuscular Volume 94.3 fl (80-100); Platelet Count Result 303 k/mm3 (150-375); Red Blood Count 2.79 M/mm3 (4.2-5.4); Red Cell Distribution Width 15.9 % (11.5-14.5)
[2022-12-04 05:49] LABS: Alanine Aminotransferase 23 U/L (6-35); Albumin Level 2.6 g/dL (3.5-5.1); Alkaline Phosphatase 123 U/L (38-126); Anion Gap -2 mmol/L (8-16); Aspartate Amino Transferase 25 U/L (14-36); Bilirubin,Total 0.4 mg/dL (0.2-1.3); Blood Urea Nitrogen 18 mg/dL (7-17); Calcium 8.6 mg/dL (8.4-10.2); Carbon Dioxide 39 mmol/L (22-30); Chloride 96 mmol/L (98-107); Estimated CRCL calculation 40 ml/min; Estimated Glomerular Filt Rate > 60; Glucose 88 mg/dL (65-110); Magnesium 1.7 mg/dL (1.6-2.3); Potassium 4.1 mmol/L (3.4-5.0); Sodium 133 mmol/L (137-145)
[2022-12-04 08:25] LABS: Glucose Point of Care 64 mg/dl (65-105)
[2022-12-04] MEDS: SENNA/DOCUSATE SODIUM TABLET 1 TAB PO (08:29)
[2022-12-04] MEDS: RIVAROXABAN 15 MG TABLET PO ×2 (08:29→16:40)
[2022-12-04] MEDS: PANTOPRAZOLE 40 MG TABLET PO ×2 (08:29→21:12)
[2022-12-04] MEDS: ATORVASTATIN 40 MG TABLET PO (08:29)
[2022-12-04 08:42] LABS: Glucose Point of Care 81 mg/dl (65-105)
[2022-12-04 11:43] LABS: Glucose Point of Care 98 mg/dl (65-105)
[2022-12-04] MEDS: LOSARTAN POTASSIUM 50 MG TABLET PO ×2 (11:46→21:12)
[2022-12-04] MEDS: SILVERGEL (ELTA) 45 ML 1 APPLIC TOPICAL (14:57)
[2022-12-04 17:27] LABS: Glucose Point of Care 98 mg/dl (65-105)
[2022-12-04] MEDS: MELATONIN 3 MG TABLET PO (21:12)
[2022-12-04 21:14] LABS: Glucose Point of Care 130 mg/dl (65-105)
[2022-12-05] VITALS (23 sets, daily range): BP systolic 92–108; BP diastolic 42–67; PULSE 75–103; RESP 14–21; TEMP 36.6–36.9; O2SAT 94–100
[2022-12-05] MEDS: ALPRAZolam (*CRX) 0.25 MG TABLET PO (02:02)
[2022-12-05] MEDS: LEVALBUTEROL NEB 1.25 MG/3 ML 0.63 MG INHALATION ×4 (02:17→20:29)
[2022-12-05 05:33] LABS: Hematocrit 24.5 % (37.0-47.0); Hemoglobin 7.4 g/dL (12.0-15.0); Mean Corpuscular HGB Conc 30.2 g/dl (32-36); Mean Corpuscular Hemoglobin 28.4 pg (26-34); Mean Corpuscular Volume 93.9 fl (80-100); Mean Platelet Volume 10.2 fl (7.4-10.4); Platelet Count Result 287 k/mm3 (150-375); Red Blood Count 2.61 M/mm3 (4.2-5.4); Red Cell Distribution Width 16.4 % (11.5-14.5); White Blood Count 6.7 K/mm3 (4.5-10.0)
[2022-12-05 05:40] LABS: Anion Gap -3 mmol/L (8-16); Blood Urea Nitrogen 18 mg/dL (7-17); Calcium 8.4 mg/dL (8.4-10.2); Carbon Dioxide 39 mmol/L (22-30); Chloride 95 mmol/L (98-107); Estimated CRCL calculation 34 ml/min; Estimated Glomerular Filt Rate > 60; Glucose 103 mg/dL (65-110); Magnesium 1.8 mg/dL (1.6-2.3); Potassium 4.2 mmol/L (3.4-5.0); Sodium 131 mmol/L (137-145)
[2022-12-05 08:34] LABS: Glucose Point of Care 84 mg/dl (65-105)
[2022-12-05] MEDS: SENNA/DOCUSATE SODIUM TABLET 1 TAB PO ×2 (10:55→21:20)
[2022-12-05] MEDS: ERGOCALCIFEROL 50,000 UNITS CAPSULE 50000 UNITS PO (10:55)
[2022-12-05] MEDS: ATORVASTATIN 40 MG TABLET PO (10:55)
[2022-12-05] MEDS: LOSARTAN POTASSIUM 50 MG TABLET PO ×2 (10:56→21:20)
[2022-12-05] MEDS: PANTOPRAZOLE 40 MG TABLET PO ×2 (10:56→21:20)
[2022-12-05] MEDS: RIVAROXABAN 15 MG TABLET PO ×2 (10:56→16:46)
[2022-12-05 12:07] LABS: Glucose Point of Care 86 mg/dl (65-105)
[2022-12-05 14:11] LABS: Alveolar/Arterial O2 Gradient 37.9 mmHg; Base Excess ABG 10.7 mEq/l (+/-2.0); Fractional Inspired Oxygen 24 %; HCO3 ABG 35.6 mEq/l (22.0-26.0); Oxygen Content ABG 11.2 %vol (16.0-22.0); Oxygen Saturation ABG 95.2 % (95.0-100.0); Oxyhemoglobin 92.9 % THb (90.0-100.0); PCO2 ABG 50.8 mmHg (35.0-45.0); PO2 ABG 72.8 mmHg (80.0-100.0); PO2 FiO2 Ratio Arterial Blood 3.03 %; Total Hemoglobin 8.5 g/dL (12.0-18.0); pH ABG 7.464 (7.350-7.450)
[2022-12-05 14:13] LABS: Device NASAL CANNULA; Modified Allen's Test Pass; Site Drawn LEFT RADIAL
[2022-12-05] MEDS: SILVERGEL (ELTA) 45 ML 1 APPLIC TOPICAL (15:38)
[2022-12-05 17:35] LABS: Glucose Point of Care 94 mg/dl (65-105)
[2022-12-05] MEDS: ACETAMINOPHEN 325 MG TABLET 650 MG PO (21:20)
[2022-12-05] MEDS: MELATONIN 3 MG TABLET PO (21:20)
[2022-12-05 22:09] LABS: Glucose Point of Care 104 mg/dl (65-105)
[2022-12-06] VITALS (19 sets, daily range): BP systolic 95–104; BP diastolic 40–68; PULSE 71–92; RESP 16–21; TEMP 36–37.1; O2SAT 95–100
[2022-12-06] MEDS: LEVALBUTEROL NEB 1.25 MG/3 ML 0.63 MG INHALATION ×3 (02:53→20:19)
[2022-12-06 05:26] LABS: Hematocrit 24.7 % (37.0-47.0); Hemoglobin 7.5 g/dL (12.0-15.0); Mean Corpuscular HGB Conc 30.4 g/dl (32-36); Mean Corpuscular Volume 92.2 fl (80-100); Mean Platelet Volume 9.6 fl (7.4-10.4); Platelet Count Result 275 k/mm3 (150-375); Red Blood Count 2.68 M/mm3 (4.2-5.4); Red Cell Distribution Width 16.3 % (11.5-14.5); White Blood Count 6.9 K/mm3 (4.5-10.0)
[2022-12-06 05:51] LABS: Anion Gap -5 mmol/L (8-16); Blood Urea Nitrogen 28 mg/dL (7-17); Calcium 8.7 mg/dL (8.4-10.2); Carbon Dioxide 38 mmol/L (22-30); Chloride 96 mmol/L (98-107); Estimated CRCL calculation 44 ml/min; Estimated Glomerular Filt Rate > 60; Glucose 87 mg/dL (65-110); Magnesium 1.9 mg/dL (1.6-2.3); Potassium 3.9 mmol/L (3.4-5.0); Sodium 129 mmol/L (137-145)
[2022-12-06] MEDS: ACETAMINOPHEN 325 MG TABLET 650 MG PO (07:31)
[2022-12-06] MEDS: ALPRAZolam (*CRX) 0.25 MG TABLET PO (07:31)
[2022-12-06 08:32] LABS: Glucose Point of Care 91 mg/dl (65-105)
[2022-12-06] MEDS: ATORVASTATIN 40 MG TABLET PO (09:07)
[2022-12-06] MEDS: SENNA/DOCUSATE SODIUM TABLET 1 TAB PO ×2 (09:07→20:48)
[2022-12-06] MEDS: PANTOPRAZOLE 40 MG TABLET PO ×2 (09:07→20:48)
[2022-12-06] MEDS: SILVERGEL (ELTA) 45 ML 1 APPLIC TOPICAL (09:07)
[2022-12-06] MEDS: RIVAROXABAN 15 MG TABLET PO (09:07)
[2022-12-06] MEDS: LOSARTAN POTASSIUM 50 MG TABLET PO ×2 (09:07→20:48)
[2022-12-06 11:49] LABS: Glucose Point of Care 82 mg/dl (65-105)
--- NOTE | 2022-12-06 12:50 | PCNFU ---
Nutrition Follow-Up Complete: Increased Protein needs as related to wounds as evidenced by deep tissue pressue ulcer Meet estimated nutritional needs Goal: Pt current nutrition is Diabetic consistent carb diet. Intakes 0-75% with 30% average over last 48h. Gildardo bid for wound support (2.5 g protein, 90 kcal) and Ensure Compact BID for 220 kcal and 9 g protein each. Nutrition recommendation: Continue with current nutrition care plan. Agree with orders Last recorded weight is 56.1 kg. Bowel Motility: +1 BM 12/04/22 Labs Reviewed: Hgb 7.5, Hc t 24.7, Na 129, BUN 28 Meds Noted: Protonix Skin: Deep tissue injury to coccyx Additional Notes: Intakes are fair. Appetite is sporadic. Continue with current orders Will monitor weight, labs, oral intake, skin every 5 days.
[2022-12-06 17:09] LABS: Glucose Point of Care 81 mg/dl (65-105)
[2022-12-06] MEDS: MELATONIN 3 MG TABLET PO (20:48)
[2022-12-06 20:51] LABS: Glucose Point of Care 117 mg/dl (65-105)
[2022-12-07] VITALS (19 sets, daily range): BP systolic 90–116; BP diastolic 44–58; PULSE 77–100; RESP 16–18; TEMP 36.3–36.7; O2SAT 92–100
[2022-12-07] MEDS: LEVALBUTEROL NEB 1.25 MG/3 ML 0.63 MG INHALATION ×4 (01:09→19:48)
[2022-12-07 05:17] LABS: Hematocrit 22.8 % (37.0-47.0); Mean Corpuscular HGB Conc 30.7 g/dl (32-36); Mean Corpuscular Hemoglobin 28.3 pg (26-34); Mean Corpuscular Volume 92.3 fl (80-100); Mean Platelet Volume 9.8 fl (7.4-10.4); Platelet Count Result 312 k/mm3 (150-375); Red Blood Count 2.47 M/mm3 (4.2-5.4); Red Cell Distribution Width 15.9 % (11.5-14.5)
[2022-12-07 05:24] LABS: Alanine Aminotransferase 17 U/L (6-35); Albumin Level 2.5 g/dL (3.5-5.1); Alkaline Phosphatase 103 U/L (38-126); Anion Gap 1 mmol/L (8-16); Aspartate Amino Transferase 20 U/L (14-36); Bilirubin,Total 0.2 mg/dL (0.2-1.3); Blood Urea Nitrogen 30 mg/dL (7-17); Calcium 8.2 mg/dL (8.4-10.2); Carbon Dioxide 35 mmol/L (22-30); Chloride 96 mmol/L (98-107); Estimated CRCL calculation 34 ml/min; Estimated Glomerular Filt Rate > 60; Glucose 111 mg/dL (65-110); Magnesium 1.8 mg/dL (1.6-2.3); Potassium 3.5 mmol/L (3.4-5.0); Sodium 132 mmol/L (137-145)
[2022-12-07 08:39] LABS: Glucose Point of Care 93 mg/dl (65-105)
[2022-12-07] MEDS: ATORVASTATIN 40 MG TABLET PO (08:46)
[2022-12-07] MEDS: SENNA/DOCUSATE SODIUM TABLET 1 TAB PO ×2 (08:46→20:46)
[2022-12-07] MEDS: PANTOPRAZOLE 40 MG TABLET PO ×2 (08:46→20:46)
--- NOTE | 2022-12-07 11:32 | WPDGIPROGNO ---
Progress Note: A&P Assessment and Plan (1) Acute on chronic anemia: Code(s): D64.9 - Anemia, unspecified Status: Acute Assessment and Plan: hgb slowly coming down patient will need to keep using anticoagulation given diagnosis of PE no overt gib but we can proceed with egd and sigmoidoscopy tomorrow (2) Occult blood in stools: Code(s): R19.5 - Other fecal abnormalities Status: Acute Assessment and Plan: sigmoidoscopy in am (3) Pulmonary embolism: Code(s): I26.99 - Other pulmonary embolism without acute cor pulmonale Status: Acute Assessment and Plan: on AC (4) Chronic anticoagulation: Code(s): Z79.01 - nursing home (current) use of anticoagulants Status: Acute (5) Closed fracture of right distal radius and ulna: Qualifiers: Encounter type: initial encounter Qualified Code(s): S52.501A - Unspecified fracture of the lower end of right radius, initial encounter for closed fracture; S52.601A - Unspecified fracture of lower end of right ulna, initial encounter for closed fracture Code(s): S52.501A - Unspecified fracture of the lower end of right radius, initial encounter for closed fracture; S52.601A - Unspecified fracture of lower end of right ulna, initial encounter for closed fracture Status: Acute Subjective Date/time seen: 12/07/22 11:32 Interval history: I was called again to see patient, noted h/h slowly drifting down (no overt gib but on admission had occult blood in stools and now she is on blood thinner because diagnosis of PE), CT scan a/p nothing to explain anemia. Review of Systems Review of Systems: All systems reviewed & are unremarkable except as noted in HPI and below Exam Const: General: comfortable Other: frail elderly HENMT: Face/Nose/Sinus: Normal nares present Eyes: General: appearance normal, both eyes and all related structures Neck: Neck: supple Resp: Effort & Inspection: normal respiratory effort Cardio: Rate: regular rate GI: GI Palp: Yes Soft to palpation, No Tenderness to palpation present (GI) and No Guarding due to palpation present (GI) Auscultation: normal bowel sounds Skin: General skin exam: normal color Neuro: Speech: normal speech Motor exam (neuro): 5/5 motor strength present throughout Extrem: Other: splin in rt arm Psych: Mental Status: mental status grossly normal Objective Data Vital Signs Vital Signs: Vital Signs - 24 hr 12/06/22 14:02 12/06/22 12:00 12/06/22 16:00 Temperature 96.8 F L Pulse Rate 84 71 80 Respiratory Rate 18 Blood Pressure 98/47 L Pulse Oximetry 95 Oxygen Delivery Oxygen Flow Rate Fraction of Inspired Oxygen 12/06/22 18:52 12/06/22 19:35 12/06/22 20:19 Temperature 97 F L 98.7 F Pulse Rate 89 83 79 Respiratory Rate 18 18 16 Blood Pressure 104/68 100/55 L Pulse Oximetry 99 100 Oxygen Delivery Oxygen Flow Rate Fraction of Inspired Oxygen 12/06/22 20:20 12/06/22 20:25 12/06/22 20:00 Temperature Pulse Rate 81 83 Respiratory Rate 16 Blood Pressure Pulse Oximetry 97 Oxygen Delivery Nasal Cannula Oxygen Flow Rate 2 Fraction of Inspired Oxygen 28 12/06/22 20:00 12/06/22 23:52 12/07/22 00:00 Temperature 98.1 F Pulse Rate 81 87 85 Respiratory Rate 16 18 Blood Pressure 95/40 L Pulse Oximetry 97 100 Oxygen Delivery Nasal Cannula Oxygen Flow Rate 2 Fraction of Inspired Oxygen 28 12/07/22 01:09 12/07/22 01:17 12/07/22 04:14 Temperature 97.7 F Pulse Rate 84 85 82 Respiratory Rate 16 16 18 Blood Pressure 90/44 L Pulse Oximetry 100 Oxygen Delivery Oxygen Flow Rate Fraction of Inspired Oxygen 12/07/22 04:00 12/07/22 09:08 12/07/22 09:05 Temperature 97.4 F L Pulse Rate 87 88 80 Respiratory Rate 16 16 Blood Pressure 116/58 L Pulse Oximetry 98 Oxygen Delivery Oxygen Flow Rate Fraction of Inspired Oxygen 12/07
[2022-12-07 11:50] LABS: Glucose Point of Care 125 mg/dl (65-105)
--- NOTE | 2022-12-07 13:52 | PCPTNOTE ---
Attempted to see patient for PT, however patient declined. Patient reported she just woke up and does not want to do therapy right now.
--- NOTE | 2022-12-07 15:39 | PM.IMPN ---
Progress Note: A&P Assessment and Plan (1) Pulmonary embolism: Code(s): I26.99 - Other pulmonary embolism without acute cor pulmonale Status: Acute (2) Closed fracture of right distal radius and ulna: Qualifiers: Encounter type: initial encounter Qualified Code(s): S52.501A - Unspecified fracture of the lower end of right radius, initial encounter for closed fracture; S52.601A - Unspecified fracture of lower end of right ulna, initial encounter for closed fracture Code(s): S52.501A - Unspecified fracture of the lower end of right radius, initial encounter for closed fracture; S52.601A - Unspecified fracture of lower end of right ulna, initial encounter for closed fracture Status: Acute (3) Hypertension: Code(s): I10 - Essential (primary) hypertension Status: Acute (4) Diet-controlled type 2 diabetes mellitus: Code(s): E11.9 - Type 2 diabetes mellitus without complications Status: Acute (5) Depression: Code(s): F32.9 - Major depressive disorder, single episode, unspecified Status: Acute (6) COPD (chronic obstructive pulmonary disease): Code(s): J44.9 - Chronic obstructive pulmonary disease, unspecified Status: Acute (7) ANTHONY on CPAP: Code(s): G47.33 - Obstructive sleep apnea (adult) (pediatric); Z99.89 - Dependence on other enabling machines and devices Status: Acute (8) Hyperlipidemia: Code(s): E78.5 - Hyperlipidemia, unspecified Status: Acute Plan 12/07/2022: Patient presented with shortness of breath. Requiring supplemental oxygen. Found to have PE acute in left upper lobe and right middle lobe. Patient is supposed to be taking Xarelto for atrial fibrillation however unsure if she was Taking any medication. Patient has 24/7 home care. Patient was started on heparin drip. Switched over to oral Xarelto. Lower extremity Doppler is negative for DVT. Echo with normal EF normal RV size no stigmata of significant RV pressure overload. Vitals are stable. Patient started having black tarry stool. GI consulted. FOBT positive. Hemoglobin on admission 12. Trended down to 7.6. No plans for endoscopy. Increase Protonix to b.i.d.. Mildly hyponatremic 130. UA with mild RBC. Mild WBC. Urine culture mixed genital [place] isolated. Fall injury recently on 11/21/2022 sustaining distal radial ulnar metaphyseal fracture. Wrist x-ray with distal radial ulnar metaphyseal fracture. Managed conservatively with wrist splint. Mild emphysema and large sliding hiatal hernia noted on CTA. 3.2 cm infrarenal abdominal aortic aneurysm. History of hypertension/COPD/hyperlipidemia/peripheral artery disease/sNF placement planned/urinary retention placed on a Soto catheter with outpatient follow-up with urology. 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 continue dressing changes. stopped her steroid taper. She is not actively wheezing. H&H remains slow decline however no obvious bleeding. CT abdomen pelvis did not show any acute retroperitoneal bleed to suggest worsening anemia. GI reconsulted today. Plan for EGD and colonoscopy in a.m.. In light of persistent worsening anemia will hold anticoagulation. Discussed this with the patient and her power attorney recruiter Subjective Date/time seen: 12/07/22 15:39 Interval history: Interval history: This is an 87-year-old female patient who has 15/11 care with at home care.? The patient came to the emergency room with complaints of shortness of breath.? The patient began to feel short of breath last night.? The patient stated she feels better with oxygen.? The patient recently was diagnosed with? an inoperable fracture to her right forearm.? The patient currently has a splint to her right forearm.? It is unsure if the patient had been on Xarelto.? Her H&H is 10.7 and 34.6.? Platelets are 435.? Chest x-ray was read as a large hiatal hernia.? CTA was read as the following1. Acute pulmonary emboli
[2022-12-07] MEDS: SILVERGEL (ELTA) 45 ML 1 APPLIC TOPICAL (15:54)
[2022-12-07 17:09] LABS: Glucose Point of Care 109 mg/dl (65-105)
--- NOTE | 2022-12-07 17:46 | PDONCCN ---
HPI - Date of Consult Date/Time: 12/07/22 17:46 Requesting Physician: Enrique Farmer MD Primary Care Provider: Lambert Rodriguez MD - Consult Narrative Reason for consult: Anemia and pulmonary embolism Narrative: Monica Crawley is a 87 year old female with history of COPD type 2 diabetes peripheral vascular disease on chronic anticoagulation therapy came into the hospital with complain of shortness of breath. Patient recently fell and fractured right forearm. She has a splint in the right forearm. She has been on Xarelto for anticoagulation. CTA chest was performed that showed acute PE in the left upper lobe and middle lobe. Doppler study showed no evidence of DVT. Patient was started on heparin drip. Looks like Xarelto was discharged previously due to the recent fall. Labs showed hemoglobin of 7.0. Hemoglobin was 10.7 on November 26. Other labs showed normal creatinine of 0.7 and bilirubin of 0.2. She denies any bleeding including melena hematochezia. She has lost 10 lb weight in last 6 months duration. She denies being a vegetarian. She has no previous history of malignancy. Review of Systems - Review of Systems All systems reviewed & are unremarkable except as noted in HPI and bel - Neurologic Reports system reviewed and no additional complaints, except as documented, Reports hearing normal, Denies behavioral changes [facility] Medical History: Medical History (Last Updated 11/30/22 @ 14:13 by David Vicente MD) Acute on chronic anemia Anxiety Arthritis Chronic anticoagulation Chronic obstructive pulmonary disease, unspecified Closed fracture of right distal radius and ulna Depression Diet-controlled type 2 diabetes mellitus Fall Gastroesophageal reflux disease Hyperlipidemia Hypertension Multifocal atrial tachycardia Occult blood in stools Peripheral arterial disease Rhabdomyolysis Seasonal affective disorder Stress incontinence Tobacco abuse Vitamin D deficiency Weakness Surgical History: Surgical History (Last Reviewed 11/27/22 @ 00:18 by Katie Dozier NP) History of appendectomy History of cataract surgery History of colonoscopy with polypectomy History of hemorrhoidectomy History of hysterectomy Family History: Family History (Last Reviewed 11/22/22 @ 16:15 by Anderson Nascimento MD) Mother Diabetes mellitus Family history of malignant neoplasm Family history of diabetes mellitus in first degree relative Patient's mother is Father Malignant neoplasm of prostate - Social History Social History: Social History (Last Updated 11/27/22 @ 00:20 by Katie Dozier NP) Alcohol Use: Alcohol intake: never Substance Use: Substance use: never Substance use type: does not use Last use: >40 years Others: Spiritual care concerns: No Agree to blood products: Yes Living Arrangements: Living arrangements: alone Oppucation/Education: Occupation/Education: retired Smoking Status: Smoking status: Former smoker Second hand tobacco smoke exposure: Yes Smoking Pack-years: Smoking packs per day: 2 Smoking cigarettes per day: 40.0 Years smoked: 60 Smoking pack-years: 120.00 Comments: Additional smoking assessment comments: pt currently smokes 2-3 cigarettes per day Social Determinants of Health: Has the Lack of Transportation Kept You From Medical Appointments or From Getting Medications?: No Within the Past 12 Months, Were You Worried Whether Your Food Would Run Out Before You Got Money to Buy More?: Never True What is Your Housing Situation Today?: I Have Housing Are You Worried That in the Next 2 Months, You May Not Have Your Own Housing to Live In?: No Do You Have Trouble Paying Your Heating Or Electricity Bill?: No Do You Have Trouble Paying For Medicines?: No Are You Currently Unemployed and Looking for Work?: No Highest Level of Ed
[2022-12-07] MEDS: polyethylene glycoL 3350 238 GM BOTTLE PO (18:04)
[2022-12-07] MEDS: BISACODYL 5 MG TABLET EC 20 MG PO (18:04)
[2022-12-07] MEDS: MELATONIN 3 MG TABLET PO (20:46)
[2022-12-07] MEDS: LOSARTAN POTASSIUM 50 MG TABLET PO (20:46)
[2022-12-07] MEDS: MAGNESIUM CITRATE 300 ML BTL PO (20:49)
[2022-12-07 21:07] LABS: Glucose Point of Care 98 mg/dl (65-105)
[2022-12-07] MEDS: ACETAMINOPHEN 325 MG TABLET 650 MG PO (21:11)
[2022-12-07 21:59] LABS: IFOB Positive Control Positive; Immunochemical Fecal Occult Bl Positive (N)
--- NOTE | 2022-12-07 23:56 | PC.NURSE ---
Patient refused rest of bowel prep at this time will notify Dr. Mejia in AM. Will encourage pt to continue bowel prep throughout the night.
[2022-12-08] VITALS (26 sets, daily range): BP systolic 89–134; BP diastolic 35–98; PULSE 69–101; RESP 16–25; TEMP 36–36.7; O2SAT 94–100
[2022-12-08] MEDS: LEVALBUTEROL NEB 1.25 MG/3 ML 0.63 MG INHALATION ×4 (01:16→20:06)
[2022-12-08 05:21] LABS: Hematocrit 25.2 % (37.0-47.0); Hemoglobin 7.6 g/dL (12.0-15.0); Mean Corpuscular HGB Conc 30.2 g/dl (32-36); Mean Platelet Volume 9.8 fl (7.4-10.4); Platelet Count Result 326 k/mm3 (150-375); Red Blood Count 2.71 M/mm3 (4.2-5.4); Red Cell Distribution Width 15.9 % (11.5-14.5); White Blood Count 6.3 K/mm3 (4.5-10.0)
[2022-12-08 05:33] LABS: Anion Gap -1 mmol/L (8-16); Blood Urea Nitrogen 23 mg/dL (7-17); Calcium 8.6 mg/dL (8.4-10.2); Carbon Dioxide 36 mmol/L (22-30); Chloride 95 mmol/L (98-107); Estimated CRCL calculation 40 ml/min; Estimated Glomerular Filt Rate > 60; Glucose 96 mg/dL (65-110); Magnesium 2.1 mg/dL (1.6-2.3); Sodium 130 mmol/L (137-145)
[2022-12-08 06:30] LABS: Glucose Point of Care 86 mg/dl (65-105)
--- NOTE | 2022-12-08 07:54 | PM.IMPN ---
Progress Note: A&P Assessment and Plan (1) Pulmonary embolism: Code(s): I26.99 - Other pulmonary embolism without acute cor pulmonale Status: Acute (2) Closed fracture of right distal radius and ulna: Qualifiers: Encounter type: initial encounter Qualified Code(s): S52.501A - Unspecified fracture of the lower end of right radius, initial encounter for closed fracture; S52.601A - Unspecified fracture of lower end of right ulna, initial encounter for closed fracture Code(s): S52.501A - Unspecified fracture of the lower end of right radius, initial encounter for closed fracture; S52.601A - Unspecified fracture of lower end of right ulna, initial encounter for closed fracture Status: Acute (3) Hypertension: Code(s): I10 - Essential (primary) hypertension Status: Acute (4) Diet-controlled type 2 diabetes mellitus: Code(s): E11.9 - Type 2 diabetes mellitus without complications Status: Acute (5) Depression: Code(s): F32.9 - Major depressive disorder, single episode, unspecified Status: Acute (6) COPD (chronic obstructive pulmonary disease): Code(s): J44.9 - Chronic obstructive pulmonary disease, unspecified Status: Acute (7) ANTHONY on CPAP: Code(s): G47.33 - Obstructive sleep apnea (adult) (pediatric); Z99.89 - Dependence on other enabling machines and devices Status: Acute (8) Hyperlipidemia: Code(s): E78.5 - Hyperlipidemia, unspecified Status: Acute Plan Acute pulmonary embolism Patient presented with shortness of breath. Requiring supplemental oxygen. Found to have PE acute in left upper lobe and right middle lobe. No GI bleeding is found per GI evaluation Restart Xeralto 25 mg b.i.d.for 21 day and change to 20 mg dailypo Anemia Hemoglobin trending down, Continue Protonix [address] abdomen pelvis did not show any acute retroperitoneal bleed to suggest worsening anemia who GI reconsulted today, EGD did not find GI bleeding. GI does not consider patient needs colonoscopy: Follow-up hemoglobin follow-up ferritin and iron panel AFib Patient is not taking blood thinner hyponatremic 130. Hypokalemia Replace sodium chloride and the persistent chloride Follow-up BMP Mild WBC. Urine culture mixed genital [place] isolated. Fall injury recently on 11/21/2022 sustaining distal radial ulnar metaphyseal fracture. Wrist x-ray with distal radial ulnar metaphyseal fracture. Managed conservatively with wrist splint. Mild emphysema and large sliding hiatal hernia noted on CTA. 3.2 cm infrarenal abdominal aortic aneurysm. History of hypertension/COPD/hyperlipidemia/peripheral artery disease/sNF placement planned/ urinary retention placed on a Soto catheter with outpatient follow-up with urology. 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 continue dressing changes. stopped her steroid taper. She is not actively wheezing. H&H remains slow decline however no obvious bleeding. . Discussed this with the patient and her power attorney at law Subjective Date/time seen: 12/08/22 07:54 Interval history: I saw on exam patient today, patient denies chest pain, shortness of breath, abdomen pain, nausea vomiting black stool. Patient underwent EGD today, no active bleeding Exam Narrative: GENERAL: Pleasant, in no acute distress. Well-nourished. - EYES: EOMI. Anicteric. - HENT: Moist mucous membranes. - LUNGS: Clear to auscultation bilaterally, no wheezing, rhonchi, or rales. - CARDIOVASCULAR: Regular rate and rhythm. No murmur. No JVD. - ABDOMEN: Soft, non-tender and non-distended. No palpable masses. - EXTREMITIES: No edema. Peripheral pulses 2+. Non-tender. - NEUROLOGIC: No focal neurological deficits. CN II-XII grossly intact. - PSYCHIATRIC: Awake, Alert and oriented x 3. Appropriate mood and affect. - SKIN: No rashes or lesions. Warm. - LYMPH: No cervical lymphadenopathy.
[2022-12-08 08:07] LABS: Glucose Point of Care 71 mg/dl (65-105)
[2022-12-08 08:29] LABS: Basophils Absolute Auto 0.1 K/mm3 (0.0-0.1); Basophils Percent Auto 0.7 % (0.2-1.2); Eosinophils Absolute Auto 0.4 K/mm3 (0-0.3); Eosinophils Percent Auto 5.8 % (0-4.4); Hematocrit 25.4 % (37.0-47.0); Hemoglobin 7.8 g/dL (12.0-15.0); Immature Granulocyte Absolute 0.05 K/mm3 (0.00-0.031); Immature Granulocyte Percent A 0.7 % (0-0.5); Lymphocytes Absolute Auto 0.67 K/mm3 (0.9-3.2); Lymphocytes Percent Auto 9.2 % (18.3-44.2); Mean Corpuscular HGB Conc 30.7 g/dl (32-36); Mean Corpuscular Hemoglobin 28.6 pg (26-34); Mean Platelet Volume 9.4 fl (7.4-10.4); Monocytes Absolute Auto 1.1 K/mm3 (0.1-0.6); Monocytes Percent Auto 15.2 % (2.6-8.5); Neutrophils Percent Auto 68.4 % (45.5-73.1); Platelet Count Result 316 k/mm3 (150-375); Red Blood Count 2.73 M/mm3 (4.2-5.4); White Blood Count 7.3 K/mm3 (4.5-10.0)
[2022-12-08] MEDS: DEXTROSE 50% 25 GM/50 ML SYRINGE IV PUSH (08:41)
[2022-12-08] MEDS: KCL 20MEQ/0.9% SOD CHL 1,000 ML 100 ML IV CONT (08:46)
[2022-12-08 08:48] LABS: Iron 26 ug/dL (37-170)
[2022-12-08 08:58] LABS: Percent Iron Saturation 12 % (20-50)
[2022-12-08 09:34] LABS: Glucose Point of Care 117 mg/dl (65-105)
[2022-12-08 09:38] LABS: Glucose Point of Care 72 mg/dl (65-105)
[2022-12-08] MEDS: LACTATED RINGERS 1,000 ML 150 ML IV CONT (09:38)
--- NOTE | 2022-12-08 09:38 | WPDANESEPPF ---
Anes - Initial Pre Proc Eval Procedure: Operation Date: 12/08/22 13:00 Proposed Procedures p Esophagogastroduodenoscopy - David Vicente MD s Flexible Sigmoidoscopy - David Vicente MD Date/Time: 12/08/22 09:38 Surgeon: Enrique Farmer MD Pre Op Diagnosis: Pulmonary Embolism Patient Data Age: 87 Gender: F Height: 1.52 m Weight: 53.6 kg Last Vital Signs Temp 36.7 C 12/08/22 09:33 Pulse 99 12/08/22 09:33 Resp 20 12/08/22 09:33 BP 121/87 12/08/22 09:33 Pulse Ox 100 12/08/22 09:33 O2 Del Method Nasal Cannula 12/08/22 09:33 O2 Flow Rate 2 12/08/22 09:33 FiO2 28 12/07/22 19:49 Allergies Allergy/AdvReac Type Severity Reaction Status Date / Time No Known Allergies Allergy Verified 11/21/22 11:34 Home Medications Medication Instructions Recorded Confirmed Type fhjisfmg-wzo-zrsjo acid 0.4 1 tablet PO 3XW 09/11/20 11/26/22 History mg-lycopene 300 mcg-lutein 250 mcg tablet (Centrum Silver) losartan 50 mg tablet (Cozaar) 50 mg PO BID #180 tabs 12/01/21 11/26/22 Rx diclofenac sodium 1 % topical gel 4 g topical QID #100 grams 09/16/22 11/26/22 Rx (Voltaren Arthritis Pain) cholecalciferol (vitamin D3) 1,250 1,250 mcg PO WEEKLY #14 caps 09/17/22 11/26/22 Rx mcg (50,000 unit) capsule Senna with Docusate Sodium 1 tablet PO BID 10/16/22 11/26/22 History aspirin 81 mg PO DAILY 10/16/22 11/26/22 History atorvastatin 40 mg tablet 40 mg PO DAILY 10/16/22 11/26/22 History melatonin 3 mg tablet 3 mg PO HS #30 tabs 10/19/22 11/26/22 Rx polyethylene glycol 3350 17 gram 17 g PO QAM PRN Constipation #14 ea 10/19/22 11/26/22 Rx oral powder packet (Miralax) prednisone 10 mg tablet 10 mg PO DAILY #63 tabs 10/19/22 11/26/22 Rx alprazolam 0.25 mg tablet 0.25 mg PO TID PRN Anxiety #12 tabs 10/21/22 11/26/22 Rx oxycodone 5 mg tablet 5 mg PO Q4-6H PRN Pain #12 tabs 10/21/22 11/26/22 Rx clopidogrel 75 mg tablet 75 mg PO DAILY 11/26/22 11/26/22 History rivaroxaban 2.5 mg tablet (Xarelto) 2.5 mg PO BID 11/26/22 11/26/22 History Laboratory Tests 12/07/22 12/07/22 12/07/22 11:36 16:57 20:55 WBC RBC Hgb Hct MCV MCH MCHC RDW Plt Count MPV Immature Gran % (Auto) Neut % (Auto) Lymph % (Auto) [place] % (Auto) Eos % (Auto) Baso % (Auto) Lymph # (Auto) [place] # (Auto) Eos # (Auto) Baso # (Auto) Abs Immat Gran (auto) Absolute Neuts (auto) Absolute Nucleated RBC Nucleated RBC % Sodium Potassium Chloride Carbon Dioxide Anion Gap BUN Creatinine Estim Creat Clear Calc Estimated GFR Glucose POC Capillary Glucose 125 H mg/dl 109 H mg/dl (65-105) (65-105) Calcium Magnesium Iron TIBC % Saturation Ferritin Stl Occult Blood (IFOB) Positive H (N) 12/07/22 12/08/22 12/08/22 20:58 04:48 06:24 WBC 6.3 K/mm3 (4.5-10.0) RBC 2.71 L M/mm3 (4.2-5.4) Hgb 7.6 L g/dL (12.0-15.0) Hct 25.2 L % (37.0-47.0) MCV 93.0 fl (80-100) MCH 28.0 pg (26-34) MCHC 30.2 L g/dl (32-36) RDW 15.9 H % (11.5-14.5) Plt Count 326 k/mm3 (150-375) MPV 9.8 fl (7.4-10.4) Immature Gran % (Auto) Neut % (Auto) Lymph % (Auto) [place] % (Auto) Eos % (Auto) Baso % (Auto) Lymph # (Auto) [place] # (Auto) Eos # (Auto) Baso # (Auto) Abs Immat Gran (auto) Absolut
--- NOTE | 2022-12-08 09:52 | SUR.OPER ---
EGD end 946 COLONOSCOPY START 950
--- NOTE | 2022-12-08 10:41 | PCOTNOTE ---
Patient unable to participate at this time. Patient just returned from having an EGD and colonoscopy. Patient still sleeping from anesthesia
--- NOTE | 2022-12-08 10:46 | PCPTNOTE ---
Patient unable to be sen for PT this morning. Per MUSA from RN patient just returned to room from colonoscopy and EDG, and just coming out of anesthesia. Patient not appropriate at this time.
[2022-12-08] MEDS: SODIUM CHLORIDE 1 GM TABLET PO ×2 (11:14→16:57)
[2022-12-08] MEDS: POTASSIUM CHLORIDE 20 MEQ PACKET (FOR LIQUID) 40 MEQ PO (11:14)
[2022-12-08] MEDS: LOSARTAN POTASSIUM 50 MG TABLET PO (11:14)
[2022-12-08] MEDS: ATORVASTATIN 40 MG TABLET PO (11:14)
[2022-12-08] MEDS: SENNA/DOCUSATE SODIUM TABLET 1 TAB PO ×2 (11:14→20:05)
[2022-12-08] MEDS: PANTOPRAZOLE 40 MG TABLET PO ×2 (11:23→20:05)
[2022-12-08] MEDS: SILVERGEL (ELTA) 45 ML 1 APPLIC TOPICAL (11:25)
[2022-12-08 11:47] LABS: Glucose Point of Care 117 mg/dl (65-105)
--- NOTE | 2022-12-08 13:45 | PCOTNOTE ---
Attempted this P.M. to see Patient for OT treatment session. Patient refused to participate and stated she has had an eventful day and needs rest. Therapy can wait .
[2022-12-08] MEDS: IPRATROPIUM BR 0.02% INH SOLN 0.5 MG/2.5 ML VIAL INHALATION (14:16)
--- NOTE | 2022-12-08 15:38 | PCPTNOTE ---
Attempted to see patient for PT, however patient refused.
[2022-12-08 16:41] LABS: Glucose Point of Care 105 mg/dl (65-105)
[2022-12-08] MEDS: RIVAROXABAN 15 MG TABLET PO (16:57)
[2022-12-08] MEDS: POTASSIUM CHLORIDE 20 MEQ ER TABLET 40 MEQ PO (16:57)
--- NOTE | 2022-12-08 17:34 | PC.NURSE ---
On 12/08/22, the Licence pending nurse, Natasha Vora, provided care and completed [facility] documentation on this patient. I have reviewed the Licence pending nurse's documentation and agree with the findings
--- NOTE | 2022-12-08 19:25 | PC.NURSE ---
On 12/07/22-12/08/22, the RN license pending, Fabian Payne, [facility] I have reviewed the RN's documentation and agree with the findings.
[2022-12-08] MEDS: ACETAMINOPHEN 325 MG TABLET 650 MG PO (19:36)
[2022-12-08] MEDS: MELATONIN 3 MG TABLET PO (20:05)
[2022-12-08 20:06] LABS: Glucose Point of Care 122 mg/dl (65-105)
[2022-12-09] VITALS (30 sets, daily range): BP systolic 98–140; BP diastolic 42–99; PULSE 68–105; RESP 16–40; TEMP 36.1–38.3; O2SAT 90–100
[2022-12-09] MEDS: LEVALBUTEROL NEB 1.25 MG/3 ML 0.63 MG INHALATION ×4 (02:01→20:57)
[2022-12-09] MEDS: ACETAMINOPHEN 325 MG TABLET 650 MG PO (02:59)
--- NOTE | 2022-12-09 03:51 | PC.NURSE ---
On 12/08/22-12/09/22, the RN license pending, Fabian Payne, provided care and completed [facility] documentation on this patient. I have reviewed the RN's documentation and agree with the findings.
[2022-12-09 07:47] LABS: Anion Gap -2 mmol/L (8-16); Blood Urea Nitrogen 20 mg/dL (7-17); Carbon Dioxide 33 mmol/L (22-30); Chloride 100 mmol/L (98-107); Estimated CRCL calculation 40 ml/min; Estimated Glomerular Filt Rate > 60; Glucose 88 mg/dL (65-110); Potassium 3.7 mmol/L (3.4-5.0); Sodium 131 mmol/L (137-145)
[2022-12-09 07:54] LABS: Basophils Percent Auto 0.5 % (0.2-1.2); Eosinophils Absolute Auto 0.4 K/mm3 (0-0.3); Eosinophils Percent Auto 7.5 % (0-4.4); Immature Granulocyte Absolute 0.03 K/mm3 (0.00-0.031); Immature Granulocyte Percent A 0.5 % (0-0.5); Lymphocytes Absolute Auto 0.61 K/mm3 (0.9-3.2); Lymphocytes Percent Auto 10.4 % (18.3-44.2); Mean Corpuscular Hemoglobin 27.9 pg (26-34); Mean Corpuscular Volume 93.1 fl (80-100); Mean Platelet Volume 9.8 fl (7.4-10.4); Monocytes Absolute Auto 0.8 K/mm3 (0.1-0.6); Neutrophils Absolute Auto 3.9 K/mm3 (1.3-6.7); Neutrophils Percent Auto 67.1 % (45.5-73.1); Platelet Count Result 334 k/mm3 (150-375); Red Blood Count 2.47 M/mm3 (4.2-5.4); Red Cell Distribution Width 15.9 % (11.5-14.5); White Blood Count 5.9 K/mm3 (4.5-10.0)
[2022-12-09 07:58] LABS: Hemoglobin 6.9 g/dL (12.0-15.0)
[2022-12-09 08:14] LABS: Glucose Point of Care 84 mg/dl (65-105)
--- NOTE | 2022-12-09 08:29 | PM.IMPN ---
Progress Note: A&P Assessment and Plan (1) Pulmonary embolism: Code(s): I26.99 - Other pulmonary embolism without acute cor pulmonale Status: Acute (2) Closed fracture of right distal radius and ulna: Qualifiers: Encounter type: initial encounter Qualified Code(s): S52.501A - Unspecified fracture of the lower end of right radius, initial encounter for closed fracture; S52.601A - Unspecified fracture of lower end of right ulna, initial encounter for closed fracture Code(s): S52.501A - Unspecified fracture of the lower end of right radius, initial encounter for closed fracture; S52.601A - Unspecified fracture of lower end of right ulna, initial encounter for closed fracture Status: Acute (3) Hypertension: Code(s): I10 - Essential (primary) hypertension Status: Acute (4) Diet-controlled type 2 diabetes mellitus: Code(s): E11.9 - Type 2 diabetes mellitus without complications Status: Acute (5) Depression: Code(s): F32.9 - Major depressive disorder, single episode, unspecified Status: Acute (6) COPD (chronic obstructive pulmonary disease): Code(s): J44.9 - Chronic obstructive pulmonary disease, unspecified Status: Acute (7) ANTHONY on CPAP: Code(s): G47.33 - Obstructive sleep apnea (adult) (pediatric); Z99.89 - Dependence on other enabling machines and devices Status: Acute (8) Hyperlipidemia: Code(s): E78.5 - Hyperlipidemia, unspecified Status: Acute Plan Acute pulmonary embolism Patient presented with shortness of breath. Requiring supplemental oxygen. Found to have PE acute in left upper lobe and right middle lobe. No GI bleeding is found per GI evaluation Restart Xeralto 25 mg b.i.d. on .. Stops Xarelto on December 09 due to profound anemia May consider placing inferior vena cava consider Consult general surgeon for evaluation and management Anemia Hemoglobin trending down, Continue Protonix [address] abdomen pelvis did not show any acute retroperitoneal bleed to suggest worsening anemia who GI reconsulted today, EGD did not find GI bleeding. GI does not consider patient needs colonoscopy: Follow-up hemoglobin 6.9 on 12/09, transfuse 2 packed RBCs, follow-up ferritin and iron panel, indicating iron deficient anemia Follow-up stool guaiac Start ferrous sulfate p.o. and Venofer IV AFib Patient is not taking blood thinner hyponatremic 130. Hypokalemia Replace sodium chloride and the persistent chloride Follow-up BMP Mild WBC. Urine culture mixed genital [place] isolated. Fall injury recently on 11/21/2022 sustaining distal radial ulnar metaphyseal fracture. Wrist x-ray with distal radial ulnar metaphyseal fracture. Managed conservatively with wrist splint. Mild emphysema and large sliding hiatal hernia noted on CTA. 3.2 cm infrarenal abdominal aortic aneurysm. History of hypertension/COPD/hyperlipidemia/peripheral artery disease/sNF placement planned/ urinary retention placed on a Soto catheter with outpatient follow-up with urology. 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 continue dressing changes. stopped her steroid taper. She is not actively wheezing. H&H remains slow decline however no obvious bleeding. . Discussed this with the patient and her power filling and packing supervisor Subjective Date/time seen: 12/09/22 08:29 Interval history: I saw on exam patient today, patient denies chest pain, shortness of breath, abdomen pain, nausea vomiting black stool. no active bleeding, hb drops to 6.9 Exam Narrative: GENERAL: Pleasant, in no acute distress. Well-nourished. - EYES: EOMI. Anicteric. - HENT: Moist mucous membranes. - LUNGS: Clear to auscultation bilaterally, no wheezing, rhonchi, or rales. - CARDIOVASCULAR: Regular rate and rhythm. No murmur. No JVD. - ABDOMEN: Soft, non-tender and non-distended. No palpable masses. - EXTREMITIES: No edema. Periphera
[2022-12-09] MEDS: PANTOPRAZOLE 40 MG TABLET PO ×2 (09:05→21:22)
[2022-12-09] MEDS: SODIUM CHLORIDE 1 GM TABLET PO ×3 (09:05→17:05)
[2022-12-09] MEDS: SENNA/DOCUSATE SODIUM TABLET 1 TAB PO ×2 (09:07→21:22)
[2022-12-09] MEDS: ATORVASTATIN 40 MG TABLET PO (09:08)
[2022-12-09] MEDS: LOSARTAN POTASSIUM 50 MG TABLET PO ×2 (09:09→21:22)
[2022-12-09] MEDS: FERROUS SULFATE 325 MG TABLET DR PO ×2 (09:12→17:05)
[2022-12-09] MEDS: SILVERGEL (ELTA) 45 ML 1 APPLIC TOPICAL (09:14)
[2022-12-09] MEDS: LIDOCAINE HCL 1% LOCAL INJ 2 ML AMPUL 5 ML INFILTRATE (09:25)
[2022-12-09] MEDS: IRON SUCROSE COMPLEX 100 MG in SODIUM CHLORIDE 0.9% IV 50 ML 220 MG IVPB (09:47)
--- NOTE | 2022-12-09 11:22 | WPDANESPN ---
Anes - Prog Note Post-Op Date/Time: 12/09/22 11:22 Cardiovascular status: normal Respiratory status: normal Airway patency: baseline Mental status: baseline Post-Op hydration status: normal Vital Signs: Last Vital Signs Temp 97.8 F 12/09/22 10:35 Pulse 92 12/09/22 10:35 Resp 18 12/09/22 10:35 BP 107/44 L 12/09/22 10:35 Pulse Ox 96 12/09/22 10:35 O2 Del Method Nasal Cannula 12/09/22 07:58 O2 Flow Rate 2 12/09/22 07:58 FiO2 28 12/07/22 19:49 Pain Score (VAS): 0 I/O: Intake & Output 12/08/22 12/09/22 12/09/22 23:59 07:59 15:59 Intake Total 480 550 120 Balance 480 550 120 Laboratory Tests 12/09/22 07:31 12/09/22 07:31 12/08/22 12/08/22 12/08/22 11:44 16:38 20:03 WBC RBC Hgb Hct MCV MCH MCHC RDW Plt Count MPV Immature Gran % (Auto) Neut % (Auto) Lymph % (Auto) [place] % (Auto) Eos % (Auto) Baso % (Auto) Lymph # (Auto) [place] # (Auto) Eos # (Auto) Baso # (Auto) Abs Immat Gran (auto) Absolute Neuts (auto) Absolute Nucleated RBC Nucleated RBC % Sodium Potassium Chloride Carbon Dioxide Anion Gap BUN Creatinine Estim Creat Clear Calc Estimated GFR Glucose POC Capillary Glucose 117 H 105 122 H Calcium Blood Type Antibody Screen Crossmatch 12/09/22 12/09/22 12/09/22 07:31 08:10 08:57 WBC 5.9 RBC 2.47 L Hgb 6.9 L* Hct 23.0 L MCV 93.1 MCH 27.9 MCHC 30.0 L RDW 15.9 H Plt Count 334 MPV 9.8 Immature Gran % (Auto) 0.5 Neut % (Auto) 67.1 Lymph % (Auto) 10.4 L [place] % (Auto) 14.0 H Eos % (Auto) 7.5 H Baso % (Auto) 0.5 Lymph # (Auto) 0.61 L [place] # (Auto) 0.8 H Eos # (Auto) 0.4 H Baso # (Auto) 0.0 Abs Immat Gran (auto) 0.03 Absolute Neuts (auto) 3.9 Absolute Nucleated RBC 0.0 Nucleated RBC % 0.0 Sodium 131 L Potassium 3.7 Chloride 100 Carbon Dioxide 33 H Anion Gap -2 L BUN 20 H Creatinine 0.60 L Estim Creat Clear Calc 40 Estimated GFR > 60 Glucose 88 POC Capillary Glucose 84 Calcium 8.0 L Blood Type B Positive Antibody Screen Negative Crossmatch See Detail Post-procedural complaints: none Patient Feedback: Patient satisfied with anesthetic care.
[2022-12-09 12:03] LABS: Glucose Point of Care 105 mg/dl (65-105)
--- NOTE | 2022-12-09 13:15 | PM.CNGS ---
Assessment and Plan Assessment and plan (1) Pulmonary embolism: Qualifiers: Pulmonary embolism type: multiple subsegmental (without acute cor pulmonale) Qualified Code(s): I26.94 - Multiple subsegmental pulmonary emboli without acute cor pulmonale Code(s): I26.99 - Other pulmonary embolism without acute cor pulmonale Status: Acute Assessment and Plan: Elderly female with relatively small pulmonary emboli in the left upper lobe and right middle lobe. She has no DVT on lower extremities by venous studies. She was supposedly on Xarelto twice a day after her previous admission to but it is unknown if she was continuing to take that. She was also discharged on Plavix but that is not being given at this time. With a normal venous Doppler study, it does not appear that she is at significant risk to worsen her pulmonary embolism. IVC filter will not treat her pulmonary embolism only avoid additional venous emboli which are not evident on venous Doppler studies. I would hold off on placing an IVC filter as this would carry some risk an elderly patient. It would not be a retrievable filter. At present, I would at least restart venous prophylaxis with Lovenox at an appropriate dose. Thank you for asking me to see this patient in consultation. (2) Acute on chronic anemia: Code(s): D64.9 - Anemia, unspecified Status: Acute Assessment and Plan: Patient with guaiac-positive stools and worsening anemia. Anemia evaluation is underway. Both EGD and colonoscopy have been negative for a source of the anemia. Small-bowel source of bleeding has not been excluded. Recommend persistent evaluation for source of guaiac-positive stools. If no source can be found, recommend resuming only the Xarelto but not the Plavix. (3) Chronic anticoagulation: Code(s): Z79.01 - FPC (current) use of anticoagulants Status: Chronic Assessment and Plan: Patient was on Xarelto prior to the anemia due to history of atrial dysrhythmia. She has been on Plavix since having a left popliteal to posterior tibial stenting done at [facility] October 07 of this year. Both these medications are currently on hold due to her worsening anemia. History of Present Illness Consult details Consult date: 12/12/22 Reason for consult: other (contraindication to anticoagulation) Requesting physician: Kenyatta Sawyer MD Narrative: Patient is an 87-year-old woman who presented to the emergency room about 13 days ago with shortness of breath. She was found to have a pulmonary embolism in the left upper lobe and the right middle lobe. She has developed worsening anemia with guaiac-positive stools. EGD and colonoscopy have been done and both were negative. Hematology consultation was obtained. Evaluation of anemia is taking place. Patient has had her anticoagulation stopped. There is some question as to whether she was taking her anticoagulation prior to admission. She had venous Dopplers which showed no evidence of DVT. Patient is seen in consultation regarding the need for inferior vena cava filter placement. She also has a right radius and ulnar metaphyseal fractures. She is seen now in consultation. Review of Systems Review of Systems: All systems reviewed & are unremarkable except as noted in HPI and below (HPI and those items noted below) Constitutional: Constitutional: Denies chills and Denies fever(s) Cardiovascular: Cardiovascular: Denies chest pain, Denies diaphoresis and Reports dyspnea (Chronic) Respiratory: Respiratory: Denies chest congestion, Reports cough (Chronic) and Reports dyspnea (Chronic) Integumentary/Breasts: Skin/Breast: Denies lesions and Denies rash [facility] Past Medical History Medical History Acute on chronic anemia Anxiety Arthritis Chronic anticoagulation Chronic obstructive pulmonary disease, unspecified Closed fracture of right d
[2022-12-09] MEDS: SALINE LOCK FLUSH 10 ML IV PUSH ×2 (14:31→22:30)
--- NOTE | 2022-12-09 16:28 | PC.NURSE ---
On 12/09/22, the Licence pending nurse, Natasha Vora, provided care and completed [facility] documentation on this patient. I have reviewed the Licence pending nurse's documentation and agree with the findings.
[2022-12-09] MEDS: FUROSEMIDE INJ 40 MG/4 ML VIAL IV PUSH (17:04)
[2022-12-09 17:20] LABS: Glucose Point of Care 98 mg/dl (65-105)
[2022-12-09 20:31] LABS: IFOB Positive Control Positive; Immunochemical Fecal Occult Bl Negative (N)
[2022-12-09 21:09] LABS: Glucose Point of Care 156 mg/dl (65-105)
[2022-12-09] MEDS: MELATONIN 3 MG TABLET PO (21:22)
[2022-12-10] VITALS (21 sets, daily range): BP systolic 96–155; BP diastolic 37–98; PULSE 76–99; RESP 18–20; TEMP 36.6–37.1; O2SAT 97–100
[2022-12-10 06:59] LABS: Basophils Absolute Auto 0.1 K/mm3 (0.0-0.1); Basophils Percent Auto 0.9 % (0.2-1.2); Eosinophils Absolute Auto 0.4 K/mm3 (0-0.3); Eosinophils Percent Auto 5.6 % (0-4.4); Hematocrit 32.2 % (37.0-47.0); Hemoglobin 10.1 g/dL (12.0-15.0); Immature Granulocyte Absolute 0.06 K/mm3 (0.00-0.031); Immature Granulocyte Percent A 0.9 % (0-0.5); Lymphocytes Absolute Auto 0.74 K/mm3 (0.9-3.2); Lymphocytes Percent Auto 11.5 % (18.3-44.2); Mean Corpuscular HGB Conc 31.4 g/dl (32-36); Mean Corpuscular Hemoglobin 26.9 pg (26-34); Mean Corpuscular Volume 85.9 fl (80-100); Mean Platelet Volume 9.3 fl (7.4-10.4); Monocytes Absolute Auto 0.9 K/mm3 (0.1-0.6); Monocytes Percent Auto 14.3 % (2.6-8.5); Neutrophils Absolute Auto 4.3 K/mm3 (1.3-6.7); Neutrophils Percent Auto 66.8 % (45.5-73.1); Platelet Count Result 341 k/mm3 (150-375); Red Blood Count 3.75 M/mm3 (4.2-5.4); Red Cell Distribution Width 19.2 % (11.5-14.5); White Blood Count 6.4 K/mm3 (4.5-10.0)
[2022-12-10 07:06] LABS: Anion Gap 0 mmol/L (8-16); Blood Urea Nitrogen 15 mg/dL (7-17); Calcium 7.7 mg/dL (8.4-10.2); Carbon Dioxide 31 mmol/L (22-30); Chloride 100 mmol/L (98-107); Estimated CRCL calculation 40 ml/min; Estimated Glomerular Filt Rate > 60; Glucose 89 mg/dL (65-110); Potassium 3.3 mmol/L (3.4-5.0); Sodium 131 mmol/L (137-145)
[2022-12-10] MEDS: LEVALBUTEROL NEB 1.25 MG/3 ML 0.63 MG INHALATION ×3 (07:22→20:42)
[2022-12-10 08:24] LABS: Glucose Point of Care 95 mg/dl (65-105)
--- NOTE | 2022-12-10 08:55 | PM.IMPN ---
Progress Note: A&P Assessment and Plan (1) Pulmonary embolism: Qualifiers: Pulmonary embolism type: multiple subsegmental (without acute cor pulmonale) Qualified Code(s): I26.94 - Multiple subsegmental pulmonary emboli without acute cor pulmonale Code(s): I26.99 - Other pulmonary embolism without acute cor pulmonale Status: Acute (2) Closed fracture of right distal radius and ulna: Qualifiers: Encounter type: initial encounter Qualified Code(s): S52.501A - Unspecified fracture of the lower end of right radius, initial encounter for closed fracture; S52.601A - Unspecified fracture of lower end of right ulna, initial encounter for closed fracture Code(s): S52.501A - Unspecified fracture of the lower end of right radius, initial encounter for closed fracture; S52.601A - Unspecified fracture of lower end of right ulna, initial encounter for closed fracture Status: Acute (3) Hypertension: Code(s): I10 - Essential (primary) hypertension Status: Acute (4) Diet-controlled type 2 diabetes mellitus: Code(s): E11.9 - Type 2 diabetes mellitus without complications Status: Acute (5) Depression: Code(s): F32.9 - Major depressive disorder, single episode, unspecified Status: Acute (6) COPD (chronic obstructive pulmonary disease): Code(s): J44.9 - Chronic obstructive pulmonary disease, unspecified Status: Acute (7) ANTHONY on CPAP: Code(s): G47.33 - Obstructive sleep apnea (adult) (pediatric); Z99.89 - Dependence on other enabling machines and devices Status: Acute (8) Hyperlipidemia: Code(s): E78.5 - Hyperlipidemia, unspecified Status: Acute Plan Acute pulmonary embolism Patient presented with shortness of breath. Requiring supplemental oxygen. Found to have PE acute in left upper lobe and right middle lobe. No GI bleeding is found per GI evaluation Restart Xeralto 25 mg b.i.d. on .. Stops Xarelto on December 09 due to profound anemia May consider placing inferior vena cava consider Consult general surgeon for evaluation and management. GS considers pt is not a candidate of IVC now Anemia Hemoglobin trending down to 6.9 on 12/09 Continue Protonix [address] abdomen pelvis did not show any acute retroperitoneal bleed to suggest worsening anemia who GI reconsulted today, EGD did not find GI bleeding. GI does not consider patient needs colonoscopy: Follow-up hemoglobin 6.9 on 12/09, transfuse 2 packed RBCs, follow-up ferritin and iron panel, indicating iron deficient anemia Follow-up stool guaiac negative on 12/09/22 Start ferrous sulfate p.o. and Venofer IV Hb 10.1 monitor Hb tomorrow, if stable restart Xarelto AFib Patient is not taking blood thinner hyponatremic 130. Hypokalemia, hypocalcemia Replace sodium chloride and the potassium chloride calcium carbonate Follow-up BMP Mild WBC. Urine culture mixed genital [place] isolated. Fall injury recently on 11/21/2022 sustaining distal radial ulnar metaphyseal fracture. Wrist x-ray with distal radial ulnar metaphyseal fracture. Managed conservatively with wrist splint. Mild emphysema and large sliding hiatal hernia noted on CTA. 3.2 cm infrarenal abdominal aortic aneurysm. History of hypertension/COPD/hyperlipidemia/peripheral artery disease/sNF placement planned/ urinary retention placed on a Soto catheter with outpatient follow-up with urology. 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 continue dressing changes. stopped her steroid taper. She is not actively wheezing. Subjective Date/time seen: 12/10/22 08:55 Interval history: I saw on exam patient today, patient denies chest pain, shortness of breath, abdomen pain, nausea vomiting black stool. no active bleeding, hb 10.1 stool gauic is negative Exam Narrative: GENERAL: Pleasant, in no acute distress. Well-nourished. - EYES: EOMI. Anicteric
[2022-12-10] MEDS: PANTOPRAZOLE 40 MG TABLET PO ×2 (09:36→20:33)
[2022-12-10] MEDS: LOSARTAN POTASSIUM 50 MG TABLET PO ×2 (09:36→20:34)
[2022-12-10] MEDS: SENNA/DOCUSATE SODIUM TABLET 1 TAB PO ×2 (09:36→20:33)
[2022-12-10] MEDS: ATORVASTATIN 40 MG TABLET PO (09:36)
[2022-12-10] MEDS: FERROUS SULFATE 325 MG TABLET DR PO ×2 (09:36→16:16)
[2022-12-10] MEDS: SODIUM CHLORIDE 1 GM TABLET PO ×3 (09:37→16:16)
[2022-12-10] MEDS: SALINE LOCK FLUSH 10 ML IV PUSH ×3 (09:37→20:34)
--- NOTE | 2022-12-10 11:25 | PCNFU ---
Nutrition Follow-Up Complete: Increased Protein needs as related to wounds as evidenced by deep tissue pressure ulcer Goal: Meet estimated nutritional needs Patient is progressing towards goal. We will continue current goal. Pt current nutrition is Regular Last recorded weight is 52.2 kg. Bowel Motility: +BM reported 12/09 Labs Reviewed:Cr 0.6,Na 131, K 3.3,Hct 32.2,Hgb 10.1 Meds Noted:Protonix, Miralax, Ferrous Sulfate Skin: Deep Tissue Pressure Ulcer-Coccyx Additional Notes: Patient oral intake fair 0-50% of meals. Diet order has been liberalized to a regular diet. Spoke with caregiver today regarding foods likes for patient. Patient has been drinking Gildardo BID for wound healing, providing 90 kcals and 2.5 gms protein. Agree with diet order. Will monitor weight, labs, oral intake, skin every 5 days.
[2022-12-10 12:02] LABS: Glucose Point of Care 112 mg/dl (65-105)
[2022-12-10] MEDS: SILVERGEL (ELTA) 45 ML 1 APPLIC TOPICAL (13:18)
[2022-12-10 17:03] LABS: Glucose Point of Care 123 mg/dl (65-105)
[2022-12-10] MEDS: MELATONIN 3 MG TABLET PO (20:34)
[2022-12-10 21:19] LABS: Glucose Point of Care 116 mg/dl (65-105)
[2022-12-11] VITALS (22 sets, daily range): BP systolic 95–129; BP diastolic 37–80; PULSE 79–96; RESP 18–24; TEMP 36.3–37.2; O2SAT 90–100
[2022-12-11] MEDS: LEVALBUTEROL NEB 1.25 MG/3 ML 0.63 MG INHALATION ×4 (02:42→18:08)
[2022-12-11] MEDS: SALINE LOCK FLUSH 10 ML IV PUSH ×3 (06:14→20:16)
[2022-12-11 06:52] LABS: Anion Gap 1 mmol/L (8-16); Blood Urea Nitrogen 15 mg/dL (7-17); Calcium 7.7 mg/dL (8.4-10.2); Carbon Dioxide 31 mmol/L (22-30); Chloride 101 mmol/L (98-107); Estimated CRCL calculation 47 ml/min; Estimated Glomerular Filt Rate > 60; Glucose 102 mg/dL (65-110); Potassium 3.1 mmol/L (3.4-5.0); Sodium 133 mmol/L (137-145)
[2022-12-11] MEDS: PANTOPRAZOLE 40 MG TABLET PO ×2 (08:05→20:16)
[2022-12-11] MEDS: SODIUM CHLORIDE 1 GM TABLET PO ×3 (08:05→16:30)
[2022-12-11] MEDS: ATORVASTATIN 40 MG TABLET PO (08:05)
[2022-12-11] MEDS: SILVERGEL (ELTA) 45 ML 1 APPLIC TOPICAL (08:05)
[2022-12-11] MEDS: LOSARTAN POTASSIUM 50 MG TABLET PO ×2 (08:05→20:16)
[2022-12-11] MEDS: SENNA/DOCUSATE SODIUM TABLET 1 TAB PO ×2 (08:05→20:16)
[2022-12-11] MEDS: FERROUS SULFATE 325 MG TABLET DR PO ×2 (08:05→16:30)
[2022-12-11 08:29] LABS: Glucose Point of Care 171 mg/dl (65-105)
[2022-12-11 12:09] LABS: Glucose Point of Care 102 mg/dl (65-105)
--- NOTE | 2022-12-11 13:08 | PM.IMPN ---
Progress Note: A&P Assessment and Plan (1) Pulmonary embolism: Qualifiers: Pulmonary embolism type: multiple subsegmental (without acute cor pulmonale) Qualified Code(s): I26.94 - Multiple subsegmental pulmonary emboli without acute cor pulmonale Code(s): I26.99 - Other pulmonary embolism without acute cor pulmonale Status: Acute (2) Closed fracture of right distal radius and ulna: Qualifiers: Encounter type: initial encounter Qualified Code(s): S52.501A - Unspecified fracture of the lower end of right radius, initial encounter for closed fracture; S52.601A - Unspecified fracture of lower end of right ulna, initial encounter for closed fracture Code(s): S52.501A - Unspecified fracture of the lower end of right radius, initial encounter for closed fracture; S52.601A - Unspecified fracture of lower end of right ulna, initial encounter for closed fracture Status: Acute (3) Hypertension: Code(s): I10 - Essential (primary) hypertension Status: Acute (4) Diet-controlled type 2 diabetes mellitus: Code(s): E11.9 - Type 2 diabetes mellitus without complications Status: Acute (5) Depression: Code(s): F32.9 - Major depressive disorder, single episode, unspecified Status: Acute (6) COPD (chronic obstructive pulmonary disease): Code(s): J44.9 - Chronic obstructive pulmonary disease, unspecified Status: Acute (7) ANTHONY on CPAP: Code(s): G47.33 - Obstructive sleep apnea (adult) (pediatric); Z99.89 - Dependence on other enabling machines and devices Status: Acute (8) Hyperlipidemia: Code(s): E78.5 - Hyperlipidemia, unspecified Status: Acute Plan Acute pulmonary embolism Patient presented with shortness of breath. Requiring supplemental oxygen. Found to have PE acute in left upper lobe and right middle lobe. No GI bleeding is found per GI evaluation Restart Xeralto 25 mg b.i.d. on .. Stops Xarelto on December 09 due to profound anemia May consider placing inferior vena cava consider Consult general surgeon for evaluation and management. GS considers pt is not a candidate of IVC now Anemia Hemoglobin trending down to 6.9 on 12/09 Continue Protonix [address] abdomen pelvis did not show any acute retroperitoneal bleed to suggest worsening anemia who GI reconsulted today, EGD did not find GI bleeding. GI does not consider patient needs colonoscopy: Follow-up hemoglobin 6.9 on 12/09, transfuse 2 packed RBCs, follow-up ferritin and iron panel, indicating iron deficient anemia Follow-up stool guaiac negative on 12/09/22 Start ferrous sulfate p.o. and Venofer IV Hb 10.1 after transfusion now 11.3 monitor Hb tomorrow, stable restart Lovenox 1 milligram/kilos q.12 hours AFib Patient is not taking blood thinner hyponatremic 130. Hypokalemia, hypocalcemia Replace sodium chloride and the potassium chloride calcium carbonate Follow-up BMP Mild WBC. Urine culture mixed genital [place] isolated. Fall injury recently on 11/21/2022 sustaining distal radial ulnar metaphyseal fracture. Wrist x-ray with distal radial ulnar metaphyseal fracture. Managed conservatively with wrist splint. Mild emphysema and large sliding hiatal hernia noted on CTA. 3.2 cm infrarenal abdominal aortic aneurysm. History of hypertension/COPD/hyperlipidemia/peripheral artery disease/sNF placement planned/ urinary retention placed on a Soto catheter with outpatient follow-up with urology. 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 continue dressing changes. stopped her steroid taper. She is not actively wheezing. Subjective Date/time seen: 12/11/22 13:08 Interval history: I saw on exam patient today, patient has no new issue events overnight. Patient denies chest pain, shortness of breath, abdomen pain, nausea vomiting black stool. Exam Narrative: GENERAL: Pleasant, in no acute dis
[2022-12-11 13:50] LABS: Basophils Percent Auto 0.5 % (0.2-1.2); Eosinophils Absolute Auto 0.3 K/mm3 (0-0.3); Eosinophils Percent Auto 4.5 % (0-4.4); Hematocrit 37.7 % (37.0-47.0); Hemoglobin 11.3 g/dL (12.0-15.0); Immature Granulocyte Absolute 0.05 K/mm3 (0.00-0.031); Immature Granulocyte Percent A 0.7 % (0-0.5); Lymphocytes Absolute Auto 0.76 K/mm3 (0.9-3.2); Lymphocytes Percent Auto 10.4 % (18.3-44.2); Mean Corpuscular Hemoglobin 27.2 pg (26-34); Mean Corpuscular Volume 90.6 fl (80-100); Mean Platelet Volume 9.3 fl (7.4-10.4); Monocytes Absolute Auto 0.8 K/mm3 (0.1-0.6); Monocytes Percent Auto 10.7 % (2.6-8.5); Neutrophils Absolute Auto 5.4 K/mm3 (1.3-6.7); Neutrophils Percent Auto 73.2 % (45.5-73.1); Platelet Count Result 363 k/mm3 (150-375); Red Blood Count 4.16 M/mm3 (4.2-5.4); Red Cell Distribution Width 19.1 % (11.5-14.5); White Blood Count 7.3 K/mm3 (4.5-10.0)
[2022-12-11] MEDS: ENOXAPARIN 60 MG/0.6 ML SYRINGE 55 MG SUB-Q (14:00)
[2022-12-11] MEDS: POTASSIUM CHLORIDE 20 MEQ PACKET (FOR LIQUID) PO (16:30)
[2022-12-11 16:58] LABS: Glucose Point of Care 118 mg/dl (65-105)
[2022-12-11] MEDS: MELATONIN 5 MG TABLET PO (20:16)
[2022-12-11 20:36] LABS: Glucose Point of Care 131 mg/dl (65-105)
[2022-12-12] VITALS (22 sets, daily range): BP systolic 100–125; BP diastolic 50–102; PULSE 76–97; RESP 18–20; TEMP 36.4–36.9; O2SAT 91–100
[2022-12-12] MEDS: LEVALBUTEROL NEB 1.25 MG/3 ML 0.63 MG INHALATION ×4 (01:40→19:57)
[2022-12-12 06:19] LABS: Potassium 3.4 mmol/L (3.4-5.0)
[2022-12-12] MEDS: SALINE LOCK FLUSH 10 ML IV PUSH ×3 (06:21→21:18)
[2022-12-12] MEDS: SENNA/DOCUSATE SODIUM TABLET 1 TAB PO ×2 (08:06→21:17)
[2022-12-12] MEDS: ATORVASTATIN 40 MG TABLET PO (08:06)
[2022-12-12] MEDS: SODIUM CHLORIDE 1 GM TABLET PO ×3 (08:06→16:46)
[2022-12-12] MEDS: LOSARTAN POTASSIUM 50 MG TABLET PO ×2 (08:06→21:18)
[2022-12-12] MEDS: FERROUS SULFATE 325 MG TABLET DR PO ×2 (08:06→16:46)
[2022-12-12] MEDS: ERGOCALCIFEROL 50,000 UNITS CAPSULE 50000 UNITS PO (08:06)
[2022-12-12] MEDS: PANTOPRAZOLE 40 MG TABLET PO ×2 (08:07→21:17)
[2022-12-12] MEDS: POTASSIUM CHLORIDE 20 MEQ PACKET (FOR LIQUID) PO ×2 (08:07→16:46)
[2022-12-12] MEDS: SILVERGEL (ELTA) 45 ML 1 APPLIC TOPICAL (08:07)
[2022-12-12 08:33] LABS: Glucose Point of Care 88 mg/dl (65-105)
--- NOTE | 2022-12-12 09:49 | PM.IMPN ---
Progress Note: A&P Assessment and Plan (1) Pulmonary embolism: Qualifiers: Pulmonary embolism type: multiple subsegmental (without acute cor pulmonale) Qualified Code(s): I26.94 - Multiple subsegmental pulmonary emboli without acute cor pulmonale Code(s): I26.99 - Other pulmonary embolism without acute cor pulmonale Status: Acute (2) Closed fracture of right distal radius and ulna: Qualifiers: Encounter type: initial encounter Qualified Code(s): S52.501A - Unspecified fracture of the lower end of right radius, initial encounter for closed fracture; S52.601A - Unspecified fracture of lower end of right ulna, initial encounter for closed fracture Code(s): S52.501A - Unspecified fracture of the lower end of right radius, initial encounter for closed fracture; S52.601A - Unspecified fracture of lower end of right ulna, initial encounter for closed fracture Status: Acute (3) Hypertension: Code(s): I10 - Essential (primary) hypertension Status: Acute (4) Diet-controlled type 2 diabetes mellitus: Code(s): E11.9 - Type 2 diabetes mellitus without complications Status: Acute (5) Depression: Code(s): F32.9 - Major depressive disorder, single episode, unspecified Status: Acute (6) COPD (chronic obstructive pulmonary disease): Code(s): J44.9 - Chronic obstructive pulmonary disease, unspecified Status: Acute (7) ANTHONY on CPAP: Code(s): G47.33 - Obstructive sleep apnea (adult) (pediatric); Z99.89 - Dependence on other enabling machines and devices Status: Acute (8) Hyperlipidemia: Code(s): E78.5 - Hyperlipidemia, unspecified Status: Acute Plan Acute pulmonary embolism Patient presented with shortness of breath. Requiring supplemental oxygen. Found to have PE acute in left upper lobe and right middle lobe. No GI bleeding is found per GI evaluation Restart Xeralto 25 mg b.i.d. on .. Stops Xarelto on December 09 due to profound anemia May consider placing inferior vena cava consider Consult general surgeon for evaluation and management. GS considers pt is not a candidate of IVC now Start Lovenox 1 mg per q.12 hour because hemoglobin is stable Anemia Hemoglobin trending down to 6.9 on 12/09 Continue Protonix [address] abdomen pelvis did not show any acute retroperitoneal bleed to suggest worsening anemia who GI reconsulted today, EGD did not find GI bleeding. GI does not consider patient needs colonoscopy: Follow-up hemoglobin 6.9 on 12/09, transfuse 2 packed RBCs, follow-up ferritin and iron panel, indicating iron deficient anemia Follow-up stool guaiac negative on 12/09/22 Start ferrous sulfate p.o. and Venofer IV Hb 10.1 after transfusion now 11.3 monitor Hb tomorrow, stable restart Lovenox 1 milligram/kilos q.12 hours AFib Patient is not taking blood thinner hyponatremic 130. Hypokalemia, hypocalcemia Replace sodium chloride and the potassium chloride calcium carbonate Follow-up BMP Mild WBC. Urine culture mixed genital [place] isolated. Fall injury recently on 11/21/2022 sustaining distal radial ulnar metaphyseal fracture. Wrist x-ray with distal radial ulnar metaphyseal fracture. Managed conservatively with wrist splint. Mild emphysema and large sliding hiatal hernia noted on CTA. 3.2 cm infrarenal abdominal aortic aneurysm. History of hypertension/COPD/hyperlipidemia/peripheral artery disease/sNF placement planned/ urinary retention placed on a Soto catheter with outpatient follow-up with urology. 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 continue dressing changes. stopped her steroid taper. She is not actively wheezing. Subjective Date/time seen: 12/12/22 09:49 Interval history: I saw on exam patient today, patient has no new issue events overnight. Patient denies chest pain, shortness of breath, abdomen pain, nausea vomiting black stool.
[2022-12-12 10:50] LABS: Basophils Percent Auto 0.6 % (0.2-1.2); Eosinophils Absolute Auto 0.4 K/mm3 (0-0.3); Eosinophils Percent Auto 6.1 % (0-4.4); Hematocrit 32.3 % (37.0-47.0); Hemoglobin 9.7 g/dL (12.0-15.0); Immature Granulocyte Absolute 0.03 K/mm3 (0.00-0.031); Immature Granulocyte Percent A 0.5 % (0-0.5); Lymphocytes Absolute Auto 0.62 K/mm3 (0.9-3.2); Mean Corpuscular Hemoglobin 27.2 pg (26-34); Mean Corpuscular Volume 90.5 fl (80-100); Mean Platelet Volume 10.6 fl (7.4-10.4); Monocytes Absolute Auto 0.7 K/mm3 (0.1-0.6); Monocytes Percent Auto 11.2 % (2.6-8.5); Neutrophils Absolute Auto 4.5 K/mm3 (1.3-6.7); Neutrophils Percent Auto 71.6 % (45.5-73.1); Platelet Count Result 308 k/mm3 (150-375); Red Blood Count 3.57 M/mm3 (4.2-5.4); Red Cell Distribution Width 18.8 % (11.5-14.5); White Blood Count 6.2 K/mm3 (4.5-10.0)
[2022-12-12 10:57] LABS: Potassium 3.8 mmol/L (3.4-5.0)
[2022-12-12 11:01] LABS: Anion Gap 0 mmol/L (8-16); Blood Urea Nitrogen 14 mg/dL (7-17); Carbon Dioxide 32 mmol/L (22-30); Chloride 103 mmol/L (98-107); Estimated CRCL calculation 47 ml/min; Estimated Glomerular Filt Rate > 60; Glucose 83 mg/dL (65-110); Sodium 135 mmol/L (137-145)
[2022-12-12 12:08] LABS: Glucose Point of Care 103 mg/dl (65-105)
[2022-12-12] MEDS: ENOXAPARIN 60 MG/0.6 ML SYRINGE 55 MG SUB-Q (13:04)
[2022-12-12 15:10] LABS: Basophils Percent Auto 0.6 % (0.2-1.2); Eosinophils Absolute Auto 0.3 K/mm3 (0-0.3); Eosinophils Percent Auto 5.3 % (0-4.4); Immature Granulocyte Absolute 0.04 K/mm3 (0.00-0.031); Immature Granulocyte Percent A 0.6 % (0-0.5); Lymphocytes Absolute Auto 0.61 K/mm3 (0.9-3.2); Lymphocytes Percent Auto 9.7 % (18.3-44.2); Mean Corpuscular HGB Conc 29.7 g/dl (32-36); Mean Corpuscular Hemoglobin 27.4 pg (26-34); Mean Corpuscular Volume 92.3 fl (80-100); Mean Platelet Volume 9.2 fl (7.4-10.4); Monocytes Absolute Auto 0.7 K/mm3 (0.1-0.6); Neutrophils Absolute Auto 4.6 K/mm3 (1.3-6.7); Neutrophils Percent Auto 72.8 % (45.5-73.1); Platelet Count Result 359 k/mm3 (150-375); Red Blood Count 4.01 M/mm3 (4.2-5.4); Red Cell Distribution Width 18.8 % (11.5-14.5); White Blood Count 6.3 K/mm3 (4.5-10.0)
[2022-12-12 17:15] LABS: Glucose Point of Care 81 mg/dl (65-105)
[2022-12-12] MEDS: IPRATROPIUM BR 0.02% INH SOLN 0.5 MG/2.5 ML VIAL INHALATION (19:57)
[2022-12-12] MEDS: MELATONIN 5 MG TABLET PO (21:17)
[2022-12-12 21:47] LABS: Glucose Point of Care 117 mg/dl (65-105)
[2022-12-13] VITALS (21 sets, daily range): BP systolic 132–157; BP diastolic 46–75; PULSE 70–98; RESP 18–24; TEMP 36.6–37.6; O2SAT 91–99
[2022-12-13] MEDS: ENOXAPARIN 60 MG/0.6 ML SYRINGE 55 MG SUB-Q ×2 (01:00→13:28)
[2022-12-13] MEDS: LEVALBUTEROL NEB 1.25 MG/3 ML 0.63 MG INHALATION ×4 (02:17→19:57)
[2022-12-13] MEDS: ACETAMINOPHEN 325 MG TABLET 650 MG PO ×2 (02:37→20:14)
[2022-12-13] MEDS: SALINE LOCK FLUSH 10 ML IV PUSH ×2 (06:30→20:12)
--- NOTE | 2022-12-13 08:17 | PM.IMPN ---
Progress Note: A&P Assessment and Plan (1) Pulmonary embolism: Qualifiers: Pulmonary embolism type: multiple subsegmental (without acute cor pulmonale) Qualified Code(s): I26.94 - Multiple subsegmental pulmonary emboli without acute cor pulmonale Code(s): I26.99 - Other pulmonary embolism without acute cor pulmonale Status: Acute (2) Closed fracture of right distal radius and ulna: Qualifiers: Encounter type: initial encounter Qualified Code(s): S52.501A - Unspecified fracture of the lower end of right radius, initial encounter for closed fracture; S52.601A - Unspecified fracture of lower end of right ulna, initial encounter for closed fracture Code(s): S52.501A - Unspecified fracture of the lower end of right radius, initial encounter for closed fracture; S52.601A - Unspecified fracture of lower end of right ulna, initial encounter for closed fracture Status: Acute (3) Hypertension: Code(s): I10 - Essential (primary) hypertension Status: Acute (4) Diet-controlled type 2 diabetes mellitus: Code(s): E11.9 - Type 2 diabetes mellitus without complications Status: Acute (5) Depression: Code(s): F32.9 - Major depressive disorder, single episode, unspecified Status: Acute (6) COPD (chronic obstructive pulmonary disease): Code(s): J44.9 - Chronic obstructive pulmonary disease, unspecified Status: Acute (7) ANTHONY on CPAP: Code(s): G47.33 - Obstructive sleep apnea (adult) (pediatric); Z99.89 - Dependence on other enabling machines and devices Status: Acute (8) Hyperlipidemia: Code(s): E78.5 - Hyperlipidemia, unspecified Status: Acute Plan Acute pulmonary embolism Patient presented with shortness of breath. Requiring supplemental oxygen. Found to have PE acute in left upper lobe and right middle lobe. No GI bleeding is found per GI evaluation Restart Xeralto 25 mg b.i.d. on .. Stops Xarelto on December 09 due to profound anemia May consider placing inferior vena cava consider Consult general surgeon for evaluation and management. GS considers pt is not a candidate of IVC now Started Lovenox 1 mg per q.12 hour, hemoglobin is stable Consult physiologist regarding blood thinner selection Anemia Hemoglobin trending down to 6.9 on 12/09 Continue Protonix [address] abdomen pelvis did not show any acute retroperitoneal bleed to suggest worsening anemia who GI reconsulted today, EGD did not find GI bleeding. GI does not consider patient needs colonoscopy: Follow-up hemoglobin 6.9 on 12/09, transfuse 2 packed RBCs, follow-up ferritin and iron panel, indicating iron deficient anemia Follow-up stool guaiac negative on 12/09/22 Start ferrous sulfate p.o. and Venofer IV Hb 10.1 after transfusion now 11.3 monitor Hb tomorrow, stable restart Lovenox 1 milligram/kilos q.12 hours AFib Patient is not taking blood thinner hyponatremic 130. Hypokalemia, hypocalcemia Replace sodium chloride and the potassium chloride calcium carbonate Follow-up BMP Mild WBC. Urine culture mixed genital [place] isolated. Fall injury recently on 11/21/2022 sustaining distal radial ulnar metaphyseal fracture. Wrist x-ray with distal radial ulnar metaphyseal fracture. Managed conservatively with wrist splint. Chronic medical issues including Mild emphysema and large sliding hiatal hernia noted on CTA. 3.2 cm infrarenal abdominal aortic aneurysm. Patient has no wheezing urinary retention placed on a Soto catheter with outpatient follow-up with urology. SNF placement Subjective Date/time seen: 12/13/22 08:17 Interval history: I saw on exam patient today, patient has no new issue events overnight. Patient denies chest pain, shortness of breath, abdomen pain, nausea vomiting black stool. I reviewed labs, hemoglobin is stable on Lovenox Exam Narrative: GENERAL: Pleasant, in no acut
--- NOTE | 2022-12-13 08:52 | PCPTNOTE ---
Attempted PT re-evaluation, pt refused due to just waking up. RN aware.
--- NOTE | 2022-12-13 08:54 | PCOTNOTE ---
Attempted to see pt. for Re-evaluation, pt. adamantly refused to participate at this time. Nursing aware. Following.
[2022-12-13] MEDS: SENNA/DOCUSATE SODIUM TABLET 1 TAB PO ×2 (09:25→20:12)
[2022-12-13] MEDS: PANTOPRAZOLE 40 MG TABLET PO ×2 (09:25→20:12)
[2022-12-13] MEDS: LOSARTAN POTASSIUM 50 MG TABLET PO ×2 (09:25→20:12)
[2022-12-13] MEDS: FERROUS SULFATE 325 MG TABLET DR PO ×2 (09:25→17:16)
[2022-12-13] MEDS: ATORVASTATIN 40 MG TABLET PO (09:25)
[2022-12-13] MEDS: SODIUM CHLORIDE 1 GM TABLET PO ×3 (09:25→17:16)
[2022-12-13] MEDS: POTASSIUM CHLORIDE 20 MEQ PACKET (FOR LIQUID) PO ×2 (09:25→17:16)
[2022-12-13] MEDS: SILVERGEL (ELTA) 45 ML 1 APPLIC TOPICAL (09:26)
[2022-12-13 10:24] LABS: Basophils Absolute Auto 0.1 K/mm3 (0.0-0.1); Basophils Percent Auto 0.8 % (0.2-1.2); Eosinophils Absolute Auto 0.4 K/mm3 (0-0.3); Eosinophils Percent Auto 5.9 % (0-4.4); Hematocrit 35.3 % (37.0-47.0); Hemoglobin 9.9 g/dL (12.0-15.0); Immature Granulocyte Absolute 0.03 K/mm3 (0.00-0.031); Immature Granulocyte Percent A 0.5 % (0-0.5); Lymphocytes Absolute Auto 0.83 K/mm3 (0.9-3.2); Lymphocytes Percent Auto 13.3 % (18.3-44.2); Mean Corpuscular Hemoglobin 27.1 pg (26-34); Mean Corpuscular Volume 96.7 fl (80-100); Mean Platelet Volume 9.3 fl (7.4-10.4); Monocytes Absolute Auto 0.9 K/mm3 (0.1-0.6); Monocytes Percent Auto 13.6 % (2.6-8.5); Neutrophils Absolute Auto 4.1 K/mm3 (1.3-6.7); Neutrophils Percent Auto 65.9 % (45.5-73.1); Platelet Count Result 316 k/mm3 (150-375); Red Blood Count 3.65 M/mm3 (4.2-5.4); Red Cell Distribution Width 19.1 % (11.5-14.5); White Blood Count 6.3 K/mm3 (4.5-10.0)
[2022-12-13 10:35] LABS: Anion Gap 3 mmol/L (8-16); Blood Urea Nitrogen 13 mg/dL (7-17); Calcium 8.1 mg/dL (8.4-10.2); Carbon Dioxide 28 mmol/L (22-30); Chloride 105 mmol/L (98-107); Estimated CRCL calculation 47 ml/min; Estimated Glomerular Filt Rate > 60; Glucose 85 mg/dL (65-110); Potassium 3.6 mmol/L (3.4-5.0); Sodium 136 mmol/L (137-145)
--- NOTE | 2022-12-13 10:51 | PM.CNPUL ---
Assessment and Plan Assessment and plan (1) Pulmonary embolism: Qualifiers: Pulmonary embolism type: multiple subsegmental (without acute cor pulmonale) Qualified Code(s): I26.94 - Multiple subsegmental pulmonary emboli without acute cor pulmonale Code(s): I26.99 - Other pulmonary embolism without acute cor pulmonale Status: Acute Assessment and Plan: This 87-year-old female with COPD presented with shortness of breath. She was found to have bilateral small pulmonary emboli, 1 in the right middle lobe and another 1 in the left upper lobe. While on anticoagulation the patient developed anemia and black stool possibly related to GI bleed. Patient has been evaluated by GI Services and also by Surgical Services for possible inferior vena cava filter interruption. She is still on IV Lovenox with no further GI bleed. Following blood transfusion her hemoglobin has been stable over the last 3 days. I was consulted by the hospitalist regarding further management of pulmonary emboli given the complexities of this case. From a pulmonary standpoint the patient is at high risk for recurrent emboli given her age, non ambulatory status, and recent unprovoked pulmonary emboli, small but symptomatic. At this point we need to evaluate the risk of GI bleeding. If the risk of GI bleed is high the patient should not be treated with anticoagulation and should be referred to another center for retrievable IVC filter interruption. I discussed the case with the hospitalist. (2) COPD (chronic obstructive pulmonary disease): Code(s): J44.9 - Chronic obstructive pulmonary disease, unspecified Status: Acute Assessment and Plan: There is no evidence of COPD exacerbation at this point. The patient has been on room air with no evidence of wheezing on physical exam. Continue with the short-acting bronchodilators as ordered. (3) Peripheral arterial disease: Code(s): I73.9 - Peripheral vascular disease, unspecified Status: Acute (4) Closed fracture of right distal radius and ulna: Qualifiers: Encounter type: initial encounter Qualified Code(s): S52.501A - Unspecified fracture of the lower end of right radius, initial encounter for closed fracture; S52.601A - Unspecified fracture of lower end of right ulna, initial encounter for closed fracture Code(s): S52.501A - Unspecified fracture of the lower end of right radius, initial encounter for closed fracture; S52.601A - Unspecified fracture of lower end of right ulna, initial encounter for closed fracture Status: Acute History of Present Illness History of Present Illness Consult date: 12/13/22 Chief complaint: Pulmonary Embolism Narrative: This 87-year-old female presented with shortness of breath approximately 17 days ago. She has a history of COPD and is followed up in the outpatient Pulmonary Clinic; her FEV1 on last pulmonary function testing was approximately 0.9 L. she had a significant response to bronchodilators. The patient is a poor historian. She presented with shortness of breath early this month. On CT PA she was found to have small pulmonary emboli in the right middle lobe and left upper lobe. These thrombi were rather small especially in the right middle lobe but were accompanied by shortness of breath. The patient started on heparin drip and was subsequently transitioned to Xarelto po. Reportedly the patient developed black tarry stool and anemia. In fact hemoglobin on admission was 12 and dropped down to 7.6. She was evaluated by GI services regarding GI bleed. In addition she was evaluated for possible inferior vena cava interruption. The patient was deemed not fit for IVC filter. Currently the patient has been on Lovenox subQ twice daily. She has had no respiratory symptoms and has been on room air. There was a question of a previous anticoagulation at home for atrial fibrillation. Again the patient provided no info
[2022-12-13 11:09] LABS: Platelet Estimate Adequate (Adequate)
[2022-12-13 11:10] LABS: Crenated RBC 1+ (NORMAL)
[2022-12-13 11:11] LABS: Poikilocytosis 1+ (NORMAL)
[2022-12-13 11:12] LABS: Schistocytes None Seen (NORMAL)
--- NOTE | 2022-12-13 12:22 | PM.IMPN ---
Progress Note: A&P Assessment and Plan (1) Pulmonary embolism: Qualifiers: Pulmonary embolism type: multiple subsegmental (without acute cor pulmonale) Qualified Code(s): I26.94 - Multiple subsegmental pulmonary emboli without acute cor pulmonale Code(s): I26.99 - Other pulmonary embolism without acute cor pulmonale Status: Acute (2) Closed fracture of right distal radius and ulna: Qualifiers: Encounter type: initial encounter Qualified Code(s): S52.501A - Unspecified fracture of the lower end of right radius, initial encounter for closed fracture; S52.601A - Unspecified fracture of lower end of right ulna, initial encounter for closed fracture Code(s): S52.501A - Unspecified fracture of the lower end of right radius, initial encounter for closed fracture; S52.601A - Unspecified fracture of lower end of right ulna, initial encounter for closed fracture Status: Acute (3) Hypertension: Code(s): I10 - Essential (primary) hypertension Status: Acute (4) Diet-controlled type 2 diabetes mellitus: Code(s): E11.9 - Type 2 diabetes mellitus without complications Status: Acute (5) Depression: Code(s): F32.9 - Major depressive disorder, single episode, unspecified Status: Acute (6) COPD (chronic obstructive pulmonary disease): Code(s): J44.9 - Chronic obstructive pulmonary disease, unspecified Status: Acute (7) ANTHONY on CPAP: Code(s): G47.33 - Obstructive sleep apnea (adult) (pediatric); Z99.89 - Dependence on other enabling machines and devices Status: Acute (8) Hyperlipidemia: Code(s): E78.5 - Hyperlipidemia, unspecified Status: Acute Plan Acute pulmonary embolism Patient presented with shortness of breath. Requiring supplemental oxygen. Found to have PE acute in left upper lobe and right middle lobe. No GI bleeding is found per GI evaluation Restart Xeralto 25 mg b.i.d. on .. Stops Xarelto on December 09 due to profound anemia May consider placing inferior vena cava consider Consult general surgeon for evaluation and management. GS considers pt is not a candidate of IVC now Started Lovenox 1 mg per q.12 hour, hemoglobin is stable Consult outside sales account manager regarding blood thinner selection, appreciate outside sales account manager consultation. There are several options for PE treatments, but we need GI evaluation of risk of GI bleeding on blood thinner Anemia Hemoglobin trending down to 6.9 on 12/09 Continue Protonix [address] abdomen pelvis did not show any acute retroperitoneal bleed to suggest worsening anemia who GI reconsulted today, EGD did not find GI bleeding. GI does not consider patient needs colonoscopy: Follow-up hemoglobin 6.9 on 12/09, transfuse 2 packed RBCs, follow-up ferritin and iron panel, indicating iron deficient anemia Follow-up stool guaiac negative on 12/09/22 Start ferrous sulfate p.o. and Venofer IV Hb 10.1 after transfusion now 9.9 today monitor Hb tomorrow, c/w Lovenox 1 milligram/kilos q.12 hours AFib Patient is not taking blood thinner hyponatremic 130. Hypokalemia, hypocalcemia Replace sodium chloride and the potassium chloride calcium carbonate Follow-up BMP Mild WBC. Urine culture mixed genital [place] isolated. Fall injury recently on 11/21/2022 sustaining distal radial ulnar metaphyseal fracture. Wrist x-ray with distal radial ulnar metaphyseal fracture. Managed conservatively with wrist splint. Chronic medical issues including Mild emphysema and large sliding hiatal hernia noted on CTA. 3.2 cm infrarenal abdominal aortic aneurysm. Patient has no wheezing urinary retention placed on a Soto catheter with outpatient follow-up with urology. SNF placement Subjective Date/time seen: 12/13/22 12:22 Interval history: I saw on exam patient today, patient has no new issue events overnight. Patient denies chest pain, shortness of breath, abd
[2022-12-13 13:38] LABS: Basophils Percent Auto 0.6 % (0.2-1.2); Eosinophils Absolute Auto 0.4 K/mm3 (0-0.3); Eosinophils Percent Auto 5.7 % (0-4.4); Hemoglobin 11.1 g/dL (12.0-15.0); Immature Granulocyte Absolute 0.04 K/mm3 (0.00-0.031); Immature Granulocyte Percent A 0.6 % (0-0.5); Lymphocytes Absolute Auto 0.63 K/mm3 (0.9-3.2); Lymphocytes Percent Auto 9.5 % (18.3-44.2); Mean Corpuscular HGB Conc 27.8 g/dl (32-36); Mean Corpuscular Hemoglobin 27.3 pg (26-34); Mean Corpuscular Volume 98.3 fl (80-100); Mean Platelet Volume 9.4 fl (7.4-10.4); Monocytes Absolute Auto 0.8 K/mm3 (0.1-0.6); Monocytes Percent Auto 11.7 % (2.6-8.5); Neutrophils Absolute Auto 4.8 K/mm3 (1.3-6.7); Neutrophils Percent Auto 71.9 % (45.5-73.1); Platelet Count Result 286 k/mm3 (150-375); Red Blood Count 4.07 M/mm3 (4.2-5.4); White Blood Count 6.6 K/mm3 (4.5-10.0)
[2022-12-13 14:13] LABS: Anisocytosis 1+ (NORMAL); Hypochromasia 1+ (NORMAL); Platelet Estimate Adequate (Adequate); Poikilocytosis 1+ (NORMAL); Schistocytes None Seen (NORMAL)
--- NOTE | 2022-12-13 16:53 | PC.NURSE ---
Reviewed assessment placed by Rhiannon Casper Student nurse of [facility]. Agree with assessment. Medications passed by Rhiannon under supervision of this music writer and assigned RN. Reviewed chart with Rhiannon and discussed assessments and any interventions. RN will be given report at end of clinical day.
[2022-12-13 17:00] LABS: Glucose Point of Care 84 mg/dl (65-105)
[2022-12-13] MEDS: MELATONIN 5 MG TABLET PO (20:12)
[2022-12-13 21:17] LABS: Glucose Point of Care 92 mg/dl (65-105)
[2022-12-14] VITALS (22 sets, daily range): BP systolic 104–123; BP diastolic 50–87; PULSE 68–98; RESP 14–20; TEMP 36.5–37.1; O2SAT 93–100
[2022-12-14] MEDS: ENOXAPARIN 60 MG/0.6 ML SYRINGE 55 MG SUB-Q ×2 (01:07→13:52)
[2022-12-14] MEDS: ACETAMINOPHEN 325 MG TABLET 650 MG PO ×2 (02:14→20:44)
[2022-12-14] MEDS: LEVALBUTEROL NEB 1.25 MG/3 ML 0.63 MG INHALATION ×4 (02:28→20:11)
[2022-12-14] MEDS: SALINE LOCK FLUSH 10 ML IV PUSH ×3 (04:48→20:47)
[2022-12-14 05:38] LABS: Potassium 3.3 mmol/L (3.4-5.0)
[2022-12-14 08:33] LABS: Glucose Point of Care 85 mg/dl (65-105)
[2022-12-14] MEDS: LOSARTAN POTASSIUM 50 MG TABLET PO ×2 (09:01→20:44)
[2022-12-14] MEDS: SENNA/DOCUSATE SODIUM TABLET 1 TAB PO ×2 (09:01→20:44)
[2022-12-14] MEDS: PANTOPRAZOLE 40 MG TABLET PO ×2 (09:01→20:43)
[2022-12-14] MEDS: SODIUM CHLORIDE 1 GM TABLET PO ×3 (09:01→17:03)
[2022-12-14] MEDS: FERROUS SULFATE 325 MG TABLET DR PO ×2 (09:01→17:03)
[2022-12-14] MEDS: ATORVASTATIN 40 MG TABLET PO (09:01)
[2022-12-14] MEDS: SILVERGEL (ELTA) 45 ML 1 APPLIC TOPICAL (09:02)
[2022-12-14] MEDS: POTASSIUM CHLORIDE 20 MEQ PACKET (FOR LIQUID) PO ×2 (09:02→17:03)
[2022-12-14 09:12] LABS: Basophils Percent Auto 0.6 % (0.2-1.2); Eosinophils Absolute Auto 0.4 K/mm3 (0-0.3); Eosinophils Percent Auto 7.7 % (0-4.4); Hematocrit 31.5 % (37.0-47.0); Hemoglobin 9.3 g/dL (12.0-15.0); Immature Granulocyte Absolute 0.02 K/mm3 (0.00-0.031); Immature Granulocyte Percent A 0.4 % (0-0.5); Lymphocytes Absolute Auto 0.64 K/mm3 (0.9-3.2); Mean Corpuscular HGB Conc 29.5 g/dl (32-36); Mean Corpuscular Hemoglobin 27.1 pg (26-34); Mean Corpuscular Volume 91.8 fl (80-100); Mean Platelet Volume 10.3 fl (7.4-10.4); Monocytes Absolute Auto 0.5 K/mm3 (0.1-0.6); Monocytes Percent Auto 10.8 % (2.6-8.5); Neutrophils Absolute Auto 3.3 K/mm3 (1.3-6.7); Neutrophils Percent Auto 67.5 % (45.5-73.1); Platelet Count Result 319 k/mm3 (150-375); Red Blood Count 3.43 M/mm3 (4.2-5.4); Red Cell Distribution Width 18.7 % (11.5-14.5); White Blood Count 4.9 K/mm3 (4.5-10.0)
[2022-12-14 09:49] LABS: Platelet Estimate Adequate (Adequate); Poikilocytosis 1+ (NORMAL); Schistocytes Rare (NORMAL)
[2022-12-14 09:50] LABS: Acanthocytes 1+ (NORMAL); Burr Cells 1+ (NORMAL)
[2022-12-14 10:05] LABS: Anion Gap 0 mmol/L (8-16); Blood Urea Nitrogen 12 mg/dL (7-17); Calcium 8.1 mg/dL (8.4-10.2); Carbon Dioxide 31 mmol/L (22-30); Chloride 104 mmol/L (98-107); Estimated CRCL calculation 40 ml/min; Estimated Glomerular Filt Rate > 60; Glucose 91 mg/dL (65-110); Potassium 3.2 mmol/L (3.4-5.0); Sodium 135 mmol/L (137-145)
--- NOTE | 2022-12-14 11:49 | PCNFU ---
Nutrition Follow-Up Complete: Increased Protein needs as related to wounds as evidenced by deep tissue pressure ulcer Goal: Meet estimated nutritional needs Patient will continue on current goal. Pt current nutrition is Soft and Bite Sized, Level 6. Last recorded weight is 56.2 kg, up from admit weight at 54.5 kg. Bowel Motility:+BM reported 12/13 Labs Reviewed:Cr 0.5,Na 136, Hgb 11.1 Meds Noted:Ferrous Sulfate, Protonix, Miralax,Senokot Skin: Deep Tissue-Coccyx Additional Notes: Diet order changed to to Soft and Bite Sized, Level 6. Patient intake has been fair, today 20% of meals. Diet supplements are being consumed of Glucerna shake BID (220 kcals and 10 gms protein) and Gildardo BID (90 kcals and 2.5 gms protein). Agree with diet orders. Will monitor weight, labs, oral intake, skin every 5 days.
[2022-12-14] MEDS: polyethylene glycoL 3350 17 GM POWD.PACK PO (12:21)
[2022-12-14 12:24] LABS: Glucose Point of Care 89 mg/dl (65-105)
[2022-12-14 12:47] LABS: Glucose Point of Care 104 mg/dl (65-105)
--- NOTE | 2022-12-14 12:54 | PM.IMPN ---
Progress Note: A&P Assessment and Plan (1) Pulmonary embolism: Qualifiers: Pulmonary embolism type: multiple subsegmental (without acute cor pulmonale) Qualified Code(s): I26.94 - Multiple subsegmental pulmonary emboli without acute cor pulmonale Code(s): I26.99 - Other pulmonary embolism without acute cor pulmonale Status: Acute (2) Closed fracture of right distal radius and ulna: Qualifiers: Encounter type: initial encounter Qualified Code(s): S52.501A - Unspecified fracture of the lower end of right radius, initial encounter for closed fracture; S52.601A - Unspecified fracture of lower end of right ulna, initial encounter for closed fracture Code(s): S52.501A - Unspecified fracture of the lower end of right radius, initial encounter for closed fracture; S52.601A - Unspecified fracture of lower end of right ulna, initial encounter for closed fracture Status: Acute (3) Hypertension: Code(s): I10 - Essential (primary) hypertension Status: Acute (4) Diet-controlled type 2 diabetes mellitus: Code(s): E11.9 - Type 2 diabetes mellitus without complications Status: Acute (5) Depression: Code(s): F32.9 - Major depressive disorder, single episode, unspecified Status: Acute (6) COPD (chronic obstructive pulmonary disease): Code(s): J44.9 - Chronic obstructive pulmonary disease, unspecified Status: Acute (7) ANTHONY on CPAP: Code(s): G47.33 - Obstructive sleep apnea (adult) (pediatric); Z99.89 - Dependence on other enabling machines and devices Status: Acute (8) Hyperlipidemia: Code(s): E78.5 - Hyperlipidemia, unspecified Status: Acute Plan Acute pulmonary embolism Patient presented with shortness of breath. Requiring supplemental oxygen. Found to have PE acute in left upper lobe and right middle lobe. No GI bleeding is found per GI evaluation Restart Xeralto 25 mg b.i.d. on .. Stops Xarelto on December 09 due to profound anemia May consider placing inferior vena cava consider Consult general surgeon for evaluation and management. GS considers pt is not a candidate of IVC now Started Lovenox 1 mg per q.12 hour, hemoglobin is stable Consult psychological examiner regarding blood thinner selection, appreciate psychological examiner consultation. There are several options for PE treatments, but we need GI evaluation of risk of GI bleeding on blood thinner Consult to GI made to consider risks and benefits of AOC in this pt Anemia Hemoglobin trending down to 6.9 on 12/09 Continue Protonix [address] abdomen pelvis did not show any acute retroperitoneal bleed to suggest worsening anemia who GI reconsulted today, EGD did not find GI bleeding. GI does not consider patient needs colonoscopy: Follow-up hemoglobin 6.9 on 12/09, transfuse 2 packed RBCs, follow-up ferritin and iron panel, indicating iron deficient anemia Follow-up stool guaiac negative on 12/09/22 Start ferrous sulfate p.o. and Venofer IV Hb 10.1 after transfusion now 9.3 today monitor Hb tomorrow, c/w Lovenox 1 milligram/kilos q.12 hours AFib Patient is not taking blood thinner hyponatremic 130. Hypokalemia, hypocalcemia Replace sodium chloride and the potassium chloride calcium carbonate Follow-up BMP Mild WBC. Urine culture mixed genital [place] isolated. Fall injury recently on 11/21/2022 sustaining distal radial ulnar metaphyseal fracture. Wrist x-ray with distal radial ulnar metaphyseal fracture. Managed conservatively with wrist splint. Chronic medical issues including Mild emphysema and large sliding hiatal hernia noted on CTA. 3.2 cm infrarenal abdominal aortic aneurysm. Patient has no wheezing urinary retention placed on a Soto catheter with outpatient follow-up with urology. consider voiding trail before dc SNF placement likely dc tomorrow Subjective Date/time seen: 12/14/22 12:54 Interval history: ?8
--- NOTE | 2022-12-14 13:04 | PM.PNPUL ---
Progress Note: A&P Assessment and Plan (1) Pulmonary embolism: Qualifiers: Pulmonary embolism type: multiple subsegmental (without acute cor pulmonale) Qualified Code(s): I26.94 - Multiple subsegmental pulmonary emboli without acute cor pulmonale Code(s): I26.99 - Other pulmonary embolism without acute cor pulmonale Status: Acute Assessment and Plan: This 87-year-old female with COPD presented with shortness of breath.? She was found to have bilateral small pulmonary emboli, 1 in the right middle lobe? and another 1 in the left upper lobe.? While on anticoagulation the patient developed anemia and black stool possibly related to GI bleed.? Patient has been evaluated by GI Services and also by Surgical Services for possible inferior vena cava filter interruption.? She is still on IV Lovenox with no further GI bleed.? Following blood transfusion her hemoglobin has been stable over the last 3 days. I was consulted by the hospitalist regarding further management of pulmonary emboli given the complexities of this case.? From a pulmonary standpoint the patient is at high risk for recurrent emboli given her age, non ambulatory status, and recent unprovoked pulmonary emboli; more importantly, the patient developed pulmonary emboli while she was receiving two anti-platelet agents (ASA, Plavix) and low dose Xarelto. The patient developed GI bleed when she was switched to full-dose Xarelto. Reportedly GI services could not find cause of GI bleed. It is unclear at this point whether she is still at high risk for GI bleed if she if she continues with just one anticoagulant, i.e. Eliquis. It is likely that the GI bleed was in part related to synergistic effect of the multiple anticoagulants and that if patient continues with just Eliquis the risk for further GI bleed is lesser than before. It is my understanding that the patient is not fit for inferior vena cava interaction as assessed by Surgical Services. Earlier today I had a lengthy discussion with the patient regarding further management of her thromboembolic disease. The issues of thromboembolic event recurrence and also new bleed, either GI or intracranial were discussed at length with the patient. Patient indicated that she is the one who makes decisions for all her health related issues and not her son who lives in [place]. The patient was informed that she is at high risk to have another thromboembolic episode given the fact that the most recent episode occurred while she was on 3 anticoagulants and that this issue needs to be addressed soon. She was also informed that she is at high risk for complications related to anticoagulation like intracranial bleed especially with history of falls. To mitigate the risk of another bleeding episode she will have to continue with just Eliquis and discontinue aspirin and Plavix. Patient stated that she understands the risk of either intracranial bleed or recurrent GI bleed related to anticoagulants and is willing to continue with just Eliquis 5 mg twice daily. The case was discussed with the hospitalist. At this point we need the feedback by the GI Services regarding risk of GI bleed recurrence with Eliquis. (2) COPD (chronic obstructive pulmonary disease): Code(s): J44.9 - Chronic obstructive pulmonary disease, unspecified Status: Acute (3) Peripheral arterial disease: Code(s): I73.9 - Peripheral vascular disease, unspecified Status: Acute (4) Right wrist fracture: Code(s): S62.101A - Fracture of unspecified carpal bone, right wrist, initial encounter for closed fracture Status: Acute (5) Chronic anticoagulation: Code(s): Z79.01 - skilled nursing (current) use of anticoagulants Status: Chronic (6) Acute on chronic anemia: Code(s): D64.9 - Anemia, unspecified Status: Acute (7) Occult blood in stools: Code(s): R19.5 - Other fecal abnormalities Status: Acute Subjective
--- NOTE | 2022-12-14 13:48 | PCOTNOTE ---
Attempted to see Patient. Patient adamantly refusing to perform therapy services. She is only concentrated on having a bowel movement. Patient's caregiver and RN in the room at this time. Therapist educating and recommending Patient to perform movement to assist. Patient will not participate and states she is only using the bed hercules and only will take laxatives to assist her.
[2022-12-14 14:07] LABS: Glucose Point of Care 81 mg/dl (65-105)
[2022-12-14 17:23] LABS: Glucose Point of Care 77 mg/dl (65-105)
[2022-12-14 20:19] LABS: Glucose Point of Care 103 mg/dl (65-105)
[2022-12-14] MEDS: MELATONIN 5 MG TABLET PO (21:00)
[2022-12-15] VITALS (14 sets, daily range): BP systolic 130–152; BP diastolic 58–85; PULSE 84–98; RESP 14–18; TEMP 36.8–37.3; O2SAT 92–100
[2022-12-15] MEDS: ENOXAPARIN 60 MG/0.6 ML SYRINGE 55 MG SUB-Q (01:44)
[2022-12-15] MEDS: LEVALBUTEROL NEB 1.25 MG/3 ML 0.63 MG INHALATION ×4 (02:39→19:53)
[2022-12-15] MEDS: SALINE LOCK FLUSH 10 ML IV PUSH ×3 (05:11→21:54)
[2022-12-15 06:20] LABS: Hematocrit 36.9 % (37.0-47.0); Hemoglobin 10.2 g/dL (12.0-15.0); Mean Corpuscular HGB Conc 27.6 g/dl (32-36); Mean Corpuscular Hemoglobin 27.5 pg (26-34); Mean Corpuscular Volume 99.5 fl (80-100); Mean Platelet Volume 9.1 fl (7.4-10.4); Platelet Count Result 258 k/mm3 (150-375); Red Blood Count 3.71 M/mm3 (4.2-5.4); Red Cell Distribution Width 18.8 % (11.5-14.5); White Blood Count 4.3 K/mm3 (4.5-10.0)
[2022-12-15 08:19] LABS: Glucose Point of Care 78 mg/dl (65-105)
--- NOTE | 2022-12-15 08:39 | P.PNPL_ITS ---
Progress Note: A&P Assessment and Plan (1) Pulmonary embolism: Qualifiers: Pulmonary embolism type: multiple subsegmental (without acute cor pulmonale) Qualified Code(s): I26.94 - Multiple subsegmental pulmonary emboli without acute cor pulmonale Code(s): I26.99 - Other pulmonary embolism without acute cor pulmonale Status: Acute Assessment and Plan: This 87-year-old female with COPD presented with shortness of breath.? She was found to have bilateral small pulmonary emboli, 1 in the right middle lobe? and another 1 in the left upper lobe.? While on anticoagulation the patient developed anemia and black stool possibly related to GI bleed.? Patient has been evaluated by GI Services and also by Surgical Services for possible inferior vena cava filter interruption.? She is still on IV Lovenox with no further GI bleed.? Following blood transfusion her hemoglobin has been stable over the last 3 days. I was consulted by the hospitalist regarding further management of pulmonary emboli given the complexities of this case.? From a pulmonary standpoint the patient is at high risk for recurrent emboli given her age, non ambulatory status, and recent unprovoked pulmonary emboli; more importantly, the patient developed pulmonary emboli while she was receiving two anti-platelet agents (ASA, Plavix) and low dose Xarelto. The patient developed GI bleed when she was switched to full-dose Xarelto. Reportedly GI services could not find cause of GI bleed. It is unclear at this point whether she is still at high risk for GI bleed if she if she continues with just one anticoagulant, i.e. Eliquis. It is likely that the GI bleed was in part related to synergistic effect of the multiple anticoagulants and that if patient continues with just Eliquis the risk for further GI bleed is lesser than before. It is my understanding that the patient is not fit for inferior vena cava interaction as assessed by Surgical Services. Earlier today I had a lengthy discussion with the patient regarding further management of her thromboembolic disease. The issues of thromboembolic event recurrence and also new bleed, either GI or intracranial were discussed at length with the patient. Patient indicated that she is the one who makes decisions for all her health related issues and not her son who lives in [place]. The patient was informed that she is at high risk to have another thromboembolic episode given the fact that the most recent episode occurred while she was on 3 anticoagulants and that this issue needs to be addressed soon. She was also informed that she is at high risk for complications related to anticoagulation like intracranial bleed especially with history of falls. To mitigate the risk of another bleeding episode she will have to continue with just Eliquis and discontinue aspirin and Plavix. Patient stated that she understands the risk of either intracranial bleed or recurrent GI bleed related to anticoagulants and is willing to continue with just Eliquis 5 mg twice daily. The case was discussed with the hospitalist. At this point we need the feedback by the GI Services regarding risk of GI bleed recurrence with Eliquis. (2) COPD (chronic obstructive pulmonary disease): Code(s): J44.9 - Chronic obstructive pulmonary disease, unspecified Status: Acute (3) Peripheral arterial disease: Code(s): I73.9 - Peripheral vascular disease, unspecified Status: Acute (4) Right wrist fracture: Code(s): S62.101A - Fracture of unspecified carpal bone, right wrist, initial encounter for closed fracture Status: Acute (5) Chronic anticoagulation: Code(s): Z79.01 - [facility] (current) use of anticoagulants
[2022-12-15] MEDS: PANTOPRAZOLE 40 MG TABLET PO ×2 (09:00→20:07)
[2022-12-15] MEDS: SODIUM CHLORIDE 1 GM TABLET PO ×3 (09:00→17:17)
[2022-12-15] MEDS: POTASSIUM CHLORIDE 20 MEQ PACKET (FOR LIQUID) PO ×2 (09:00→17:17)
[2022-12-15] MEDS: SENNA/DOCUSATE SODIUM TABLET 1 TAB PO ×2 (09:00→20:07)
[2022-12-15] MEDS: FERROUS SULFATE 325 MG TABLET DR PO ×2 (09:00→17:17)
[2022-12-15] MEDS: LOSARTAN POTASSIUM 50 MG TABLET PO ×2 (09:00→20:07)
[2022-12-15] MEDS: ATORVASTATIN 40 MG TABLET PO (09:00)
[2022-12-15] MEDS: SILVERGEL (ELTA) 45 ML 1 APPLIC TOPICAL (09:01)
[2022-12-15] MEDS: APIXABAN 5 MG TABLET PO ×2 (09:06→20:07)
--- NOTE | 2022-12-15 10:48 | PCPTNOTE ---
Patient refused treatment this session. Patient initially agreed to working with therapy, however when discussing with patient about activity and getting up to chair. Patient's caregiver/homestead reported patient was up in chair this morning and just got back to bed, then patient started refusing PT. Patient refused to work with therapy at this time.
[2022-12-15 11:40] LABS: Glucose Point of Care 87 mg/dl (65-105)
--- NOTE | 2022-12-15 11:44 | WPDGIPROGNO ---
Progress Note: A&P Assessment and Plan (1) Acute on chronic anemia: Code(s): D64.9 - Anemia, unspecified Status: Acute Assessment and Plan: egd and colonoscopy 10/08, no signs of bleeding, had gastritis and small anal fissure patient and RN denies signs of bleeding while she has been on lovenox and h/h stable last several days no absolute contraindication to use anticoagulation but of course primary will need to monitor count as outpatient, also continue with ppi daily she also is seeing by hematology because of anemia will sign off (2) Occult blood in stools: Code(s): R19.5 - Other fecal abnormalities Status: Acute Assessment and Plan: from perianal finding (3) Pulmonary embolism: Qualifiers: Pulmonary embolism type: multiple subsegmental (without acute cor pulmonale) Qualified Code(s): I26.94 - Multiple subsegmental pulmonary emboli without acute cor pulmonale Code(s): I26.99 - Other pulmonary embolism without acute cor pulmonale Status: Acute Assessment and Plan: on AC (4) Chronic anticoagulation: Code(s): Z79.01 - 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) use of anticoagulants Status: Chronic (5) Closed fracture of right distal radius and ulna: Qualifiers: Encounter type: initial encounter Qualified Code(s): S52.501A - Unspecified fracture of the lower end of right radius, initial encounter for closed fracture; S52.601A - Unspecified fracture of lower end of right ulna, initial encounter for closed fracture Code(s): S52.501A - Unspecified fracture of the lower end of right radius, initial encounter for closed fracture; S52.601A - Unspecified fracture of lower end of right ulna, initial encounter for closed fracture Status: Acute Subjective Date/time seen: 12/15/22 11:44 Interval history: primary team called again to reassess patient she had egd and colonoscopy last week, no signs of bleeding, found erosive gastritis without ulcers, colon normal without small fissure RN reports no signs of bleeding, in fact she has been getting lovenox and h/h stable since had blood transfusion several days ago Review of Systems Review of Systems: All systems reviewed & are unremarkable except as noted in HPI and below Exam Const: General: comfortable Other: frail elderly HENMT: Face/Nose/Sinus: Normal nares present Eyes: General: appearance normal, both eyes and all related structures Neck: Neck: supple Resp: Effort & Inspection: normal respiratory effort Cardio: Rate: regular rate GI: GI Palp: Yes Soft to palpation, No Tenderness to palpation present (GI) and No Guarding due to palpation present (GI) Auscultation: normal bowel sounds Skin: General skin exam: normal color Neuro: Speech: normal speech Motor exam (neuro): 5/5 motor strength present throughout Extrem: Other: splin in rt arm Psych: Mental Status: mental status grossly normal Objective Data Vital Signs Vital Signs: Vital Signs - 24 hr 12/14/22 13:52 12/14/22 14:01 12/14/22 12:00 Temperature Pulse Rate 90 84 80 Respiratory Rate 18 18 Blood Pressure Pulse Oximetry Oxygen Delivery 12/14/22 15:35 12/14/22 16:00 12/14/22 18:25 Temperature 98.4 F 98.8 F Pulse Rate 88 88 92 Respiratory Rate 20 20 Blood Pressure 109/52 L 123/74 Pulse Oximetry 100 99 Oxygen Delivery 12/14/22 19:33 12/14/22 20:13 12/14/22 20:21 Temperature 98.4 F Pulse Rate 85 84 85 Respiratory Rate 16 18 18 Blood Pressure 116/87 Pulse Oximetry 99 Oxygen Delivery 12/14/22 20:00 12/14/22 20:00 12/14/22 23:36 Temperature 98.4 F Pulse Rate 90 80 Respiratory Rate 14 Blood Pressure 104/50 L Pulse Oximetry 95 Oxygen Delivery Room Air 12/15/22 02:41 12/15/22 02:49 12/15/22 04:29 Temperature 99.1 F Pulse Rate 84 84 87 Respiratory Rate 18 18 14 Blood Pressure 138/58 L Pulse Oximetry 100 Oxygen Delivery
--- NOTE | 2022-12-15 12:40 | PM.DS ---
DS: Admitting Diagnosis Discharge Date 12/15/2022 Admitting Diagnosis 11/26/2022 DS: Discharge Diagnosis Discharge Diagnosis (1) Pulmonary embolism: Qualifiers: Pulmonary embolism type: multiple subsegmental (without acute cor pulmonale) Qualified Code(s): I26.94 - Multiple subsegmental pulmonary emboli without acute cor pulmonale Code(s): I26.99 - Other pulmonary embolism without acute cor pulmonale Status: Acute (2) Closed fracture of right distal radius and ulna: Qualifiers: Encounter type: initial encounter Qualified Code(s): S52.501A - Unspecified fracture of the lower end of right radius, initial encounter for closed fracture; S52.601A - Unspecified fracture of lower end of right ulna, initial encounter for closed fracture Code(s): S52.501A - Unspecified fracture of the lower end of right radius, initial encounter for closed fracture; S52.601A - Unspecified fracture of lower end of right ulna, initial encounter for closed fracture Status: Acute (3) Hypertension: Code(s): I10 - Essential (primary) hypertension Status: Acute (4) Diet-controlled type 2 diabetes mellitus: Code(s): E11.9 - Type 2 diabetes mellitus without complications Status: Acute (5) Depression: Code(s): F32.9 - Major depressive disorder, single episode, unspecified Status: Acute (6) COPD (chronic obstructive pulmonary disease): Code(s): J44.9 - Chronic obstructive pulmonary disease, unspecified Status: Acute (7) ANTHONY on CPAP: Code(s): G47.33 - Obstructive sleep apnea (adult) (pediatric); Z99.89 - Dependence on other enabling machines and devices Status: Acute (8) Hyperlipidemia: Code(s): E78.5 - Hyperlipidemia, unspecified Status: Acute Plan Acute pulmonary embolism Patient presented with shortness of breath. Requiring supplemental oxygen. Found to have PE acute in left upper lobe and right middle lobe. No GI bleeding is found per GI evaluation Restart Xeralto 25 mg b.i.d. on .. Stops Xarelto on December 09 due to profound anemia May consider placing inferior vena cava consider Consult general surgeon for evaluation and management. GS considers pt is not a candidate of IVC now Started Lovenox 1 mg per q.12 hour, hemoglobin is stable Consult six sigma black belt engineer regarding blood thinner selection, appreciate six sigma black belt engineer consultation. There are several options for PE treatments, but we need GI evaluation of risk of GI bleeding on blood thinner Consult to GI made to consider risks and benefits of AOC in this pt Pt to continue with eliquis Anemia Hemoglobin trending down to 6.9 on 12/09 Continue Protonix [address] abdomen pelvis did not show any acute retroperitoneal bleed to suggest worsening anemia who GI reconsulted today, EGD did not find GI bleeding. GI does not consider patient needs colonoscopy: Follow-up hemoglobin 6.9 on 12/09, transfuse 2 packed RBCs, follow-up ferritin and iron panel, indicating iron deficient anemia Follow-up stool guaiac negative on 12/09/22 Start ferrous sulfate p.o. and Venofer IV Hb 10.1 after transfusion stable at 10 ok to DC AFib DC on eliquis stable rate Hyponatremic 130. Hypokalemia, hypocalcemia Replace sodium chloride and the potassium chloride calcium carbonate DC sodium chloride tablets on DC Mild WBC. Urine culture mixed genital [place] isolated. Fall injury recently on 11/21/2022 sustaining distal radial ulnar metaphyseal fracture. Wrist x-ray with distal radial ulnar metaphyseal fracture. Managed conservatively with wrist splint. Chronic medical issues including Mild emphysema and large sliding hiatal hernia noted on CTA. 3.2 cm infrarenal abdominal aortic aneurysm. Patient has no wheezing urinary retention placed on a Soto catheter with outpatient follow-up with urology. SNF placement likely dc tomorrow DS: Summary Hospital Course Hospit
--- NOTE | 2022-12-15 14:31 | PM.IMPN ---
Progress Note: A&P Assessment and Plan (1) Pulmonary embolism: Qualifiers: Pulmonary embolism type: multiple subsegmental (without acute cor pulmonale) Qualified Code(s): I26.94 - Multiple subsegmental pulmonary emboli without acute cor pulmonale Code(s): I26.99 - Other pulmonary embolism without acute cor pulmonale Status: Acute (2) Closed fracture of right distal radius and ulna: Qualifiers: Encounter type: initial encounter Qualified Code(s): S52.501A - Unspecified fracture of the lower end of right radius, initial encounter for closed fracture; S52.601A - Unspecified fracture of lower end of right ulna, initial encounter for closed fracture Code(s): S52.501A - Unspecified fracture of the lower end of right radius, initial encounter for closed fracture; S52.601A - Unspecified fracture of lower end of right ulna, initial encounter for closed fracture Status: Acute (3) Hypertension: Code(s): I10 - Essential (primary) hypertension Status: Acute (4) Diet-controlled type 2 diabetes mellitus: Code(s): E11.9 - Type 2 diabetes mellitus without complications Status: Acute (5) Depression: Code(s): F32.9 - Major depressive disorder, single episode, unspecified Status: Acute (6) COPD (chronic obstructive pulmonary disease): Code(s): J44.9 - Chronic obstructive pulmonary disease, unspecified Status: Acute (7) ANTHONY on CPAP: Code(s): G47.33 - Obstructive sleep apnea (adult) (pediatric); Z99.89 - Dependence on other enabling machines and devices Status: Acute (8) Hyperlipidemia: Code(s): E78.5 - Hyperlipidemia, unspecified Status: Acute Plan Acute pulmonary embolism Patient presented with shortness of breath. Requiring supplemental oxygen. Found to have PE acute in left upper lobe and right middle lobe. No GI bleeding is found per GI evaluation Restart Xeralto 25 mg b.i.d. on .. Stops Xarelto on December 09 due to profound anemia May consider placing inferior vena cava consider Consult general surgeon for evaluation and management. GS considers pt is not a candidate of IVC now Started Lovenox 1 mg per q.12 hour, hemoglobin is stable Consult candle making supervisor regarding blood thinner selection, appreciate candle making supervisor consultation. There are several options for PE treatments, but we need GI evaluation of risk of GI bleeding on blood thinner Consult to GI made to consider risks and benefits of AOC in this pt Pt to continue with eliquis repeat CBC zara am and hopefully DC in Am Anemia Hemoglobin trending down to 6.9 on 12/09 Continue Protonix [address] abdomen pelvis did not show any acute retroperitoneal bleed to suggest worsening anemia who GI reconsulted today, EGD did not find GI bleeding. GI does not consider patient needs colonoscopy: Follow-up hemoglobin 6.9 on 12/09, transfuse 2 packed RBCs, follow-up ferritin and iron panel, indicating iron deficient anemia Follow-up stool guaiac negative on 12/09/22 Start ferrous sulfate p.o. and Venofer IV Hb 10.1 after transfusion stable at 10 ok to DC AFib DC on eliquis stable rate Hyponatremic 130. Hypokalemia, hypocalcemia Replace sodium chloride and the potassium chloride calcium carbonate DC sodium chloride tablets on DC Mild WBC. Urine culture mixed genital [place] isolated. Fall injury recently on 11/21/2022 sustaining distal radial ulnar metaphyseal fracture. Wrist x-ray with distal radial ulnar metaphyseal fracture. Managed conservatively with wrist splint. Chronic medical issues including Mild emphysema and large sliding hiatal hernia noted on CTA. 3.2 cm infrarenal abdominal aortic aneurysm. Patient has no wheezing urinary retention placed on a Soto catheter with outpatient follow-up with urology. SNF placement likely dc tomorrow Subjective Date/time seen: 12/15/22 14:31 Interval history: ?87-year-old fem
[2022-12-15 16:58] LABS: Glucose Point of Care 93 mg/dl (65-105)
[2022-12-15 20:03] LABS: Glucose Point of Care 107 mg/dl (65-105)
[2022-12-15] MEDS: ACETAMINOPHEN 325 MG TABLET 650 MG PO (20:07)
[2022-12-16] VITALS (8 sets, daily range): BP systolic 117–133; BP diastolic 50–77; PULSE 76–95; RESP 16–18; TEMP 36.7–36.8; O2SAT 92–100
[2022-12-16] MEDS: ACETAMINOPHEN 325 MG TABLET 650 MG PO (02:10)
[2022-12-16] MEDS: LEVALBUTEROL NEB 1.25 MG/3 ML 0.63 MG INHALATION ×3 (02:51→13:51)
[2022-12-16 05:27] LABS: Hematocrit 32.2 % (37.0-47.0); Hemoglobin 9.7 g/dL (12.0-15.0); Mean Corpuscular HGB Conc 30.1 g/dl (32-36); Mean Corpuscular Hemoglobin 27.1 pg (26-34); Mean Corpuscular Volume 89.9 fl (80-100); Platelet Count Result 312 k/mm3 (150-375); Red Blood Count 3.58 M/mm3 (4.2-5.4); Red Cell Distribution Width 18.3 % (11.5-14.5); White Blood Count 4.2 K/mm3 (4.5-10.0)
[2022-12-16 05:38] LABS: Potassium 3.3 mmol/L (3.4-5.0)
[2022-12-16 05:40] LABS: Partial Thromboplastin Time 38.7 SECONDS (22.3-36.8)
[2022-12-16] MEDS: SALINE LOCK FLUSH 10 ML IV PUSH ×2 (06:24→12:21)
[2022-12-16] MEDS: IPRATROPIUM BR 0.02% INH SOLN 0.5 MG/2.5 ML VIAL INHALATION (08:05)
[2022-12-16] MEDS: SODIUM CHLORIDE 1 GM TABLET PO ×2 (08:20→12:21)
[2022-12-16] MEDS: LOSARTAN POTASSIUM 50 MG TABLET PO (08:21)
[2022-12-16] MEDS: PANTOPRAZOLE 40 MG TABLET PO (08:21)
[2022-12-16] MEDS: ATORVASTATIN 40 MG TABLET PO (08:21)
[2022-12-16] MEDS: FERROUS SULFATE 325 MG TABLET DR PO (08:21)
[2022-12-16] MEDS: SENNA/DOCUSATE SODIUM TABLET 1 TAB PO (08:21)
[2022-12-16] MEDS: POTASSIUM CHLORIDE 20 MEQ PACKET (FOR LIQUID) PO (08:21)
[2022-12-16] MEDS: APIXABAN 5 MG TABLET PO (08:21)
[2022-12-16] MEDS: SILVERGEL (ELTA) 45 ML 1 APPLIC TOPICAL (08:22)
[2022-12-16 08:33] LABS: Glucose Point of Care 70 mg/dl (65-105)
[2022-12-16 12:10] LABS: Glucose Point of Care 61 mg/dl (65-105)
[2022-12-16] MEDS: GLUCOSE ORAL GEL 15 GM OF GLUCSE IN 37.5 GM TUBE PO (12:24)
[2022-12-16 12:25] LABS: Glucose Point of Care 65 mg/dl (65-105)
[2022-12-16 12:46] LABS: Glucose Point of Care 69 mg/dl (65-105)
[2022-12-16 13:17] LABS: Glucose Point of Care 118 mg/dl (65-105)
--- NOTE | 2022-12-16 13:42 | PM.PNPUL ---
Progress Note: A&P Assessment and Plan (1) Pulmonary embolism: Qualifiers: Pulmonary embolism type: multiple subsegmental (without acute cor pulmonale) Qualified Code(s): I26.94 - Multiple subsegmental pulmonary emboli without acute cor pulmonale Code(s): I26.99 - Other pulmonary embolism without acute cor pulmonale Status: Acute Assessment and Plan: Respiratory status stable over the last 48 hours. Patient is currently receiving Eliquis 5 mg twice daily. No further GI bleed noted. Per per GI Services, it is okay to continue with current anticoagulant and monitor for signs of GI bleed. Plan: Okay to discharge patient home. I gave the patient a business card with the pulmonary clinic number to call to make an appointment in approximately 1 month from today. She will continue her maintenance bronchodilators for COPD. Will sign off please call with any questions. (2) COPD (chronic obstructive pulmonary disease): Code(s): J44.9 - Chronic obstructive pulmonary disease, unspecified Status: Acute (3) Peripheral arterial disease: Code(s): I73.9 - Peripheral vascular disease, unspecified Status: Acute (4) Right wrist fracture: Code(s): S62.101A - Fracture of unspecified carpal bone, right wrist, initial encounter for closed fracture Status: Acute (5) Chronic anticoagulation: Code(s): Z79.01 - psychiatry resident (current) use of anticoagulants Status: Chronic (6) Acute on chronic anemia: Code(s): D64.9 - Anemia, unspecified Status: Acute (7) Occult blood in stools: Code(s): R19.5 - Other fecal abnormalities Status: Acute Subjective Date/time seen: 12/16/22 13:42 Interval history: Patient has no new respiratory symptoms. She remains on room air. Slept well last night. Currently on Eliquis 500 mg twice daily. Eager to go home. Review of Systems Review of Systems: All systems reviewed & are unremarkable except as noted in HPI and below Exam Narrative: GENERAL APPEARANCE: Well developed, well nourished, alert and cooperative, and appears to be in no acute distress SKIN: Inspection of the skin reveals no rashes, ulcerations or petechiae. HEENT: Sclerae anicteric and conjunctivae pink and moist. Extraocular movements were intact and pupils were equal, round. The oral mucosa, hard and soft palate, tongue and posterior pharynx were normal. NECK: Supple. There was no thyroid enlargement, and no tenderness, or masses were felt. CHEST: Normal AP diameter and normal contour without any kyphoscoliosis. LUNGS: Ray crackles at bases posteriorly no wheezing CARDIAC: There was a regular rate and rhythm without any murmurs, gallops, rubs. ABDOMEN: Soft and nontender with normal bowel sounds. There was no organomegaly. LYMPH NODES: No lymphadenopathy was appreciated in the neck. EXTREMITIES: No cyanosis, clubbing or edema. Right forearm splint. NEUROLOGIC: Alert and oriented x 3. Normal affect. Objective Data Vital Signs Vital Signs: Vital Signs - 24 hr 12/15/22 14:06 12/15/22 14:15 12/15/22 14:00 Temperature 36.8 C Pulse Rate 94 90 95 Respiratory Rate 18 18 16 Blood Pressure 135/70 Pulse Oximetry 92 Oxygen Delivery 12/15/22 17:35 12/15/22 19:56 12/15/22 19:56 Temperature 36.9 C Pulse Rate 98 92 Respiratory Rate 16 18 Blood Pressure 143/68 H Pulse Oximetry 100 93 Oxygen Delivery Room Air 12/15/22 20:44 12/15/22 20:00 12/16/22 02:51 Temperature 36.9 C Pulse Rate 86 89 Respiratory Rate 17 18 Blood Pressure 130/76 Pulse Oximetry 94 Oxygen Delivery Room Air 12/16/22 03:00 12/15/22 20:15 12/16/22 05:28 Temperature 36.7 C Pulse Rate 82 87 76 Respiratory Rate 18 18 18 Blood Pressure 133/50 L Pulse Oximetry 94 Oxygen Delivery 12/16/22 08:08 12/16/22 08:08 12/16/22 08:00 Temperature Pulse Rate 87 87 Respiratory Rate 18 Blood Pressure Pulse Oximetry 92
[2022-12-16 14:20] LABS: SARS-CoV-2 RNA PCR Negative (Negative)
== END 2022-12-16 15:00 | DRG 176 ==
LOC: ANHED 13:30 → ANHIMU 17:01 → ANH2MED 11-27 21:55
PROVIDERS: Family Medicine; Hospitalist; Internal Medicine; Internal Medicine Gastroenterology; Nurse Practitioner; Admitting Provider Internal Medicine; Emergency Provider Emergency Medicine; PCP Family Medicine; Visit Provider Family Medicine
PROC: 0DJ08ZZ Inspection of Upper Intestinal Tract, Via Natural or Artificial Opening Endoscopic (ICD-10-PCS; CPT 43235; principal; 2022-12-08 13:00)
PROC: 0DJD8ZZ Inspection of Lower Intestinal Tract, Via Natural or Artificial Opening Endoscopic (ICD-10-PCS; CPT 45330; 2022-12-08 13:00)
DX: I26.99 Other pulmonary embolism without acute cor pulmonale (principal); E87.1 Hypo-osmolality and hyponatremia; Z20.822 Contact with and (suspected) exposure to COVID-19; K29.70 Gastritis, unspecified, without bleeding; K57.30 Diverticulosis of large intestine without perforation or abscess without bleeding; K60.2 Anal fissure, unspecified; D50.9 Iron deficiency anemia, unspecified; G47.33 Obstructive sleep apnea (adult) (pediatric); E78.5 Hyperlipidemia, unspecified; F32.9 Major depressive disorder, single episode, unspecified; E11.9 Type 2 diabetes mellitus without complications; I10 Essential (primary) hypertension; I48.91 Unspecified atrial fibrillation; E83.51 Hypocalcemia; E87.6 Hypokalemia; R09.02 Hypoxemia; R33.9 Retention of urine, unspecified; I71.40 Abdominal aortic aneurysm, without rupture, unspecified; J43.9 Emphysema, unspecified; K21.9 Gastro-esophageal reflux disease without esophagitis; S52.501D Unspecified fracture of the lower end of right radius, subsequent encounter for closed fracture with routine healing; S52.601D Unspecified fracture of lower end of right ulna, subsequent encounter for closed fracture with routine healing; W19.XXXD Unspecified fall, subsequent encounter; N39.3 Stress incontinence (female) (male); K44.9 Diaphragmatic hernia without obstruction or gangrene; I73.9 Peripheral vascular disease, unspecified; Z66 Do not resuscitate; F41.9 Anxiety disorder, unspecified; M19.90 Unspecified osteoarthritis, unspecified site; Z79.82 Long term (current) use of aspirin; Z79.01 Long term (current) use of anticoagulants; Z79.02 Long term (current) use of antithrombotics/antiplatelets; Z90.49 Acquired absence of other specified parts of digestive tract; Z90.710 Acquired absence of both cervix and uterus; Z89.432 Acquired absence of left foot
CPT/HCPCS: 36415; 36430; 36569; 36600; 71045; 71275; 74176; 80048; 80053; 82274; 82728; 82805; 82948; 83540; 83550; 83735; 83880; 84132; 85025; 85027; 85610; 85730; 86850; 86900; 86901; 86923; 87635; 88305; 93005; 93306; 93970; 93971; 94640; 96365; 96366; 97110; 97161; 97164; 97165; 97166; 97530; 97535; 99285; A9270; G0378; J1644; J1650; J1756; J1940; J2704; J3480; J7120; J7512; P9016; Q9967

== ENCOUNTER 2022-12-17 19:28 | Observation (INO) | payer MEDICARE, SELFPAY ==
[2022-12-17] VITALS (23 sets, daily range): BP systolic 105–148; BP diastolic 22–86; PULSE 99–157; RESP 20–53; O2SAT 88–100
--- NOTE | ~2022-12-17 | XR_ITS ---
EXAMINATION: XR chest 1V portable DATE: 12/17/2022 19:50 INDICATION: COPD and hypertension presenting with shortness of breath TECHNIQUE: frontal view of the chest was obtained. COMPARISON: Chest radiograph dated 12/05/2022 FINDINGS: Hyperexpansion of lungs consistent with emphysema better appreciated on prior CT. Mild streaky bibasi lar atelectasis. Mild increased interstitial pattern in the bilateral lower lung zones suggesting mil d pulmonary edema. No pneumothorax or definitive pleural effusion. Heart size is normal. Large hiatal hernia. IMPRESSION: 1. Increased interstitial pattern in the bilateral lower lung zones suggestive of mild pulmonary deyanira a. 2. Mild emphysema. 3. Large hiatal hernia. Reviewed, dictated and finalized at location A. IMPRESSION: 1. Increased interstitial pattern in the bilateral lower lung zones suggestive of mild pulmonary edema. 2. Mild emphysema. 3. Large hiatal hernia.
--- NOTE | ~2022-12-17 | XR_ITS ---
EXAMINATION: XR wrist RT min 3V DATE: 12/20/2022 12:58 INDICATION: Right wrist fracture TECHNIQUE: Posteroanterior, oblique and lateral views of the right wrist were obtained. COMPARISON: 11/21/2022 FINDINGS: Interval Fiberglas splinting of the fracture at the right wrist. There is one cortical width dorsal d isplacement and 15 degrees dorsal angulation of the distal metaphyseal fractures of the right radius. There is mild comminution along the dorsal margin of the metaphysis. No definitive intra-articular f racture line identified. Additional one-2 cortical widths dorsal lateral displacement of an additiona l oblique fracture through distal right ulnar metaphysis. No definitive productive changes of healing yet apparent however assessment is limited by the superimposed splinting material. Advanced osteoart hritis at the triscaphe and first carpal metacarpal joints. There is mild widening of the scapholunat e interval and increased scapholunate and lunocapitate angle suggestive of disruption of the scapholu kaela ligament with secondary dorsal intercalated segment instability (DISI). IMPRESSION: 1. Unchanged minimal dorsal displacement and 15 degrees dorsal angulation of the distal metaphyseal f ractures of the right radius without definitive productive changes of healing yet apparent. 2. Unchanged minimal displacement of a distal ulnar metaphyseal fracture. 3. Likely disruption of the scapholunate ligament with secondary dorsal intercalated segment instabil ity (DISI). 4. 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 Reviewed, dictated and finalized at location A. IMPRESSION: 1. Unchanged minimal dorsal displacement and 15 degrees dorsal angulation of th e distal metaphyseal fractures of the right radius without definitive productiv e changes of healing yet apparent. 2. Unchanged minimal displacement of a distal ulnar metaphyseal fracture. 3. Likely disruption of the scapholunate ligament with secondary dorsal interca lated segment instability (DISI). 4. 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
--- NOTE | ~2022-12-17 | CT_ITS ---
EXAMINATION: CT brain wo con DATE: 12/17/2022 22:09 INDICATION: Altered mental status with intermittent consciousness TECHNIQUE: Computed tomography (CT) of the head was performed without intravenous contrast. Sagittal and coronal reconstructions were performed. The mA was adjusted according to patient size. Iterative reconstruction technique was employed. The dose-length product was 605.33 mGy-cm. COMPARISON: head CT dated 11/21/2022 FINDINGS: No acute intracranial hemorrhage, acute infarction or abnormal extra axial fluid collection. There is mild scattered white matter hypoattenuation consistent with chronic small vessel ischemic di sease. Symmetric prominence of the sulci and ventricles consistent with moderate age-appropriate diff use cerebral volume loss. No mass/mass effect. The orbits, paranasal sinuses and mastoid air cells ar e normal. Intracranial calcified cerebral atherosclerosis is noted. IMPRESSION: 1. No acute intracranial process. 2. Age-related changes including moderate diffuse volume loss and mild scattered white matter hypoatt enuation consistent with chronic small vessel ischemic disease. Reviewed, dictated and finalized at location A. IMPRESSION: 1. No acute intracranial process. 2. Age-related changes including moderate diffuse volume loss and mild scattere d white matter hypoattenuation consistent with chronic small vessel ischemic di sease.
--- NOTE | ~2022-12-17 | XR_ITS ---
XR chest 1V portable DATE: 12/19/2022 05:52 INDICATION: Congestive heart failure TECHNIQUE: Portable upright AP chest on 12/19/2022 at 0523 hours COMPARISON: 12/17/2022 portable AP chest at 1945 hours FINDINGS: Heart size appears normal. There is a large hiatal hernia. Is aortic calcification and unfo lding. There is mild bibasilar infiltrate or atelectasis. Small left pleural effusion is suggested. Prominent diffuse osteopenia. Osteophytic change at the glenohumeral joints. Bilateral rotator cuff a trophy. Intravenous catheter overlies left upper extremity, forming 1 loop distally. IMPRESSION: Mild bibasilar infiltrate or atelectasis and small left pleural effusions Large hiatal hernia is aortic atherosclerosis Osteopenia Reviewed, dictated and finalized at location A. IMPRESSION: Mild bibasilar infiltrate or atelectasis and small left pleural eff usions Large hiatal hernia is aortic atherosclerosis Osteopenia
--- NOTE | 2022-12-17 19:42 | ECG_ITS ---
Measurements Intervals [place] Rate: 110 P: 72 [place]: 144 QRS: -29 QRSD: 77 T: 58 QT: 314 QTc: 425 Interpretive Statements SINUS TACHYCARDIA ANTEROSEPTAL MYOCARDIAL INFARCTION , PROBABLY OLD [40+ ms Q WAVE IN V1-V4] COMPARED TO ECG 11/26/2022 13:10:45 SINUS TACHYCARDIA NOW PRESENT MYOCARDIAL INFARCT FINDING NOW PRESENT Electronically Signed On 12-18-2022 11:36:38 CDT by Rich Lau MD
--- NOTE | 2022-12-17 19:49 | ED.AMS ---
HPI - Altered Mental Status General Chief Complaint: Altered Mental Status Stated Complaint: altered mental status Time Seen by Provider: 12/17/22 19:33 History of Present Illness HPI narrative: 87-year-old female presented the emergency department for evaluation for altered mental status. Patient was recently discharged back to the [facility] but was found to have altered mental status. Patient does have an arm fracture and was on medications for pain control. Upon arrival to the emergency department patient was somnolent and hypoxic. Oxygenation did improve when placed on nasal oxygen. Patient had no significant response to the Narcan. Patient denies any complaints and is responsive to verbal stimuli. Patient's previous admission was reviewed. Related Data Home Medications Medication Instructions Recorded Confirmed qxibppak-[id number] acid 0.4 1 tablet PO 3XW 09/11/20 12/18/22 mg-lycopene 300 mcg-lutein 250 mcg tablet (Centrum Silver) atorvastatin 40 mg tablet 40 mg PO DAILY 10/16/22 12/18/22 acetaminophen 325 mg tablet 650 mg PO Q6H PRN pain or fever 12/18/22 12/18/22 (Tylenol) apixaban 5 mg tablet (Eliquis) 5 mg PO BID 12/18/22 12/18/22 collagenase clostridium histo. 250 1 applic topical DAILY 12/18/22 12/18/22 unit/gram topical ointment (Santyl) diclofenac sodium 1 % topical gel 4 g topical TID 12/18/22 12/18/22 (Voltaren Arthritis Pain) ipratropium 0.5 mg-albuterol 3 mg 3 ml inhalation Q6H PRN SOB 12/18/22 12/18/22 (2.5 mg base)/3 mL nebulization soln oxycodone 5 mg tablet 5 mg PO Q6H PRN Pain (Scale Score 12/18/22 12/18/22 7-10) pantoprazole 40 mg tablet,delayed 40 mg PO BID 12/18/22 12/18/22 release polyethylene glycol 3350 17 gram 17 g PO QAM Constipation 12/18/22 12/18/22 oral powder packet (Miralax) prednisone 10 mg tablet See Rx Instructions .Route .COMPLEX 12/18/22 12/18/22 sennosides 8.6 mg tablet (Senna 8.6 mg PO BID 12/18/22 12/18/22 Lax) Allergies Allergy/AdvReac Type Severity Reaction Status Date / Time No Known Allergies Allergy Verified 12/18/22 00:31 Review of Systems Review of Systems: All systems reviewed & are unremarkable except as noted in HPI and below PMFSH Past Medical History Medical History Acute on chronic anemia Anxiety Arthritis Chronic anticoagulation Chronic obstructive pulmonary disease, unspecified Closed fracture of right distal radius and ulna Depression Diet-controlled type 2 diabetes mellitus Fall Gastroesophageal reflux disease Hyperlipidemia Hypertension Multifocal atrial tachycardia Occult blood in stools Peripheral arterial disease Rhabdomyolysis Seasonal affective disorder Stress incontinence Tobacco abuse Vitamin D deficiency Weakness Surgical History Surgical History History of appendectomy History of cataract surgery History of colonoscopy with polypectomy History of hemorrhoidectomy History of hysterectomy Family History Family History Mother Diabetes mellitus Family history of malignant neoplasm Family history of diabetes mellitus in first degree relative Patient's mother is Father Malignant neoplasm of prostate Social History Social History Social History: The patient has help at home now. She has [facility] care. He is a former smoker. She is x3 and has 1 son. 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 Smoking packs per day: 2 Smoking cigarettes per day: 40.0 Years smoked: 60 Smoking pack-years: 120.00 Smoking status: Former smoker Tobacco type: cigarettes Second hand tobacco smoke exposure: No Additional smoking assessment comments: pt currently smokes 2-3 cigarettes per day A
[2022-12-17] MEDS: NALOXONE HCL INJ 2 MG/2 ML AMP NASAL (19:55)
[2022-12-17 20:15] LABS: Basophils Percent Auto 0.5 % (0.2-1.2); Eosinophils Absolute Auto 0.2 K/mm3 (0-0.3); Eosinophils Percent Auto 3.2 % (0-4.4); Hematocrit 38.8 % (37.0-47.0); Hemoglobin 11.6 g/dL (12.0-15.0); Immature Granulocyte Absolute 0.03 K/mm3 (0.00-0.031); Immature Granulocyte Percent A 0.5 % (0-0.5); Lymphocytes Absolute Auto 0.32 K/mm3 (0.9-3.2); Lymphocytes Percent Auto 4.8 % (18.3-44.2); Mean Corpuscular HGB Conc 29.9 g/dl (32-36); Mean Corpuscular Hemoglobin 26.9 pg (26-34); Mean Platelet Volume 8.9 fl (7.4-10.4); Monocytes Absolute Auto 0.4 K/mm3 (0.1-0.6); Monocytes Percent Auto 6.6 % (2.6-8.5); Neutrophils Absolute Auto 5.6 K/mm3 (1.3-6.7); Neutrophils Percent Auto 84.4 % (45.5-73.1); Platelet Count Result 436 k/mm3 (150-375); Red Blood Count 4.31 M/mm3 (4.2-5.4); Red Cell Distribution Width 18.4 % (11.5-14.5); White Blood Count 6.6 K/mm3 (4.5-10.0)
[2022-12-17] MEDS: ALBUTEROL SULFATE NEB 2.5 MG/3 ML INH INHALATION (20:19)
[2022-12-17 20:29] LABS: Lactic Acid Reflex 1.2 mmol/L (0.7-2.0)
[2022-12-17 20:31] LABS: Alveolar/Arterial O2 Gradient 84.2 mmHg; Base Excess ABG -0.1 mEq/l (+/-2.0); Carboxyhemoglobin 0.2 % THb (0-2.0); Fractional Inspired Oxygen 32 %; HCO3 ABG 25.8 mEq/l (22.0-26.0); Methemoglobin ABG 0.4 %THb (0-1.5); Oxygen Content ABG 16.9 %vol (16.0-22.0); Oxygen Saturation ABG 96.4 % (95.0-100.0); Oxyhemoglobin 95.9 % THb (90.0-100.0); PCO2 ABG 47.2 mmHg (35.0-45.0); PO2 ABG 88.7 mmHg (80.0-100.0); PO2 FiO2 Ratio Arterial Blood 2.77 %; Reduced Hemoglobin 3.5 %THb (0-5.0); Total Hemoglobin 12.5 g/dL (12.0-18.0); pH ABG 7.356 (7.350-7.450)
[2022-12-17 20:33] LABS: Device NASAL CANNULA; Modified Allen's Test Pass; Site Drawn LEFT RADIAL
[2022-12-17 20:36] LABS: INR 1.1; Prothrombin Time 14.4 Seconds (11.1-14.7)
[2022-12-17 20:37] LABS: Alanine Aminotransferase 33 U/L (6-35); Albumin Level 3.2 g/dL (3.5-5.1); Alkaline Phosphatase 151 U/L (38-126); Anion Gap 5 mmol/L (8-16); Aspartate Amino Transferase 46 U/L (14-36); Bilirubin,Total 0.4 mg/dL (0.2-1.3); Blood Urea Nitrogen 8 mg/dL (7-17); Calcium 8.6 mg/dL (8.4-10.2); Carbon Dioxide 30 mmol/L (22-30); Chloride 105 mmol/L (98-107); Estimated CRCL calculation 56 ml/min; Estimated Glomerular Filt Rate > 60; Glucose 127 mg/dL (65-110); Partial Thromboplastin Time 32.1 SECONDS (22.3-36.8); Potassium 4.2 mmol/L (3.4-5.0); Sodium 140 mmol/L (137-145)
[2022-12-17 20:42] LABS: Anisocytosis 1+ (NORMAL); Hypochromasia 1+ (NORMAL); Platelet Estimate Adequate (Adequate); Poikilocytosis 1+ (NORMAL)
[2022-12-17 20:43] LABS: Schistocytes Rare (NORMAL)
[2022-12-17 21:03] LABS: Influenza A QL RT-PCR Negative (Negative); Influenza B QL RT-PCR Negative (Negative); RSV RNA, RT-PCR Negative (Negative); SARS-CoV-2 RNA PCR Negative (Negative)
[2022-12-17 21:14] LABS: NT Pro B Type Natriuretic Pept 4030 pg/mL (19.9-100)
[2022-12-17] MEDS: FUROSEMIDE INJ 40 MG/4 ML VIAL IV PUSH (22:14)
[2022-12-17 22:22] LABS: Troponin I 0.123 ng/mL (0.000-0.034)
--- NOTE | 2022-12-17 22:23 | ECG_ITS ---
Measurements Intervals [place] Rate: 91 P: 77 [place]: 167 QRS: 12 QRSD: 89 T: 70 QT: 367 QTc: 453 Interpretive Statements SINUS RHYTHM WITH OCCASIONAL SUPRAVENTRICULAR PREMATURE COMPLEXES SEPTAL MYOCARDIAL INFARCTION , PROBABLY OLD [40+ ms Q WAVE IN V1/V2] COMPARED TO ECG 12/17/2022 20:08:12 SINUS RHYTHM NOW PRESENT Electronically Signed On 12-18-2022 11:37:58 CDT by Rich Lau MD
[2022-12-18] VITALS (16 sets, daily range): BP systolic 103–127; BP diastolic 48–79; PULSE 77–101; RESP 16–18; TEMP 36.4–37.2; O2SAT 87–100; BMI 23.3
--- NOTE | 2022-12-18 00:30 | ADMGEN ---
This patient, Monica Crawley, was admitted to IMU Room 207-01 on 12/18/22 at 0016. Patient/family oriented to hospital policies and general routines including ID bracelet, bed and alarms, visiting hours, pain management, procedures, bathroom and other care routines, personal items, smoking policy, room service/diet, and visiting hours. Information on how to activate the Rapid Response Team has been discussed. Patient/Family are encouraged to report perceived risks to care and to ask questions if they do not understand what they are told or what they should do.
--- NOTE | 2022-12-18 00:42 | PM.IMHP ---
H&P: HPI History of Present Illness Date/Time: 12/18/22 00:42 Chief Complaint: AMS Narrative: THIS IS AN 87-YEAR-OLD FEMALE WITH PAST MEDICAL HISTORY SIGNIFICANT FOR CHRONIC OBSTRUCTIVE PULMONARY DISEASE, TYPE DIABETES MELLITUS, GERD, HYPERLIPIDEMIA, HYPERTENSION, PERIPHERAL ARTERIAL DISEASE, STRESS INCONTINENCE. [facility] WAS BROUGHT FOR EVALUATION DUE TO ALTERED MENTAL STATUS PATIENT WAS NOTED TO BE VERY UNRESPONSIVE IN EMERGENCY ROOM HAD A DOSE OF NARCAN WITH NOT MUCH RESPONSE TO IT. PATIENT CAN'T TELL WHY SHE IS IN THE HOSPITAL. PRELIMINARY WORKUP WAS SIGNIFICANT FOR ELEVATED TROPONINS, INITIAL TROPONIN WAS 0.122ND TROPONIN WAS 0.111 A BRAIN NATRIURETIC PEPTIDE WAS UPWARDS 4000. PATIENT HAS BEEN ADMITTED FOR FURTHER EVALUATION MANAGEMENT AND TREATMENT. EXAMINATION: XR chest 1V portable DATE: 12/17/2022 19:50 INDICATION: COPD and hypertension presenting with shortness of breath TECHNIQUE: frontal view of the chest was obtained. COMPARISON: Chest radiograph dated 12/05/2022 FINDINGS: Hyperexpansion of lungs consistent with emphysema better appreciated on prior CT. Mild streaky bibasilar atelectasis. Mild increased interstitial pattern in the bilateral lower lung zones suggesting mild pulmonary edema. No pneumothorax or definitive pleural effusion. Heart size is normal. Large hiatal hernia. IMPRESSION: 1. Increased interstitial pattern in the bilateral lower lung zones suggestive of mild pulmonary edema. 2. Mild emphysema. 3. Large hiatal hernia. EXAMINATION: CT brain wo con DATE: 12/17/2022 22:09 INDICATION: Altered mental status with intermittent consciousness TECHNIQUE: Computed tomography (CT) of the head was performed without intravenous contrast. Sagittal and coronal reconstructions were performed. The mA was adjusted according to patient size. Iterative reconstruction technique was employed. The dose-length product was 605.33 mGy-cm. COMPARISON: head CT dated 11/21/2022 FINDINGS: No acute intracranial hemorrhage, acute infarction or abnormal extra axial fluid collection. There is mild scattered white matter hypoattenuation consistent with chronic small vessel ischemic disease. Symmetric prominence of the sulci and ventricles consistent with moderate age-appropriate diffuse cerebral volume loss. No mass/mass effect. The orbits, paranasal sinuses and mastoid air cells are normal. Intracranial calcified cerebral atherosclerosis is noted. IMPRESSION: 1. No acute intracranial process. 2. Age-related changes including moderate diffuse volume loss and mild scattered white matter hypoattenuation consistent with chronic small vessel ischemic disease. Review of Systems Review of Systems: ROS unobtainable: Yes unobtainable due to mental status ( OBTUNDATION) [facility] Past Medical History Medical History Acute on chronic anemia Anxiety Arthritis Chronic anticoagulation Chronic obstructive pulmonary disease, unspecified Closed fracture of right distal radius and ulna Depression Diet-controlled type 2 diabetes mellitus Fall Gastroesophageal reflux disease Hyperlipidemia Hypertension Multifocal atrial tachycardia Occult blood in stools Peripheral arterial disease Rhabdomyolysis Seasonal affective disorder Stress incontinence Tobacco abuse Vitamin D deficiency Weakness Surgical History Surgical History History of appendectomy History of cataract surgery History of colonoscopy with polypectomy History of hemorrhoidectomy History of hysterectomy Family History Family History Mother Diabetes mellitus Family history of malignant neoplasm Family history of diabetes mellitus in first degree relative Patient's mother is Father Malignant neoplasm of prostate Social History S
[2022-12-18 00:56] LABS: Troponin I 0.111 ng/mL (0.000-0.034)
[2022-12-18 05:20] LABS: Troponin I 0.067 ng/mL (0.000-0.034)
[2022-12-18 09:35] LABS: Anion Gap 4 mmol/L (8-16); Blood Urea Nitrogen 9 mg/dL (7-17); Calcium 8.3 mg/dL (8.4-10.2); Carbon Dioxide 31 mmol/L (22-30); Chloride 103 mmol/L (98-107); Estimated Glomerular Filt Rate > 60; Glucose 113 mg/dL (65-110); Potassium 3.5 mmol/L (3.4-5.0); Sodium 138 mmol/L (137-145)
[2022-12-18] MEDS: POTASSIUM CHLORIDE 20 MEQ PACKET (FOR LIQUID) PO ×2 (09:52→17:37)
[2022-12-18] MEDS: PANTOPRAZOLE 40 MG TABLET PO ×2 (09:52→20:20)
[2022-12-18] MEDS: APIXABAN 5 MG TABLET PO ×2 (09:53→20:20)
[2022-12-18] MEDS: LOSARTAN POTASSIUM 50 MG TABLET PO ×2 (09:53→20:20)
[2022-12-18] MEDS: SENNOSIDES 8.6 MG TABLET PO (17:37)
[2022-12-18] MEDS: FERROUS SULFATE 325 MG TABLET DR PO (17:37)
[2022-12-18] MEDS: FUROSEMIDE INJ 40 MG/4 ML VIAL 20 MG IV PUSH (17:39)
[2022-12-18] MEDS: MELATONIN 3 MG TABLET PO (20:20)
[2022-12-18] MEDS: SALINE LOCK FLUSH 10 ML IV PUSH (20:21)
[2022-12-19] VITALS (9 sets, daily range): BP systolic 99–112; BP diastolic 41–58; PULSE 74–90; RESP 18–20; TEMP 36.6; O2SAT 98–100
[2022-12-19] MEDS: SALINE LOCK FLUSH 10 ML IV PUSH ×2 (05:33→16:14)
--- NOTE | 2022-12-19 06:31 | PC.NURSE ---
This patient, Monica Crawley, was transferred to room [facility]- on 12/19/22 at 0625. Personal belongings sent with patient. Report given to BreaTHOMAS. Appropriate documentation sent with patient.
--- NOTE | 2022-12-19 07:22 | PC.NURSE ---
12/19/22 0645-Attempted to call Yas REYNA to inform of transfer to 2nd medical room 250 with no answer.
[2022-12-19] MEDS: APIXABAN 5 MG TABLET PO ×2 (08:15→20:56)
[2022-12-19] MEDS: FERROUS SULFATE 325 MG TABLET DR PO ×2 (08:15→16:13)
[2022-12-19] MEDS: DICLOFENAC SODIUM 1% 100 GM GEL (*BKC) 1 APPLIC TOPICAL ×3 (08:15→16:13)
[2022-12-19] MEDS: ERGOCALCIFEROL 50,000 UNITS CAPSULE 50000 UNITS PO (08:15)
[2022-12-19] MEDS: ATORVASTATIN 40 MG TABLET PO (08:15)
[2022-12-19] MEDS: POTASSIUM CHLORIDE 20 MEQ PACKET (FOR LIQUID) PO ×2 (08:15→16:14)
[2022-12-19] MEDS: SENNOSIDES 8.6 MG TABLET PO (08:15)
[2022-12-19] MEDS: PANTOPRAZOLE 40 MG TABLET PO ×2 (08:15→20:56)
[2022-12-19] MEDS: polyethylene glycoL 3350 17 GM POWD.PACK PO (08:19)
--- NOTE | 2022-12-19 10:35 | PCPTNOTE ---
Attempted to see for physical therapy evaluation, pt refused stating she is too comfortable to get up at this time. Will continue to follow.
--- NOTE | 2022-12-19 11:24 | PC.NURSE ---
Dr Farmer notified of holding am cozzar due to decreased bp.
--- NOTE | 2022-12-19 12:08 | PM.IMPN ---
Progress Note: A&P Assessment and Plan (1) Altered mental status, unspecified: Qualifiers: Altered mental status type: disorientation Qualified Code(s): R41.0 - Disorientation, unspecified Code(s): R41.82 - Altered mental status, unspecified Status: Inactive Assessment and Plan: Patient presents with AMS. In ED, patient was somnolent and hypoxic. No signifincat response with Narcan. CXR showing increased interstitial pattern bilateral lung zones. CT brain showing no acute findings. Suspect adverse effects from pain meds Mental status better. Continue supportive care (2) Elevated troponin: Code(s): R77.8 - Other specified abnormalities of plasma proteins Status: Acute Assessment and Plan: Patient with elevated troponins to 0.123. BNP 4000. No chest pain but patient confused on admission. EKG reviewed and appears similar to prior EKG. The QS pattern in anterior leads was seen on 11/26/22 EKG so do not feel this was new. Echo from 11/29 showing normal LV size ans systolic function. Repeat CXR better. Consider AMI vs mild CHF. Continue Lipitor. Add ASA. Cardiology consulted. Repeat Echo as limited. BP soft so will hold on repeating Lasix. Adjust Losartan. Wean O2 as tolerated. (3) COPD (chronic obstructive pulmonary disease): Code(s): J44.9 - Chronic obstructive pulmonary disease, unspecified Status: Acute Assessment and Plan: No wheezing. On 2L O2 but probably could be weaned. Nebs available prn. (4) ANTHONY on CPAP: Code(s): G47.33 - Obstructive sleep apnea (adult) (pediatric); Z99.89 - Dependence on other enabling machines and devices Status: Acute Assessment and Plan: Stable. ABG 7.36/47/89 3L on admission. Continue CPAP at nighttime. (5) Closed fracture of right distal radius and ulna: Qualifiers: Encounter type: initial encounter Qualified Code(s): S52.501A - Unspecified fracture of the lower end of right radius, initial encounter for closed fracture; S52.601A - Unspecified fracture of lower end of right ulna, initial encounter for closed fracture Code(s): S52.501A - Unspecified fracture of the lower end of right radius, initial encounter for closed fracture; S52.601A - Unspecified fracture of lower end of right ulna, initial encounter for closed fracture Status: Acute Assessment and Plan: Nonoperative. Continue supportive care PT ordered. Add OT (6) Pulmonary embolism: Qualifiers: Pulmonary embolism type: multiple subsegmental (without acute cor pulmonale) Qualified Code(s): I26.94 - Multiple subsegmental pulmonary emboli without acute cor pulmonale Code(s): I26.99 - Other pulmonary embolism without acute cor pulmonale Status: Acute Assessment and Plan: Hx of PE recently. CTA chest 11/26 showing acute PE JANNET and RML. Dopper 11/27 negative for DVT bilateral LE. Continue Eliquis Subjective Date/time seen: 12/19/22 12:08 Interval history: 87yo female with recent right wrist fx, DM, HTN, and COPD here for altered mental status Assuming care. Chart reviewed. She feels good today. She does not wear O2 at the facility. No CP, abd pain or back pain. No SOB. Pain to the right wrist minimal. Does not feel confused today. She was just discharged back to the half-way on 12/16/22 Exam Narrative: AF 97.9 103/54 80 20 99% 2L Gen - NARD Chest - dry inspiratory crackles bilaterally mid and lower lung peñaloza. nml RR CV - RRR S1/S2. Tele showing no signifincat dysrhythias Abd - Soft, NT/ND, Positive BS Ext - No pedal edema. Left distal lateral foot dressing clean and dry Neuro - Alert and oriented x3 (not month). 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
[2022-12-19] MEDS: guaiFENesin 12 HR 600 MG TABCR PO ×2 (16:13→20:56)
[2022-12-19] MEDS: ALTEPLASE 2 MG VIAL (CATHFLO) IV PUSH (17:55)
[2022-12-19] MEDS: MELATONIN 3 MG TABLET PO (20:56)
[2022-12-19] MEDS: diphenhydrAMINE HCl CAP 25 MG CAPSULE PO (20:56)
[2022-12-19] MEDS: LOSARTAN POTASSIUM 25 MG TABLET PO (20:57)
[2022-12-20] VITALS (10 sets, daily range): BP systolic 106–116; BP diastolic 43–52; PULSE 70–98; RESP 17–30; TEMP 36.5–36.6; O2SAT 95–99
--- NOTE | 2022-12-20 | ECHOL_ITS ---
Patient Info Name: Monica Crawley Age: 87 years : 1935 Gender: Female Ht: 59 in Wt: 115 lbs BSA: 1.48 m2 HR: 81 bpm BP: 112 / 50 mmHg Heart Rhythm: Sinus Rhythm Technical Quality: Fair Exam Date: 12/20/2022 10:32 AM Exam Location: [facility], [facility] Exam Room: 250 Patient Status: Inpatient Admit Date: 12/17/2022 Staff Ordering Physician: Jarrod Farmer MD Machine Stone Polisher Apprentice: Rebeca Esquivel RCS Attending Provider: Siva Gutierrez MD Exam Type: CA echo limited Study Info Indications - ELEVATED TROPONINS Limited two-dimensional transthoracic echocardiogram is performed. Summary 1. Left ventricular chamber dimension is normal. 2. Left ventricular systolic function is hyperdynamic, estimated at >70%. 3. There is no increased left ventricular wall thickness. 4. Left ventricular septal wall motion is normal. 5. Left atrial chamber dimension is mildly enlarged. 6. This study was ordered as a limited without Doppler examination. Left Ventricle Left ventricular chamber dimension is normal. Left ventricular systolic function is hyperdynamic, estimated at >70%. There is no increased left ventricular wall thickness. Left ventricular septal wall motion is normal. Right Ventricle Right ventricular chamber dimension is normal. Right ventricular systolic function is normal. Left Atria Left atrial chamber dimension is mildly enlarged. Right Atria Right atrial chamber dimension is normal. Mitral Valve The mitral valve has calcified annulus. Tricuspid Valve The tricuspid valve leaflets are normal. Other Findings This study was ordered as a limited without Doppler examination. Aorta The aortic root size at the sinus of Valsalva is normal. Ventricles Name Value Normal LV Dimensions 2D/MM IVS Diastolic Thickness (2D) 0.6 cm 0.6-1.0 LVID Diastole (2D) 3.5 cm 3.8-5.2 LVIW Diastolic Thickness (2D) 0.7 cm 0.6-0.9 LVID Systole (2D) 2.2 cm 2.2-3.5 LV Mass (2D Cubed) 60.87 g 67.00-162.00 LV Mass Index (2D Cubed) 41 g/m2 43-95 Relative Wall Thickness (2D) 0.42 LV Fractional Shortening/Ejection Fraction 2D/MM LV Fractional Shortening (2D) 37 % 27-45 LV EF (2D Teicholz) 68 % 54-74 LV Diastolic Volume (4C MOD) 32 ml LV EF (4C MOD) 68 % LV Diastolic Volume (2C MOD) 41 ml LV EF (2C MOD) 65 % LV Diastolic Volume (BP MOD) 36 ml 46-106 LV Diastolic Volume Index (BP MOD) 24 ml/m2 29-61 LV Systolic Volume (BP MOD) 12 ml 14-42 LV Systolic Volume Index (BP MOD) 8 ml/m2 8-24 LV EF (BP MOD) 66 % 54-74 LV Diastolic Length (4C) 6.4 cm LV Systolic Length (4C) 4.8 cm LV Stroke Volume (4C MOD) 22 ml Report Signatures
[2022-12-20 06:06] LABS: Hematocrit 36.4 % (37.0-47.0); Hemoglobin 10.5 g/dL (12.0-15.0); Mean Corpuscular HGB Conc 28.8 g/dl (32-36); Mean Corpuscular Hemoglobin 27.1 pg (26-34); Mean Corpuscular Volume 94.1 fl (80-100); Mean Platelet Volume 9.4 fl (7.4-10.4); Platelet Count Result 347 k/mm3 (150-375); Red Blood Count 3.87 M/mm3 (4.2-5.4); Red Cell Distribution Width 17.5 % (11.5-14.5); White Blood Count 3.9 K/mm3 (4.5-10.0)
[2022-12-20 06:11] LABS: Albumin Level 2.7 g/dL (3.5-5.1); Anion Gap -1 mmol/L (8-16); Blood Urea Nitrogen 7 mg/dL (7-17); Calcium 8.4 mg/dL (8.4-10.2); Carbon Dioxide 39 mmol/L (22-30); Chloride 100 mmol/L (98-107); Estimated Glomerular Filt Rate > 60; Glucose 85 mg/dL (65-110); Magnesium 1.9 mg/dL (1.6-2.3); Phosphorus 2.4 mg/dL (2.5-4.5); Potassium 3.7 mmol/L (3.4-5.0); Sodium 138 mmol/L (137-145)
[2022-12-20 08:29] LABS: Glucose Point of Care 80 mg/dl (65-105)
[2022-12-20] MEDS: guaiFENesin 12 HR 600 MG TABCR PO ×2 (09:41→21:05)
[2022-12-20] MEDS: LOSARTAN POTASSIUM 25 MG TABLET PO (09:41)
[2022-12-20] MEDS: ATORVASTATIN 40 MG TABLET PO (09:41)
[2022-12-20] MEDS: PANTOPRAZOLE 40 MG TABLET PO ×2 (09:41→21:06)
[2022-12-20] MEDS: APIXABAN 5 MG TABLET PO ×2 (09:41→21:06)
[2022-12-20] MEDS: POTASSIUM CHLORIDE 20 MEQ PACKET (FOR LIQUID) PO ×2 (09:41→16:35)
[2022-12-20] MEDS: FERROUS SULFATE 325 MG TABLET DR PO ×2 (09:41→16:35)
[2022-12-20] MEDS: FUROSEMIDE 20 MG TABLET PO (10:53)
--- NOTE | 2022-12-20 10:57 | PM.IMPN ---
Progress Note: A&P Assessment and Plan (1) Altered mental status, unspecified: Qualifiers: Altered mental status type: disorientation Qualified Code(s): R41.0 - Disorientation, unspecified Code(s): R41.82 - Altered mental status, unspecified Status: Inactive Assessment and Plan: Patient presents with AMS. In ED, patient was somnolent and hypoxic. No significant response with Narcan. CXR showing increased interstitial pattern bilateral lung zones. CT brain showing no acute findings. Suspect adverse effects from pain med. Oxycodone stopped Mental status better. Continue supportive care (2) Elevated troponin: Code(s): R77.8 - Other specified abnormalities of plasma proteins Status: Acute Assessment and Plan: Patient with elevated troponin to 0.123. BNP 4000. No chest pain but patient confused on admission. EKG reviewed and appears similar to prior EKG. The QS pattern in anterior leads was seen on 11/26/22 EKG so do not feel this was new. Echo from 11/29 showing normal LV size ans systolic function. Treated with Lasix IV once in ED and repeated the next day. Repeat CXR 12/19 better. Consider AMI vs mild CHF. Continue Lipitor and ASA. Cardiology consulted. Limited Echo ordered. losartan dose decreased due to soft BP. BP better so will repeat Lasix. Wean O2 as tolerated. (3) COPD (chronic obstructive pulmonary disease): Code(s): J44.9 - Chronic obstructive pulmonary disease, unspecified Status: Acute Assessment and Plan: No wheezing. On 2L O2 but probably could be weaned. Nebs available prn. (4) ANTHONY on CPAP: Code(s): G47.33 - Obstructive sleep apnea (adult) (pediatric); Z99.89 - Dependence on other enabling machines and devices Status: Acute Assessment and Plan: Stable. ABG 7.36/47/89 3L on admission. Order CPAP at nighttime. (5) Closed fracture of right distal radius and ulna: Qualifiers: Encounter type: initial encounter Qualified Code(s): S52.501A - Unspecified fracture of the lower end of right radius, initial encounter for closed fracture; S52.601A - Unspecified fracture of lower end of right ulna, initial encounter for closed fracture Code(s): S52.501A - Unspecified fracture of the lower end of right radius, initial encounter for closed fracture; S52.601A - Unspecified fracture of lower end of right ulna, initial encounter for closed fracture Status: Acute Assessment and Plan: Patient seen in ED on 11/21 after a fall. Xray showing distal right radial and ulnar metaphyseal fracture No ortho notes in the chart. Repeat xray. Ortho consult (6) Pulmonary embolism: Qualifiers: Pulmonary embolism type: multiple subsegmental (without acute cor pulmonale) Qualified Code(s): I26.94 - Multiple subsegmental pulmonary emboli without acute cor pulmonale Code(s): I26.99 - Other pulmonary embolism without acute cor pulmonale Status: Acute Assessment and Plan: Hx of PE recently. CTA chest 11/26 showing acute PE JANNET and RML. Doppler 11/27 negative for DVT bilateral LE. Continue Eliquis. Subjective Date/time seen: 12/20/22 10:57 Interval history: 87yo female with recent right wrist fx, DM, HTN, and COPD here for altered mental status. She was just discharged back to the senior care on 12/16/22 Feels well. No CP or SOB. No n/v. Exam Narrative: AF 97.8 116/50 73 20 99% 2L Gen - NARD Chest - bibasilar inspiratory crackles. nml RR CV - RRR S1/S2. Tele showing no alarms. Abd - Soft, NT/ND, Positive BS - Soto secured draining clear yellow urine. Ext - No pedal edema. Right UE in soft cast. Neuro - Alert and appropriate Psych - Nml mood and affect Skin - Warm and dry. left lateral foot at 5th toe amp wound healing well. linear shallow wound along the upper buttock crease Objective Data Vital Signs Vital Signs: Vital Signs - 24 hr 12/19/22 1
--- NOTE | 2022-12-20 11:01 | PM.CNCAR ---
Assessment and Plan Assessment and plan (1) Elevated troponin: Code(s): R77.8 - Other specified abnormalities of plasma proteins Status: Acute Assessment and Plan: Troponins are likely related to CHF. No evidence of acute plaque rupture. (2) CHF (congestive heart failure): Code(s): I50.9 - Heart failure, unspecified Status: Acute Assessment and Plan: Probably diastolic in etiology. 2D echocardiogram Doppler is ordered and will be reviewed. Will give a dose of furosemide 20 mg IV x1. Will add low-dose metoprolol 12.5 mg p.o. b.i.d. and transition to long-acting Toprol before discharge. Further workup and recommendation depending on the above results. Patient is not interested in invasive workup. (3) Pulmonary embolism: Qualifiers: Pulmonary embolism type: multiple subsegmental (without acute cor pulmonale) Qualified Code(s): I26.94 - Multiple subsegmental pulmonary emboli without acute cor pulmonale Code(s): I26.99 - Other pulmonary embolism without acute cor pulmonale Status: Acute Assessment and Plan: On anticoagulation (4) Chronic anticoagulation: Code(s): Z79.01 - group home (current) use of anticoagulants Status: Chronic Assessment and Plan: Continue Eliquis History of Present Illness History of Present Illness Consult date/time: 12/20/22 11:01 Requesting physician: Jarrod Farmer MD Consult reason: Other (Elevated troponin) Reason For Visit: CHF Narrative: Reason for consultation: Elevated troponin Date of service 12/20/2022 Requesting provider: Dr. Farmer History patient is an 87-year-old was no known coronary history or cardiac history that she is aware of. She came to hospital for altered status. She was found have a low O2 level. She had no chest pain. She has been short of breath at times recently while in bed. She has no syncope, presyncope, paroxysmal nocturnal dyspnea, orthopnea, edema palpitations. BMP was elevated around 4000 troponins were slightly elevated at 0.1. She does have pulmonary emboli and is on chronic anticoagulation. She is currently more awake alert at present. Review of Systems Review of Systems: All systems reviewed & are unremarkable except as noted in HPI and below Constitutional: Constitutional: Denies body ache(s) Eyes: Eyes: Denies blurry vision ENT: Reports Normal hearing present Cardiovascular: Cardiovascular: Denies chest pain Respiratory: Respiratory: Reports dyspnea Gastrointestinal: Gastrointestinal: Denies abdominal pain Genitourinary: Genitourinary: Denies hematuria Musculoskeletal: Musculoskeletal: Denies myalgias Integumentary/Breasts: Skin/Breast: Denies dry skin Neurologic: Denies Abnormal speech present Psychiatric: Psychiatric: Denies anxiety Endocrine: Endocrine: Denies excessive sweating Hematologic/Lymphatic: Hematologic/Lymphatic: Denies easy bleeding Allergic/Immunologic: Allergic/Immunologic: Denies GI upset with certain foods PMFSH Past Medical History Medical History Acute on chronic anemia Anxiety Arthritis Chronic anticoagulation Chronic obstructive pulmonary disease, unspecified Closed fracture of right distal radius and ulna Depression Diet-controlled type 2 diabetes mellitus Fall Gastroesophageal reflux disease Hyperlipidemia Hypertension Multifocal atrial tachycardia Occult blood in stools Peripheral arterial disease Rhabdomyolysis Seasonal affective disorder Stress incontinence Tobacco abuse Vitamin D deficiency Weakness Surgical History Surgical History History of appendectomy History of cataract surgery History of colonoscopy with polypectomy History of hemorrhoidectomy History of hysterectomy Family History Family History Mother Diabetes sara
[2022-12-20] MEDS: ASPIRIN 81 MG CHEWABLE TABLET PO (12:07)
[2022-12-20] MEDS: FUROSEMIDE INJ 40 MG/4 ML VIAL 20 MG IV PUSH (12:23)
[2022-12-20] MEDS: DICLOFENAC SODIUM 1% 100 GM GEL (*BKC) 1 APPLIC TOPICAL ×2 (12:24→16:35)
--- NOTE | 2022-12-20 15:11 | PC.NURSE ---
Nursing assessment and care provided by Parul Pedro/student nurse/[facility]. Medications passed under direct supervision. Agree with assessments. Student will continue purposeful rounding and report to assigned nurse at end of clinical day.
--- NOTE | 2022-12-20 16:04 | PC.NURSE ---
On 12/20/22, the student, solomon cates RN LP provided care and completed [employer] documentation on this patient. I have reviewed the student's documentation and agree with the findings.
[2022-12-20] MEDS: METOPROLOL TARTRATE 12.5 MG TABLET PO (21:05)
[2022-12-20] MEDS: MELATONIN 3 MG TABLET PO (21:06)
[2022-12-21] VITALS: PULSE 76
--- NOTE | 2022-12-21 03:25 | PCRCNOTE ---
Patient refused use of cpap. Pt stated her doctor ordered her to wear one years ago and it lasted 2 days. She is not interested in trying again.
[2022-12-21 04:47] VITALS: BP 116/51; PULSE 76; RESP 18; TEMP 36.4; O2SAT 92
[2022-12-21 05:35] LABS: Blood Urea Nitrogen 9 mg/dL (7-17); Calcium 8.4 mg/dL (8.4-10.2); Carbon Dioxide > 40 mmol/L (22-30); Chloride 95 mmol/L (98-107); Estimated Glomerular Filt Rate > 60; Glucose 103 mg/dL (65-110); Potassium 3.7 mmol/L (3.4-5.0); Sodium 136 mmol/L (137-145)
[2022-12-21 08:51] VITALS: O2SAT 94
[2022-12-21 09:02] VITALS: O2SAT 93
[2022-12-21 09:19] VITALS: PULSE 88
[2022-12-21] MEDS: POTASSIUM CHLORIDE 20 MEQ PACKET (FOR LIQUID) PO ×2 (09:19→17:17)
[2022-12-21] MEDS: METOPROLOL TARTRATE 12.5 MG TABLET PO (09:19)
[2022-12-21] MEDS: guaiFENesin 12 HR 600 MG TABCR PO (09:20)
[2022-12-21] MEDS: FERROUS SULFATE 325 MG TABLET DR PO ×2 (09:20→17:17)
[2022-12-21] MEDS: APIXABAN 5 MG TABLET PO (09:20)
[2022-12-21] MEDS: ATORVASTATIN 40 MG TABLET PO (09:20)
[2022-12-21] MEDS: ASPIRIN 81 MG CHEWABLE TABLET PO (09:20)
[2022-12-21] MEDS: SENNOSIDES 8.6 MG TABLET PO (09:21)
[2022-12-21] MEDS: PANTOPRAZOLE 40 MG TABLET PO (09:21)
[2022-12-21] MEDS: LOSARTAN POTASSIUM 25 MG TABLET PO (09:21)
--- NOTE | 2022-12-21 09:35 | PM.PNCARD ---
Progress Note: A&P Assessment and Plan (1) Elevated troponin: Code(s): R77.8 - Other specified abnormalities of plasma proteins Status: Acute Assessment and Plan: Troponins are likely related to CHF. No evidence of acute plaque rupture. (2) CHF (congestive heart failure): Code(s): I50.9 - Heart failure, unspecified Status: Acute Assessment and Plan: Probably diastolic in etiology. Echo showed normal LVSF, normal wall motion. Will give a dose of furosemide 20 mg IV x1 again today Will add low-dose metoprolol 12.5 mg p.o. b.i.d. and transition to long-acting Toprol before discharge. No indication for any further cardiac workup at this time. 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 No specific complaints. She denies chest pain, palpitations. Denies shortness of breath. Review of Systems Review of Systems: All systems reviewed & are unremarkable except as noted in HPI and below Constitutional: Constitutional: Denies body ache(s) and Denies excessive sweating Eyes: Eyes: Denies blurry vision ENT: Reports Normal hearing present Cardiovascular: Cardiovascular: Denies chest pain and Reports dyspnea Respiratory: Respiratory: Reports dyspnea Gastrointestinal: Gastrointestinal: Denies abdominal pain Genitourinary: Genitourinary: Denies hematuria Musculoskeletal: Musculoskeletal: Denies myalgias Integumentary/Breasts: Skin/Breast: Denies dry skin Neurologic: Reports Normal hearing present and Denies Abnormal speech present Psychiatric: Psychiatric: Denies anxiety Endocrine: Endocrine: Denies excessive sweating Hematologic/Lymphatic: Hematologic/Lymphatic: Denies easy bleeding Allergic/Immunologic: Allergic/Immunologic: Denies GI upset with certain foods Exam Narrative: Awake alert. Appears stated age Const: General: comfortable and no acute distress HENMT: Face/Nose/Sinus: Normal nares present Mouth: Yes moist mucous membranes Eyes: General: appearance normal, both eyes and all related structures Sclera: sclerae normal Neck: Neck: supple and no JVD Carotids: no bruits Chest: Other: No reproducible chest wall pain to palpation Resp: Effort & Inspection: normal respiratory effort Auscultation: not clear to auscultation bilaterally and rales (base) on the right Cardio: Rate: regular rate Rhythm: regular rhythm GI: Inspection: non-distended Auscultation: normal bowel sounds Skin: General skin exam: normal color Neuro: Cranial nerves: Yes Normal hearing present Speech: normal speech and No Abnormal speech present Sensory Exam: normal sensation Extrem: General: no edema Other: R forearm in splint/cast Psych: Mental Status: mental status grossly normal Objective Data Vital Signs Vital Signs: Vital Signs - 24 hr 12/20/22 12:02 12/20/22 16:00 12/20/22 20:50 Temperature 36.5 C Pulse Rate 88 88 80 Respiratory Rate 17 Blood Pressure 106/52 L Pulse Oximetry 95 Oxygen Delivery Oxygen Flow Rate 12/20/22 21:05 12/20/22 20:00 12/20/22 20:00 Temperature Pulse Rate 77 79 77 Respiratory Rate 17 Blood Pressure Pulse Oximetry 95 Oxygen Delivery Nasal Cannula Oxygen Flow Rate 2 12/21/22 00:00 12/20/22 21:30 12/21/22 04:47 Temperature 36.4 C Pulse Rate 76 76
--- NOTE | 2022-12-21 09:57 | PM.CNOR ---
Assessment and Plan Assessment and plan (1) Closed fracture of right distal radius: Qualifiers: Encounter type: initial encounter Fracture morphology: Colles' Qualified Code(s): S52.531A - Colles' fracture of right radius, initial encounter for closed fracture Code(s): S52.501A - Unspecified fracture of the lower end of right radius, initial encounter for closed fracture Status: Acute Assessment and Plan: New patient evaluation status post injury right wrist. The history, physical exam and radiographs reviewed with the patient. Type of fracture discussed in detail. comminuted fracture distal radius. Treatment options including operative and non operative treatment reviewed. Risks, benefits and alternatives of each treatment discussed in detail. The patient has declined surgical treatment. Risks of treatment decision discussed in detail. Potential problems with displacement of the fracture, loss of alignment, nonunion, malunion and dysfunction discussed in detail. The patient's questions were answered. They verbalized understanding and agreement. Conservative treatment with immobilization, ice, compression and elevation. Will transition from her plaster splint to a Velcro fracture splint. Discussed healing time of a total approximately 8 weeks. Will start appropriate therapy during that time. History of Present Illness HPI Consult date: 12/21/22 Requesting physician: Jarrod Farmer MD Consult reason: fracture ( Right wrist) Chief complaint: CHF Narrative: 87-year-old woman who has had several admissions in the past month recently admitted for mental status changes. Has a splint on the right arm. Patient is poor historian. Per 1 of the caregivers report, she fell approximately 4 weeks ago. Noted to have wrist fracture and placed in a splint. She has not had any follow-up for this. I have been asked to see her. She states that she has more problems with the splint than her actual wrist. She is [id number]. Denies numbness or tingling. Review of Systems Constitutional: Constitutional: Denies fever(s) Eyes: Eyes: Denies blurry vision ENT: Reports Normal hearing present Cardiovascular: Cardiovascular: Denies chest pain and Denies dyspnea Respiratory: Respiratory: Denies dyspnea and Denies wheezing Gastrointestinal: Gastrointestinal: Denies abdominal pain Genitourinary: Genitourinary: Denies urinary urgency Musculoskeletal: Musculoskeletal: Reports as per HPI and Denies numbness Integumentary/Breasts: Skin/Breast: Denies changing lesions and Denies sores Neurologic: Reports Normal hearing present, Denies behavioral changes, Denies confusion, Denies numbness and Denies convulsions Psychiatric: Psychiatric: Denies behavioral changes, Denies confusion and Denies hallucinations Endocrine: Endocrine: Denies heat intolerance Hematologic/Lymphatic: Hematologic/Lymphatic: Denies easy bleeding Allergic/Immunologic: Allergic/Immunologic: Denies wheezing [facility] Past Medical History Medical History (Updated 12/21/22 @ 09:59 by Kane Muir MD) Acute on chronic anemia Anxiety Arthritis Chronic anticoagulation Chronic obstructive pulmonary disease, unspecified Closed fracture of right distal radius Closed fracture of right distal radius and ulna Depression Diet-controlled type 2 diabetes mellitus Fall Gastroesophageal reflux disease Hyperlipidemia Hypertension Multifocal atrial tachycardia Occult blood in stools Peripheral arterial disease Rhabdomyolysis Seasonal affective disorder Stress incontinence Tobacco abuse Vitamin D deficiency Weakness Surgical History Surgical History History of appendectomy History of cataract surgery History of colonoscopy with polypectomy History of hemorrhoidectomy History of hysterectomy Family History Family History (Reviewed 12/21/22 @ 09:58 by Kane Muir,
[2022-12-21 14:00] VITALS: BP 109/45; PULSE 90; RESP 16; TEMP 36.4; O2SAT 90
[2022-12-21] MEDS: SILVERGEL (ELTA) 45 ML 1 APPLIC TOPICAL (14:15)
--- NOTE | 2022-12-21 17:18 | PM.DS ---
DS: Admitting Diagnosis Discharge Date 12/21/22 Admitting Diagnosis Altered mental status DS: Discharge Diagnosis Discharge Diagnosis (1) Altered mental status, unspecified: Qualifiers: Altered mental status type: disorientation Qualified Code(s): R41.0 - Disorientation, unspecified Code(s): R41.82 - Altered mental status, unspecified Status: Inactive (2) CHF (congestive heart failure): Code(s): I50.9 - Heart failure, unspecified Status: Acute (3) Elevated troponin: Code(s): R77.8 - Other specified abnormalities of plasma proteins Status: Acute (4) COPD (chronic obstructive pulmonary disease): Code(s): J44.9 - Chronic obstructive pulmonary disease, unspecified Status: Acute (5) ANTHONY on CPAP: Code(s): G47.33 - Obstructive sleep apnea (adult) (pediatric); Z99.89 - Dependence on other enabling machines and devices Status: Acute (6) Closed fracture of right distal radius and ulna: Qualifiers: Encounter type: initial encounter Qualified Code(s): S52.501A - Unspecified fracture of the lower end of right radius, initial encounter for closed fracture; S52.601A - Unspecified fracture of lower end of right ulna, initial encounter for closed fracture Code(s): S52.501A - Unspecified fracture of the lower end of right radius, initial encounter for closed fracture; S52.601A - Unspecified fracture of lower end of right ulna, initial encounter for closed fracture Status: Acute (7) Pulmonary embolism: Qualifiers: Pulmonary embolism type: multiple subsegmental (without acute cor pulmonale) Qualified Code(s): I26.94 - Multiple subsegmental pulmonary emboli without acute cor pulmonale Code(s): I26.99 - Other pulmonary embolism without acute cor pulmonale Status: Acute DS: Summary Hospital Course Reason for hospitalization: 87yo female with recent right wrist fx, DM, HTN, and COPD here for altered mental status. She was just discharged back to the snf on 12/16/22. Please see H&P for details. Hospital Course: Patient presents with AMS. In ED, patient was somnolent and hypoxic. No significant response with Narcan. CXR showing increased interstitial pattern bilateral lung zones. CT brain showing no acute findings. Suspect adverse effects from pain med. Oxycodone was stopped. Mental status improved. Patient with elevated troponin to 0.123. BNP 4000.? No chest pain but patient was confused on admission. EKG reviewed and appears similar to prior EKG. The QS pattern in anterior leads was seen on 11/26/22 EKG so do not feel this was new. Echo from 11/29 showing normal LV size ans systolic function. Repeat Limited Echo showed no change. She was treated with Lasix IV once in ED and repeated the next day.? Repeat CXR better. Hunter that her elevated troponin related to acute diastolic CHF exacerbation. Cardiology consulted. Losartan dose decreased due to soft BP and Metoprolol added. Patient has known closed fracture of right wrist. Patient seen in ED on 11/21 after a fall. Xray showing distal right radial and ulnar metaphyseal fracture. No ortho notes in the chart. Repeat xray showing inchanged minimal dorsal displacement and 15 degrees dorsal angulation of the distal metaphyseal fractures of the right radius without definitive productive changes of healing. Ortho consulted. Options discussed and she declined surgical treatment. She was changed to a Velcro fracture splint. She overall did well and was able to be discharged on 12/21/22. Status at Discharge Cognitive/behavioral status at discharge: stable Time Spent with Patient Time attestation: Total time spent providing and/or coordinating discharge services: 32 minutes Time spent: Greater than 30 minutes Exam Narrative: AF 97.5 109/45 90 16 90% RA Gen - NARD Chest - few bibasilar inspiratory crackles o/w distant BS. nml RR CV - RRR S1/S2 Abd - Soft, NT/ND, Pos
[2022-12-21 18:01] LABS: SARS-CoV-2 RNA PCR Negative (Negative)
--- NOTE | 2022-12-21 18:45 | PC.NURSE ---
On 12/21/22, the licence pending RN, Natasha Hayes, provided care and completed [facility] documentation on this patient. I have reviewed the documentation and agree with the findings.
== END 2022-12-21 18:55 ==
LOC: ANHED 22:52 → ANHIMU 12-18 02:36 → ANH2MED 12-20 13:40 → ANHIMU 12-22 08:33
PROVIDERS: Chiropractor; Admitting Provider Internal Medicine; Emergency Provider Emergency Medicine; PCP Family Medicine; Visit Provider Internal Medicine
DX: R41.0 Disorientation, unspecified (principal); I11.0 Hypertensive heart disease with heart failure; I50.9 Heart failure, unspecified; R77.8 Other specified abnormalities of plasma proteins; J44.9 Chronic obstructive pulmonary disease, unspecified; G47.33 Obstructive sleep apnea (adult) (pediatric); S52.531A Colles' fracture of right radius, initial encounter for closed fracture; S52.601A Unspecified fracture of lower end of right ulna, initial encounter for closed fracture; I26.94 Multiple subsegmental thrombotic pulmonary emboli without acute cor pulmonale; Z20.822 Contact with and (suspected) exposure to COVID-19; K59.00 Constipation, unspecified; D64.9 Anemia, unspecified; E11.51 Type 2 diabetes mellitus with diabetic peripheral angiopathy without gangrene; K44.9 Diaphragmatic hernia without obstruction or gangrene; I49.1 Atrial premature depolarization; J81.1 Chronic pulmonary edema; M85.80 Other specified disorders of bone density and structure, unspecified site; N39.3 Stress incontinence (female) (male); K21.9 Gastro-esophageal reflux disease without esophagitis; M62.82 Rhabdomyolysis; R79.89 Other specified abnormal findings of blood chemistry; Z87.891 Personal history of nicotine dependence; Z66 Do not resuscitate; Z79.1 Long term (current) use of non-steroidal anti-inflammatories (NSAID); Z79.01 Long term (current) use of anticoagulants; Z79.891 Long term (current) use of opiate analgesic; Z79.52 Long term (current) use of systemic steroids; Z79.899 Other long term (current) drug therapy
CPT/HCPCS: 36415; 36569; 36600; 70450; 71045; 73110; 80048; 80053; 80069; 82375; 82805; 82948; 83050; 83605; 83735; 83880; 84484; 85025; 85027; 85610; 85730; 87635; 87637; 93005; 93308; 94640; 96374; 96375; 96376; 97110; 97161; 97165; 97530; 97535; 99285; A9270; G0378; J1940; J2310; J2997; J7030

== ENCOUNTER 2024-04-13 13:52 | Emergency (ER) | payer MEDICARE, SELFPAY ==
--- NOTE | ~2024-04-13 | XR_ITS ---
EXAMINATION: XR chest 2V, XR abdomen obstructive series DATE: 04/13/2024 15:43 INDICATION: Upper back pain. Chronic abdominal pain. TECHNIQUE: 1. AP and lateral views of the chest were obtained. 2. Supine AP and upright views of the abdomen and pelvis were obtained COMPARISON: Chest radiograph dated 12/19/[address] dated 12/06/2022 FINDINGS: Chest: The lungs are clear with no focal airspace opacities, pulmonary edema, pleural effusion or pneumothor ax. Heart size is normal. Air-fluid level within a large hiatal hernia posterior to the heart and the posterior medial aspect of the right lower lung zone. Severe thoracic spondylosis. Abdomen and pelvis: No free intraperitoneal gas. Moderate amount of gas and stool scattered throughout the colon. No dila daniela loops of gas-filled bowel to suggest obstruction. Several splenic calcifications consistent with old granulomatous disease. Severe lumbar spondylosis. Likely rectal tube projecting over the pubic sy mphysis. IMPRESSION: 1. No acute cardiopulmonary disease. 2. No free intraperitoneal gas or dilated bowel to suggest obstruction. 3. Large hiatal hernia. Reviewed, dictated and finalized at location A. [employer]ING IMPRESSION: 1. No acute cardiopulmonary disease. 2. No free intraperitoneal gas or dilated bowel to suggest obstruction. 3. Large hiatal hernia.
[2024-04-13 13:51] VITALS: BP 131/70; PULSE 79; RESP 16; TEMP 37; O2SAT 100
[2024-04-13 14:47] LABS: Influenza A QL RT-PCR Negative (Negative); Influenza B QL RT-PCR Negative (Negative); RSV RNA, RT-PCR Negative (Negative); SARS-CoV-2 RNA PCR Negative (Negative)
--- NOTE | 2024-04-13 15:05 | ED_ITS ---
HPI - General Adult General Chief complaint: Upper Respiratory Infection Stated complaint: cough History of Present Illness HPI narrative: 88-year-old female present to the emergency department for evaluation for multiple complaints. Patient reports earlier that day she was having back pain, the back pain was in the upper back and lasted for an hour. Patient states it felt like gas pain. Patient states she has since passed gas. Patient states she has had some minor stomach discomfort as well which is similar to her previous chronic abdominal pain. Patient denies any chest pain or shortness of breath. Patient denies any current back pain. Patient does complain of some mild abdominal pain but denies any nausea vomiting diarrhea or constipation. Related Data Home Medications ?Medication ?Instructions ?Recorded ?Confirmed ?Last Taken ?Type [id number] acid 0.4 1 tablet PO 3XW 09/11/20 02/02/23 06/15/21 History mg-lycopene 300 mcg-lutein 250 mcg tablet (Centrum Silver) atorvastatin 40 mg tablet 40 mg PO DAILY 10/16/22 02/02/23 Unknown History acetaminophen 325 mg tablet 650 mg PO Q6H PRN pain or fever 12/18/22 02/02/23 Unknown History (Tylenol) ipratropium 0.5 mg-albuterol 3 mg 3 ml inhalation Q6H PRN SOB 12/18/22 02/02/23 Unknown History (2.5 mg base)/3 mL nebulization soln pantoprazole 40 mg tablet,delayed 40 mg PO BID 12/18/22 02/02/23 Unknown History release polyethylene glycol 3350 17 gram 17 g PO QAM Constipation 12/18/22 02/02/23 Unknown History oral powder packet (Miralax) sennosides 8.6 mg tablet (Senna 8.6 mg PO BID 12/18/22 02/02/23 Unknown History Lax) Allergies Allergy/AdvReac Type Severity Reaction Status Date / Time No Known Allergies Allergy Verified 01/25/23 10:09 Review of Systems Review of Systems: All systems reviewed & are unremarkable except as noted in HPI and below PMFSH Past Medical History Medical History Acute on chronic anemia Anxiety Arthritis Chronic anticoagulation Chronic obstructive pulmonary disease, unspecified Closed fracture of right distal radius Closed fracture of right distal radius and ulna Depression Diet-controlled type 2 diabetes mellitus Fall Gastroesophageal reflux disease Hyperlipidemia Hypertension Multifocal atrial tachycardia Occult blood in stools Peripheral arterial disease Rhabdomyolysis Seasonal affective disorder Stress incontinence Tobacco abuse Vitamin D deficiency Weakness Surgical History Surgical History History of appendectomy History of cataract surgery History of colonoscopy with polypectomy History of hemorrhoidectomy History of hysterectomy Family History Family History Mother Diabetes mellitus Family history of malignant neoplasm Family history of diabetes mellitus in first degree relative Patient's mother is Father Malignant neoplasm of prostate Social History Social History Social History: The patient has help at home now. She has 247 care. He is a former smoker. She is x3 and has 1 son. 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 Smoking packs per day: 2 Smoking cigarettes per day: 40.0 Years smoked: 60 Smoking pack-years: 120.00 Smoking status: Former smoker Tobacco type: cigarettes Second hand tobacco smoke exposure: No Additional smoking assessment comments: pt currently smokes 2-3 cigarettes per day Alcohol intake: former Substance use: never Substance use type: does not use Last use: >40 years Lack of Transportation: No Lack of Food: Never True Current Housing: I Have Housing Concerned About Future Housing: No Difficulty Paying Gas/Electric Bills: No Difficulty Paying for Meds: No Currently Unemployed: No Education: Master's Degree or Higher Difficulty w/ Childcare or Family Care: No Living arrangements: alone Additional living arrangements comments: Lives in own home in [place]. x3. Has 1 son. 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 Spiritual care concerns: No Agree to blood products: Yes Exam Narrative: APPEARANCE: Well appearing, no pain, no distress, well-nourished. HEAD: normocephalic, atraumatic. EYES: PERRLA/EOMI, conjunctivae clear. NOSE: Normal no drainage EARS:TMS clear with good light reflex. THROAT: Pharynx clear, no exudate. NECK: Supple. No adenopathy, no masses. RESPIRATORY: Airway patent, respirations nonlabored. Clear to auscultation bilaterally, no rales, rhonchi, wheezing. CARDIOVASCULAR: Regular rate and rhythm without murmurs rubs or gallops. ABDOMINAL: Soft, nontender, nondistended, normal bowel sounds MUSCULOSKELETAL: Moves all extremities. Strength/ROM intact, No edema, No calf tenderness. NEURO: Alert. Cranial nerves II through XII intact. Grossly intact SKIN: Warm, dry. Normal Color Course Vital Signs Vital signs: Vital Signs Temperature 98.6 F 04/13/24 13:51 Pulse Rate 79 04/13/24 13:51 Respiratory Rate 16 04/13/24 13:51 Blood Pressure 131/70 04/13/24 13:51 Pulse Oximetry 100 04/13/24 13:51 Temperature 97.8 F 04/13/24 18:00 Pulse Rate 69 04/13/24 18:00 Respiratory Rate 16 04/13/24 18:00 Blood Pressure 135/59 L 04/13/24 18:00 Pulse Oximetry 100 04/13/24 18:04 Oxygen Delivery Room Air 04/13/24 18:04 Medical Decision Making MDM Narrative Medical decision making narrative: 88-year-old female presenting to the emergency department for evaluation for resolved back pain. Patient denies any associated chest pain. Patient reports abdomen feels improved. She urine was negative for infection. Chest x-ray shows no acute cardiopulmonary abnormality abdominal x-ray shows no evidence of obstruction. Vital Signs Vital Signs: Vital Signs Temperature 98.6 F 04/13/24 13:51 Pulse Rate 79 04/13/24 13:51 Respiratory Rate 16 04/13/24 13:51 Blood Pressure 131/70 04/13/24 13:51 Pulse Oximetry 100 04/13/24 13:51 Temperature 97.8 F 04/13/24 18:00 Pulse Rate 69 04/13/24 18:00 Respiratory Rate 16 04/13/24 18:00 Blood Pressure 135/59 L 04/13/24 18:00 Pulse Oximetry 100 04/13/24 18:04 Oxygen Delivery Room Air 04/13/24 18:04 Lab Data Labs: Lab Results 04/13/24 04/13/24 Range/Units 14:03 15:16 Urine Color Yellow (Yellow) Urine Appearance Clear (Clear) Urine pH 5.0 (5.0-9.0) Ur Specific [place] 1.011 (1.001-1.035) Urine Protein Negative (Negative) mg/dL Urine Glucose (UA) Negative (Negative) mg/dL Urine Ketones Negative (Negative) mg/dL Ur Blood (Man) Negative (Negative) Urine Nitrate Negative (Negative) Urine Bilirubin Negative (Negative) Urine Urobilinogen 0.2 (<2.0) mg/dL Leukocyte Esterase Rfl Negative (Negative) CYDNEY/UL Influenza A (RT-PCR) Negative (Negative) Influenza B (RT-PCR) Negative (Negative) RSV (RT-PCR) Negative (Negative) SARS-CoV-2 RNA (RT-PCR) Negative (Negative) Discharge Plan Discharge Clinical Impression: Back pain Patient Disposition: NH Skilled Nursing/Asst Living Condition: Stable Instructions: Antibiotic Form Additional Instructions: Have close follow-up with your primary care physician. If you have any worsening symptoms please call or return to the emergency department. Patient Language: [place] Prescriptions: No Action Centrum Silver 0.4-300-250 mg-mcg-mcg tablet 1 tablet PO 3XW Rx Instructions: Takes on Mondays, Wednesdays, and Fridays. potassium chloride 20 mEq Packet 20 meq PO BID Qty: 60 0RF ferrous sulfate 325 mg (65 mg iron) Tablet,Delayed Release (Dr/Ec) 325 mg PO BID Qty: 30 0RF atorvastatin 40 mg Tablet 40 mg PO DAILY melatonin 3 mg Tablet 3 mg PO HS Qty: 30 0RF acetaminophen [Tylenol] 325 mg Tablet 650 mg PO Q6H PRN (Reason: pain or fever) ipratropium-albuterol 0.5 mg-3 mg(2.5 mg base)/3 mL Solution For Nebulization 3 ml INHALATION Q6H PRN (Reason: SOB) sennosides [Senna Lax] 8.6 mg Tablet 8.6 mg PO BID polyethylene glycol 3350 [Miralax] 17 gram powder in packet 17 g PO QAM pantoprazole 40 mg tablet,delayed release (DR/EC) 40 mg PO BID aspirin [Children's Aspirin] 81 mg Tablet,Chewable 81 mg PO DAILY@0800 Qty: 30 0RF metoprolol succinate 25 mg capsule,sprinkle,ER 24hr 25 mg PO DAILY Qty: 30 0RF Silver-Sept 200 mcg/gram Gel 1 applic topical DAILY Qty: 45 0RF Rx Instructions: apply to affected area until clear. losartan [Cozaar] 50 mg tablet 25 mg PO DAILY Qty: 30 1RF Eliquis 5 mg tablet 5 mg PO Q12H Qty: 1 0RF furosemide 20 mg tablet 20 mg PO DAILY PRN (Reason: weight gain) Qty: 30 0RF cholecalciferol (vitamin D3) 1,250 mcg (50,000 unit) capsule 1,250 mcg PO WEEKLY Qty: 14 1RF Rx Instructions: Takes on Sundays Follow-up/Referrals: Lambert Rodriguez MD [Primary Care Provider] -
[2024-04-13 15:22] LABS: Add Urine Microscopic? NO; Appearance Urine Clear (Clear); Bilirubin Urine Negative (Negative); Blood Urine Negative (Negative); Color Urine Yellow (Yellow); Glucose Urine UA Negative (Negative); Ketones Urine Negative (Negative); Leukocyte Esterase Ur Negative LEU/UL (Negative); Nitrate Urine Negative (Negative); Protein Urine Negative (Negative); Specific Grav Ur 1.011 (1.001-1.035); Urobilinogen Urine 0.2 mg/dL (<2.0)
[2024-04-13 18:00] VITALS: BP 135/59; PULSE 69; RESP 16; TEMP 36.6; O2SAT 100
[2024-04-13 18:04] VITALS: O2SAT 100
== END 2024-04-13 18:04 ==
PROVIDERS: Emergency Provider Emergency Medicine; PCP Family Medicine
DX: M54.6 Pain in thoracic spine (principal); J44.9 Chronic obstructive pulmonary disease, unspecified; I10 Essential (primary) hypertension; E11.51 Type 2 diabetes mellitus with diabetic peripheral angiopathy without gangrene; I73.9 Peripheral vascular disease, unspecified; E78.5 Hyperlipidemia, unspecified; E55.9 Vitamin D deficiency, unspecified; D64.9 Anemia, unspecified; M19.90 Unspecified osteoarthritis, unspecified site; K21.9 Gastro-esophageal reflux disease without esophagitis; Z86.0100 Personal history of colon polyps, unspecified; Z98.49 Cataract extraction status, unspecified eye; Z90.710 Acquired absence of both cervix and uterus
CPT/HCPCS: 71046; 74019; 81003; 87637; 99283; 99284; 99285